=== PATIENT | male | born 1940 | race Caucasian/White ===

== ENCOUNTER 2016-09-29 17:28 | Inpatient (IN) ==
[2016-09-29] MEDS ORDERED: IPRATROPIUM/ALBUTEROL 3 ML AMPUL.NEB NEB ONE ×2 (17:59→18:10)
--- NOTE | 2016-09-29 18:14 | XRay Report ---
CLINICAL INFORMATION: Cough and hypoxia COMPARISON: 11/09/2015 FINDINGS: The heart is mildly enlarged but unchanged. Tortuous thoracic aorta again noted. Sternotomy changes noted. There is stranding airspace disease in the left base which is increased likely atelectasis rather than infiltrate. IMPRESSION: Moderate atelectasis or less likely developing infiltrate posterior left lower lobe Interpreted and Authenticated by: Zac Lehman 09/29/16
[2016-09-29 19:07] LABS: Mean Cell Volume 101.2 fL (80.0-100.0); Mean Corpuscular HGB Conc 32.9 g/dL (31.0-36.0); Mean Corpuscular Hemoglobin 33.3 pg (26.0-34.0); Platelet Count 169 K/mcL (140-440); RBC 4.92 M/mcL (4.50-5.90); Red Cell Distribution Width 13.7 % (11.5-14.5)
--- NOTE | 2016-09-29 19:11 | Emergency Department Note ---
[id number] 4d Cough Time Seen by Provider: 09/29/16 17:49 Source: patient Mode of arrival: ambulatory Limitations: no limitations - History of Present Illness HPI Narrative: 76-year-old male with a history of achiness and weakness and cough. Having some slight shortness of breath. His pulse ox is running at 89% on room air. He first arrived in triage. Patient is afebrile. He was seen 2 days ago, put on amoxicillin for bronchitis but continues to feel weak. Cough is dry. He has smoked fairly heavily in the past one and half packs of cigarettes a day, quit approximately 30 years ago. - Related Data Home Medications Medication Instructions Recorded Confirmed carvedilol 12.5 mg tablet 12.5 mg PO BID 06/30/15 09/29/16 rosuvastatin 20 mg tablet 20 mg PO HS 06/30/15 09/29/16 spironolactone 25 mg tablet 25 mg PO QDAY 06/30/15 09/29/16 Calcium Carbonate/Vitamin D3 1,200 mg PO DAILY 12/02/15 09/29/16 [Calcium 600 + Vit D 400 Tablet] Cholecalciferol (Vitamin D3) [D3 2,000 unit PO DAILY 12/02/15 09/29/16 Dots] Niacin [Niacor] 500 mg PO BID 12/02/15 09/29/16 Ubidecarenone [Coq-10] 300 mg PO Q48H 12/02/15 09/29/16 Tocilizumab [Actemra] 162 mg SQ WEEKLY 08/03/16 09/29/16 prednisone 10 mg tablet 5 mg PO QDAY tab 09/12/16 09/29/16 traMADol [Ultram] 100 mg PO BID 09/29/16 09/29/16 Warfarin [Coumadin] 5 mg PO THFR@1400 09/30/16 09/30/16 Warfarin [Coumadin] 6 mg PO SUMOTUWESA@1400 09/30/16 09/30/16 Previous Rx's Medication Instructions Recorded tiotropium bromide 18 mcg capsule 18 mcg INHALATION QDAY #60 puff 02/05/16 with inhalation device furosemide 40 mg tablet 40 mg PO QDAY #90 tab 02/17/16 buspirone 15 mg tablet 15 mg PO QDAY 90 Days 08/18/16 zolpidem 10 mg tablet 10 mg PO QHS PRN 30 Days 08/18/16 amitriptyline 75 mg tablet 225 mg PO QHS 30 Days 08/24/16 hydrocodone 10 mg-acetaminophen 1 tab PO .Q4-6H PRN #150 tab 09/12/16 325 mg tablet Allergies Allergy/AdvReac Type Severity Reaction Status Date / Time codeine Allergy Unknown Nausea Verified 09/29/16 17:30 Sulfa (Sulfonamide Allergy Unknown Rash Verified 09/29/16 17:30 Antibiotics) Review of Systems All systems ED: reviewed and negative except as stated. Constitutional: Denies: fever Eyes: Denies: eye pain ENT ED: Denies: ear pain Cardiovascular: Denies: chest pain Respiratory: Reports: as per HPI, cough, wheezes. Denies: dyspnea, hemoptysis, stridor Gastrointestinal: Denies: abdominal pain, nausea, vomiting Genitourinary: Denies: urgency, dysuria Musculoskeletal: Denies: back pain Integumentary: Denies: rash Neurological: Denies: headache, weakness Psychiatric: Denies: anxiety, depression Endocrine: Denies: fatigue Hematological/Lymphatic: Denies: easy bleeding Allergic/Immunologic: Denies: facial swelling Past Medical History - Past Medical History Medical history: Reports: arthritis, COPD, coronary artery disease, DVT, hyperlipidemia, hypertension, kidney stones, osteoporosis, renal disease, TIA, other (PMR, RA) Surgical history ED: Reports: cataract, cholecystectomy, coronary bypass (CABG) , orthopedic, other (shoulder, back, wrist), vasectomy, other (ASD repair) Family history: Reports: cancer (mother colon ca 82 father copd 68) - Social History smoking status: Former smoker Drug use: Reports: none Physical Exam - General Limitations: no limitations General appearance: alert - Head Head exam: atraumatic - Eye Eye exam: Present: normal appearance, PERRL - ENT ENT exam: normal exam, normal oropharynx - Neck Neck exam: Present: normal inspection, full ROM, trachea midline - Chest Chest inspection: Present: normal inspection, symmetric chest wall rise - Respiratory Respiratory exam: Present: normal lung sounds bilaterally, wheezes - Cardiovascular Cardiovascular exam: Present: regular rate, normal rhythm. Absent: bradycardia , tachycardia - Abdominal Exam Abdominal exam: Present: soft. Absent: distention Course Vital Signs Temperature 97.1 F L 09/29/16 17:29 Pulse Rate 96 H 09/29/16 17:29 Respiratory Rate 16 09/29/16 17:29 Blood Pressure 133/80 09/29/16 17:29 Pulse Oximetry (%) 89 L 09/29/16 17:29 Temperature 99.1 F 10/02/16 07:00 Pulse Rate 94 H 10/02/16 07:00 Respiratory Rate 22 10/02/16 07:00 Blood Pressure 130/70 10/02/16 07:00 Pulse Oximetry (%) 91 10/02/16 07:00 Medical Decision Making - MDM Narrative Medical decision making narrative: Patient's sats remained normal on O2. His initial admission's sats are running at 89% increasing to 90-93% on 2 L. . Influenza test is positive. S x-ray shows possible left lower lobe pneumonia. White count is elevated at 14,000 lactic is 1.0 - Lab Data Result diagrams: 10/02/16 04:30 10/02/16 04:30 Lab Results 09/29/16 09/29/16 09/29/16 Range/Units 18:15 18:15 18:15 WBC 14.0 H (4.5-11.0) K/mcL RBC 4.92 (4.50-5.90) M/mcL Hgb 16.4 (13.5-16.5) g/dL Hct 49.7 (41.0-55.0) % MCV 101.2 H (80.0-100.0) fL MCH 33.3 (26.0-34.0) pg MCHC 32.9 (31.0-36.0) g/dL RDW 13.7 (11.5-14.5) % Plt Count 169 (140-440) K/mcL MPV 8.6 (7.4-10.4) fL Total Counted 100 Seg Neutrophils % 66 (38-78) % Band Neutrophils % Not Reportable Lymphocytes % 23 (15-49) % Monocytes % (Manual) 10 H (1-9) % Eosinophils % (Manual) 1 (0-7) % Platelet Estimate Normal (NORMAL) RBC Morphology Abnorm A (NORMAL) Macrocytosis 1+ A (NONE SEEN) VBG Lactic Acid 1.0 (0.5-2.2) mmol/L Sodium 138 (133-145) mmol/L Potassium 4.5 (3.3-5.1) mmol/L Chloride 101 (96-108) mmol/L Carbon Dioxide 25 (22-30) mmol/L Anion Gap 12.0 (8-16) BUN 34 H (8-23) mg/dl Creatinine 1.3 H (0.7-1.2) mg/dl GFR Calculation 53 Glucose 99 (70-105) mg/dL Calcium 8.9 (8.6-10.4) mg/dl Total Bilirubin 0.7 (0.0-1.0) mg/dL AST 33 (0-37) U/l ALT 29 (0-40) U/l Alkaline Phosphatase 65 (39-117) U/L Total Protein 6.7 (5.9-8.4) gm/dL Albumin 4.4 (3.2-5.2) gm/dL Globulin 2.3 (2.2-3.7) gm/dL Albumin/Globulin Ratio 1.9 (1.0-2.3) Disposition Clinical Impression: Influenza, Pneumonia, Shortness of Breath Disposition: Xfer As Inpt ([facility]) Condition: Fair
[2016-09-29] MEDS ORDERED: 0.9 % SODIUM CHLORIDE 1,000 ML IV ONE (19:15)
[2016-09-29 19:26] LABS: ALT/SGPT 29 U/l (0-40); Albumin 4.4 gm/dL (3.2-5.2); Albumin/Globulin Ratio 1.9 (1.0-2.3); Alkaline Phosphatase 65 U/L (39-117); Blood Urea Nitrogen 34 mg/dl (8-23)
[2016-09-29] MEDS ORDERED: LEVOFLOXACIN 500 MG/100 ML BAG IV ONE (19:38)
[2016-09-29] MEDS ORDERED: cefTRIAXone 1 GM in DEXTROSE 5% IN WATER 50 ML IV ONE (19:38)
[2016-09-29 19:50] LABS: Eosinophils % (Manual) 1 % (0-7); Lymphocytes % 23 % (15-49); Macrocytosis 1+ (NONE SEEN); Monocytes % (Manual) 10 % (1-9); Platelet Estimate NORMAL (NORMAL); RBC Morphology ABNORM (NORMAL); Segmented Neutrophils % 66 % (38-78)
[2016-09-29] MEDS ORDERED: MAGNESIUM SULFATE 2 GM/50 ML BAG IV PRN (22:17)
[2016-09-29] MEDS ORDERED: guaiFENesin/CODEINE 10 ML UDC PO PRN (22:17)
[2016-09-29] MEDS ORDERED: POTASSIUM CHLORIDE 20 MEQ PACKET PO PRN (22:17)
[2016-09-29] MEDS ORDERED: ACETAMINOPHEN 325 MG TABLET PO PRN (22:17)
[2016-09-29] MEDS ORDERED: ACETAMINOPHEN 1,000 MG/100 ML BOTTLE IV PRN (22:17)
[2016-09-29] MEDS ORDERED: TOCILIZUMAB 162 MG SQ SCH (22:17)
[2016-09-29] MEDS ORDERED: traZODone HCL 50 MG TABLET PO PRN (22:17)
[2016-09-29] MEDS ORDERED: SENNOSIDES/DOCUSATE SODIUM 1 TAB TABLET PO SCH (22:17)
[2016-09-29] MEDS ORDERED: PROBENECID 500 MG TABLET PO SCH (22:17)
[2016-09-29] MEDS ORDERED: LEVOFLOXACIN 750 MG/150 ML BAG IV SCH (22:17)
[2016-09-29] MEDS ORDERED: cefTRIAXone 2 GM in DEXTROSE 5% IN WATER 50 ML IV SCH (22:17)
[2016-09-29] MEDS ORDERED: HYDROcodone/APAP 10/325MG TABLET PO PRN (22:17)
[2016-09-29] MEDS ORDERED: ZOLPIDEM 10 MG TABLET PO PRN (22:17)
[2016-09-29] MEDS ORDERED: ONDANSETRON 4 MG/2 ML VIAL IV PRN (22:17)
[2016-09-29] MEDS: 0.9 % SODIUM CHLORIDE 1,000 ML IV SCH (23:47)
[2016-09-30] MEDS ORDERED: OSELTAMIVIR PHOSPHATE 75 MG CAPSULE PO ONE (00:41)
[2016-09-30] MEDS: DOCUSATE SODIUM 100 MG CAPSULE PO SCH ×2 (00:48→10:47)
[2016-09-30] MEDS: HEPARIN 5,000 UNIT/ML VIAL SQ SCH ×2 (00:49→10:48)
[2016-09-30] MEDS: 0.9 % SODIUM CHLORIDE 10 ML SYRINGE IV SCH ×3 (00:49→15:09)
[2016-09-30] MEDS: OSELTAMIVIR PHOSPHATE 75 MG CAPSULE PO SCH ×3 (00:49→21:53)
[2016-09-30] MEDS ORDERED: cefTRIAXone 1 GM VIAL ONE (00:51)
[2016-09-30] MEDS ORDERED: CARVEDILOL 6.25 MG TABLET ONE (00:51)
[2016-09-30] MEDS ORDERED: LEVOFLOXACIN 500 MG/100 ML BAG IV ONE (00:51)
--- NOTE | 2016-09-30 01:16 | History and Physical Report ---
DATE OF ADMISSION: 09/29/2016 DATE OF ADMISSION: 09/29/2016 REASON FOR ADMISSION: Shortness of breath, weakness, fever, chills. HISTORY OF CHIEF COMPLAINT: Latrell is a 76-year-old who comes to [facility] ER with his , [employer]over[employer], after he has been getting progressively sick with increasing shortness of breath, cough, productive sputum and inability to function. The symptoms started around Monday, Monday and has progressed on Monday. He saw his primary care physician, Axel Simpson, and was prescribed amoxicillin for presumed bronchitis. However, patient over the next 48 hours continued to deteriorate with progressive weakness, yellow productive sputum, shortness of breath, fatigue, lethargy and loss of appetite. With increasing concerns, the patient came to [facility] ER. Initial workup was significant for positive influenza, along with white count 14,000 and chest imaging with left lower lobe infiltrate. The patient received first dose of antibiotics along with Tamiflu. Hospitalist Service was consulted. At the time of examination, the patient is in moderate distress, able to talk in near full sentences, feeling short of breath, very anxious. The patient denies diarrhea, dysuria, joint pain, swelling, rash, drenching sweats. He endorses to fever, myalgia and low moderate headache, but no photophobia, neck stiffness, vision changes, palpitations. He also denies swallowing difficulty, joint swelling other than chronic right shoulder pain. He also carries a history of polymyalgia rheumatica on prednisone and follows up at [facility]. REVIEW OF SYSTEMS: Other than that, a 10-point review of system was performed and negative except the ones discussed above. PAST MEDICAL HISTORY: 1. Coronary artery disease status post CABG 2003. 2. Polymyalgia rheumatica. 3. Chronic kidney disease stage 2. 4. History of CHF. 5. History of gout. 6. Hyperlipidemia. 7. Hypertension. 8. Anticoagulation for history of DVT 9093. 9. Neuropathy. 10. Anxiety disorder. CURRENT MEDICATIONS: Amitriptyline 225. Aripiprazole 10. Buspirone 15. Coreg 12.5 twice a day. Furosemide 40 daily. Niacin 500 mg twice a day. Prednisone 15 daily. Rosuvastatin 20 daily Spironolactone 25. Tocilizumab 162 weekly. Spiriva inhaled daily. Warfarin. Zolpidem 10. ALLERGIES: Known to: 1. SULFA. 2. CODEINE. SURGICAL HISTORY: PFO closure in 2003, cholecystectomy in 2012, CABG in 2003. FAMILY HISTORY: Significant for mother, hypertension, colon cancer. Sister, coronary artery disease, depression. Father, coronary artery disease/emphysema. SOCIAL HISTORY: No history of smoking or alcoholism, lives in [place], to his [employer], occasional alcohol use, no substance abuse. PHYSICAL EXAMINATION: GENERAL: The patient is anxious, short of breath. BMI 27.9. Height 5 feet 4 inches. VITAL SIGNS: Blood pressure 150/96, respiratory rate 20, temperature 97.5, pulse 105, sats 92 percent on 2 liters of oxygen. HEENT: Pupils symmetric. Oral cavity is dry. No ear or nose discharge. Head is normocephalic and atraumatic. NECK: No lymphadenopathy. HEART: S1, S2, tachycardia. Occasional irregular rhythm. Ejection systolic murmur grade 1. Diminished breath sounds at bases. Late inspiratory crackles inferior-posterior chest. Prior sternotomy incision scar. ABDOMEN: Minimally distended, but no ascites fluid, guarding or rebound. LOWER EXTREMITIES: 1+ pitting edema bilateral lower extremities, but no cyanosis or clubbing. No joint swelling except for __ of motion of the right shoulder. SKIN: No suspicious lesions. PSYCH: Alert, cooperative, anxious, but no agitation. NEURO: Nonfocal. LABS AND IMAGING: White count 14,000, hemoglobin 16.4, platelets 159. Lactic acid 1. Sodium 130, potassium 4.5, creatinine 1.3, BUN 34. Procal pending. X-ray chest: Left lower lobe infiltrate. ABG 7.4/37/56 on 1.5 liters oxygen. ASSESSMENT AND PLAN: A 76-year-old admitted with left lower lobe pneumonia/acute influenza. 1. Left lower lobe pneumonia, likely community-acquired. Continue antibiotics on Rocephin, Levaquin. The patient has a history of immunocompromised state given use of Tocilizumab and prednisone for history of polymyalgia rheumatica and hence will be closely monitored. 2. Acute influenza. Start patient on supportive management along with Tamiflu. 3. History of coronary artery disease status post coronary artery bypass grafting. Continue Coreg/statin. 4. Anxiety disorder. Continue Buspar. 5. History of polymyalgia rheumatica. Continue prednisone. 6. Anticoagulation for history of DVT. To be continued on warfarin. INR 1.7. 7. Degenerative joint disease. Continue hydrocodone/acetaminophen. 8. History of reactive airway disease. Continue Tiotropium. PLAN FOR TODAY: 1. Admit as inpatient. 2. Antibiotic coverage. 3. Antifungal, antivirals. 4. Preexisting medical condition management as above. Overall, a high-complexity admit in this patient with immunocompromised state with pneumonia and acute influenza, mandating inpatient hospitalization and a minimum 2-midnight stay. AA:sarkis Job ID: [id number] Doc ID: [id number] Juan Carlos TORRES
[2016-09-30] MEDS ORDERED: ZOLPIDEM 5 MG TABLET ONE (01:22)
[2016-09-30] MEDS ORDERED: HYDROcodone/APAP 10/325MG TABLET PO ONE (04:42)
[2016-09-30 06:30] LABS: Mean Cell Volume 101.7 fL (80.0-100.0); Mean Corpuscular HGB Conc 32.9 g/dL (31.0-36.0); Mean Corpuscular Hemoglobin 33.5 pg (26.0-34.0); Platelet Count 146 K/mcL (140-440); RBC 4.42 M/mcL (4.50-5.90); Red Cell Distribution Width 13.5 % (11.5-14.5)
[2016-09-30 07:33] LABS: ALT/SGPT 22 U/l (0-40); Albumin 3.8 gm/dL (3.2-5.2); Albumin/Globulin Ratio 2.5 (1.0-2.3); Alkaline Phosphatase 56 U/L (39-117); Bilirubin,Direct < 0.2 mg/dL (0.0-0.3); Blood Urea Nitrogen 26 mg/dl (8-23); Gamma Glutamyl Transpeptidase 13 U/L (8-61); Magnesium 1.9 mg/dL (1.6-2.5); Phosphorous 3.2 mg/dL (2.7-4.5); Uric Acid 7.2 mg/dL (2.5-8.0)
[2016-09-30] MEDS: PANTOPRAZOLE 40 MG TABLET PO SCH (07:48)
[2016-09-30] MEDS ORDERED: predniSONE 5 MG TABLET PO SCH (08:00)
[2016-09-30] MEDS: CARVEDILOL 12.5 MG TABLET PO SCH ×2 (08:12→16:35)
[2016-09-30 08:24] LABS: Lymphocytes % 15 % (15-49); Macrocytosis 1+ (NONE SEEN); Monocytes % (Manual) 8 % (1-9); Platelet Estimate NORMAL (NORMAL); RBC Morphology ABNORM (NORMAL); Segmented Neutrophils % 75 % (38-78)
[2016-09-30] MEDS ORDERED: TIOTROPIUM BROMIDE 18 MCG INHALANT INH SCH (09:00)
[2016-09-30] MEDS ORDERED: FUROSEMIDE 40 MG TABLET PO SCH (09:00)
[2016-09-30] MEDS: traMADol 50 MG TABLET PO SCH ×2 (09:42→21:54)
[2016-09-30] MEDS: SPIRONOLACTONE 25 MG TABLET PO SCH (09:43)
[2016-09-30] MEDS: busPIRone 5 MG TABLET PO SCH (09:43)
[2016-09-30] MEDS: MULTIVIT,THER IRON,CA,FA & MIN 1 TABLET PO SCH (09:49)
[2016-09-30] MEDS ORDERED: LIDOCAINE PATCH TOPICAL SCH (10:00)
--- NOTE | 2016-09-30 11:12 | Internal Med Progress Note ---
Medical - PN: Subj Patient information: Note initiated : 09/30/16 at 11:10 am Service Date, if different from initiated Date: [] Patient: Latrell Caro 76 y/o M admitted on 09/29/16 for Cough/Left Lower Lobe Pneumonia, Acute Influenza. Chief Complaint: [] Interval history: 09/29- 76-year-old with history of polymyalgia rheumatica on immunosuppressives/ steroids admitted with acute influenza/pneumonia along with severe sepsis with acute organ dysfunction. admitted as inpatient. On Tamiflu/antibiotic coverage. history of DVT on anticoagulation 09/30- Patient doing better. No overnight events including fever chills or worsening shortness of breath. White count down from 14-12.1. improving acute organ dysfunction with creatinine down from 1.3-1.1. INR 1.7. Continue Coumadin dosing. tolerating diet physical therapy. No family at bedside. - Constitutional Vitals: Vital Signs Temp Pulse Resp BP Pulse Ox 98.4 F 86 20 112/73 92 09/30/16 06:31 09/30/16 06:31 09/30/16 06:31 09/30/16 06:31 09/30/16 09:57 Period Temp Pulse Resp BP Sys/Mccarthy Pulse Ox Last 24 Hr 97.1 F-98.4 F 86-99 18-20 112-145/73-90 89-93 Intake and Output 09/29/16 09/30/16 09/30/16 21:59 05:59 13:59 Intake Total 350 / 350 200 / 200 Output Total 425 / 425 Balance -75 / -75 200 / 200 Weight 162 lb 8 oz Intake & Output: Intake & Output 09/29/16 09/30/16 09/30/16 21:59 05:59 13:59 Intake Total 350 / 350 200 / 200 Output Total 425 / 425 Balance -75 / -75 200 / 200 Weight 162 lb 8 oz Intake: Oral 350 / 350 200 / 200 Output: Void Amount 425 / 425 Other: Meal Breakfast Percent of Meal Consumed 25% Feeding Ability Independent # Voids 1 2 General appearance: cooperative, no acute distress Exam: alert oriented nonlabored breathing Sitting on chair able to talk in full sentences No lymphedema Medical - PN: Obj Da - Labs CBC & Chem 7: 09/30/16 05:37 09/30/16 05:37 Labs: Abnormal Lab Results 09/30/16 09/30/16 09/30/16 10:15 05:37 05:37 WBC 12.1 H RBC 4.42 L MCV 101.7 H RBC Morphology Abnorm A Macrocytosis 1+ A PT 20.9 H INR 1.7 H Carbon Dioxide 21 L BUN 26 H Calcium 8.4 L Lactate Dehydrogenase 341 H Total Protein 5.3 L Globulin 1.5 L Albumin/Globulin Ratio 2.5 H Meds: Medications Acetaminophen (Tylenol) 650 mg PO Q4-6HP PRN PRN Reason: PAIN/FEVER > 101 Acetaminophen/Hydrocodone Bitart ([place] 10/325mg) 1 tab PO Q4-6HP PRN PRN Reason: Pain Albuterol/Ipratropium (Duoneb) 3 ml NEB Q4HP PRN PRN Reason: Shortness Of Breath Amitriptyline HCl (Elavil) 225 mg PO [facility] Buspirone HCl (Buspar) 15 mg PO DAILY [facility] Last Admin: 09/30/16 09:43 Dose: 15 mg Carvedilol (Coreg) 12.5 mg PO BIDCC [facility] Last Admin: 09/30/16 08:12 Dose: 12.5 mg Furosemide (Lasix) 40 mg PO QDAY [facility] Last Admin: 09/30/16 09:42 Dose: 40 mg Guaifenesin/Codeine Phosphate (Robitussin Ac) 10 ml PO Q4HP PRN PRN Reason: Cough Magnesium Sulfate (Magnesium Sulfate) 2 gm in 50 mls @ 50 mls/hr IV UD PRN PRN Reason: MG = or < 1.7 Sodium Chloride (Sodium Chloride 0.9%) 1,000 mls @ 50 mls/hr IV .Q20H [facility] Stop: 10/02/16 10:16 Last Admin: 09/29/16 23:47 Dose: 50 mls/hr Acetaminophen (Ofirmev) 1,000 mg in 100 mls @ 200 mls/hr IV Q6HP PRN PRN Reason: PAIN/FEVER > 101 Ceftriaxone Sodium 2 gm/ (Dextrose) 50 mls @ 100 mls/hr IV DAILY [facility] Levofloxacin (Levaquin) 750 mg in 150 mls @ 100 mls/hr IV Q48H [facility] Iron Carb/Multivit/[place]/Folic Acid (Multivitamin W/Minerals) 1 tab PO DAILY [facility] Last Admin: 09/30/16 09:49 Dose: 1 tab Lidocaine (Lidoderm) 1 patch TOPICAL DAILY@1000 [facility] Last Admin: 09/30/16 10:13 Dose: 1 patch Ondansetron HCl (Zofran) 4 mg IV Q4-6HP PRN PRN Reason: Nausea And Vomiting Oseltamivir Phosphate (Tamiflu) 75 mg PO BID [facility] Last Admin: 09/30/16 09:40 Dose: 75 mg Pantoprazole Sodium (Protonix) 40 mg PO QAMAC [facility] Last Admin: 09/30/16 07:48 Dose: 40 mg Potassium Chloride (Klor-Con) 40 meq PO DAILYP PRN PRN Reason: K+ < 3.5 [facility]) [facility] Simvastatin (Zocor) 40 mg PO HS [facility] Sodium Chloride (Saline Flush) 10 ml IV Q8 [facility] Last Admin: 09/30/16 06:08 Dose: Not Given Spironolactone (Aldactone) 25 mg PO QDAY [facility] Last Admin: 09/30/16 09:43 Dose: 25 mg Tramadol HCl (Ultram) 100 mg PO BID [facility] Last Admin: 09/30/16 09:42 Dose: 100 mg Warfarin Sodium (Coumadin Per Pharmacy) 1 order PO DAILY@1400 [facility] Zolpidem Tartrate (Ambien) 5 mg PO HSP PRN PRN Reason: Insomnia Medical - PN: A/P - Time Spent With Patient Total time spent is greater than 50% in coordination of care (as documented) at patient's floor/unit and/or counseling patient: 25 - 35 minutes (1) Severe sepsis with acute organ dysfunction Status: Acute Assessment and plan: * Severe sepsis acute organ dysfunction- clinically improving. Downtrending leukocytosis improving creatinine. Improved mental status change * acute viral syndrome with influenza pneumonia- continue Tamiflu * superimposed community-acquired bacterial pneumonia- on antibiotic coverage. Critical improvement noted. Continue bronchodilators * History of PMR on steroids. hold Biologics at this time * history of DVT on Coumadin. INR 1.7. * History of CHF on Coreg/spironolactone/statin/Lasix * anxiety disorder and BuSpar * DVT prophylaxis on heparin until INR therapeutic- however patient refusing heparin plan * continue antibiotics/antivirals/supportive management * Pre-existing medical condition management as above * Physical therapy Current Visit: Yes Medical - PN: Qual - Stroke Symptom Onset Unknown: No - VTE Deep Vein Thrombosis/Pulmonary Embolism Present on Admission: No
[2016-09-30] MEDS: HYDROcodone/APAP 10/325MG TABLET PO PRN ×2 (12:16→19:10)
[2016-09-30] MEDS ORDERED: WARFARIN 5 MG TABLET PO ONE (14:00)
[2016-09-30] MEDS ORDERED: WARFARIN 5 MG TABLET ONE (15:02)
[2016-09-30] MEDS: cefTRIAXone 2 GM in DEXTROSE 5% IN WATER 50 ML IV SCH (16:35)
[2016-09-30] MEDS ORDERED: ZOLPIDEM 5 MG TABLET PO PRN (21:00)
[2016-09-30] MEDS ORDERED: ARIPIPRAZOLE 10 MG TABLET PO SCH (21:00)
[2016-09-30] MEDS ORDERED: AMITRIPTYLINE 25 MG TABLET PO SCH (21:00)
[2016-09-30] MEDS ORDERED: SIMVASTATIN 40 MG TABLET PO SCH (21:00)
[2016-09-30] MEDS: 0.9 % SODIUM CHLORIDE 1,000 ML IV SCH (21:51)
[2016-10-01] MEDS: 0.9 % SODIUM CHLORIDE 10 ML SYRINGE IV SCH ×4 (02:03→22:03)
[2016-10-01] MEDS: IPRATROPIUM/ALBUTEROL 3 ML AMPUL.NEB NEB PRN ×3 (03:55→10:45)
[2016-10-01] MEDS ORDERED: FUROSEMIDE 40 MG/4 ML VIAL IV ONE ×2 (04:38→04:44)
--- NOTE | 2016-10-01 06:11 | XRay Report ---
CLINICAL INFORMATION: Hypoxia COMPARISON: 09/29/2016 two view chest x-ray FINDINGS: Mild cardiomegaly is unchanged. Mediastinum and pulmonary vessels are normal. Small vague infiltrate has developed in the right base. Atelectasis in noted in the left base. No definite effusion IMPRESSION: New small vague infiltrate involving the right base. Atelectasis of the left base - stable Chronic rotator cuff tear/impingement left shoulder seen - as before Interpreted and Authenticated by: Zac Lehman 10/01/16
[2016-10-01 06:53] LABS: Mean Cell Volume 102.8 fL (80.0-100.0); Mean Corpuscular HGB Conc 32.5 g/dL (31.0-36.0); Mean Corpuscular Hemoglobin 33.5 pg (26.0-34.0); Platelet Count 181 K/mcL (140-440); RBC 4.88 M/mcL (4.50-5.90); Red Cell Distribution Width 13.4 % (11.5-14.5)
[2016-10-01 07:23] LABS: ALT/SGPT 24 U/l (0-40); Albumin 4.1 gm/dL (3.2-5.2); Albumin/Globulin Ratio 2.2 (1.0-2.3); Alkaline Phosphatase 66 U/L (39-117); Bilirubin,Direct < 0.2 mg/dL (0.0-0.3); Blood Urea Nitrogen 17 mg/dl (8-23); Gamma Glutamyl Transpeptidase 14 U/L (8-61); Phosphorous 3.3 mg/dL (2.7-4.5); Uric Acid 7.3 mg/dL (2.5-8.0)
[2016-10-01 07:57] LABS: Band Neutrophils % 4 % (0-10); Eosinophils % (Manual) 2 % (0-7); Lymphocytes % 11 % (15-49); Macrocytosis 1+ (NONE SEEN); Monocytes % (Manual) 11 % (1-9); Platelet Estimate NORMAL (NORMAL); RBC Morphology ABNORM (NORMAL); Segmented Neutrophils % 71 % (38-78)
[2016-10-01] MEDS ORDERED: predniSONE 5 MG TABLET PO SCH (08:00)
[2016-10-01] MEDS: CARVEDILOL 12.5 MG TABLET PO SCH ×2 (08:43→18:03)
[2016-10-01] MEDS: PANTOPRAZOLE 40 MG TABLET PO SCH (08:43)
[2016-10-01] MEDS: cefTRIAXone 2 GM in DEXTROSE 5% IN WATER 50 ML IV SCH (08:53)
[2016-10-01] MEDS ORDERED: LEVOFLOXACIN 750 MG/150 ML BAG IV SCH (09:00)
[2016-10-01] MEDS: SPIRONOLACTONE 25 MG TABLET PO SCH (09:05)
[2016-10-01] MEDS: busPIRone 5 MG TABLET PO SCH (09:05)
[2016-10-01] MEDS: OSELTAMIVIR PHOSPHATE 75 MG CAPSULE PO SCH ×2 (09:05→20:26)
[2016-10-01] MEDS: traMADol 50 MG TABLET PO SCH ×2 (09:05→20:35)
[2016-10-01] MEDS: MULTIVIT,THER IRON,CA,FA & MIN 1 TABLET PO SCH (09:06)
[2016-10-01] MEDS ORDERED: ACETAMINOPHEN 325 MG TABLET PO PRN (09:56)
[2016-10-01] MEDS ORDERED: ONDANSETRON 4 MG/2 ML VIAL IV PRN (09:56)
[2016-10-01] MEDS ORDERED: POTASSIUM CHLORIDE 20 MEQ PACKET PO PRN (09:56)
[2016-10-01] MEDS ORDERED: guaiFENesin/CODEINE 10 ML UDC PO PRN (09:56)
[2016-10-01] MEDS ORDERED: ACETAMINOPHEN 1,000 MG/100 ML BOTTLE IV PRN (09:56)
[2016-10-01] MEDS ORDERED: MAGNESIUM SULFATE 2 GM/50 ML BAG IV PRN (09:56)
[2016-10-01] MEDS ORDERED: FUROSEMIDE 40 MG/4 ML VIAL IV SCH (10:00)
--- NOTE | 2016-10-01 10:49 | Internal Med Progress Note ---
Medical - PN: Subj Patient information: Note initiated : 10/01/16 at 10:36 am Service Date, if different from initiated Date: [] Patient: Latrell Caor 76 y/o M admitted on 09/29/16 for Cough/Left Lower Lobe Pneumonia, Acute Influenza. Chief Complaint: [] Interval history: 09/29- 76-year-old with history of polymyalgia rheumatica on immunosuppressives/ steroids admitted with acute influenza/pneumonia along with severe sepsis with acute organ dysfunction. admitted as inpatient. On Tamiflu/antibiotic coverage. history of DVT on anticoagulation 09/30- Patient doing better. No overnight events including fever chills or worsening shortness of breath. White count down from 14-12.1. improving acute organ dysfunction with creatinine down from 1.3-1.1. INR 1.7. Continue Coumadin dosing. tolerating diet physical therapy. No family at bedside. 10/01- patient clinically deteriorating with worsening hypoxia respiratory failure. ABG 7.39/38/52 -5 L oxygen. transferred to ICU. high flow nasal oxygen not available at our institution. Start aggressive diuresis/noninvasive ventilation with lung protective strategy. DC IV fluids. Likely early ARDS. repeat chest imaging no evidence of CHF. Family() made aware of poor prognosis. - Constitutional Vitals: Vital Signs Temp Pulse Resp BP Pulse Ox 97.3 F L 115 H 28 H 121/79 88 L 10/01/16 03:49 10/01/16 07:59 10/01/16 07:46 10/01/16 03:49 10/01/16 08:00 Period Temp Pulse Resp BP Sys/Mccarthy Pulse Ox Last 24 Hr 97.3 F-98.2 F 82-115 14-32 116-123/64-79 88-92 Intake and Output 09/30/16 10/01/16 10/01/16 21:59 05:59 13:59 Intake Total 1890 / 1890 395 / 395 Output Total 1200 / 1200 150 / 150 400 / 400 Balance 690 / 690 245 / 245 -400 / -400 Weight 161 lb 8 oz Intake & Output: Intake & Output 09/30/16 10/01/16 10/01/16 21:59 05:59 13:59 Intake Total 1890 / 1890 395 / 395 Output Total 1200 / 1200 150 / 150 400 / 400 Balance 690 / 690 245 / 245 -400 / -400 Weight 161 lb 8 oz Intake: IV 1050 / 1050 345 / 345 Sodium Chloride 0.9% 1, 1000 / 1000 345 / 345 000 ml @ 50 mls/hr IV . Q20H GUILLERMO Rx#:[id number] Dextrose 5% in Water 50 50 / 50 ml @ 100 mls/hr IV DAILY GUILLERMO with Rocephin 2 gm Rx #:[id number] Oral 840 / 840 50 / 50 Output: Void Amount 1200 / 1200 150 / 150 400 / 400 Other: Meal Dinner Percent of Meal Consumed 0% Feeding Ability Independent # Voids 3 General appearance: moderate distress Exam: Respiratory distress on 9 L oxygen Anxious no Lymphedema Nondistended abdomen Medical - PN: Obj Da - Labs CBC & Chem 7: 10/01/16 05:40 10/01/16 05:40 Labs: Abnormal Lab Results 10/01/16 10/01/16 10/01/16 05:40 05:40 05:40 WBC 12.3 H RBC MCV 102.8 H Lymphocytes % 11 L Monocytes % (Manual) 11 H RBC Morphology Abnorm A Macrocytosis 1+ A PT 18.5 H INR 1.5 H Carbon Dioxide BUN Glucose 112 H Calcium 8.4 L Lactate Dehydrogenase 370 H Total Protein Globulin 1.9 L Albumin/Globulin Ratio 09/30/16 09/30/16 09/30/16 10:15 05:37 05:37 WBC 12.1 H RBC 4.42 L MCV 101.7 H Lymphocytes % Monocytes % (Manual) RBC Morphology Abnorm A Macrocytosis 1+ A PT 20.9 H INR 1.7 H Carbon Dioxide 21 L BUN 26 H Glucose Calcium 8.4 L Lactate Dehydrogenase 341 H Total Protein 5.3 L Globulin 1.5 L Albumin/Globulin Ratio 2.5 H Meds: Medications Acetaminophen (Tylenol) 650 mg PO Q4-6HP PRN PRN Reason: PAIN/FEVER > 101 Acetaminophen/Hydrocodone Bitart ([place] 10/325mg) 1 tab PO Q4-6HP PRN PRN Reason: Pain Albuterol/Ipratropium (Duoneb) 3 ml NEB Q4HP PRN PRN Reason: Shortness Of Breath Amitriptyline HCl (Elavil) 225 mg PO HS [facility]LLER[facility] Buspirone HCl (Buspar) 15 mg PO DAILY [facility] Carvedilol (Coreg) 12.5 mg PO BIDCC [facility]LLER[facility] Furosemide (Lasix) 40 mg IV BIDD GUILLERMO Guaifenesin/Codeine Phosphate (Robitussin Ac) 10 ml PO Q4HP PRN PRN Reason: Cough Levofloxacin (Levaquin) 750 mg in 150 mls @ 100 mls/hr IV Q48H [facility]LLERMO Magnesium Sulfate (Magnesium Sulfate) 2 gm in 50 mls @ 50 mls/hr IV UD PRN PRN Reason: MG = or < 1.7 Acetaminophen (Ofirmev) 1,000 mg in 100 mls @ 200 mls/hr IV Q6HP PRN PRN Reason: PAIN/FEVER > 101 Ceftriaxone Sodium 2 gm/ (Dextrose) 50 mls @ 100 mls/hr IV DAILY GUILLER[facility] Iron Carb/Multivit/[place]/Folic Acid (Multivitamin W/Minerals) 1 tab PO DAILY [facility] Lidocaine (Lidoderm) 1 patch TOPICAL DAILY@1000 [facility] Aripiprazole 10 Mg (Tablet) 1 dose PO HS [facility]ER[facility] Ondansetron HCl (Zofran) 4 mg IV Q4-6HP PRN PRN Reason: Nausea And Vomiting Oseltamivir Phosphate (Tamiflu) 75 mg PO BID [facility] Pantoprazole Sodium (Protonix) 40 mg PO QAMAC [facility] Potassium Chloride (Klor-Con) 40 meq PO DAILYP PRN PRN Reason: K+ < 3.5 Prednisone (Prednisone) 5 mg PO QAMCC [facility]LLER[facility] Simvastatin (Zocor) 40 mg PO HS [facility] Sodium Chloride (Saline Flush) 10 ml IV Q8 [facility]ER[facility] Spironolactone (Aldactone) 25 mg PO QDAY [facility] Tramadol HCl (Ultram) 100 mg PO BID [facility] Warfarin Sodium (Coumadin) 8 mg PO ONCE@1400 ONE Stop: 10/01/16 14:01 Zolpidem Tartrate (Ambien) 5 mg PO HSP PRN PRN Reason: Insomnia Medical - PN: A/P - Time Spent With Patient Total time spent is greater than 50% in coordination of care (as documented) at patient's floor/unit and/or counseling patient: 25 - 35 minutes (1) Severe sepsis with acute organ dysfunction Status: Acute Assessment and plan: * acute hypoxic respiratory failure secondary influenza pneumonia and acute lung injury/early ARDS. Transfer to ICU. Start noninvasive ventilation. Aggressive diuresis. Continue Tamiflu. High risk mortality. family aware * influenza pneumonia- on Tamiflu. Continue supportive measures * Severe sepsis acute organ dysfunction- leukocytosis at 12,000 * History of PMR on steroids. Biologics on hold at this time * history of DVT on Coumadin. INR 1.5. continue Coumadin dosing. Patient refusing heparin for DVT prophylaxis * History of CHF on Coreg/spironolactone/statin/Lasix. no interval change and imaging to suggest acute decompensation * anxiety disorder and BuSpar * DVT prophylaxis on heparin until INR therapeutic- however patient refusing heparin plan * transferred to ICU * noninvasive ventilation/diuretics * serial ABGs * Pre-existing medical condition management as above * high risk mortality based on [place] score 16 Critical care time spent over 35 minutes on labs and imaging blood gas and treatment plan formation along with noninvasive ventilation Current Visit: Yes (2) Acute respiratory failure with hypoxia Status: Acute Current Visit: Yes Medical - PN: Qual - Stroke Symptom Onset Unknown: No - VTE Deep Vein Thrombosis/Pulmonary Embolism Present on Admission: No
[2016-10-01] MEDS: LEVOFLOXACIN 750 MG/150 ML BAG IV SCH (10:52)
[2016-10-01] MEDS: FUROSEMIDE 40 MG/4 ML VIAL IV SCH ×2 (10:54→17:09)
[2016-10-01] MEDS: HYDROcodone/APAP 10/325MG TABLET PO PRN (11:05)
[2016-10-01] MEDS: LIDOCAINE PATCH TOPICAL SCH (13:40)
[2016-10-01] MEDS ORDERED: WARFARIN 4 MG TABLET PO ONE ×2 (14:00)
[2016-10-01] MEDS: ZOLPIDEM 5 MG TABLET PO PRN (20:25)
[2016-10-01] MEDS: AMITRIPTYLINE 25 MG TABLET PO SCH (20:26)
[2016-10-01] MEDS: SIMVASTATIN 40 MG TABLET PO SCH (20:26)
[2016-10-01] MEDS: ARIPIPRAZOLE 10 MG TABLET PO SCH (20:26)
[2016-10-02] MEDS: 0.9 % SODIUM CHLORIDE 10 ML SYRINGE IV SCH ×2 (05:29→18:15)
[2016-10-02 06:47] LABS: Mean Cell Volume 98.8 fL (80.0-100.0); Mean Corpuscular HGB Conc 35.3 g/dL (31.0-36.0); Mean Corpuscular Hemoglobin 34.9 pg (26.0-34.0); Platelet Count 187 K/mcL (140-440); RBC 4.97 M/mcL (4.50-5.90); Red Cell Distribution Width 12.8 % (11.5-14.5)
[2016-10-02 07:20] LABS: ALT/SGPT 22 U/l (0-40); Alkaline Phosphatase 71 U/L (39-117); Bilirubin,Direct < 0.2 mg/dL (0.0-0.3); Blood Urea Nitrogen 23 mg/dl (8-23); Gamma Glutamyl Transpeptidase 14 U/L (8-61); Magnesium 2.2 mg/dL (1.6-2.5); Phosphorous 3.7 mg/dL (2.7-4.5); Uric Acid 8.7 mg/dL (2.5-8.0)
[2016-10-02] MEDS: PANTOPRAZOLE 40 MG TABLET PO SCH (07:49)
[2016-10-02 08:19] LABS: Band Neutrophils % 2 % (0-10); Eosinophils % (Manual) 3 % (0-7); Lymphocytes % 7 % (15-49); Monocytes % (Manual) 7 % (1-9); Platelet Estimate NORMAL (NORMAL); RBC Morphology NORMAL (NORMAL); Segmented Neutrophils % 81 % (38-78)
[2016-10-02] MEDS ORDERED: FUROSEMIDE 40 MG TABLET PO SCH (09:00)
[2016-10-02] MEDS ORDERED: cefTRIAXone 2 GM in DEXTROSE 5% IN WATER 50 ML IV SCH (09:00)
[2016-10-02] MEDS: OSELTAMIVIR PHOSPHATE 75 MG CAPSULE PO SCH ×2 (09:42→20:54)
[2016-10-02] MEDS: predniSONE 5 MG TABLET PO SCH (09:42)
[2016-10-02] MEDS: busPIRone 5 MG TABLET PO SCH (09:42)
[2016-10-02] MEDS: traMADol 50 MG TABLET PO SCH ×2 (09:43→20:48)
[2016-10-02] MEDS: CARVEDILOL 12.5 MG TABLET PO SCH ×2 (09:43→18:17)
[2016-10-02] MEDS: FUROSEMIDE 40 MG/4 ML VIAL IV SCH (09:43)
[2016-10-02] MEDS: MULTIVIT,THER IRON,CA,FA & MIN 1 TABLET PO SCH (09:43)
[2016-10-02] MEDS: SPIRONOLACTONE 25 MG TABLET PO SCH (09:43)
[2016-10-02] MEDS ORDERED: ENOXAPARIN 80 MG/0.8 ML SYRINGE SQ ONE (10:59)
--- NOTE | 2016-10-02 10:59 | Internal Med Progress Note ---
Medical - PN: Subj Patient information: Note initiated : 10/02/16 at 10:55 am Service Date, if different from initiated Date: [] Patient: Latrell Caro 76 y/o M admitted on 09/29/16 for Cough/Left Lower Lobe Pneumonia, Acute Influenza. Chief Complaint: [] Interval history: 09/29- 76-year-old with history of polymyalgia rheumatica on immunosuppressives/ steroids admitted with acute influenza/pneumonia along with severe sepsis with acute organ dysfunction. admitted as inpatient. On Tamiflu/antibiotic coverage. history of DVT on anticoagulation 09/30- Patient doing better. No overnight events including fever chills or worsening shortness of breath. White count down from 14-12.1. improving acute organ dysfunction with creatinine down from 1.3-1.1. INR 1.7. Continue Coumadin dosing. tolerating diet physical therapy. No family at bedside. 10/01- patient clinically deteriorating with worsening hypoxia respiratory failure. ABG 7.39/38/52 -5 L oxygen. transferred to ICU. high flow nasal oxygen not available at our institution. Start aggressive diuresis/noninvasive ventilation with lung protective strategy. DC IV fluids. Likely early ARDS. repeat chest imaging no evidence of CHF. Family() made aware of poor prognosis. 10/02-patient on [address] chest and left lower lobe infiltrate. White count at 23,000. pro-calcitonin 0.05 highly suggestive against a bacterial process. Early ARDS secondary to influenza pneumonia. Continue Tamiflu. Continue noninvasive ventilation as needed. Continue diuresis to improve lung compliance. Continue full dose anticoagulation in light of subtherapeutic INR - Constitutional Vitals: Vital Signs Temp Pulse Resp BP Pulse Ox 99.1 F 105 H 22 123/64 90 10/02/16 07:00 10/02/16 08:00 10/02/16 08:00 10/02/16 08:00 10/02/16 08:00 Period Temp Pulse Resp BP Sys/Mccarthy Pulse Ox Last 24 Hr 97.5 F-99.1 F 92-105 13-25 86-135/54-81 50-97 Intake and Output 10/01/16 10/02/16 10/02/16 21:59 05:59 13:59 Intake Total 150 / 150 50 / 50 Output Total 275 / 275 850 / 850 Balance -275 / -275 -700 / -700 50 / 50 Weight 159 lb 9.6 oz Intake & Output: Intake & Output 10/01/16 10/02/16 10/02/16 21:59 05:59 13:59 Intake Total 150 / 150 50 / 50 Output Total 275 / 275 850 / 850 Balance -275 / -275 -700 / -700 50 / 50 Weight 159 lb 9.6 oz Intake: IV 50 / 50 Dextrose 5% in Water 50 50 / 50 ml @ 100 mls/hr IV DAILY GUILLERMO with Rocephin 2 gm Rx #:[id number] Oral 150 / 150 Output: Urine Catheter Amount 275 / 275 850 / 850 Other: # Bowel Movements 0 General appearance: moderate distress Exam: SOB Alert oriented On 5 L oxygen nondistended abdomen No lymphedema . Anxiety Medical - PN: Obj Da - Labs CBC & Chem 7: 10/02/16 04:30 10/02/16 04:30 Labs: Abnormal Lab Results 10/02/16 10/02/16 10/02/16 04:30 04:30 04:30 WBC 23.4 H RBC Hgb 17.3 H MCV MCH 34.9 H Seg Neutrophils % 81 H Lymphocytes % 7 L Monocytes % (Manual) RBC Morphology Macrocytosis PT 19.3 H INR 1.6 H Carbon Dioxide BUN Glucose 127 H Uric Acid 8.7 H Calcium Lactate Dehydrogenase 373 H Total Protein Globulin 2.0 L Albumin/Globulin Ratio 10/01/16 10/01/16 10/01/16 05:40 05:40 05:40 WBC 12.3 H RBC Hgb MCV 102.8 H MCH Seg Neutrophils % Lymphocytes % 11 L Monocytes % (Manual) 11 H RBC Morphology Abnorm A Macrocytosis 1+ A PT 18.5 H INR 1.5 H Carbon Dioxide BUN Glucose 112 H Uric Acid Calcium 8.4 L Lactate Dehydrogenase 370 H Total Protein Globulin 1.9 L Albumin/Globulin Ratio 09/30/16 09/30/16 09/30/16 10:15 05:37 05:37 WBC 12.1 H RBC 4.42 L Hgb MCV 101.7 H MCH Seg Neutrophils % Lymphocytes % Monocytes % (Manual) RBC Morphology Abnorm A Macrocytosis 1+ A PT 20.9 H INR 1.7 H Carbon Dioxide 21 L BUN 26 H Glucose Uric Acid Calcium 8.4 L Lactate Dehydrogenase 341 H Total Protein 5.3 L Globulin 1.5 L Albumin/Globulin Ratio 2.5 H Meds: Medications Acetaminophen (Tylenol) 650 mg PO Q4-6HP PRN PRN Reason: PAIN/FEVER > 101 Acetaminophen/Hydrocodone Bitart ([place] 10/325mg) 1 tab PO Q4-6HP PRN PRN Reason: Pain Last Admin: 10/01/16 11:05 Dose: 1 tab Albuterol/Ipratropium (Duoneb) 3 ml NEB Q4HP PRN PRN Reason: Shortness Of Breath Last Admin: 10/01/16 10:45 Dose: 3 ml Amitriptyline HCl (Elavil) 225 mg PO HS [facility] Last Admin: 10/01/16 20:26 Dose: 225 mg Buspirone HCl (Buspar) 15 mg PO DAILY [facility] Last Admin: 10/02/16 09:42 Dose: 15 mg Carvedilol (Coreg) 12.5 mg PO BIDCC [facility] Last Admin: 10/02/16 09:43 Dose: 12.5 mg Furosemide (Lasix) 40 mg IV BIDD [facility] Last Admin: 10/02/16 09:43 Dose: 40 mg Guaifenesin/Codeine Phosphate (Robitussin Ac) 10 ml PO Q4HP PRN PRN Reason: Cough Levofloxacin (Levaquin) 750 mg in 150 mls @ 100 mls/hr IV Q48H [facility] Last Infusion: 10/01/16 13:41 Dose: Infused Magnesium Sulfate (Magnesium Sulfate) 2 gm in 50 mls @ 50 mls/hr IV UD PRN PRN Reason: MG = or < 1.7 Acetaminophen (Ofirmev) 1,000 mg in 100 mls @ 200 mls/hr IV Q6HP PRN PRN Reason: PAIN/FEVER > 101 Ceftriaxone Sodium 2 gm/ (Dextrose) 50 mls @ 100 mls/hr IV DAILY [facility] Last Infusion: 10/02/16 10:20 Dose: Infused Iron Carb/Multivit/[place]/Folic Acid (Multivitamin W/Minerals) 1 tab PO DAILY [facility] Last Admin: 10/02/16 09:43 Dose: 1 tab Lidocaine (Lidoderm) 1 patch TOPICAL DAILY@1000 [facility] Last Admin: 10/01/16 13:40 Dose: Not Given Aripiprazole 10 Mg (Tablet) 1 dose PO [facility] Last Admin: 10/01/16 20:26 Dose: 1 dose Ondansetron HCl (Zofran) 4 mg IV Q4-6HP PRN PRN Reason: Nausea And Vomiting Oseltamivir Phosphate (Tamiflu) 75 mg PO BID [facility] Last Admin: 10/02/16 09:42 Dose: 75 mg Pantoprazole Sodium (Protonix) 40 mg PO QAMAC [facility] Last Admin: 10/02/16 07:49 Dose: 40 mg Potassium Chloride (Klor-Con) 40 meq PO DAILYP PRN PRN Reason: K+ < 3.5 [facility]) [facility] Last Admin: 10/02/16 09:42 Dose: 5 mg Simvastatin (Zocor) 40 mg PO HS [facility] Last Admin: 10/01/16 20:26 Dose: 40 mg Sodium Chloride (Saline Flush) 10 ml IV Q8 [facility] Last Admin: 10/02/16 05:29 Dose: 10 ml Spironolactone (Aldactone) 25 mg PO QDAY [facility] Last Admin: 10/02/16 09:43 Dose: 25 mg Tramadol HCl (Ultram) 100 mg PO BID [facility] Last Admin: 10/02/16 09:43 Dose: 100 mg Warfarin Sodium (Coumadin) 8 mg PO ONCE@1400 ONE Stop: 10/02/16 14:01 Zolpidem Tartrate (Ambien) 5 mg PO HSP PRN PRN Reason: Insomnia Last Admin: 10/01/16 20:25 Dose: 5 mg Medical - PN: A/P - Time Spent With Patient Total time spent is greater than 50% in coordination of care (as documented) at patient's floor/unit and/or counseling patient: (1) Severe sepsis with acute organ dysfunction Status: Acute Assessment and plan: * Acute hypoxic respiratory failure secondary influenza pneumonia and acute lung injury. continue noninvasive ventilation as needed. on Tamiflu. * influenza pneumonia- on Tamiflu. Continue supportive measures * Severe sepsis acute organ dysfunction- leukocytosis at 23,000 * History of PMR on steroids. Biologics on hold at this time * history of DVT on Coumadin. INR 1.5. full dose Lovenox * History of CHF on Coreg/spironolactone/statin/Lasix. no interval change and imaging to suggest acute decompensation * anxiety disorder and BuSpar * DVT prophylaxis on heparin until INR therapeutic- however patient refusing heparin plan * sepsis management per guidelines * Full dose anticoagulation * extend antibiotic coverage with Zosyn * noninvasive ventilation/diuretics * Pre-existing medical condition management as above * high risk mortality based on [place] score 16 Critical care time spent over 35 minutes Current Visit: Yes (2) Acute respiratory failure with hypoxia Status: Acute Current Visit: Yes Medical - PN: Qual - Stroke Symptom Onset Unknown: No - VTE Deep Vein Thrombosis/Pulmonary Embolism Present on Admission: No
[2016-10-02] MEDS: LIDOCAINE PATCH TOPICAL SCH (11:00)
[2016-10-02] MEDS: IPRATROPIUM/ALBUTEROL 3 ML AMPUL.NEB NEB PRN (11:30)
[2016-10-02] MEDS: PIPERACILLIN SODIUM/TAZOBACTAM 3.375 GM in DEXTROSE 5% IN WATER 50 ML IV SCH ×2 (12:39→18:17)
[2016-10-02] MEDS ORDERED: WARFARIN 4 MG TABLET PO ONE (14:00)
--- NOTE | 2016-10-02 20:36 | Cat Scan Report ---
CLINICAL INFORMATION: Elevated white blood cell count COMPARISON: 12/09/2014 TECHNIQUE: 2.5 mm axial slices were obtained from the lung apices through the bases without intravenous contrast. Sagittal, coronal and axial reformatted images were processed and reviewed at bone, lung and soft tissue windows. 7 mm axial MIP images were also reconstructed. FINDINGS: Pulmonary parenchymal windows show moderate centrilobular emphysema changes featuring elevated lung volumes, wall thickening of the bronchi and multiple bullae - predominantly upper lobes. Moderate size region of consolidated infiltrate/atelectasis are noted in the medial, posterior and lateral basilar segments of both lower lobes which are new from the previous study. Small bilateral pleural effusions are noted as well. Mediastinal windows show the heart to be mildly enlarged and there are sternotomy/CABG changes. The noncontrasted thoracic aorta and pulmonary arteries are normal. There is no adenopathy mediastinal hilar or axillary region. 2.3 cm nodule in the right thyroid lobe is stable since the study nearly 2 years ago and presumably benign. Bone windows show severe T11 compression fracture treated with kyphoplasty which show slight additional loss of height. No other osseous abnormality. Images should the upper abdomen show no significant abnormality IMPRESSION: 1. Moderate regions of consolidated atelectasis/infiltrate involving the medial, posterior and lateral basilar segments of both lower lobes with small associated effusions 2. Moderate centrilobular emphysema changes 3. 2.3 cm right thyroid nodule stable for nearly 2 years and presently benign Interpreted and Authenticated by: Zac Lehman 10/02/16
[2016-10-02] MEDS: ARIPIPRAZOLE 10 MG TABLET PO SCH (20:50)
[2016-10-02] MEDS: AMITRIPTYLINE 25 MG TABLET PO SCH (20:50)
[2016-10-02] MEDS: ENOXAPARIN 80 MG/0.8 ML SYRINGE SQ SCH (20:50)
[2016-10-02] MEDS ORDERED: BISACODYL 10 MG SUPP.RECT PR PRN (20:51)
[2016-10-02] MEDS ORDERED: MAGNESIUM HYDROXIDE 30 ML ORAL.SUSP PO PRN (20:51)
[2016-10-02] MEDS: ZOLPIDEM 5 MG TABLET PO PRN (20:54)
[2016-10-02] MEDS: SIMVASTATIN 40 MG TABLET PO SCH (20:54)
[2016-10-02] MEDS: DOCUSATE SODIUM 100 MG CAPSULE PO SCH (21:34)
[2016-10-03] MEDS: PIPERACILLIN SODIUM/TAZOBACTAM 3.375 GM in DEXTROSE 5% IN WATER 50 ML IV SCH ×5 (00:21→23:15)
[2016-10-03] MEDS: 0.9 % SODIUM CHLORIDE 10 ML SYRINGE IV SCH ×5 (00:26→23:15)
[2016-10-03] MEDS ORDERED: BISACODYL 10 MG SUPP.RECT PR ONE (02:40)
[2016-10-03] MEDS: IPRATROPIUM/ALBUTEROL 3 ML AMPUL.NEB NEB PRN (03:04)
[2016-10-03 06:52] LABS: ALT/SGPT 19 U/l (0-40); Albumin 3.7 gm/dL (3.2-5.2); Albumin/Globulin Ratio 2.1 (1.0-2.3); Alkaline Phosphatase 66 U/L (39-117); Bilirubin,Direct 0.2 mg/dL (0.0-0.3); Blood Urea Nitrogen 33 mg/dl (8-23); Gamma Glutamyl Transpeptidase 11 U/L (8-61); Magnesium 2.2 mg/dL (1.6-2.5); Uric Acid 8.6 mg/dL (2.5-8.0)
[2016-10-03] MEDS: CARVEDILOL 12.5 MG TABLET PO SCH ×2 (07:23→16:54)
[2016-10-03] MEDS: PANTOPRAZOLE 40 MG TABLET PO SCH (07:23)
[2016-10-03 07:43] LABS: Mean Cell Volume 97.5 fL (80.0-100.0); Mean Corpuscular HGB Conc 35.4 g/dL (31.0-36.0); Mean Corpuscular Hemoglobin 34.5 pg (26.0-34.0); Platelet Count 170 K/mcL (140-440); RBC 4.59 M/mcL (4.50-5.90); Red Cell Distribution Width 12.7 % (11.5-14.5)
[2016-10-03 07:45] LABS: Band Neutrophils % 1 % (0-10); Eosinophils % (Manual) 1 % (0-7); Lymphocytes % 14 % (15-49); Monocytes % (Manual) 9 % (1-9); Platelet Estimate NORMAL (NORMAL); RBC Morphology NORMAL (NORMAL); Segmented Neutrophils % 74 % (38-78)
[2016-10-03] MEDS: LEVOFLOXACIN 750 MG/150 ML BAG IV SCH (09:15)
[2016-10-03] MEDS: DOCUSATE SODIUM 100 MG CAPSULE PO SCH ×2 (09:27→21:11)
[2016-10-03] MEDS: predniSONE 5 MG TABLET PO SCH (09:27)
[2016-10-03] MEDS: busPIRone 5 MG TABLET PO SCH (09:27)
[2016-10-03] MEDS: OSELTAMIVIR PHOSPHATE 75 MG CAPSULE PO SCH ×2 (09:27→21:11)
[2016-10-03] MEDS: ENOXAPARIN 80 MG/0.8 ML SYRINGE SQ SCH ×2 (09:28→21:10)
[2016-10-03] MEDS: MULTIVIT,THER IRON,CA,FA & MIN 1 TABLET PO SCH (09:28)
[2016-10-03] MEDS: FUROSEMIDE 40 MG/4 ML VIAL IV SCH (09:28)
[2016-10-03] MEDS: traMADol 50 MG TABLET PO SCH ×2 (09:28→21:11)
[2016-10-03] MEDS: SPIRONOLACTONE 25 MG TABLET PO SCH (09:28)
--- NOTE | 2016-10-03 10:53 | Internal Med Progress Note ---
Medical - PN: Subj Patient information: Note initiated : 10/03/16 at 10:49 am Service Date, if different from initiated Date: [] Patient: Latrell Caro 76 y/o M admitted on 09/29/16 for Cough/Left Lower Lobe Pneumonia, Acute Influenza. Chief Complaint: [] Interval history: 09/29- 76-year-old with history of polymyalgia rheumatica on immunosuppressives/ steroids admitted with acute influenza/pneumonia along with severe sepsis with acute organ dysfunction. admitted as inpatient. On Tamiflu/antibiotic coverage. history of DVT on anticoagulation 09/30- Patient doing better. No overnight events including fever chills or worsening shortness of breath. White count down from 14-12.1. improving acute organ dysfunction with creatinine down from 1.3-1.1. INR 1.7. Continue Coumadin dosing. tolerating diet physical therapy. No family at bedside. 10/01- patient clinically deteriorating with worsening hypoxia respiratory failure. ABG 7.39/38/52 -5 L oxygen. transferred to ICU. high flow nasal oxygen not available at our institution. Start aggressive diuresis/noninvasive ventilation with lung protective strategy. DC IV fluids. Likely early ARDS. repeat chest imaging no evidence of CHF. Family() made aware of poor prognosis. 10/02-patient on [address] chest and left lower lobe infiltrate. White count at 23,000. pro-calcitonin 0.05 highly suggestive against a bacterial process. Early ARDS secondary to influenza pneumonia. Continue Tamiflu. Continue noninvasive ventilation as needed. Continue diuresis to improve lung compliance. Continue full dose anticoagulation in light of subtherapeutic INR 10/03- atient doing remarkably better. On 4 L oxygen. Diuresing well. Off noninvasive ventilation. Able to talk in full sentences. White count down from 23,000-18,000. Continue antibiotic coverage. No family at bedside. overall significant clinical improvement. Possible transfer to telemetry if patientremains stable throughout the day. No overnight fever chills CP/ worsening SOB or concerns expressed by staff .no telemetry events. - Constitutional Vitals: Vital Signs Temp Pulse Resp BP Pulse Ox 98.8 F 92 H 24 115/64 94 10/03/16 08:00 10/03/16 10:00 10/03/16 10:00 10/03/16 10:00 10/03/16 10:00 Period Temp Pulse Resp BP Sys/Mccarthy Pulse Ox Last 24 Hr 98.1 F-98.8 F 79-107 16-30 90-128/64-113 82-98 Intake and Output 10/02/16 10/03/16 10/03/16 21:59 05:59 13:59 Intake Total 50 / 50 350 / 350 50 / 50 Output Total 750 / 750 550 / 550 Balance -700 / -700 -200 / -200 50 / 50 Weight 159 lb Intake & Output: Intake & Output 10/02/16 10/03/16 10/03/16 21:59 05:59 13:59 Intake Total 50 / 50 350 / 350 50 / 50 Output Total 750 / 750 550 / 550 Balance -700 / -700 -200 / -200 50 / 50 Weight 159 lb Intake: IV 50 / 50 50 / 50 50 / 50 Dextrose 5% in Water 50 50 / 50 50 / 50 50 / 50 ml @ 100 mls/hr IV Q6 GUILLERMO with Zosyn 3.375 gm Rx#: [id number] Oral 300 / 300 Output: Urine Catheter Amount 750 / 750 550 / 550 Other: Meal Lunch Percent of Meal Consumed 100% # Bowel Movements 1 General appearance: no acute distress Exam: alert oriented nonlabored breathing nondistended abdomen No telemetry events Foleys draining clear urine Medical - PN: Obj Da - Labs CBC & Chem 7: 10/03/16 04:14 10/03/16 04:14 Labs: Abnormal Lab Results 10/03/16 10/03/16 10/03/16 04:14 04:14 04:14 WBC 18.5 H Hgb MCV MCH 34.5 H Seg Neutrophils % Lymphocytes % 14 L Monocytes % (Manual) RBC Morphology Macrocytosis PT 22.8 H INR 1.9 H Anion Gap 18.0 H BUN 33 H Creatinine 1.4 H Glucose 109 H Uric Acid 8.6 H Calcium 8.0 L Lactate Dehydrogenase 374 H Total Protein 5.5 L Globulin 1.8 L 10/02/16 10/02/16 10/02/16 04:30 04:30 04:30 WBC 23.4 H Hgb 17.3 H MCV MCH 34.9 H Seg Neutrophils % 81 H Lymphocytes % 7 L Monocytes % (Manual) RBC Morphology Macrocytosis PT 19.3 H INR 1.6 H Anion Gap BUN Creatinine Glucose 127 H Uric Acid 8.7 H Calcium Lactate Dehydrogenase 373 H Total Protein Globulin 2.0 L 10/01/16 10/01/16 10/01/16 05:40 05:40 05:40 WBC 12.3 H Hgb MCV 102.8 H MCH Seg Neutrophils % Lymphocytes % 11 L Monocytes % (Manual) 11 H RBC Morphology Abnorm A Macrocytosis 1+ A PT 18.5 H INR 1.5 H Anion Gap BUN Creatinine Glucose 112 H Uric Acid Calcium 8.4 L Lactate Dehydrogenase 370 H Total Protein Globulin 1.9 L 09/30/16 10:15 WBC Hgb MCV MCH Seg Neutrophils % Lymphocytes % Monocytes % (Manual) RBC Morphology Macrocytosis PT 20.9 H INR 1.7 H Anion Gap BUN Creatinine Glucose Uric Acid Calcium Lactate Dehydrogenase Total Protein Globulin Meds: Medications Acetaminophen (Tylenol) 650 mg PO Q4-6HP PRN PRN Reason: PAIN/FEVER > 101 Acetaminophen/Hydrocodone Bitart ([place] 10/325mg) 1 tab PO Q4-6HP PRN PRN Reason: Pain Last Admin: 10/01/16 11:05 Dose: 1 tab Albuterol/Ipratropium (Duoneb) 3 ml NEB Q4HP PRN PRN Reason: Shortness Of Breath Last Admin: 10/03/16 03:04 Dose: 3 ml Amitriptyline HCl (Elavil) 225 mg PO [facility] Last Admin: 10/02/16 20:50 Dose: 225 mg Bisacodyl (Dulcolax) 10 mg [place] Q2-3DAYS PRN PRN Reason: Constipation Buspirone HCl (Buspar) 15 mg PO DAILY [facility] Last Admin: 10/03/16 09:27 Dose: 15 mg [facility] Last Admin: 10/03/16 07:23 Dose: 12.5 mg Docusate Sodium (Colace) 100 mg PO BID [facility] Last Admin: 10/03/16 09:27 Dose: 100 mg Enoxaparin Sodium (Lovenox) 80 mg SQ BID [facility] Last Admin: 10/03/16 09:28 Dose: 80 mg Furosemide (Lasix) 40 mg IV DAILY [facility] Last Admin: 10/03/16 09:28 Dose: 40 mg Guaifenesin/Codeine Phosphate (Robitussin Ac) 10 ml PO Q4HP PRN PRN Reason: Cough Levofloxacin (Levaquin) 750 mg in 150 mls @ 100 mls/hr IV Q48H [facility] Last Infusion: 10/01/16 13:41 Dose: Infused Magnesium Sulfate (Magnesium Sulfate) 2 gm in 50 mls @ 50 mls/hr IV UD PRN PRN Reason: MG = or < 1.7 Acetaminophen (Ofirmev) 1,000 mg in 100 mls @ 200 mls/hr IV Q6HP PRN PRN Reason: PAIN/FEVER > 101 Piperacillin Sod/Tazobactam (Sod 3.375 gm/ Dextrose) 50 mls @ 100 mls/hr IV Q6 [facility] Last Infusion: 10/03/16 09:29 Dose: Infused Iron Carb/Multivit/[employer]/Folic Acid (Multivitamin W/Minerals) 1 tab PO DAILY [facility] Last Admin: 10/03/16 09:28 Dose: 1 tab Lidocaine (Lidoderm) 1 patch TOPICAL DAILY@1000 [facility] Last Admin: 10/02/16 11:00 Dose: 1 patch Magnesium Hydroxide (Milk Of Magnesia) 30 ml PO DAILYP PRN PRN Reason: Constipation Aripiprazole 10 Mg (Tablet) 1 dose PO [facility] Last Admin: 10/02/16 20:50 Dose: 1 dose Ondansetron HCl (Zofran) 4 mg IV Q4-6HP PRN PRN Reason: Nausea And Vomiting Oseltamivir Phosphate (Tamiflu) 75 mg PO BID [facility] Last Admin: 10/03/16 09:27 Dose: 75 mg Pantoprazole Sodium (Protonix) 40 mg PO QAMAC [facility] Last Admin: 10/03/16 07:23 Dose: 40 mg Potassium Chloride (Klor-Con) 40 meq PO DAILYP PRN PRN Reason: K+ < 3.5 [facility]one [facility]) [facility] Last Admin: 10/03/16 09:27 Dose: 5 mg Simvastatin (Zocor) 40 mg PO HS [facility] Last Admin: 10/02/16 20:54 Dose: 40 mg Sodium Chloride (Saline Flush) 10 ml IV Q8 [facility] Last Admin: 10/03/16 06:47 Dose: 10 ml Spironolactone (Aldactone) 25 mg PO QDAY [facility] Last Admin: 10/03/16 09:28 Dose: 25 mg Tramadol HCl (Ultram) 100 mg PO BID [facility] Last Admin: 02/13/17 09:28 Dose: 100 mg Warfarin Sodium (Coumadin) 6 mg PO ONCE@1400 ONE Stop: 10/03/16 14:01 Zolpidem Tartrate (Ambien) 5 mg PO HSP PRN PRN Reason: Insomnia Last Admin: 10/02/16 20:54 Dose: 5 mg Medical - PN: A/P - Time Spent With Patient Total time spent is greater than 50% in coordination of care (as documented) at patient's floor/unit and/or counseling patient: 25 - 35 minutes (1) Severe sepsis with acute organ dysfunction Status: Acute Assessment and plan: * Acute hypoxic respiratory failure secondary influenza pneumonia with superimposed aspiration pneumonia- linically improving on Zosyn and aggressive diuresis to improve lung compliance * influenza pneumonia- continue Tamiflu/supportive measures * Severe sepsis acute organ dysfunction- leukocytosis improving from 23,000- 18, 000 * History of PMR on steroids. Biologics on hold at this time. high risk overall due to immunocompromised status * history of DVT on Coumadin. INR 1.9. continue full dose Lovenox until INR therapeutic * History of CHF on Coreg/spironolactone/statin/Lasix. * Anxiety disorder and BuSpar * DVT prophylaxis on heparin until INR therapeutic- however patient refusing heparin plan * broad-spectrum antibiotic * Full dose anticoagulation until INR therapeutic * Transfer to telemetry * Pre-existing medical condition management as above * improving prognosis Critical care time spent over 35 minutes Current Visit: Yes (2) Acute respiratory failure with hypoxia Status: Acute Current Visit: Yes Medical - PN: Qual - Stroke Symptom Onset Unknown: No - VTE Deep Vein Thrombosis/Pulmonary Embolism Present on Admission: No
[2016-10-03] MEDS: LIDOCAINE PATCH TOPICAL SCH (11:47)
[2016-10-03] MEDS: HYDROcodone/APAP 10/325MG TABLET PO PRN (13:05)
[2016-10-03] MEDS ORDERED: WARFARIN 3 MG TABLET PO ONE (14:00)
[2016-10-03] MEDS: ARIPIPRAZOLE 10 MG TABLET PO SCH (21:10)
[2016-10-03] MEDS: SIMVASTATIN 40 MG TABLET PO SCH (21:11)
[2016-10-03] MEDS: AMITRIPTYLINE 25 MG TABLET PO SCH (21:11)
[2016-10-03] MEDS: ZOLPIDEM 5 MG TABLET PO PRN (21:11)
[2016-10-04] MEDS: IPRATROPIUM/ALBUTEROL 3 ML AMPUL.NEB NEB PRN (04:28)
[2016-10-04 05:12] LABS: Mean Cell Volume 101.9 fL (80.0-100.0); Mean Corpuscular HGB Conc 32.6 g/dL (31.0-36.0); Mean Corpuscular Hemoglobin 33.2 pg (26.0-34.0); Platelet Count 203 K/mcL (140-440); RBC 4.79 M/mcL (4.50-5.90); Red Cell Distribution Width 13.6 % (11.5-14.5)
[2016-10-04 05:45] LABS: ALT/SGPT 18 U/l (0-40); Albumin 3.5 gm/dL (3.2-5.2); Albumin/Globulin Ratio 1.3 (1.0-2.3); Alkaline Phosphatase 65 U/L (39-117); Bilirubin,Direct < 0.2 mg/dL (0.0-0.3); Blood Urea Nitrogen 31 mg/dl (8-23); Gamma Glutamyl Transpeptidase 14 U/L (8-61); Magnesium 2.4 mg/dL (1.6-2.5); Phosphorous 2.8 mg/dL (2.7-4.5); Uric Acid 8.2 mg/dL (2.5-8.0)
[2016-10-04] MEDS: PIPERACILLIN SODIUM/TAZOBACTAM 3.375 GM in DEXTROSE 5% IN WATER 50 ML IV SCH (05:45)
[2016-10-04] MEDS: 0.9 % SODIUM CHLORIDE 10 ML SYRINGE IV SCH (05:46)
[2016-10-04] MEDS: HYDROcodone/APAP 10/325MG TABLET PO PRN ×3 (05:46→17:04)
[2016-10-04 05:51] LABS: Band Neutrophils % 1 % (0-10); Eosinophils % (Manual) 4 % (0-7); Lymphocytes % 22 % (15-49); Macrocytosis 1+ (NONE SEEN); Monocytes % (Manual) 12 % (1-9); Platelet Estimate NORMAL (NORMAL); RBC Morphology ABNORM (NORMAL); Segmented Neutrophils % 61 % (38-78)
[2016-10-04] MEDS: CARVEDILOL 12.5 MG TABLET PO SCH (07:57)
[2016-10-04] MEDS: predniSONE 5 MG TABLET PO SCH (07:57)
[2016-10-04] MEDS: PANTOPRAZOLE 40 MG TABLET PO SCH (07:57)
[2016-10-04] MEDS ORDERED: FUROSEMIDE 40 MG TABLET PO SCH (09:00)
[2016-10-04] MEDS: MULTIVIT,THER IRON,CA,FA & MIN 1 TABLET PO SCH (09:14)
[2016-10-04] MEDS: DOCUSATE SODIUM 100 MG CAPSULE PO SCH (09:14)
[2016-10-04] MEDS: traMADol 50 MG TABLET PO SCH (09:14)
[2016-10-04] MEDS: SPIRONOLACTONE 25 MG TABLET PO SCH (09:15)
[2016-10-04] MEDS: ENOXAPARIN 80 MG/0.8 ML SYRINGE SQ SCH ×2 (09:15→15:05)
[2016-10-04] MEDS: OSELTAMIVIR PHOSPHATE 75 MG CAPSULE PO SCH (09:23)
[2016-10-04] MEDS: FUROSEMIDE 40 MG/4 ML VIAL IV SCH (09:23)
[2016-10-04] MEDS: busPIRone 5 MG TABLET PO SCH (09:23)
--- NOTE | 2016-10-04 10:22 | Internal Med Progress Note ---
Medical - PN: Subj Patient information: Note initiated : 10/04/16 at 10:18 am Service Date, if different from initiated Date: [] Patient: Latrell Caro 76 y/o M admitted on 09/29/16 for Cough/Left Lower Lobe Pneumonia, Acute Influenza. Chief Complaint: [] Interval history: 09/29- 76-year-old with history of polymyalgia rheumatica on immunosuppressives/ steroids admitted with acute influenza/pneumonia along with severe sepsis with acute organ dysfunction. admitted as inpatient. On Tamiflu/antibiotic coverage. history of DVT on anticoagulation 09/30- Patient doing better. No overnight events including fever chills or worsening shortness of breath. White count down from 14-12.1. improving acute organ dysfunction with creatinine down from 1.3-1.1. INR 1.7. Continue Coumadin dosing. tolerating diet physical therapy. No family at bedside. 10/01- patient clinically deteriorating with worsening hypoxia respiratory failure. ABG 7.39/38/52 -5 L oxygen. transferred to ICU. high flow nasal oxygen not available at our institution. Start aggressive diuresis/noninvasive ventilation with lung protective strategy. DC IV fluids. Likely early ARDS. repeat chest imaging no evidence of CHF. Family() made aware of poor prognosis. 10/02-patient on [address] chest and left lower lobe infiltrate. White count at 23,000. pro-calcitonin 0.05 highly suggestive against a bacterial process. Early ARDS secondary to influenza pneumonia. Continue Tamiflu. Continue noninvasive ventilation as needed. Continue diuresis to improve lung compliance. Continue full dose anticoagulation in light of subtherapeutic INR 10/03- atient doing remarkably better. On 4 L oxygen. Diuresing well. Off noninvasive ventilation. Able to talk in full sentences. White count down from 23,000-18,000. Continue antibiotic coverage. No family at bedside. overall significant clinical improvement. Possible transfer to telemetry if patient remains stable throughout the day. No overnight fever chills CP/worsening SOB or concerns expressed by staff . no telemetry events. 10/04-patient doing remarkably well and now on 2 L oxygen. IV diuretics switch to oral. White count down from 18-13,000. INR 2.4. full dose Lovenox discontinued. creatinine up at 1.6. continue close renal function monitoring. Aggressive physical therapy. transfer to telemetry. - Constitutional Vitals: Vital Signs Temp Pulse Resp BP Pulse Ox 98.4 F 102 H 17 113/68 91 10/04/16 04:00 10/04/16 08:06 10/04/16 08:06 10/04/16 06:00 10/04/16 08:06 Period Temp Pulse Resp BP Sys/Mccarthy Pulse Ox Last 24 Hr 97.4 F-98.4 F 85-102 16-22 90-127/61-86 88-98 Intake and Output 10/03/16 10/04/16 10/04/16 21:59 05:59 13:59 Intake Total 50 / 50 290 / 290 350 / 350 Output Total 1300 / 1300 550 / 550 Balance -1250 / -1250 -260 / -260 350 / 350 Weight 152 lb 6.4 oz Intake & Output: Intake & Output 10/03/16 10/04/16 10/04/16 21:59 05:59 13:59 Intake Total 50 / 50 290 / 290 350 / 350 Output Total 1300 / 1300 550 / 550 Balance -1250 / -1250 -260 / -260 350 / 350 Weight 152 lb 6.4 oz Intake: IV 50 / 50 50 / 50 50 / 50 Dextrose 5% in Water 50 50 / 50 50 / 50 50 / 50 ml @ 100 mls/hr IV Q6 GUILLERMO with Zosyn 3.375 gm Rx#: [id number] Oral 240 / 240 300 / 300 Output: Urine Catheter Amount 1300 / 1300 550 / 550 Other: Meal Breakfast Percent of Meal Consumed 50% Feeding Ability Independent # Bowel Movements 0 0 General appearance: cooperative, no acute distress Exam: on 2 L oxygen Feels a lot better lymphedema resolved Foleys draining clear urine No anxiety Medical - PN: Obj Da - Labs CBC & Chem 7: 10/04/16 04:00 10/04/16 04:00 Labs: Abnormal Lab Results 10/04/16 10/04/16 10/04/16 04:00 04:00 04:00 WBC 13.0 H Hgb MCV 101.9 H MCH Seg Neutrophils % Lymphocytes % Monocytes % (Manual) 12 H RBC Morphology Abnorm A Macrocytosis 1+ A PT 26.9 H INR 2.4 H Anion Gap 17.0 H BUN 31 H Creatinine 1.6 H Glucose Uric Acid 8.2 H Calcium 8.3 L Lactate Dehydrogenase 369 H Total Protein Globulin 10/03/16 10/03/16 10/03/16 04:14 04:14 04:14 WBC 18.5 H Hgb MCV MCH 34.5 H Seg Neutrophils % Lymphocytes % 14 L Monocytes % (Manual) RBC Morphology Macrocytosis PT 22.8 H INR 1.9 H Anion Gap 18.0 H BUN 33 H Creatinine 1.4 H Glucose 109 H Uric Acid 8.6 H Calcium 8.0 L Lactate Dehydrogenase 374 H Total Protein 5.5 L Globulin 1.8 L 10/02/16 10/02/16 10/02/16 04:30 04:30 04:30 WBC 23.4 H Hgb 17.3 H MCV MCH 34.9 H Seg Neutrophils % 81 H Lymphocytes % 7 L Monocytes % (Manual) RBC Morphology Macrocytosis PT 19.3 H INR 1.6 H Anion Gap BUN Creatinine Glucose 127 H Uric Acid 8.7 H Calcium Lactate Dehydrogenase 373 H Total Protein Globulin 2.0 L Meds: Medications Acetaminophen (Tylenol) 650 mg PO Q4-6HP PRN PRN Reason: PAIN/FEVER > 101 Acetaminophen/Hydrocodone Bitart ([place] 10/325mg) 1 tab PO Q4-6HP PRN PRN Reason: Pain Last Admin: 10/04/16 05:46 Dose: 1 tab Albuterol/Ipratropium (Duoneb) 3 ml NEB Q4HP PRN PRN Reason: Shortness Of Breath Last Admin: 10/04/16 04:28 Dose: 3 ml Amitriptyline HCl (Elavil) 225 mg PO [facility] Last Admin: 10/03/16 21:11 Dose: 225 mg Bisacodyl (Dulcolax) 10 mg [place] Q2-3DAYS PRN PRN Reason: Constipation Buspirone HCl (Buspar) 15 mg PO DAILY [facility] Last Admin: 10/04/16 09:23 Dose: 15 mg [facility]) [facility] Last Admin: 10/04/16 07:57 Dose: 12.5 mg Docusate Sodium (Colace) 100 mg PO BID [facility] Last Admin: 10/04/16 09:14 Dose: 100 mg Furosemide (Lasix) 40 mg PO DAILY [facility] Guaifenesin/Codeine Phosphate (Robitussin Ac) 10 ml PO Q4HP PRN PRN Reason: Cough Levofloxacin (Levaquin) 750 mg in 150 mls @ 100 mls/hr IV Q48H [facility] Last Infusion: 10/03/16 10:50 Dose: Infused Magnesium Sulfate (Magnesium Sulfate) 2 gm in 50 mls @ 50 mls/hr IV UD PRN PRN Reason: MG = or < 1.7 Acetaminophen (Ofirmev) 1,000 mg in 100 mls @ 200 mls/hr IV Q6HP PRN PRN Reason: PAIN/FEVER > 101 Piperacillin Sod/Tazobactam (Sod 3.375 gm/ Dextrose) 50 mls @ 100 mls/hr IV Q6 [facility] Last Infusion: 10/04/16 06:28 Dose: Infused Iron Carb/Multivit/[place]/Folic Acid (Multivitamin W/Minerals) 1 tab PO DAILY [facility] Last Admin: 10/04/16 09:14 Dose: 1 tab Lidocaine (Lidoderm) 1 patch TOPICAL DAILY@1000 [facility] Last Admin: 10/03/16 11:47 Dose: Not Given Magnesium Hydroxide (Milk Of Magnesia) 30 ml PO DAILYP PRN PRN Reason: Constipation Aripiprazole 10 Mg (Tablet) 1 dose PO [facility] Last Admin: 10/03/16 21:10 Dose: 1 dose Ondansetron HCl (Zofran) 4 mg IV Q4-6HP PRN PRN Reason: Nausea And Vomiting Oseltamivir Phosphate (Tamiflu) 75 mg PO BID [facility] Pantoprazole S[facility] ([facility]ix) [facility] Last Admin: 10/04/16 07:57 Dose: 40 mg Potassium Chloride (Klor-Con) 40 meq PO DAILYP PRN PRN Reason: K+ < 3.5 [facility]) [facility] Last Admin: 10/04/16 07:57 Dose: 5 mg Simvastatin (Zocor) 40 mg PO [facility] Last Admin: 10/03/16 21:11 Dose: 40 mg Sodium Chloride (Saline Flush) 10 ml IV Q8 [facility] Last Admin: 10/04/16 05:46 Dose: 10 ml Spironolactone (Aldactone) 25 mg PO QDAY [facility] Last Admin: 10/04/16 09:15 Dose: 25 mg Tramadol HCl (Ultram) 100 mg PO BID [facility] Last Admin: 10/04/16 09:14 Dose: 100 mg Warfarin Sodium (Coumadin) 5 mg PO ONCE@1400 ONE Stop: 10/04/16 14:01 Zolpidem Tartrate (Ambien) 5 mg PO HSP PRN PRN Reason: Insomnia Last Admin: 10/03/16 21:11 Dose: 5 mg Medical - PN: A/P - Time Spent With Patient Total time spent is greater than 50% in coordination of care (as documented) at patient's floor/unit and/or counseling patient: 25 - 35 minutes (1) Severe sepsis with acute organ dysfunction Status: Acute Assessment and plan: * Acute hypoxic respiratory failure secondary influenza pneumonia with superimposed aspiration pneumonia- down to 2 L oxygen. clinically improved on Zosyn * influenza pneumonia- continue Tamiflu/supportive measures * Acute kidney injury- creatinine up 50% from baseline. Likely secondary to diuresis. Switch IV to oral diuretics. consult nephrology if further elevation creatinine * Severe sepsis acute organ dysfunction- leukocytosis improving from 23,000- 18, 000-> 14413 * History of PMR on steroids. Biologics on hold at this time. high risk overall due to immunocompromised status * history of DVT on Coumadin. INR 1.9. continue full dose Lovenox until INR therapeutic * History of CHF on Coreg/spironolactone/statin/Lasix. * Anxiety disorder and BuSpar * DVT prophylaxis on heparin until INR therapeutic- however patient refusing heparin plan * continue antibiotic coverage * DC Lovenox * switch to oral diuretics * Pre-existing medical condition management as above * onitor renal function Current Visit: Yes (2) Acute respiratory failure with hypoxia Status: Acute Current Visit: Yes Medical - PN: Qual - Stroke Symptom Onset Unknown: No - VTE Deep Vein Thrombosis/Pulmonary Embolism Present on Admission: No
[2016-10-04] MEDS: LIDOCAINE PATCH TOPICAL SCH (10:53)
[2016-10-04] MEDS ORDERED: guaiFENesin/CODEINE 10 ML UDC PO PRN (11:32)
[2016-10-04] MEDS ORDERED: POTASSIUM CHLORIDE 20 MEQ PACKET PO PRN (11:32)
[2016-10-04] MEDS ORDERED: BISACODYL 10 MG SUPP.RECT PR PRN (11:32)
[2016-10-04] MEDS ORDERED: ACETAMINOPHEN 1,000 MG/100 ML BOTTLE IV PRN (11:32)
[2016-10-04] MEDS ORDERED: ZOLPIDEM 5 MG TABLET PO PRN (11:32)
[2016-10-04] MEDS ORDERED: IPRATROPIUM/ALBUTEROL 3 ML AMPUL.NEB NEB PRN (11:32)
[2016-10-04] MEDS ORDERED: MAGNESIUM HYDROXIDE 30 ML ORAL.SUSP PO PRN (11:32)
[2016-10-04] MEDS ORDERED: MAGNESIUM SULFATE 2 GM/50 ML BAG IV PRN (11:32)
[2016-10-04] MEDS ORDERED: ONDANSETRON 4 MG/2 ML VIAL IV PRN (11:32)
[2016-10-04] MEDS ORDERED: ACETAMINOPHEN 325 MG TABLET PO PRN (11:32)
[2016-10-04] MEDS: PIPERACILLIN SODIUM/TAZOBACTAM 2.25 GM in DEXTROSE 5% IN WATER 50 ML IV SCH ×2 (11:57→17:37)
[2016-10-04] MEDS ORDERED: WARFARIN 5 MG TABLET PO ONE ×2 (14:00)
[2016-10-04] MEDS ORDERED: 0.9 % SODIUM CHLORIDE 10 ML SYRINGE IV SCH (14:00)
--- NOTE | 2016-10-04 15:51 | Cat Scan Report ---
CLINICAL INFORMATION: Reason for Exam:Lower Quad Pain , patient is anticoagulated with Lovenox for deep venous thrombosis COMPARISON: 04/06/16 TECHNIQUE: The abdomen was imaged without oral or IV contrast, scanning from the diaphragm to the symphysis pubis. Sagittal and coronal reformats were created. FINDINGS: There is persistent consolidation in the posterior basal segments of both lower lobes. This has remained stable since prior chest CT done on 10/02/16. This may be atelectasis or pneumonia. Evaluation of abdominal organs without contrast is limited. The liver and spleen appear normal size and homogeneous. The gallbladder is been removed. The bile ducts are nondilated. No abnormality seen within the pancreas or adrenals. There is a 1.7 cm cortical cyst anteriorly in the upper pole the left kidney. There are also couple small nonobstructing kidney stones. These are 3 mm smaller. There is a well-circumscribed fluid collection just deep to the left rectus abdominis muscle and anterior to the peritoneum, within the mid abdomen. It measures 7 x 9 x 10 cm. This was not present on the prior abdomen CT done on 04/06/16. The fluid collection has a fluid fluid level indicating it is probably blood. The posterior margin is a very thin well-defined border which is also more consistent with that of hemorrhage rather than abscess.. There is no intraperitoneal free fluid. There are diverticula in the sigmoid colon but without evidence of diverticulitis. Urinary bladder is decompressed by Krueger catheter. IMPRESSION: 1. Large fluid collection in the left anterior abdominal wall which is probably a hematoma related to recent medication injection. This is less likely an abscess. 2. Nonobstructing small kidney stones. 3. Stable atelectasis or pneumonia in both lower lobes 4. Dr. Parks was called with results Interpreted and Authenticated by: Neto Tong 10/04/16
[2016-10-04] MEDS ORDERED: PHYTONADIONE 5 MG TABLET PO ONE (16:55)
[2016-10-04] MEDS ORDERED: CARVEDILOL 12.5 MG TABLET PO SCH (17:30)
--- NOTE | 2016-10-04 17:49 | Ultrasound Report ---
ORIGINAL REPORT History: Complex fluid collection deep to the left rectus abdominis muscle which may be a hematoma following recent anticoagulation injection Findings: The risks and procedure were explained and the patient consented. Doppler shows a large complex fluid collection just deep to the left rectus abdominis muscle in the mid abdomen. This contains a fluid fluid level. This collection has enlarged since the time of the recent CT scan done at 3:18 PM on the same date. It now measures 13 cm in greatest dimension. On the CT scan it measured 10 cm in greatest dimension. Doppler shows swirling flow within this fluid collection and increased pulsatility along the left lateral margin. This indicates active bleeding. The overlying skin was prepped with ChloraPrep thin anesthetized with 1% lidocaine. Using ultrasound guidance a Yueh needle was inserted into the fluid collection. The fluid is under pressure and squirted out from the catheter. 190 cc of blood was aspirated. There was still pulsatile bleeding through the catheter after removal of the blood. No attempt was made to evacuate the hematoma. Impression: Enlarging hematoma deep to the left rectus abdominis muscle with active bleeding demonstrated. I suspect there is no injury to the epigastric artery which may require embolization. Dr. Olmstead was notified and he will see the patient this afternoon. ADDENDUM #1 There is a typographical error in the initial impression. I meant to say: I suspect there has been an injury to the epigastric artery which may require embolization. Interpreted and Authenticated by: Neto oTng 10/05/16
[2016-10-04] MEDS ORDERED: ARIPIPRAZOLE 10 MG TABLET PO SCH (21:00)
[2016-10-04] MEDS ORDERED: OSELTAMIVIR PHOSPHATE 75 MG CAPSULE PO SCH ×2 (21:00)
[2016-10-04] MEDS ORDERED: DOCUSATE SODIUM 100 MG CAPSULE PO SCH (21:00)
[2016-10-04] MEDS ORDERED: AMITRIPTYLINE 25 MG TABLET PO SCH (21:00)
[2016-10-04] MEDS ORDERED: traMADol 50 MG TABLET PO SCH (21:00)
[2016-10-04] MEDS ORDERED: SIMVASTATIN 40 MG TABLET PO SCH (21:00)
[2016-10-05] MEDS ORDERED: PANTOPRAZOLE 40 MG TABLET PO SCH (07:30)
[2016-10-05] MEDS ORDERED: predniSONE 5 MG TABLET PO SCH (08:00)
[2016-10-05] MEDS ORDERED: MULTIVIT,THER IRON,CA,FA & MIN 1 TABLET PO SCH (09:00)
[2016-10-05] MEDS ORDERED: busPIRone 5 MG TABLET PO SCH (09:00)
[2016-10-05] MEDS ORDERED: FUROSEMIDE 40 MG TABLET PO SCH (09:00)
[2016-10-05] MEDS ORDERED: SPIRONOLACTONE 25 MG TABLET PO SCH (09:00)
--- NOTE | 2016-10-05 09:15 | Event Note ---
Patient postprocedure hypotensive at [place] with systolics around 70. Started on Levophed and transferred to [place] ICU[facility].
[2016-10-05] MEDS ORDERED: LIDOCAINE PATCH TOPICAL SCH (10:00)
[2016-10-05 14:38] LABS: Appearance, Body Fluid BLOODY; Color, Body Fluid RED; Nucleated Cells,Body Fld 16887 /cumm; RBC, Body Fluid > 100000 /cumm
[2016-10-05 20:23] LABS: Total Cell Count Body Fld 100
== END 2016-10-04 17:17 | disposition short-term general hospital (02) | DRG 853 ==
LOC: ED 17:28 → MEDSUR 22:11 → ICU 10-01 09:40
PROVIDERS: ADMIT Internal Medicine; ATTEND Internal Medicine

== ENCOUNTER 2019-09-26 12:58 | Inpatient (IN) ==
--- NOTE | 2019-09-26 13:44 | Emergency Department Note ---
Wound/Laceration HPI - General Chief Complaint: Wound/Laceration Stated Complaint: wound re check Time Seen by Provider: 09/26/19 13:10 Source: patient Mode of arrival: ambulatory Limitations: no limitations - History of Present Illness HPI Narrative: Patient is sent over from wound care today after being referred to wound care for possible skin infection. Seen by Sara a few days ago, started on Keflex, patient continues to develop left lower leg pain and redness has a large skin defect from an area that previously had a skin slip. Apparently the skin flap did not take any ended up with the larger wound to his left lower leg up. Over the last few days she's developed increased swelling to the left lower leg as well as redness and pain and. Dr. Milligan from the wound care recommended that he be admitted for cellulitis and he wishes to do debridement in the hospital. - Related Data Home Medications Medication Instructions Recorded Confirmed carvedilol 12.5 mg tablet 12.5 mg PO BID 06/30/15 09/26/19 prednisone 1 mg tablet 5 mg PO QDAY tab 02/28/17 09/26/19 Embrel 50 mg INJ HULL 09/25/18 09/26/19 folic acid 400 mcg tablet 400 mcg PO QDAY 08/02/19 09/26/19 magnesium 250 mg tablet 250 mg PO BID tab 08/02/19 09/26/19 omega-3 fatty acids 1,000 mg 1,000 mg PO QDAY 08/02/19 09/26/19 capsule Amitriptyline [Elavil] 75 mg PO QHS 09/26/19 09/26/19 Aripiprazole [Abilify] 10 mg PO QHS 09/26/19 09/26/19 Rosuvastatin Calcium [Crestor] 20 mg PO QHS 09/26/19 09/26/19 Teriparatide [Forteo] 2.4 ml SQ QHS 09/26/19 09/26/19 Ubidecarenone [Co Q-10] 300 mg PO MOWEFR 09/26/19 09/26/19 Vitamin B12 5,000 mcg PO QDAY 09/26/19 09/26/19 busPIRone [Buspar] 15 mg PO QHS 09/26/19 09/26/19 Previous Rx's Medication Instructions Recorded diclofenac sodium 1 % topical gel 2 g TOPICAL QID PRN #100 g 01/15/19 furosemide 40 mg tablet 40 mg PO QDAY #90 tab 07/15/19 tramadol 50 mg tablet 100 mg PO BID #120 tab 08/23/19 warfarin 5 mg tablet See Rx Instructions PO QDAY #0 tab 09/13/19 hydrocodone 10 mg-acetaminophen 1 tab PO .Q4-6H PRN #150 tab 09/18/19 325 mg tablet Allergies Allergy/AdvReac Type Severity Reaction Status Date / Time Sulfa (Sulfonamide Allergy Mild Rash Verified 09/26/19 13:00 Antibiotics) codeine AdvReac Mild Nausea Verified 09/26/19 13:00 Review of Systems All systems ED: reviewed and negative except as stated. Past Medical History - Past Medical History Source: old records reviewed, nursing notes reviewed Medical history: Reports: arthritis, CHF, COPD, CAD (coronary artery disease), DVT, GI bleed (Had to have stomach repaired [employer]), hyperlipidemia, hypertension, kidney stones, myocardial infarction, osteoporosis, renal disease, TIA, other (PMR, RA, pseudogout, factor V deficiency, obstructive sleep apnea on CPAP, esophageal strictures) Surgical history ED: Reports: orthopedic, other Family history: Reports: non-contributory, connective tissue disorde - Social History smoking status: Former smoker Alcohol use: Reports: None Drug use: Reports: none Physical Exam Limitations: no limitations General appearance: alert, in no apparent distress Head: atraumatic, normocephalic Eye: Present: normal appearance, visual otero intact ENT: Present: normal exam, mucous membranes moist Neck: Present: normal inspection. Absent: tenderness, meningismus Chest: Present: normal inspection, other (bony chest wall) Respiratory: Present: decreased breath sounds Cardiovascular: Present: irregular rhythm, rubs Abdominal: Present: soft. Absent: distention, tenderness Extremities: Present: pedal edema, pretibial edema, other (3+ pedal edema on the left, ankle edema as well. He has a large 3 x 6 cm skin defect to the posterior calf region. ) Course - Reevaluation(s) Reevaluation #1: I believe this patient had necrosis of his skin after laceration on September 12. His skin flap did not take any ended up with a large defect to the posterior aspect of his calf. He now has cellulitis, resistant to Keflex and per wound care recommendations he should be admitted to the hospital for cellulitis. The. We will check labs at this time, ultrasound of his left lower extremity, control his pain started him on antibiotics and proceed from there. Reevaluation #2: Labs reviewed. The. His CBC was normal. However, given the extent of swelling in his left lower leg and the fact that he failed outpatient antibiotics with our hospitalist, Dr. Lamas for hospital admission. He agreed and stated that he would come down and right some admitting orders. Vital Signs Temperature 98.1 F 09/26/19 12:58 Pulse Rate 85 09/26/19 12:58 Respiratory Rate 16 09/26/19 12:58 Blood Pressure 80/56 09/26/19 12:58 Pulse Oximetry (%) 93 09/26/19 12:58 Temperature 98.0 F 09/26/19 22:55 Pulse Rate 68 09/26/19 22:55 Respiratory Rate 20 09/26/19 22:55 Blood Pressure 93/53 09/26/19 22:55 Pulse Oximetry (%) 90 09/26/19 22:55 Wound/Laceration - [facility] Narrative Medical decision making narrative: Impression is cellulitis left lower extremity, status post injury September 12 - Lab Data Result diagrams: 09/26/19 14:05 09/26/19 14:05 Lab Results 09/26/19 09/26/19 09/26/19 Range/Units 14:05 14:05 14:05 WBC 7.4 (4.50-11.00) K/mcL RBC 3.89 L (4.63-6.08) M/mcL Hgb 12.5 L (13.7-17.5) g/dL Hct 37.9 L (40.1-51.0) % MCV 97.4 (80.0-100.0) fL MCH 32.1 (26.0-34.0) pg MCHC 33.0 (31.0-36.0) g/dL RDW 13.7 (11.5-14.5) % Plt Count 286 (140-440) K/mcL MPV 9.4 (7.4-10.4) fL Gran % 73.7 (38.0-78.0) % Lymph % (Auto) 17.2 (15.5-49.0) % Payette % (Auto) 8.3 (1.0-12.0) % Eos % (Auto) 0.4 (0.0-7.0) % Baso % (Auto) 0.4 (0.0-2.0) % Gran # 5.45 (1.80-8.00) K/mcL Lymph # (Auto) 1.27 L (1.50-4.80) K/mcL Payette # (Auto) 0.61 (0.10-0.90) K/mcL Eos # (Auto) 0.03 (0.00-0.70) K/mcL Baso # (Auto) 0.03 (0.00-0.30) K/mcL Total Counted Seg Neutrophils % (38-78) % Band Neutrophils % (0-10) % Lymphocytes % (15-49) % Monocytes % (Manual) (1-12) % Eosinophils % (Manual) (0-7) % Reactive Lymphocytes (0-2) % Platelet Estimate (NORMAL) RBC Morphology (NORMAL) PT 23.0 H (11.9-14.5) sec INR 2.0 H (0.9-1.1) VBG Lactic Acid (0.5-2.0) mmol/L Sodium 140 (133-145) mmol/L Potassium 4.2 (3.3-5.1) mmol/L Chloride 100 (96-108) mmol/L Carbon Dioxide 27 (22-30) mmol/L Anion Gap 13.0 (8-16) BUN 38 H (8-23) mg/dl Creatinine 1.6 H (0.7-1.2) mg/dl GFR Calculation 41 Glucose 139 H (70-105) mg/dL Calcium 9.0 (8.6-10.4) mg/dl Total Bilirubin 0.4 (0.0-1.0) mg/dL AST 21 (0-37) U/l ALT 16 (0-40) U/l Alkaline Phosphatase 116 (39-117) U/L C-Reactive Protein 5.7 H (0.0-0.8) mg/dl NT-Pro-B Natriuret Pep 3024.0 H (0-450) pg/ml Total Protein 6.1 (5.9-8.4) gm/dL Albumin 3.0 L (3.2-5.2) gm/dL Globulin 3.1 (2.2-3.7) gm/dL Albumin/Globulin Ratio 1.0 (1.0-2.3) 09/26/19 09/26/19 09/26/19 Range/Units 14:05 14:05 14:05 WBC (4.50-11.00) K/mcL RBC (4.63-6.08) M/mcL Hgb (13.7-17.5) g/dL Hct (40.1-51.0) % MCV (80.0-100.0) fL MCH (26.0-34.0) pg MCHC (31.0-36.0) g/dL RDW (11.5-14.5) % Plt Count (140-440) K/mcL MPV (7.4-10.4) fL Gran % (38.0-78.0) % Lymph % (Auto) (15.5-49.0) % Payette % (Auto) (1.0-12.0) % Eos % (Auto) (0.0-7.0) % Baso % (Auto) (0.0-2.0) % Gran # (1.80-8.00) K/mcL Lymph # (Auto) (1.50-4.80) K/mcL Payette # (Auto) (0.10-0.90) K/mcL Eos # (Auto) (0.00-0.70) K/mcL Baso # (Auto) (0.00-0.30) K/mcL Total Counted 100 Seg Neutrophils % 76 (38-78) % Band Neutrophils % 3 (0-10) % Lymphocytes % 15 (15-49) % Monocytes % (Manual) 3 (1-12) % Eosinophils % (Manual) 1 (0-7) % Reactive Lymphocytes 2 (0-2) % Platelet Estimate Normal (NORMAL) RBC Morphology Normal (NORMAL) PT (11.9-14.5) sec INR (0.9-1.1) VBG Lactic Acid 2.0 (0.5-2.0) mmol/L Sodium (133-145) mmol/L Potassium (3.3-5.1) mmol/L Chloride (96-108) mmol/L Carbon Dioxide (22-30) mmol/L Anion Gap (8-16) BUN (8-23) mg/dl Creatinine (0.7-1.2) mg/dl GFR Calculation Glucose (70-105) mg/dL Calcium (8.6-10.4) mg/dl Total Bilirubin (0.0-1.0) mg/dL AST (0-37) U/l ALT (0-40) U/l Alkaline Phosphatase (39-117) U/L C-Reactive Protein TNP (0.0-0.8) mg/dl NT-Pro-B Natriuret Pep (0-450) pg/ml Total Protein (5.9-8.4) gm/dL Albumin (3.2-5.2) gm/dL Globulin (2.2-3.7) gm/dL Albumin/Globulin Ratio (1.0-2.3) Disposition Pt seen by MEDIA MARKETING DIRECTOR/PA only: No Clinical Impression: Cellulitis Disposition: Xfer As Inpt ([facility]) Condition: Good
[2019-09-26] MEDS ORDERED: VANCOMYCIN 1,000 MG in 0.9 % SODIUM CHLORIDE 250 ML IV ONE (13:50)
[2019-09-26] MEDS ORDERED: HYDROmorphone 2 MG/ML VIAL IV ONE (13:50)
[2019-09-26] MEDS ORDERED: LACTATED RINGERS 1,000 ML IV SCH (14:00)
[2019-09-26] MEDS ORDERED: PIPERACILLIN SODIUM/TAZOBACTAM 3.375 GM in DEXTROSE 5% IN WATER 50 ML IV SCH ×2 (14:00→17:19)
[2019-09-26] MEDS: HYDROmorphone 2 MG/ML VIAL IV PRN ×2 (14:14→14:40)
[2019-09-26 14:46] LABS: Basophils # (Auto) 0.03 K/mcL (0.00-0.30); Basophils % (Auto) 0.4 % (0.0-2.0); Eosinophils # (Auto) 0.03 K/mcL (0.00-0.70); Eosinophils % (Auto) 0.4 % (0.0-7.0); Granulocytes % (Auto) 73.7 % (38.0-78.0); Hematocrit 37.9 % (40.1-51.0); Hemoglobin 12.5 g/dL (13.7-17.5); Lymphocytes # (Auto) 1.27 K/mcL (1.50-4.80); Lymphocytes % (Auto) 17.2 % (15.5-49.0); Mean Cell Volume 97.4 fL (80.0-100.0); Mean Platelet Volume 9.4 fL (7.4-10.4); Monocytes # (Auto) 0.61 K/mcL (0.10-0.90); Monocytes % (Auto) 8.3 % (1.0-12.0); Platelet Count 286 K/mcL (140-440); RBC 3.89 M/mcL (4.63-6.08); Red Cell Distribution Width 13.7 % (11.5-14.5); WBC 7.4 K/mcL (4.50-11.00)
--- NOTE | 2019-09-26 15:05 | XRay Report ---
CLINICAL INFORMATION: leg swelling COMPARISON: None. FINDINGS: A small remote avulsion fracture off the lateral malleolus tip has generated a 6 mm ossification which may function as a loose body. No other osseous abnormality. Moderate patellofemoral and and mild tibiofemoral degenerative change appreciated. Diffuse soft tissue swelling noted. Surgical clips are seen in the posterior posterior medial soft tissues of the distal femur and proximal tibia IMPRESSION: Moderate diffuse soft tissue swelling. Small remote avulsion fracture tip of lateral malleolus Interpreted and Authenticated by: Zac Lehman 09/26/19
[2019-09-26 15:07] LABS: ALT/SGPT 16 U/l (0-40); AST/SGOT 21 U/l (0-37); Alkaline Phosphatase 116 U/L (39-117); Bilirubin,Total 0.4 mg/dL (0.0-1.0); Blood Urea Nitrogen 38 mg/dl (8-23); C-Reactive Protein 5.7 mg/dl (0.0-0.8); Carbon Dioxide 27 mmol/L (22-30); Chloride 100 mmol/L (96-108); Globulin 3.1 gm/dL (2.2-3.7); Glomerular Filtration Rate 41; Glucose 139 mg/dL (70-105)
--- NOTE | 2019-09-26 16:05 | Ultrasound Report ---
CLINICAL INFORMATION: Left leg swelling COMPARISON: None. FINDINGS: The entire deep venous system including the common femoral, superficial femoral, popliteal and paired trifurcation calf veins are easily compressible and show normal venous blood flow on color and spectral Doppler. No evidence of thrombus IMPRESSION: Negative exam - no evidence of deep vein thrombosis. Interpreted and Authenticated by: Zac Lehman 09/26/19
--- NOTE | 2019-09-26 16:37 | Internal Med History&Physical ---
Medical - H&P: [facility] Patient information: Note initiated : 09/26/19 at 4:34 pm Service Date, if different from initiated Date: [] Patient: Latrell Caro a 79 y/o M admitted on for Wound Recheck. Chief Complaint: [] History of present illness: Mr. Caro is a 79 year old M 71-year-old male who is on immunosuppression for polymyalgia rheumatica with Enbrel and prednisone who presents to the ED for nonhealing wound that is failing outpatient therapy. Patient originally fell out of his chair on the sustaining a skin tear and laceration to the left calf. He was seen again on September 24 and then again the next day. He has been prescribed oral antibiotics. The wound and surrounding leg have continued to worsen with increased redness swelling and warmth and tenderness. The center of the wound is appear to be necrotic tissue. Patient saw Dr. rivas today who evaluate the patient and recommend the patient be admitted for IV antibiotics and surgical debridement. Wound and blood cultures were obtained in the ED. Patient was started on Vanco Zosyn. Patient denies fevers or chills. Leg is very tender to the touch. No DVT on ultrasound. He is on warfarin for history of DVT as INR outpatient recently was subtherapeutic. Review of Systems: Pertinent positives as above. Denies hea dache/fever/chills/nausea/vomiting/chest or abdominal pain/cough/dyspnea/diarrhea. Remaining 10 point review of system reviewed negative Medical - H&P: [facility] Medical history: Medical History (Last Reviewed 09/11/19 @ 15:41 by Roberto Crowley MD) COPD (chronic obstructive pulmonary disease) (Chronic) Kyphosis, acquired (Chronic) Muscle weakness (Chronic) Corticosteroid dependence (Chronic) History of influenza pneumonia (Chronic) Anemia (Chronic) Rectus sheath hematoma (Chronic) Cellulitis (Acute) Leg edema, left (Acute) Acute bronchitis (Acute) Influenza (Acute) Pneumonia (Acute) Shortness of Breath (Acute) Severe sepsis with acute organ dysfunction (Acute) Acute respiratory failure with hypoxia (Acute) Dysphagia (Chronic) Esophageal stricture (Chronic) Pseudogout (Chronic) Polymyalgia rheumatica (Chronic) Osteoporosis (Chronic) Food sticks on swallowing (Acute) Food impaction of esophagus (Acute) Myocardial infarction acute (Acute) Vitamin D deficiency (Chronic 04/06/12) Personal history of TIA (transient ischemic attack) (Chronic) Thoracic vertebral fracture (Chronic) Testicular hypofunction (Chronic) Stroke (Chronic) Osteoarthritis (Chronic) Nephrolithiasis (Chronic) 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) Ischemic cardiomyopathy (Chronic) Hyperlipidemia (Chronic) Hypercholesterolemia (Chronic) Hypertensive chronic kidney disease (Chronic) Heart disease (Chronic) History of gout (Chronic) Glucose intolerance (impaired glucose tolerance) (Chronic) Gastric ulcer (Chronic) Dyslipidemia (Chronic) Depressive disorder (Chronic) Congestive heart failure (Chronic) Chronic kidney disease, 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) Cholelithiasis (Chronic) Acute cholecystitis (Acute) CAD (coronary artery disease) (Chronic) Back pain (Chronic) Arthritis (Chronic) Abdominal pain, LUQ (Chronic) History of GI bleed (Acute) History of bilevel positive airway pressure (BiPAP) therapy (Acute) Hx of blood clots (Acute) Hx of skin malignancy (Acute) Past Surgical History (Last Reviewed 09/11/19 @ 15:41 by Roberto Crowley MD) Status post dilatation of esophageal stricture (Acute) History of vertebroplasty (Chronic) History of vasectomy (Chronic) History of tonsillectomy (Chronic) History of hand surgery (Chronic) History of esophagogastroduodenoscopy (Chronic 05/16/12) History of colonoscopy (Chronic 11/21/12) History of cholecystectomy (Chronic) History of coronary artery bypass graft (Chronic 02/18/04) History of atrial septal defect repair (Chronic) H/O shoulder replacement (Acute) Family History (Last Reviewed 09/11/19 @ 15:41 by Roberto Crowley MD) Mother Malignant neoplasm of colon Essential hypertension Sister Depression Cardiac disease Father Pulmonary emphysema Cardiac disease Social History (Last Updated 09/18/19 @ 17:46 by Axel Simpson MD) Remote smoking history Drinks alcohol rarely Ambulates with a walker Lives at home with his Medical - H&P: Meds Home Medications Medication Instructions Recorded Confirmed Type carvedilol 12.5 mg tablet 12.5 mg PO BID 06/30/15 09/26/19 History prednisone 1 mg tablet 3 mg PO QDAY tab 02/28/17 09/26/19 History diclofenac sodium 1 % topical gel 2 g TOPICAL QID PRN #100 g 09/04/18 09/18/19 Rx Embrel 50 mg INJ WEEKLY 09/25/18 09/26/19 History amitriptyline 75 mg tablet 225 mg PO QHS #270 tab 07/15/19 09/26/19 Rx furosemide 40 mg tablet 40 mg PO QDAY #90 tab 07/15/19 09/26/19 Rx folic acid 400 mcg tablet 400 mcg PO QDAY 08/02/19 09/26/19 History magnesium 250 mg tablet 250 mg PO BID tab 08/02/19 09/26/19 History omega-3 fatty acids 1,000 mg 1,000 mg PO QDAY 08/02/19 09/26/19 History capsule tramadol 50 mg tablet 100 mg PO BID #120 tab 08/23/19 09/26/19 Rx buspirone 15 mg tablet 15 mg PO QDAY #90 tab 09/03/19 09/26/19 Rx warfarin 5 mg tablet See Rx Instructions PO QDAY #0 tab 09/13/19 09/26/19 Rx hydrocodone 10 mg-acetaminophen 1 tab PO .Q4-6H PRN #150 tab 09/18/19 09/26/19 Rx 325 mg tablet Aripiprazole [Abilify] 10 mg PO HS 09/26/19 09/26/19 History Rosuvastatin Calcium [Crestor] 20 mg PO HS 09/26/19 09/26/19 History Ubidecarenone [Co Q-10] 300 mg PO 3XW 09/26/19 09/26/19 History Vitamin B12 5,000 mcg PO QDAY 09/26/19 09/26/19 History Allergies Allergy/AdvReac Type Severity Reaction Status Date / Time Sulfa (Sulfonamide Allergy Mild Rash Verified 09/26/19 13:00 Antibiotics) codeine AdvReac Mild Nausea Verified 09/26/19 13:00 Medical - H&P: Exam - Constitutional Vitals: Temp Pulse Resp BP Pulse Ox 98.1 F 74 16 102/62 91 09/26/19 12:58 09/26/19 16:16 09/26/19 12:58 09/26/19 16:16 09/26/19 16:16 Exam: General: Alert, Awake, No acute Distress Eyes/N/T: EOMI, PERRL, dry MM Head/Neck: neck supple, normocephalic atraumatic CV: RRR, No murmurs, normal s1/s2 Pulm: Clear b/l, no wheezing/rhonchi/rales Abd: soft, nontender, +BS x4 Ext: no clubbing/cyanosis/edema to right lower extremity. Left lower extremity erythematous/edematous/tender to palpation. Dressing intact over wound with necrotic center per pictures Neuro: Alert, no focal deficits, moves all extremities, CN 2-12 grossly intact, symmetrical strength b/l upper/lower, sensations intact b/l upper/lower Skin: warm/dry with the exception of the described above left lower extremity Medical - H&P: Reslt - Labs CBC & Chem 7: 09/26/19 14:05 09/26/19 14:05 Labs: Short CBC 09/26/19 Range/Units 14:05 WBC 7.4 (4.50-11.00) K/mcL Hgb 12.5 L (13.7-17.5) g/dL Hct 37.9 L (40.1-51.0) % Plt Count 286 (140-440) K/mcL BMP 09/26/19 14:05 Sodium 140 Potassium 4.2 Chloride 100 Carbon Dioxide 27 BUN 38 H Creatinine 1.6 H Glucose 139 H Calcium 9.0 Liver Function 09/26/19 Range/Units 14:05 Total Bilirubin 0.4 (0.0-1.0) mg/dL AST 21 (0-37) U/l ALT 16 (0-40) U/l Alkaline Phosphatase 116 (39-117) U/L Albumin 3.0 L (3.2-5.2) gm/dL Medical - H&P: A/P - Narrative A/P Narrative: A: *LLE calf nonhealing wound w/cellulitis and necrosis: failed outpt therapy *PMR: on immunosuppression with Enbral and Prednisone *h/o diastolic CHF: *CAD w/CABG: *CKD III: *COPD (not on home O2): *CARLOS w/CPAP: *HTN/HLD: *Depression/anxiety: *h/o DVT: On warfarin * P: -Vanco/zosyn -BC/WC pending -Dr. Rivas for I&D tomorrow and wound care -Hold Enbrel, cont prednisone -cont BB, hold lasix today -statin -cont home pysch meds -home cpap - -pt/ot -ppx: warfarin per pharm (hold today for I&D tomorrow) DNR
[2019-09-26] MEDS ORDERED: HYDROcodone/APAP 5/325MG TABLET PO PRN (17:19)
[2019-09-26] MEDS ORDERED: VANCOMYCIN PER PHARMACY IV ONE (17:19)
[2019-09-26] MEDS ORDERED: POTASSIUM CHLORIDE 20 MEQ TABLET PO PRN ×2 (17:19)
[2019-09-26] MEDS ORDERED: MAGNESIUM SULFATE 2 GM/50 ML BAG IV PRN (17:19)
[2019-09-26] MEDS ORDERED: SENNOSIDES 1 TABLET PO PRN (17:19)
[2019-09-26] MEDS ORDERED: POTASSIUM CHLORIDE 40 MEQ in DEXTROSE 5% IN WATER 500 ML IV PRN (17:19)
[2019-09-26] MEDS ORDERED: ONDANSETRON 4 MG/2 ML VIAL IV PRN (17:19)
[2019-09-26] MEDS ORDERED: POLYETHYLENE GLYCOL 3350 17 GM PACKET PO PRN (17:19)
[2019-09-26] MEDS ORDERED: IPRATROPIUM/ALBUTEROL 3 ML AMPUL.NEB NEB PRN (17:19)
[2019-09-26] MEDS ORDERED: ACETAMINOPHEN 325 MG TABLET PO PRN (17:19)
[2019-09-26] MEDS ORDERED: VANCOMYCIN PER PHARMACY IV SCH (17:30)
[2019-09-26 18:33] LABS: Band Neutrophils % 3 % (0-10); Eosinophils % (Manual) 1 % (0-7); Lymphocytes % 15 % (15-49); Monocytes % (Manual) 3 % (1-12); Platelet Estimate NORMAL (NORMAL); RBC Morphology NORMAL (NORMAL); Reactive Lymphocytes 2 % (0-2); Segmented Neutrophils % 76 % (38-78)
[2019-09-26] MEDS ORDERED: CARVEDILOL 12.5 MG TABLET ONE (19:05)
[2019-09-26] MEDS: LACTATED RINGERS 1,000 ML IV SCH (19:26)
[2019-09-26] MEDS: CARVEDILOL 12.5 MG TABLET PO SCH (19:27)
[2019-09-26] MEDS ORDERED: diphenhydrAMINE 25 MG CAPSULE PO PRN (20:00)
[2019-09-26] MEDS ORDERED: traMADol 50 MG TABLET PO SCH (21:00)
[2019-09-26] MEDS ORDERED: ARIPIPRAZOLE 5 MG TABLET PO SCH (21:00)
[2019-09-26] MEDS ORDERED: AMITRIPTYLINE 25 MG TABLET PO SCH (21:00)
[2019-09-26] MEDS ORDERED: ATORVASTATIN 40 MG TABLET PO SCH (21:00)
[2019-09-26] MEDS: PIPERACILLIN SODIUM/TAZOBACTAM 2.25 GM in DEXTROSE 5% IN WATER 50 ML IV SCH (21:06)
[2019-09-26] MEDS ORDERED: traMADol 50 MG TABLET PO ONE (21:17)
[2019-09-26] MEDS ORDERED: ARIPIPRAZOLE 5 MG TABLET PO ONE (21:18)
[2019-09-26] MEDS ORDERED: ATORVASTATIN 40 MG TABLET ONE (21:18)
[2019-09-26] MEDS ORDERED: DOCUSATE SODIUM 100 MG CAPSULE PO ONE (21:18)
[2019-09-26] MEDS ORDERED: AMITRIPTYLINE 25 MG TABLET PO ONE (21:19)
[2019-09-26] MEDS ORDERED: busPIRone 15 MG TABLET ONE (21:22)
[2019-09-26] MEDS: DOCUSATE SODIUM 100 MG CAPSULE PO SCH (21:25)
[2019-09-26] MEDS ORDERED: HYDROcodone/APAP 5/325MG TABLET PO ONE (21:43)
--- NOTE | 2019-09-26 21:46 | General Surgery Consult Note ---
History of Present Illness Patient information: Note initiated : 09/26/19 at 9:37 pm Service Date, if different from initiated Date: [] Patient: Latrell Caro 79 y/o M admitted on 09/26/19 for Wound Recheck. Chief Complaint: [] Consult date: 09/26/19 Requesting physician: Israel Felix (Wound Care. LEFT leg wound) History of present illness: 09/26/2019 79/M. I saw this patient along with Kendall SEVILLA in room 109. Gauri's was present during the interview. Patient was seen earlier in wound care center and referred to ER for evaluation,investigations and admission to floor for continuity of care. Patient is a retired. Lives at home with and has limited capacity to ambulate with walker in and around house. He had non syncopal ground level fall at home and sustained a large skin tear of LEFT posterior calf and lower leg over 2 weeks ago. He was being seen in ER since then and treated with local wound care and oral antibiotics. Due to lack of anticipated progress and development of interval acute changes of cellulitis and tenderness, he was referred to wound care center. He had blood works and a venous Doppler study. This was negative for DVT. Gauri has complex medical history and is on multiple medications and on oral anticoagulants. Medications and Allergies Home Medications Medication Instructions Recorded Confirmed Type carvedilol 12.5 mg tablet 12.5 mg PO BID 06/30/15 09/26/19 History prednisone 1 mg tablet 5 mg PO QDAY tab 02/28/17 09/26/19 History diclofenac sodium 1 % topical gel 2 g TOPICAL QID PRN #100 g 09/04/18 09/26/19 Rx Embrel 50 mg INJ HULL 09/25/18 09/26/19 History furosemide 40 mg tablet 40 mg PO QDAY #90 tab 07/15/19 09/26/19 Rx folic acid 400 mcg tablet 400 mcg PO QDAY 08/02/19 09/26/19 History magnesium 250 mg tablet 250 mg PO BID tab 08/02/19 09/26/19 History omega-3 fatty acids 1,000 mg 1,000 mg PO QDAY 08/02/19 09/26/19 History capsule tramadol 50 mg tablet 100 mg PO BID #120 tab 08/23/19 09/26/19 Rx warfarin 5 mg tablet See Rx Instructions PO QDAY #0 tab 09/13/19 09/26/19 Rx hydrocodone 10 mg-acetaminophen 1 tab PO .Q4-6H PRN #150 tab 09/18/19 09/26/19 Rx 325 mg tablet Amitriptyline [Elavil] 75 mg PO QHS 09/26/19 09/26/19 History Aripiprazole [Abilify] 10 mg PO QHS 09/26/19 09/26/19 History Rosuvastatin Calcium [Crestor] 20 mg PO QHS 09/26/19 09/26/19 History Teriparatide [Forteo] 2.4 ml SQ QHS 09/26/19 09/26/19 History Ubidecarenone [Co Q-10] 300 mg PO MOWEFR 09/26/19 09/26/19 History Vitamin B12 5,000 mcg PO QDAY 09/26/19 09/26/19 History busPIRone [Buspar] 15 mg PO QHS 09/26/19 09/26/19 History Calcium (Oyster Shell) [Oscal] 2,000 mg PO BID 09/27/19 09/27/19 History Ergocalciferol (Vitamin D2) 3,000 unit PO QAM 09/27/19 09/27/19 History [Vitamin D2] Allergies Allergy/AdvReac Type Severity Reaction Status Date / Time Sulfa (Sulfonamide Allergy Mild Rash Verified 09/26/19 13:00 Antibiotics) codeine AdvReac Mild Nausea Verified 09/26/19 13:00 Exam Temp Pulse Resp BP Pulse Ox 98.1 F 82 18 113/65 93 09/26/19 20:00 09/26/19 20:00 09/26/19 20:00 09/26/19 20:00 09/26/19 20:00 - General physical appearance moderate distress, chronically ill - Eyes PERRL, normal ocular movement - ENT normal pinna, normal nares, normal mucosa, no congestion - Head Head exam IM: Present: atraumatic, normocephalic - Neck no masses, trachea midline, no venous distension - Cardiovascular Cardiovascular exam IM: Present: irregular rhythm - Respiratory normal respiratory effort, clear to auscultation - Abdomen Abdomen: Present: soft, non tender, bowel sounds - Integumentary Present: other (Erythema / Pitting edema and tenderness involving LLE from ankkle to upper thigh. More pronounced over posterior calf area. There is devitalised adherent eschar at the site of skin tear. ( About 8 x 7 CM ) ) - Neurologic Present: other (NO gross focalneurological deficits. Detailed examination not done.) - Musculoskeletal Present: other (Spinal deformity, h/o vertebropalsty. LLE soft tissue edema as above. Limited ambulation 12-15 feet, with a walker. ) - Psychiatric Present: oriented to time, oriented to person, oriented to place, speech is normal, memory intact Results - Labs 09/27/19 05:15 09/27/19 05:15 Abnormal lab results 09/26/19 09/26/19 09/26/19 Range/Units 14:05 14:05 14:05 RBC 3.89 L (4.63-6.08) M/mcL Hgb 12.5 L (13.7-17.5) g/dL Hct 37.9 L (40.1-51.0) % Lymph # (Auto) 1.27 L (1.50-4.80) K/mcL PT 23.0 H (11.9-14.5) sec INR 2.0 H (0.9-1.1) BUN 38 H (8-23) mg/dl Creatinine 1.6 H (0.7-1.2) mg/dl Glucose 139 H (70-105) mg/dL C-Reactive Protein 5.7 H (0.0-0.8) mg/dl NT-Pro-B Natriuret Pep 3024.0 H (0-450) pg/ml Albumin 3.0 L (3.2-5.2) gm/dL Diabetes panel 09/26/19 Range/Units 14:05 Sodium 140 (133-145) mmol/L Potassium 4.2 (3.3-5.1) mmol/L Chloride 100 (96-108) mmol/L Carbon Dioxide 27 (22-30) mmol/L BUN 38 H (8-23) mg/dl Creatinine 1.6 H (0.7-1.2) mg/dl Glucose 139 H (70-105) mg/dL Calcium 9.0 (8.6-10.4) mg/dl AST 21 (0-37) U/l ALT 16 (0-40) U/l Alkaline Phosphatase 116 (39-117) U/L Total Protein 6.1 (5.9-8.4) gm/dL Albumin 3.0 L (3.2-5.2) gm/dL Calcium panel 09/26/19 Range/Units 14:05 Calcium 9.0 (8.6-10.4) mg/dl Albumin 3.0 L (3.2-5.2) gm/dL Pituitary panel 09/26/19 Range/Units 14:05 Sodium 140 (133-145) mmol/L Potassium 4.2 (3.3-5.1) mmol/L Chloride 100 (96-108) mmol/L Carbon Dioxide 27 (22-30) mmol/L BUN 38 H (8-23) mg/dl Creatinine 1.6 H (0.7-1.2) mg/dl Glucose 139 H (70-105) mg/dL Calcium 9.0 (8.6-10.4) mg/dl Adrenal panel 09/26/19 Range/Units 14:05 Sodium 140 (133-145) mmol/L Potassium 4.2 (3.3-5.1) mmol/L Chloride 100 (96-108) mmol/L Carbon Dioxide 27 (22-30) mmol/L BUN 38 H (8-23) mg/dl Creatinine 1.6 H (0.7-1.2) mg/dl Glucose 139 H (70-105) mg/dL Calcium 9.0 (8.6-10.4) mg/dl Total Bilirubin 0.4 (0.0-1.0) mg/dL AST 21 (0-37) U/l ALT 16 (0-40) U/l Alkaline Phosphatase 116 (39-117) U/L Total Protein 6.1 (5.9-8.4) gm/dL Albumin 3.0 L (3.2-5.2) gm/dL All other labs normal. Assessment and Plan (1) Coagulopathy Status: Chronic Priority: Medium Comment: COUMADIN ON HOLD at this time. (2) Skin abrasion Status: Acute Priority: Medium (3) Skin tear of left lower leg without complication Status: Acute Priority: High Qualifiers: Encounter type: initial encounter Qualified Code(s): S81.812A - Laceration without foreign body, left lower leg, initial encounter (4) Frequent falls Status: Acute Priority: Medium (5) Cellulitis of lower extremity Status: Acute Priority: High Qualifiers: Laterality: left Qualified Code(s): L03.116 - Cellulitis of left lower limb (6) Wound infection Assessment: CSSSI, Chronic Sepsis. NEEDS debridement, Pulse lavage irrigation and tissue samples for c/s and targeted antimicrobial therapy. Plan: Await Anesthesiology consult from Dr. Lynne, later OR surgical debridement and pulse lavage irrigation, tissue cultures. Status: Acute Priority: Medium (7) COPD (chronic obstructive pulmonary disease) Status: Chronic Priority: Low Qualifiers: COPD type: unspecified COPD Qualified Code(s): J44.9 - Chronic obstructive pulmonary disease, unspecified (8) Kyphosis, acquired Status: Chronic Priority: Low (9) Muscle weakness Status: Chronic Priority: Low (10) Renal insufficiency Status: Chronic Priority: Medium (11) Atelectasis Status: Chronic Priority: Medium
[2019-09-26] MEDS: 0.9 % SODIUM CHLORIDE 10 ML SYRINGE IV SCH (21:47)
[2019-09-27] MEDS: PIPERACILLIN SODIUM/TAZOBACTAM 2.25 GM in DEXTROSE 5% IN WATER 50 ML IV SCH ×4 (01:12→18:16)
--- NOTE | 2019-09-27 06:43 | XRay Report ---
CLINICAL INFORMATION: Pre Op COMPARISON: 09/25/2018 FINDINGS: Films taken in rightward rotation. Heart is mildly enlarged. Tortuous thoracic aorta noted. Pulmonary vessels are normal. Moderate atelectasis in the left base. Small left pleural effusion noted IMPRESSION: Suspect atelectasis left base and small left pleural effusion Interpreted and Authenticated by: Zac Lehman 09/27/19
[2019-09-27] MEDS: 0.9 % SODIUM CHLORIDE 10 ML SYRINGE IV SCH ×3 (06:48→23:02)
[2019-09-27 07:04] LABS: Basophils # (Auto) 0.03 K/mcL (0.00-0.30); Basophils % (Auto) 0.4 % (0.0-2.0); Eosinophils # (Auto) 0.33 K/mcL (0.00-0.70); Eosinophils % (Auto) 4.4 % (0.0-7.0); Granulocytes % (Auto) 56.7 % (38.0-78.0); Hematocrit 33.8 % (40.1-51.0); Lymphocytes # (Auto) 1.69 K/mcL (1.50-4.80); Lymphocytes % (Auto) 22.6 % (15.5-49.0); Mean Cell Volume 99.4 fL (80.0-100.0); Mean Corpuscular HGB Conc 32.5 g/dL (31.0-36.0); Mean Platelet Volume 9.5 fL (7.4-10.4); Monocytes # (Auto) 1.19 K/mcL (0.10-0.90); Monocytes % (Auto) 15.9 % (1.0-12.0); Platelet Count 247 K/mcL (140-440); Red Cell Distribution Width 13.6 % (11.5-14.5); WBC 7.5 K/mcL (4.50-11.00)
--- NOTE | 2019-09-27 07:06 | Internal Med Progress Note ---
Medical - PN: Subj Patient information: Note initiated : 09/27/19 at 7:03 am Service Date, if different from initiated Date: [] Patient: Latrell Caro a 79 y/o M admitted on 09/26/19 for Wound Recheck. Chief Complaint: [] Interval history: Mr. Caro is a 79 year old M 71-year-old male who is on immunosuppression for polymyalgia rheumatica with Enbrel and prednisone who presents to the ED for nonhealing wound that is failing outpatient therapy. Patient originally fell out of his chair on the sustaining a skin tear and laceration to the left calf. He was seen again on September 24 and then again the next day. He has been prescribed oral antibiotics. The wound and surrounding leg have continued to worsen with increased redness swelling and warmth and tenderness. The center of the wound is appear to be necrotic tissue. Patient saw Dr. rivas today who evaluate the patient and recommend the patient be admitted for IV antibiotics and surgical debridement. Wound and blood cultures were obtained in the ED. Patient was started on Vanco Zosyn. Patient denies fevers or chills. Leg is very tender to the touch. No DVT on ultrasound. He is on warfarin for history of DVT as INR outpatient recently was subtherapeutic. 2/7 Sleeping but easily arousable. No complaints or issues overnight. Review of Systems: denies headache/fever/chills/nausea/vomiting/chest or abdominal pain/cough/dyspnea/diarrhea. Otherwise see above. - Constitutional Vitals: Vital Signs Temp Pulse Resp BP Pulse Ox 97.4 F 71 12 116/67 96 09/27/19 06:50 09/27/19 03:59 09/27/19 06:50 09/27/19 06:50 09/27/19 06:50 Period Temp Pulse Resp BP Sys/Mccarthy Pulse Ox Last 24 Hr 97.4 F-98.3 F 68-85 12-20 80-134/53-75 90-96 Intake and Output 09/26/19 09/27/19 09/27/19 21:59 05:59 13:59 Intake Total 853 410 50 Output Total 400 Balance 453 410 50 Weight 55.026 kg Intake & Output: Intake & Output 09/26/19 09/27/19 09/27/19 21:59 05:59 13:59 Intake Total 853 410 50 Output Total 400 Balance 453 410 50 Weight 55.026 kg Intake: IV 853 50 50 Lactated Ringers 1,000 ml @ 150 503 mls/hr IV .Q6H40M GUILLERMO Rx#: [id number] Zosyn 2.25 gm In Dextrose 5% in 50 50 50 Water 50 ml @ 100 mls/hr IV Q6H [facility]LLERMO Rx#:[id number] Zosyn 3.375 gm In Dextrose 5% 50 in Water 50 ml @ 100 mls/hr IV ONCE GUILLERMO Rx#:[id number] Vancomycin 1,000 mg In Sodium 250 Chloride 0.9% 250 ml @ 250 mls/ hr IV ONCE ONE Rx#:[id number] Oral 360 Output: Void Amount 400 Exam: General: Alert, Awake, No acute Distress Eyes/N/T: EOMI, Head/Neck: neck supple, CV: RRR, No murmurs, Pulm: Clear b/l, no wheezing/rhonchi/rales Abd: soft, nontender, +BS x4 Ext: no clubbing/cyanosis/edema to right lower extremity. Left lower extremity erythematous/edematous/tender to palpation. Dressing intact over wound with necrotic center Neuro: Alert, no focal deficits, moves all extremities, Skin: warm/dry with the exception of the described above left lower extremity Medical - PN: Obj Da - Labs CBC & Chem 7: 09/27/19 05:15 09/27/19 05:15 Labs: Abnormal Lab Results 09/26/19 09/26/19 09/26/19 14:05 14:05 14:05 RBC 3.89 L Hgb 12.5 L Hct 37.9 L Lymph # (Auto) 1.27 L PT 23.0 H INR 2.0 H BUN 38 H Creatinine 1.6 H Glucose 139 H C-Reactive Protein 5.7 H NT-Pro-B Natriuret Pep 3024.0 H Albumin 3.0 L Meds: Medications Acetaminophen (Tylenol) 650 mg PO Q6HP PRN PRN Reason: PAIN/FEVER > 101 Hydrocodone Bitart/Acetaminophen ([place] 5/325mg) 1 tab PO Q4HP PRN PRN Reason: PAIN LEVEL 3-6 Last Admin: 09/26/19 21:45 Dose: 1 tab Documented by: Albuterol/Ipratropium (Duoneb) 3 ml NEB Q4HP PRN PRN Reason: Shortness Of Breath Atorvastatin Calcium (Lipitor) 40 mg PO HS [facility] Last Admin: 09/26/19 21:27 Dose: 40 mg Documented by: [facility] Last Admin: 09/26/19 19:27 Dose: 12.5 mg Documented by: Diphenhydramine HCl (Benadryl) 25 mg PO HSP PRN PRN Reason: Insomnia Docusate Sodium (Colace) 100 mg PO BID [facility] Last Admin: 09/26/19 21:25 Dose: Not Given Documented by: Lactated Ringer's (Lactated Ringers) 1,000 mls @ 84 mls/hr IV .[id number] [facility] Stop: 09/27/19 13:48 Last Admin: 09/26/19 19:26 Dose: 84 mls/hr Documented by: Potassium Chloride 40 meq/ (Dextrose) 520 mls @ 130 mls/hr IV UD PRN PRN Reason: Potassium < 3 Magnesium Sulfate (Magnesium Sulfate) 2 gm in 50 mls @ 50 mls/hr IV UD PRN PRN Reason: Magnesium </= 1.6 Piperacillin Sod/Tazobactam (Sod 2.25 gm/ Dextrose) 50 mls @ 100 mls/hr IV Q6H [facility]; Protocol Last Infusion: 09/27/19 06:47 Dose: Infused Documented by: Vancomycin HCl 1,000 mg/ (Sodium Chloride) 250 mls @ 250 mls/hr IV Q24H [facility] Morphine Sulfate (Morphine) 0 mg IV Q3HP PRN PRN Reason: Pain Ondansetron HCl (Zofran) 4 mg IV Q4HP PRN PRN Reason: Nausea And Vomiting Polyethylene Glycol (Miralax) 17 gm PO DAILYP PRN PRN Reason: Constipation Potassium Chloride (Kdur) 40 meq PO UD PRN PRN Reason: Potssium is 3-3.5 Potassium Chloride (Kdur) 40 meq PO UD PRN PRN Reason: Potassium < 3 Pred[facility] (Pred[facility]one) [facility] Senna (Senokot) 2 tab PO DAILYP PRN PRN Reason: Constipation Sodium Chloride (Saline Flush) 10 ml IV Q8 [facility] Last Admin: 09/27/19 06:48 Dose: 10 ml Documented by: Tramadol HCl (Ultram) 100 mg PO BID [facility] Last Admin: 09/26/19 21:26 Dose: 100 mg Documented by: Vancomycin HCl (Vancomycin Per Pharmacy) 1 order IV [facility]; Protocol Warfarin Sodium (Coumadin Per Pharmacy) 1 order PO [facility] Medical - PN: A/P - Time Spent With Patient Total time spent is greater than 50% in coordination of care (as documented) at patient's floor/unit and/or counseling patient: - Narrative A/P Narrative: A: *LLE calf nonhealing wound w/cellulitis and necrosis: failed outpt therapy -CRP improving *PMR: on immunosuppression with Enbral and Prednisone *h/o diastolic CHF: *CAD w/CABG: *CKD III: *COPD (not on home O2): *CARLOS w/CPAP: *HTN/HLD: *Depression/anxiety: *h/o DVT: On warfarin * P: -Vanco/zosyn -BC/WC pending -Dr. Rivas for I&D today and wound care -Hold Enbrel, cont prednisone -cont BB, lasix -statin -cont home pysch meds -home cpap - -pt/ot -ppx: warfarin per pharm (hold until after I&D today) DNR Medical - PN: Qual - Stroke Symptom Onset Unknown: No - VTE Deep Vein Thrombosis/Pulmonary Embolism Present on Admission: No
[2019-09-27 07:31] LABS: ALT/SGPT 12 U/l (0-40); AST/SGOT 17 U/l (0-37); Albumin 2.3 gm/dL (3.2-5.2); Alkaline Phosphatase 90 U/L (39-117); Bilirubin,Direct < 0.2 mg/dL (0.0-0.3); Bilirubin,Total 0.3 mg/dL (0.0-1.0); Blood Urea Nitrogen 31 mg/dl (8-23); Carbon Dioxide 24 mmol/L (22-30); Chloride 106 mmol/L (96-108); Glomerular Filtration Rate 52; Glucose 84 mg/dL (70-105); Lactate Dehydrogenase 190 U/L (94-250); Phosphorous 3.2 mg/dL (2.7-4.5); Triglycerides 68 mg/dl (<150); Uric Acid 6.5 mg/dL (2.5-8.0)
[2019-09-27 07:38] LABS: Albumin/Globulin Ratio 0.9 (1.0-2.3); Globulin 2.5 gm/dL (2.2-3.7)
[2019-09-27 07:54] LABS: INR 2.1 (0.9-1.1); Prothrombin Time 24.5 sec (11.9-14.5)
[2019-09-27] MEDS ORDERED: predniSONE 1 MG TABLET PO SCH (08:00)
[2019-09-27] MEDS ORDERED: traMADol 50 MG TABLET PO SCH (09:00)
[2019-09-27] MEDS ORDERED: UBIDECARENONE 300 MG PO SCH (09:00)
[2019-09-27] MEDS ORDERED: busPIRone 5 MG TABLET PO SCH (09:00)
[2019-09-27] MEDS ORDERED: VANCOMYCIN 1,000 MG in 0.9 % SODIUM CHLORIDE 250 ML IV SCH (09:00)
[2019-09-27] MEDS ORDERED: CYANOCOBALAMIN (VITAMIN B-12) 500 MCG TABLET PO SCH (09:00)
--- NOTE | 2019-09-27 09:02 | General Surgery Progress Note ---
Surgical - Auxillary Note - Subjective Patient Information: Note initiated : 09/27/19 at 8:55 am Service Date, if different from initiated Date: [] Patient: Latrell Caro 79 y/o M admitted on 09/26/19 for Wound Recheck. Chief Complaint: [non healing wound lle in need of surgical debridement by Dr Rivas. Pt evaluated and is deemed high risk to proceed to surgery and undergo general anesthesia, risks and benefits must be evaluated and judged by both the patient and the surgeon and a mutual decision must be arrived at independently. Pt is deconditioned and weak and has falls. post CABG, HTN, DVT anemia, CHF hx, edema, anticoagulation therapy (INR 2.1), abnormal EKG, GERD, CKD, cerebrovascular disease/post CVA, and underlying psych and chronic autoimmune disorder requiring immune modulation therapy and daily steroid use. The OR schedule is busy and we have add on cases being scheduled now. End of da y is likely for this gentleman to come to the OR due to limited availability of sx. Thank you DIETER]
[2019-09-27] MEDS: LACTATED RINGERS 1,000 ML IV SCH (09:37)
--- NOTE | 2019-09-27 11:01 | Nephrology Consult Note ---
History of Present Illness - Reason for Consult Patient information: Note initiated : 09/27/19 at 11:00 am Service Date, if different from initiated Date: [] Patient: Latrell Caro 79 y/o M admitted on 09/26/19 for Wound Recheck. Chief Complaint: [] Requesting physician: Israel Felix - Chief Complaint leg wound - History of Present Illness The patient is an elderly male who sustained a lef calf wound a few weeks ago. He was seen in wound care clinic He was referred from wound care for possible skin infection. A few days ago, started on Keflex, patient continues to develop left lower leg pain and redness has a large skin defect. Apparently an attempted skin flap did not take any ended up with the larger wound to his left lower leg Over the last few days she's developed increased swelling to the left lower leg as well as redness and pain and. Wound care recommended that he be admitted for cellulitis and he wishes to do debridement in the hospital. He has multiple medical problems including chronic anticoagulation, Enbrel and prednisone with resultant immunosupression and edema, and an elevated serum Cr with CKID 3 and no proteinuria dating back to 2017. CT December 2018 Images through the abdomen show cholecystectomy changes. Intrahepatic and common bile ducts are normal caliber. The noncontrasted liver, both adrenal glands, spleen, pancreas and aorta are normal in size configuration and attenuation without focal lesion. There are two small nonobstructing stones within the inferior and superior calyces of the right kidney - both less than 3 mm. A 2 mm nonobstructing stone is seen in the superior calyx of the left kidney. There is also a 2 cm simple cyst anterior cortex mid left kidney. Review of Systems All systems PM: reviewed and no additional remarkable complaints except as stated Past History Past medical history: Medical History (Last Reviewed 09/11/19 @ 15:41 by Roberto Crowley MD) COPD (chronic obstructive pulmonary disease) (Chronic) Kyphosis, acquired (Chronic) Muscle weakness (Chronic) Corticosteroid dependence (Chronic) History of influenza pneumonia (Chronic) Anemia (Chronic) Rectus sheath hematoma (Chronic) Cellulitis (Acute) Leg edema, left (Acute) Acute bronchitis (Acute) Influenza (Acute) Pneumonia (Acute) Shortness of Breath (Acute) Severe sepsis with acute organ dysfunction (Acute) Acute respiratory failure with hypoxia (Acute) Dysphagia (Chronic) Esophageal stricture (Chronic) Pseudogout (Chronic) Polymyalgia rheumatica (Chronic) Osteoporosis (Chronic) Food sticks on swallowing (Acute) Food impaction of esophagus (Acute) Myocardial infarction acute (Acute) Vitamin D deficiency (Chronic 04/06/12) Personal history of TIA (transient ischemic attack) (Chronic) Thoracic vertebral fracture (Chronic) Testicular hypofunction (Chronic) Stroke (Chronic) Osteoarthritis (Chronic) Nephrolithiasis (Chronic) residential current use of anticoagulant (Chronic) Ischemic cardiomyopathy (Chronic) Hyperlipidemia (Chronic) Hypercholesterolemia (Chronic) Hypertensive chronic kidney disease (Chronic) Heart disease (Chronic) History of gout (Chronic) Glucose intolerance (impaired glucose tolerance) (Chronic) Gastric ulcer (Chronic) Dyslipidemia (Chronic) Depressive disorder (Chronic) Congestive heart failure (Chronic) Chronic kidney disease, 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) Cholelithiasis (Chronic) Acute cholecystitis (Acute) CAD (coronary artery disease) (Chronic) Back pain (Chronic) Arthritis (Chronic) Abdominal pain, LUQ (Chronic) History of GI bleed (Acute) History of bilevel positive airway pressure (BiPAP) therapy (Acute) Hx of blood clots (Acute) Hx of skin malignancy (Acute) Past Surgical History (Last Reviewed 09/11/19 @ 15:41 by Roberto Crowley MD) Status post dilatation of esophageal stricture (Acute) History of vertebroplasty (Chronic) History of vasectomy (Chronic) History of tonsillectomy (Chronic) History of hand surgery (Chronic) History of esophagogastroduodenoscopy (Chronic 05/16/12) History of colonoscopy (Chronic 11/21/12) History of cholecystectomy (Chronic) History of coronary artery bypass graft (Chronic 02/18/04) History of atrial septal defect repair (Chronic) H/O shoulder replacement (Acute) Family History (Last Reviewed 09/11/19 @ 15:41 by Roberto Crowley MD) Mother Malignant neoplasm of colon Essential hypertension Sister Depression Cardiac disease Father Pulmonary emphysema Cardiac disease Social History (Last Updated 09/18/19 @ 17:46 by Axel Simpson MD) Remote smoking history Drinks alcohol rarely Ambulates with a walker Lives at home with his Medical - H&P: Meds Home Medications Medication Instructions Recorded Confirmed Type carvedilol 12.5 mg tablet 12.5 mg PO BID 06/30/15 09/26/19 History prednisone 1 mg tablet 3 mg PO QDAY tab 02/28/17 09/26/19 History diclofenac sodium 1 % topical gel 2 g TOPICAL QID PRN #100 g 09/04/18 09/18/19 Rx Embrel 50 mg INJ WEEKLY 09/25/18 09/26/19 History amitriptyline 75 mg tablet 225 mg PO QHS #270 tab 07/15/19 09/26/19 Rx furosemide 40 mg tablet 40 mg PO QDAY #90 tab 07/15/19 09/26/19 Rx folic acid 400 mcg tablet 400 mcg PO QDAY 08/02/19 09/26/19 History magnesium 250 mg tablet 250 mg PO BID tab 08/02/19 09/26/19 History omega-3 fatty acids 1,000 mg 1,000 mg PO QDAY 08/02/19 09/26/19 History capsule tramadol 50 mg tablet 100 mg PO BID #120 tab 08/23/19 09/26/19 Rx buspirone 15 mg tablet 15 mg PO QDAY #90 tab 09/03/19 09/26/19 Rx warfarin 5 mg tablet See Rx Instructions PO QDAY #0 tab 09/13/19 09/26/19 Rx hydrocodone 10 mg-acetaminophen 1 tab PO .Q4-6H PRN #150 tab 09/18/19 09/26/19 Rx 325 mg tablet Aripiprazole [Abilify] 10 mg PO HS 09/26/19 09/26/19 History Rosuvastatin Calcium [Crestor] 20 mg PO HS 09/26/19 09/26/19 History Ubidecarenone [Co Q-10] 300 mg PO 3XW 09/26/19 09/26/19 History Vitamin B12 5,000 mcg PO QDAY 09/26/19 09/26/19 History Allergies Allergy/AdvReac Type Severity Reaction Status Date / Time Sulfa (Sulfonamide Allergy Mild Rash Verified 09/26/19 13:00 Antibiotics) codeine AdvReac Mild Nausea Verified 09/26/19 13:00 Medications and Allergies Home Medications Medication Instructions Recorded Confirmed Type carvedilol 12.5 mg tablet 12.5 mg PO BID 06/30/15 09/26/19 History prednisone 1 mg tablet 5 mg PO QDAY tab 02/28/17 09/26/19 History diclofenac sodium 1 % topical gel 2 g TOPICAL QID PRN #100 g 09/04/18 09/26/19 Rx Embrel 50 mg INJ HULL 09/25/18 09/26/19 History furosemide 40 mg tablet 40 mg PO QDAY #90 tab 07/15/19 09/26/19 Rx folic acid 400 mcg tablet 400 mcg PO QDAY 08/02/19 09/26/19 History magnesium 250 mg tablet 250 mg PO BID tab 08/02/19 09/26/19 History omega-3 fatty acids 1,000 mg 1,000 mg PO QDAY 08/02/19 09/26/19 History capsule tramadol 50 mg tablet 100 mg PO BID #120 tab 08/23/19 09/26/19 Rx warfarin 5 mg tablet See Rx Instructions PO QDAY #0 tab 09/13/19 09/26/19 Rx hydrocodone 10 mg-acetaminophen 1 tab PO .Q4-6H PRN #150 tab 09/18/19 09/26/19 Rx 325 mg tablet Amitriptyline [Elavil] 75 mg PO QHS 09/26/19 09/26/19 History Aripiprazole [Abilify] 10 mg PO QHS 09/26/19 09/26/19 History Rosuvastatin Calcium [Crestor] 20 mg PO QHS 09/26/19 09/26/19 History Teriparatide [Forteo] 2.4 ml SQ QHS 09/26/19 09/26/19 History Ubidecarenone [Co Q-10] 300 mg PO MOWEFR 09/26/19 09/26/19 History Vitamin B12 5,000 mcg PO QDAY 09/26/19 09/26/19 History busPIRone [Buspar] 15 mg PO QHS 09/26/19 09/26/19 History Calcium (Oyster Shell) [Oscal] 2,000 mg PO BID 09/27/19 09/27/19 History Ergocalciferol (Vitamin D2) 3,000 unit PO QAM 09/27/19 09/27/19 History [Vitamin D2] Allergies Allergy/AdvReac Type Severity Reaction Status Date / Time Sulfa (Sulfonamide Allergy Mild Rash Verified 09/26/19 13:00 Antibiotics) codeine AdvReac Mild Nausea Verified 09/26/19 13:00 Exam - Vital Signs Vital signs: Temp Pulse Resp BP Pulse Ox 36.3 C 71 12 116/67 96 09/27/19 06:50 09/27/19 03:59 09/27/19 06:50 09/27/19 06:50 09/27/19 06:50 - General Appearance General appearance: chronically ill, frail EENT: ATNC, PERRL, mucous membranes moist Neck: no JVD, no carotid bruit, supple Respiratory: kyphosis, clear Cardiology: no murmurs, no rub, no gallops, edema, normal S1, normal S2 Gastrointestinal: normoactive bowel sounds, no tenderness, no masses Integumentary: warm and dry, skin tear Neurologic: no focal deficit, no asterixis (tremor at rest right hand > left), CN 3-12 intact Musculoskeletal: deformities, no cyanosis, joint swelling Psychiatric: mood/affect appropriate Results - Lab Results 09/27/19 05:15 09/27/19 05:15 Most recent lab results Calcium 8.0 mg/dl (8.6-10.4) L 09/27/19 05:15 Phosphorus 3.2 mg/dL (2.7-4.5) 09/27/19 05:15 Magnesium 2.1 mg/dL (1.6-2.5) 09/27/19 05:15 Assessment and Plan (1) CKD stage G3a/A1, GFR 45-59 and albumin creatinine ratio <30 mg/g 1. Stable CKD 3 with no proteinuria, no DM and no NSAIDs so he should do fine barring any prolonged hypotension or the development of sepsis. 2. Will follow with you. 3. Post op will re-initiate furosemide at BID dosing to minimize tissue edema 4. Should not need stress dose HC for the small daily dose of prednisone he takes but will keep in the back of my mind if hypotension occurs post op. 5. No objection to surgery Status: Chronic Priority: Medium Comment: Date to 2017 or before. No proteinuria or hematuria to suggest relared to Enbrel or underlying RA or CTD Mild edema on IVF and prednisone Avoids NSAIDs No DM
--- NOTE | 2019-09-27 11:08 | General Surgery Progress Note ---
Subjective Narrative: Note initiated : 09/27/19 at 11:06 am Service Date, if different from initiated Date: [] Patient: Latrell Caro 79 y/o M admitted on 09/26/19 for Wound Recheck. Chief Complaint: [] Saw patient along with Norm RN and Patient's . Examined LEFT calf and leg wound. Objective Temp Pulse Resp BP Pulse Ox 97.4 F 71 12 116/67 96 09/27/19 06:50 09/27/19 03:59 09/27/19 06:50 09/27/19 06:50 09/27/19 06:50 No fever. Lethargic. In pain / discomfort. L/E: Some improvement in periwound erythema. Still very tender over necrotic skin and sub q. Densely adhered to underlying muscle. Renal insufficiency - Additional Data Intake & Output - Last 24 hours: Intake & Output 09/25/19 09/26/19 09/27/19 09/28/19 05:59 05:59 05:59 05:59 Intake Total 1263 1050 Output Total 400 Balance 863 1050 Weight 121 lb 5 oz - Labs 09/27/19 05:15 09/27/19 05:15 Diabetes panel 09/26/19 09/27/19 Range/Units 14:05 05:15 Sodium 140 140 (133-145) mmol/L Potassium 4.2 3.9 (3.3-5.1) mmol/L Chloride 100 106 (96-108) mmol/L Carbon Dioxide 27 24 (22-30) mmol/L BUN 38 H 31 H (8-23) mg/dl Creatinine 1.6 H 1.3 H (0.7-1.2) mg/dl Glucose 139 H 84 (70-105) mg/dL Calcium 9.0 8.0 L (8.6-10.4) mg/dl AST 21 17 (0-37) U/l ALT 16 12 (0-40) U/l Alkaline Phosphatase 116 90 (39-117) U/L Total Protein 6.1 4.8 L (5.9-8.4) gm/dL Albumin 3.0 L 2.3 L (3.2-5.2) gm/dL Triglycerides 68 (<150) mg/dl Calcium panel 09/26/19 09/27/19 Range/Units 14:05 05:15 Calcium 9.0 8.0 L (8.6-10.4) mg/dl Phosphorus 3.2 (2.7-4.5) mg/dL Albumin 3.0 L 2.3 L (3.2-5.2) gm/dL Pituitary panel 09/26/19 09/27/19 Range/Units 14:05 05:15 Sodium 140 140 (133-145) mmol/L Potassium 4.2 3.9 (3.3-5.1) mmol/L Chloride 100 106 (96-108) mmol/L Carbon Dioxide 27 24 (22-30) mmol/L BUN 38 H 31 H (8-23) mg/dl Creatinine 1.6 H 1.3 H (0.7-1.2) mg/dl Glucose 139 H 84 (70-105) mg/dL Calcium 9.0 8.0 L (8.6-10.4) mg/dl Adrenal panel 09/26/19 09/27/19 Range/Units 14:05 05:15 Sodium 140 140 (133-145) mmol/L Potassium 4.2 3.9 (3.3-5.1) mmol/L Chloride 100 106 (96-108) mmol/L Carbon Dioxide 27 24 (22-30) mmol/L BUN 38 H 31 H (8-23) mg/dl Creatinine 1.6 H 1.3 H (0.7-1.2) mg/dl Glucose 139 H 84 (70-105) mg/dL Calcium 9.0 8.0 L (8.6-10.4) mg/dl Total Bilirubin 0.4 0.3 (0.0-1.0) mg/dL AST 21 17 (0-37) U/l ALT 16 12 (0-40) U/l Alkaline Phosphatase 116 90 (39-117) U/L Total Protein 6.1 4.8 L (5.9-8.4) gm/dL Albumin 3.0 L 2.3 L (3.2-5.2) gm/dL Assessment and Plan (1) Coagulopathy Problem details: COUMADIN ON HOLD at this time. Status: Chronic Current Visit: Yes (2) Skin abrasion Status: Acute Current Visit: No (3) Skin tear of left lower leg without complication Status: Acute Current Visit: No (4) Frequent falls Status: Acute Current Visit: No (5) Cellulitis of lower extremity Status: Acute Current Visit: No (6) Wound infection Status: Acute Current Visit: No (7) COPD (chronic obstructive pulmonary disease) Status: Chronic Current Visit: No (8) Kyphosis, acquired Status: Chronic Current Visit: No (9) Muscle weakness Status: Chronic Current Visit: No (10) Renal insufficiency Status: Chronic Current Visit: Yes (11) Atelectasis Status: Chronic Current Visit: Yes - Narrative A/P Narrative: Assessment: SEPSIS, Cellulitis, Necroses LEFT posterior leg / calf. HIGH RISK for any form of treatment. I E. worsening of sepsis /SIRS/ MOF/ . Had a 1:1 long talk with patient's who is CG / POA She wants to go ahead with clean up / debridement. Plan: Continue current management. D/W Hospitalist physician. Will continue to see patient intermittently and await developments / progress. Appreciate input from Anesthesiology / Nephrology. - Time Spent With Patient Total time spent is greater than 50% in coordination of care (as documented) at patient's floor/unit and/or counseling patient: 25 - 35 minutes
[2019-09-27] MEDS ORDERED: WARFARIN 5 MG TABLET PO SCH (15:00)
[2019-09-27] MEDS: CARVEDILOL 12.5 MG TABLET PO SCH ×2 (15:30→18:54)
[2019-09-27] MEDS: DOCUSATE SODIUM 100 MG CAPSULE PO SCH ×2 (15:31→21:19)
[2019-09-27] MEDS ORDERED: KETAMINE 100 MG/ML ML IV ONE (15:35)
[2019-09-27] MEDS ORDERED: PROPOFOL 200 MG/20 ML VIAL IV ONE (15:35)
[2019-09-27] MEDS ORDERED: PHENYLEPHRINE 10 MG/ML VIAL IV ONE (15:35)
[2019-09-27] MEDS ORDERED: LIDOCAINE HCL/PF 100 MG/5 ML SYRINGE IV ONE (15:35)
[2019-09-27] MEDS ORDERED: DEXAMETHASONE 10 MG/ML VIAL IV ONE (15:35)
[2019-09-27] MEDS ORDERED: fentaNYL 100 MCG/2 ML VIAL IV ONE (15:35)
[2019-09-27] MEDS ORDERED: ONDANSETRON 4 MG/2 ML VIAL IV ONE (15:35)
[2019-09-27] MEDS ORDERED: GLYCOPYRROLATE 0.2 MG/ML VIAL IV ONE (15:35)
--- NOTE | 2019-09-27 16:07 | Brief Operative Note ---
Date of procedure: 09/27/19 Pre-op diagnosis: H/O Fall> Necrtoic wound LEFT posterior leg. Post-op diagnosis: same Procedure: Excision debridement. Pulse lavage irrigation, Tissue biopsy and culture, OPEN PACKING. Wound dimensions. 8 x 5 x 1.5 CM. Full thickness skin and subcutaneous adipose tissue . Underlying fascia is intact. Grafts/Implants: No Anesthesia: GLMA Findings: As above. All counts reported to be correct. Complications: none Surgeon: Erasto Rivas Estimated blood loss (cc): 30 Specimens Removed/Pathology: other Condition: stable Disposition: PACU (Operation well tolerated.)
[2019-09-27] MEDS ORDERED: LACTATED RINGERS 1,000 ML IV SCH (16:15)
[2019-09-27] MEDS ORDERED: ACETAMINOPHEN 800 MG/80 ML BOTTLE IV ONE (16:15)
[2019-09-27] MEDS ORDERED: BENZOCAINE/MENTHOL 1 LOZENGE PO PRN (16:15)
[2019-09-27] MEDS ORDERED: LABETALOL 5 MG/ML ML IV PRN (16:15)
[2019-09-27] MEDS ORDERED: NALOXONE HCL 0.4 MG/ML VIAL IV PRN (16:15)
[2019-09-27] MEDS ORDERED: LACTATED RINGERS 250 ML IV PRN (16:15)
[2019-09-27] MEDS ORDERED: IPRATROPIUM/ALBUTEROL 3 ML AMPUL.NEB NEB PRN ×2 (16:15→17:05)
[2019-09-27] MEDS ORDERED: FLUMAZENIL 0.1 MG/ML ML IV PRN (16:15)
[2019-09-27] MEDS ORDERED: METOPROLOL TARTRATE 5 MG/5 ML VIAL IV PRN (16:15)
[2019-09-27] MEDS ORDERED: fentaNYL 100 MCG/2 ML VIAL IV PRN (16:15)
[2019-09-27] MEDS ORDERED: ACETAMINOPHEN 325 MG TABLET PO PRN (17:05)
[2019-09-27] MEDS ORDERED: POTASSIUM CHLORIDE 20 MEQ TABLET PO PRN ×2 (17:05)
[2019-09-27] MEDS ORDERED: POLYETHYLENE GLYCOL 3350 17 GM PACKET PO PRN (17:05)
[2019-09-27] MEDS ORDERED: SENNOSIDES 1 TABLET PO PRN (17:05)
[2019-09-27] MEDS ORDERED: MAGNESIUM SULFATE 2 GM/50 ML BAG IV PRN (17:05)
[2019-09-27] MEDS ORDERED: ONDANSETRON 4 MG/2 ML VIAL IV PRN (17:05)
[2019-09-27] MEDS ORDERED: POTASSIUM CHLORIDE 40 MEQ in DEXTROSE 5% IN WATER 500 ML IV PRN (17:05)
[2019-09-27] MEDS: HYDROcodone/APAP 5/325MG TABLET PO PRN (18:53)
[2019-09-27] MEDS ORDERED: AMITRIPTYLINE 25 MG TABLET PO SCH ×2 (21:00)
[2019-09-27] MEDS ORDERED: diphenhydrAMINE 25 MG CAPSULE PO PRN (21:00)
[2019-09-27] MEDS ORDERED: TERIPARATIDE SC SCH (21:00)
[2019-09-27] MEDS ORDERED: busPIRone 15 MG TABLET PO SCH (21:00)
[2019-09-27] MEDS ORDERED: TERIPARATIDE SQ SCH (21:00)
[2019-09-27] MEDS: AMITRIPTYLINE 25 MG TABLET PO SCH (21:05)
[2019-09-27] MEDS: ARIPIPRAZOLE 5 MG TABLET PO SCH (21:20)
[2019-09-27] MEDS: traMADol 50 MG TABLET PO SCH (21:21)
[2019-09-27] MEDS: ATORVASTATIN 40 MG TABLET PO SCH (21:21)
[2019-09-27] MEDS: busPIRone 15 MG TABLET PO SCH (21:25)
[2019-09-27] MEDS: TERIPARATIDE SC SCH (21:43)
[2019-09-28] MEDS: PIPERACILLIN SODIUM/TAZOBACTAM 2.25 GM in DEXTROSE 5% IN WATER 50 ML IV SCH ×5 (00:14→23:59)
[2019-09-28] MEDS: HYDROcodone/APAP 5/325MG TABLET PO PRN ×3 (04:42→20:11)
[2019-09-28] MEDS: 0.9 % SODIUM CHLORIDE 10 ML SYRINGE IV SCH ×3 (06:01→22:28)
[2019-09-28 07:43] LABS: INR 1.8 (0.9-1.1); Prothrombin Time 21.3 sec (11.9-14.5)
[2019-09-28 08:00] LABS: Prealbumin 9.2 mg/dl (20-40)
[2019-09-28] MEDS ORDERED: predniSONE 1 MG TABLET PO SCH (08:00)
[2019-09-28 08:07] LABS: Thyroid Stimulating Hormone 2.02 uIU/ml (0.27-5.01)
--- NOTE | 2019-09-28 08:18 | Internal Med Progress Note ---
Medical - PN: Subj Patient information: Note initiated : 09/28/19 at 8:15 am Service Date, if different from initiated Date: [] Patient: Latrell Caro a 79 y/o M admitted on 09/26/19 for Wound Recheck. Chief Complaint: [] Interval history: Mr. Caro is a 79 year old M 71-year-old male who is on immunosuppression for polymyalgia rheumatica with Enbrel and prednisone who presents to the ED for nonhealing wound that is failing outpatient therapy. Patient originally fell out of his chair on the sustaining a skin tear and laceration to the left calf. He was seen again on September 24 and then again the next day. He has been prescribed oral antibiotics. The wound and surrounding leg have continued to worsen with increased redness swelling and warmth and tenderness. The center of the wound is appear to be necrotic tissue. Patient saw Dr. costa today who evaluate the patient and recommend the patient be admitted for IV antibiotics and surgical debridement. Wound and blood cultures were obtained in the ED. Patient was started on Vanco Zosyn. Patient denies fevers or chills. Leg is very tender to the touch. No DVT on ultrasound. He is on warfarin for history of DVT as INR outpatient recently was subtherapeutic. 2/7 Sleeping but easily arousable. No complaints or issues overnight. 2/8 Per nurse patient had some confusion overnight. Patient currently sitting in chair eating breakfast. No new complaints. Tolerated procedure well yesterday. Review of Systems: denies headache/fever/chills/nausea/vomiting/chest or abdominal pain/cough/dyspnea/diarrhea. Otherwise see above. - Constitutional Vitals: Vital Signs Temp Pulse Resp BP Pulse Ox 98.1 F 77 16 113/67 89 L 09/28/19 07:38 09/28/19 07:38 09/28/19 07:38 09/28/19 07:38 09/28/19 07:38 Period Temp Pulse Resp BP Sys/Mccarthy Pulse Ox Last 24 Hr 97.4 F-98.5 F 77-90 14-22 91-131/53-78 89-98 Intake and Output 09/27/19 09/28/19 09/28/19 21:59 05:59 13:59 Intake Total 720 1250 Output Total 30 375 Balance 690 875 Weight 57.516 kg Intake & Output: Intake & Output 09/27/19 09/28/19 09/28/19 21:59 05:59 13:59 Intake Total 720 1250 Output Total 30 375 Balance 690 875 Weight 57.516 kg Intake: IV 600 1050 Lactated Ringers 1,000 ml @ 84 500 1000 mls/hr IV .[id number] GUILLERMO Rx#: [id number] Zosyn 2.25 gm In Dextrose 5% in 100 50 Water 50 ml @ 100 mls/hr IV Q6H GUILLERMO Rx#:[id number] Oral 120 200 Output: Void Amount 375 Estimated Blood Loss 30 Other: Meal Dinner Percent of Meal Consumed 50% Feeding Ability Assist with Tray Set Up Urine Appearance Clear Urine Color Dark Yellow Urine Odor Normal # Voids 1 Exam: General: Alert, Awake, No acute Distress Eyes/N/T: EOMI, Head/Neck: neck supple, CV: RRR, No murmurs, Pulm: Clear b/l, no wheezing/rhonchi/rales Abd: soft, nontender, +BS x4 Ext: no clubbing/cyanosis/edema to right lower extremity. Left lower extremity in dressings Neuro: Alert, no focal deficits, moves all extremities, Skin: warm/dry with the exception of the described above left lower extremity Medical - PN: Obj Da - Labs CBC & Chem 7: 09/27/19 05:15 09/27/19 05:15 Labs: Abnormal Lab Results 09/28/19 09/28/19 09/27/19 05:30 05:20 05:15 RBC Hgb Hct [place] % (Auto) Lymph # (Auto) [place] # (Auto) PT 21.3 H INR 1.8 H BUN Creatinine Glucose Calcium C-Reactive Protein 3.8 H NT-Pro-B Natriuret Pep Total Protein Albumin Albumin/Globulin Ratio Prealbumin 9.2 L 09/27/19 09/27/19 09/27/19 05:15 05:15 05:15 RBC 3.40 L Hgb 11.0 L Hct 33.8 L [place] % (Auto) 15.9 H Lymph # (Auto) [place] # (Auto) 1.19 H PT 24.5 H INR 2.1 H BUN 31 H Creatinine 1.3 H Glucose Calcium 8.0 L C-Reactive Protein NT-Pro-B Natriuret Pep Total Protein 4.8 L Albumin 2.3 L Albumin/Globulin Ratio 0.9 L Prealbumin 09/26/19 09/26/19 09/26/19 14:05 14:05 14:05 RBC 3.89 L Hgb 12.5 L Hct 37.9 L [place] % (Auto) Lymph # (Auto) 1.27 L [place] # (Auto) PT 23.0 H INR 2.0 H BUN 38 H Creatinine 1.6 H Glucose 139 H Calcium C-Reactive Protein 5.7 H NT-Pro-B Natriuret Pep 3024.0 H Total Protein Albumin 3.0 L Albumin/Globulin Ratio Prealbumin Meds: Medications Acetaminophen (Tylenol) 650 mg PO Q6HP PRN PRN Reason: PAIN/FEVER > 101 Hydrocodone Bitart/Acetaminophen ([place] 5/325mg) 1 tab PO Q4HP PRN PRN Reason: PAIN LEVEL 3-6 Last Admin: 09/28/19 04:42 Dose: 1 tab Documented by: Albuterol/Ipratropium (Duoneb) 3 ml NEB Q4HP PRN PRN Reason: Shortness Of Breath Amitriptyline HCl (Elavil) 187.5 mg PO [facility] Last Admin: 09/27/19 21:05 Dose: 187.5 mg Documented by: Atorvastatin Calcium (Lipitor) 40 mg PO [facility] Last Admin: 09/27/19 21:21 Dose: 40 mg Documented by: Buspirone HCl (Buspar) 15 mg PO QHS [facility] Last Admin: 09/27/19 21:25 Dose: 15 mg Documented by: Carvedilol (Coreg) [facility].5 mg [facility] Last Admin: 09/27/19 18:54 Dose: Not Given Documented by: Cyanocobalamin (Vitamin B-12) 500 mcg PO DAILY [facility] Diphenhydramine HCl (Benadryl) 25 mg PO HSP PRN PRN Reason: Insomnia Docusate Sodium (Colace) 100 mg PO BID [facility] Last Admin: 09/27/19 21:19 Dose: 100 mg Documented by: Furosemide (Lasix) 40 mg PO QDAY [facility] Potassium Chloride 40 meq/ (Dextrose) 520 mls @ 130 mls/hr IV UD PRN PRN Reason: Potassium < 3 Magnesium Sulfate (Magnesium Sulfate) 2 gm in 50 mls @ 50 mls/hr IV UD PRN PRN Reason: Magnesium </= 1.6 Piperacillin Sod/Tazobactam (Sod 2.25 gm/ Dextrose) 50 mls @ 100 mls/hr IV Q6H [facility]; Protocol Last Admin: 09/28/19 06:01 Dose: 100 mls/hr Documented by: Morphine Sulfate (Morphine) 0 mg IV Q3HP PRN PRN Reason: Pain Ondansetron HCl (Zofran) 4 mg IV Q4HP PRN PRN Reason: Nausea And Vomiting Coq10 300 Mg 1 dose PO MoWeFr@0900 [facility] Forteo (Teriparatide ) 600 Mcg/2.4 Ml Subcutaneous Solution 1 dose SC HS [facility] Last Admin: 09/27/19 21:43 Dose: Not Given Documented by: Polyethylene Glycol (Miralax) 17 gm PO DAILYP PRN PRN Reason: Constipation Potassium Chloride (Kdur) 40 meq PO UD PRN PRN Reason: Potssium is 3-3.5 Potassium Chloride (Kdur) 40 meq PO UD PRN PRN Reason: Potassium < 3 [facility] Senna (Senokot) 2 tab PO DAILYP PRN PRN Reason: Constipation Sodium Chloride (Saline Flush) 10 ml IV Q8 [facility] Last Admin: 09/28/19 06:01 Dose: 10 ml Documented by: Tramadol HCl (Ultram) 100 mg PO BID [facility] Last Admin: 09/27/19 21:21 Dose: 100 mg Documented by: Medical - PN: A/P - Time Spent With Patient Total time spent is greater than 50% in coordination of care (as documented) at patient's floor/unit and/or counseling patient: - Narrative A/P Narrative: A: *LLE calf nonhealing wound w/cellulitis and necrosis: failed outpt therapy. s/p I&D (09/27) -CRP improving *PMR: on immunosuppression with Enbral and Prednisone *h/o diastolic CHF: *CAD w/CABG: *CKD III: *COPD (not on home O2): *CARLOS w/CPAP: *HTN/HLD: *Depression/anxiety: *h/o DVT: On warfarin * P: -zosyn pending final C&S -BC/WC pending -Dr. Rob/wound care -Hold Enbrel, cont prednisone -cont BB, lasix -statin -cont home pysch meds -home cpap - -pt/ot -ppx: warfarin per pharm DNR Medical - PN: Qual - Stroke Symptom Onset Unknown: No - VTE Deep Vein Thrombosis/Pulmonary Embolism Present on Admission: No
[2019-09-28 08:29] LABS: Estimated Average Glucose(eAG) 114 mg/dL; Hemoglobin A1C 5.6 % HGB (4.0-6.0)
[2019-09-28] MEDS ORDERED: FUROSEMIDE 40 MG TABLET PO SCH (09:00)
[2019-09-28] MEDS: FUROSEMIDE 40 MG TABLET PO SCH (09:28)
[2019-09-28] MEDS: CYANOCOBALAMIN (VITAMIN B-12) 500 MCG TABLET PO SCH (09:28)
[2019-09-28] MEDS: traMADol 50 MG TABLET PO SCH ×2 (09:28→20:11)
[2019-09-28] MEDS: DOCUSATE SODIUM 100 MG CAPSULE PO SCH ×2 (09:29→20:12)
[2019-09-28] MEDS: CARVEDILOL 12.5 MG TABLET PO SCH ×2 (09:29→17:44)
--- NOTE | 2019-09-28 09:34 | General Surgery Progress Note ---
Subjective Patient reports: other (Overnite progress reviewed. Elisaetn seen with TL SEVILLA. ) Narrative: Note initiated : 09/28/19 at 9:30 am Service Date, if different from initiated Date: [] Patient: Latrell Caro 79 y/o M admitted on 09/26/19 for Wound Recheck. Chief Complaint: [] Objective Temp Pulse Resp BP Pulse Ox 98.1 F 77 16 113/67 89 L 09/28/19 07:38 09/28/19 07:38 09/28/19 07:38 09/28/19 07:38 09/28/19 07:38 AVSS OOD eating b/f Lucid / Coherent Not in distress Left leg DSG c/d/i Foot PWD Wound c/s GNB Sensitivity pending SW note appreciated - Additional Data Intake & Output - Last 24 hours: Intake & Output 09/26/19 09/27/19 09/28/19 09/29/19 05:59 05:59 05:59 05:59 Intake Total 1263 3270 Output Total 400 405 Balance 863 2865 Weight 121 lb 5 oz 126 lb 12.8 oz - Labs 09/27/19 05:15 09/27/19 05:15 Diabetes panel 09/28/19 09/28/19 Range/Units 05:20 07:35 Hemoglobin A1c TNP 5.6 Thyroid panel 09/28/19 Range/Units 05:20 TSH 2.02 (0.27-5.01) uIU/ml Pituitary panel 09/28/19 Range/Units 05:20 TSH 2.02 (0.27-5.01) uIU/ml Assessment and Plan (1) Coagulopathy Problem details: COUMADIN ON HOLD at this time. Status: Chronic Current Visit: Yes (2) Skin abrasion Status: Acute Current Visit: No (3) Skin tear of left lower leg without complication Status: Acute Current Visit: No (4) Frequent falls Status: Acute Current Visit: No (5) Cellulitis of lower extremity Status: Acute Current Visit: No (6) Wound infection Status: Acute Current Visit: No (7) COPD (chronic obstructive pulmonary disease) Status: Chronic Current Visit: No (8) Kyphosis, acquired Status: Chronic Current Visit: No (9) Muscle weakness Status: Chronic Current Visit: No (10) Renal insufficiency Status: Chronic Current Visit: Yes (11) Atelectasis Status: Chronic Current Visit: Yes - Time Spent With Patient Total time spent is greater than 50% in coordination of care (as documented) at patient's floor/unit and/or counseling patient: Assessment: Satisfactory post op progress. Plan: OK to start all pre -op meds Please check with Hospitalist. OOB and ambulate with walker Under nurse supervision.. Await post op labs. 15 - 24 minutes
[2019-09-28] MEDS ORDERED: VANCOMYCIN PER PHARMACY IV SCH (09:45)
[2019-09-28] MEDS ORDERED: predniSONE 1 MG TABLET PO ONE (12:03)
[2019-09-28] MEDS: VANCOMYCIN 1,000 MG in 0.9 % SODIUM CHLORIDE 250 ML IV SCH (12:56)
[2019-09-28] MEDS ORDERED: WARFARIN 5 MG TABLET PO ONE (14:00)
[2019-09-28] MEDS: AMITRIPTYLINE 25 MG TABLET PO SCH (20:11)
[2019-09-28] MEDS: ARIPIPRAZOLE 5 MG TABLET PO SCH (20:12)
[2019-09-28] MEDS: busPIRone 15 MG TABLET PO SCH (20:12)
[2019-09-28] MEDS: ATORVASTATIN 40 MG TABLET PO SCH (20:12)
[2019-09-28] MEDS: TERIPARATIDE SC SCH (20:18)
[2019-09-29] MEDS: 0.9 % SODIUM CHLORIDE 10 ML SYRINGE IV SCH ×3 (05:46→21:36)
[2019-09-29] MEDS: PIPERACILLIN SODIUM/TAZOBACTAM 2.25 GM in DEXTROSE 5% IN WATER 50 ML IV SCH (05:47)
[2019-09-29 06:44] LABS: INR 2.1 (0.9-1.1); Prothrombin Time 23.8 sec (11.9-14.5)
[2019-09-29 07:11] LABS: Basophils # (Auto) 0.03 K/mcL (0.00-0.30); Basophils % (Auto) 0.3 % (0.0-2.0); Eosinophils # (Auto) 0.19 K/mcL (0.00-0.70); Eosinophils % (Auto) 1.7 % (0.0-7.0); Hematocrit 33.2 % (40.1-51.0); Hemoglobin 10.6 g/dL (13.7-17.5); Lymphocytes # (Auto) 2.15 K/mcL (1.50-4.80); Lymphocytes % (Auto) 19.5 % (15.5-49.0); Mean Cell Volume 100.6 fL (80.0-100.0); Mean Corpuscular HGB Conc 31.9 g/dL (31.0-36.0); Mean Platelet Volume 9.4 fL (7.4-10.4); Monocytes # (Auto) 1.05 K/mcL (0.10-0.90); Monocytes % (Auto) 9.5 % (1.0-12.0); Platelet Count 271 K/mcL (140-440); Red Cell Distribution Width 13.6 % (11.5-14.5)
[2019-09-29 07:35] LABS: Estimated Average Glucose(eAG) 120 mg/dL; Hemoglobin A1C 5.8 % HGB (4.0-6.0)
[2019-09-29 07:48] LABS: Prealbumin 9.5 mg/dl (20-40)
[2019-09-29 07:53] LABS: ALT/SGPT 12 U/l (0-40); AST/SGOT 20 U/l (0-37); Albumin 2.4 gm/dL (3.2-5.2); Alkaline Phosphatase 81 U/L (39-117); Bilirubin,Total 0.2 mg/dL (0.0-1.0); Calcium 8.1 mg/dl (8.6-10.4); Carbon Dioxide 25 mmol/L (22-30); Chloride 108 mmol/L (96-108); Globulin 2.4 gm/dL (2.2-3.7); Glucose 99 mg/dL (70-105); Thyroid Stimulating Hormone 1.64 uIU/ml (0.27-5.01)
[2019-09-29] MEDS: traMADol 50 MG TABLET PO SCH ×2 (08:05→20:11)
[2019-09-29] MEDS: DOCUSATE SODIUM 100 MG CAPSULE PO SCH ×2 (08:05→20:11)
[2019-09-29] MEDS: CYANOCOBALAMIN (VITAMIN B-12) 500 MCG TABLET PO SCH (08:05)
[2019-09-29] MEDS: predniSONE 5 MG TABLET PO SCH (08:05)
[2019-09-29] MEDS: CARVEDILOL 12.5 MG TABLET PO SCH ×2 (08:06→17:21)
[2019-09-29] MEDS: FUROSEMIDE 40 MG TABLET PO SCH (08:06)
[2019-09-29 08:21] LABS: Blood Urea Nitrogen 22 mg/dl (8-23); Glomerular Filtration Rate 72
--- NOTE | 2019-09-29 08:46 | Internal Med Progress Note ---
Medical - PN: Subj Patient information: Note initiated : 09/29/19 at 8:42 am Service Date, if different from initiated Date: [] Patient: Latrell Caro a 79 y/o M admitted on 09/26/19 for Wound Recheck. Chief Complaint: [] Interval history: Mr. Caro is a 79 year old M 71-year-old male who is on immunosuppression for polymyalgia rheumatica with Enbrel and prednisone who presents to the ED for nonhealing wound that is failing outpatient therapy. Patient originally fell out of his chair on the sustaining a skin tear and laceration to the left calf. He was seen again on September 24 and then again the next day. He has been prescribed oral antibiotics. The wound and surrounding leg have continued to worsen with increased redness swelling and warmth and tenderness. The center of the wound is appear to be necrotic tissue. Patient saw Dr. rivas today who evaluate the patient and recommend the patient be admitted for IV antibiotics and surgical debridement. Wound and blood cultures were obtained in the ED. Patient was started on Vanco Zosyn. Patient denies fevers or chills. Leg is very tender to the touch. No DVT on ultrasound. He is on warfarin for history of DVT as INR outpatient recently was subtherapeutic. 2 Sleeping but easily arousable. No complaints or issues overnight. 09/28 Per nurse patient had some confusion overnight. Patient currently sitting in chair eating breakfast. No new complaints. Tolerated procedure well yesterday. 09/29 Patient is states he did okay with sleep last night. Has no new complaints. No overnight events. Review of Systems: denies headache/fever/chills/nausea/vomiting/chest or abdominal pain/cough/dyspnea/diarrhea. Otherwise see above. - Constitutional Vitals: Vital Signs Temp Pulse Resp BP Pulse Ox 97.6 F 70 16 129/79 94 09/29/19 08:00 09/29/19 08:00 09/29/19 08:00 09/29/19 08:00 09/29/19 08:00 Period Temp Pulse Resp BP Sys/Mccarthy Pulse Ox Last 24 Hr 97.6 F-98.3 F 70-82 14-20 99-129/59-79 89-94 Intake and Output 09/28/19 09/29/19 09/29/19 21:59 05:59 13:59 Intake Total 730 450 50 Output Total 1000 200 Balance 730 -550 -150 Weight 52.208 kg Intake & Output: Intake & Output 09/28/19 09/29/19 09/29/19 21:59 05:59 13:59 Intake Total 730 450 50 Output Total 1000 200 Balance 730 -550 -150 Weight 52.208 kg Intake: IV 100 50 Zosyn 2.25 gm In Dextrose 5% in 100 50 Water 50 ml @ 100 mls/hr IV Q6H [facility] Rx#:[id number] Oral 730 350 Output: Void Amount 1000 200 Other: Meal Dinner Breakfast Percent of Meal Consumed Bites 100% Feeding Ability Independent Exam: General: Alert, Awake, No acute Distress Eyes/N/T: EOMI, Head/Neck: neck supple, CV: RRR, No murmurs, Pulm: Clear b/l, no wheezing/rhonchi/rales Abd: soft, nontender, +BS x4 Ext: no clubbing/cyanosis/edema to right lower extremity improving. Left lower extremity in dressings Neuro: Alert, no focal deficits, moves all extremities, Skin: warm/dry with the exception of the described above left lower extremity Medical - PN: Obj Da - Labs CBC & Chem 7: 09/29/19 05:10 09/29/19 05:10 Labs: Abnormal Lab Results 09/29/19 09/29/19 09/29/19 05:10 05:10 05:10 RBC 3.30 L Hgb 10.6 L Hct 33.2 L MCV 100.6 H [place] % (Auto) Lymph # (Auto) [place] # (Auto) 1.05 H PT 23.8 H INR 2.1 H Anion Gap 7.0 L BUN Creatinine Glucose Calcium 8.1 L C-Reactive Protein NT-Pro-B Natriuret Pep Total Protein 4.8 L Albumin 2.4 L Albumin/Globulin Ratio Prealbumin 9.5 L 09/28/19 09/28/19 09/27/19 05:30 05:20 05:15 RBC Hgb Hct MCV [place] % (Auto) Lymph # (Auto) [place] # (Auto) PT 21.3 H INR 1.8 H Anion Gap BUN Creatinine Glucose Calcium C-Reactive Protein 3.8 H NT-Pro-B Natriuret Pep Total Protein Albumin Albumin/Globulin Ratio Prealbumin 9.2 L 09/27/19 09/27/19 09/27/19 05:15 05:15 05:15 RBC 3.40 L Hgb 11.0 L Hct 33.8 L MCV [place] % (Auto) 15.9 H Lymph # (Auto) [place] # (Auto) 1.19 H PT 24.5 H INR 2.1 H Anion Gap BUN 31 H Creatinine 1.3 H Glucose Calcium 8.0 L C-Reactive Protein NT-Pro-B Natriuret Pep Total Protein 4.8 L Albumin 2.3 L Albumin/Globulin Ratio 0.9 L Prealbumin 09/26/19 09/26/19 09/26/19 14:05 14:05 14:05 RBC 3.89 L Hgb 12.5 L Hct 37.9 L MCV [place] % (Auto) Lymph # (Auto) 1.27 L [place] # (Auto) PT 23.0 H INR 2.0 H Anion Gap BUN 38 H Creatinine 1.6 H Glucose 139 H Calcium C-Reactive Protein 5.7 H NT-Pro-B Natriuret Pep 3024.0 H Total Protein Albumin 3.0 L Albumin/Globulin Ratio Prealbumin Meds: Medications Acetaminophen (Tylenol) 650 mg PO Q6HP PRN PRN Reason: PAIN/FEVER > 101 Hydrocodone Bitart/Acetaminophen ([place] 5/325mg) 1 tab PO Q4HP PRN PRN Reason: PAIN LEVEL 3-6 Last Admin: 09/28/19 20:11 Dose: 1 tab Documented by: Albuterol/Ipratropium (Duoneb) 3 ml NEB Q4HP PRN PRN Reason: Shortness Of Breath Amitriptyline HCl (Elavil) 187.5 mg PO [facility] Last Admin: 09/28/19 20:11 Dose: 187.5 mg Documented by: Atorvastatin Calcium (Lipitor) 40 mg PO [facility] Last Admin: 09/28/19 20:12 Dose: 40 mg Documented by: [facility]pirone HCl (Buspar) [facility] Last Admin: 09/28/19 20:12 Dose: 15 mg Documented by: [facility] ([facility]g) [facility] Last Admin: 09/29/19 08:06 Dose: 12.5 mg Documented by: Cyanocobalamin (Vitamin B-12) 500 mcg PO DAILY [facility] Last Admin: 09/29/19 08:05 Dose: 500 mcg Documented by: Diphenhydramine HCl (Benadryl) 25 mg PO HSP PRN PRN Reason: Insomnia Docusate Sodium (Colace) 100 mg PO BID [facility] Last Admin: 09/29/19 08:05 Dose: 100 mg Documented by: Furosemide (Lasix) 40 mg PO QDAY [facility] Last Admin: 09/29/19 08:06 Dose: 40 mg Documented by: Potassium Chloride 40 meq/ (Dextrose) 520 mls @ 130 mls/hr IV UD PRN PRN Reason: Potassium < 3 Magnesium Sulfate (Magnesium Sulfate) 2 gm in 50 mls @ 50 mls/hr IV UD PRN PRN Reason: Magnesium </= 1.6 Piperacillin Sod/Tazobactam (Sod 2.25 gm/ Dextrose) 50 mls @ 100 mls/hr IV Q6H [facility]; Protocol Last Infusion: 09/29/19 06:17 Dose: Infused Documented by: Vancomycin HCl 1,000 mg/ (Sodium Chloride) 250 mls @ 250 mls/hr IV DAILY [facility] Last Infusion: 09/28/19 13:56 Dose: Infused Documented by: Morphine Sulfate (Morphine) 0 mg IV Q3HP PRN PRN Reason: Pain Last Admin: 09/28/19 23:59 Dose: 4 mg Documented by: Ondansetron HCl (Zofran) 4 mg IV Q4HP PRN PRN Reason: Nausea And Vomiting Coq10 300 Mg 1 dose PO MoWeFr@0900 [facility] Forteo (Teriparatide ) 600 Mcg/2.4 Ml Subcutaneous Solution 1 dose SC HS [facility] Last Admin: 09/28/19 20:18 Dose: Not Given Documented by: Polyethylene Glycol (Miralax) 17 gm PO DAILYP PRN PRN Reason: Constipation Potassium Chloride (Kdur) 40 meq PO UD PRN PRN Reason: Potssium is 3-3.5 Potassium Chloride (Kdur) 40 meq PO UD PRN PRN Reason: Potassium < 3 Prednisone (Prednisone) 5 mg PO QAMCC [facility] Last Admin: 09/29/19 08:05 Dose: 5 mg Documented by: Senna (Senokot) 2 tab PO DAILYP PRN PRN Reason: Constipation Sodium Chloride (Saline Flush) 10 ml IV Q8 [facility] Last Admin: 09/29/19 05:46 Dose: 10 ml Documented by: Tramadol HCl (Ultram) 100 mg PO BID [facility] Last Admin: 09/29/19 08:05 Dose: 100 mg Documented by: Vancomycin HCl (Vancomycin Per Pharmacy) 1 order IV UD [facility]; Protocol Warfarin Sodium (Coumadin) 2.5 mg PO ONCE@1400 ONE Stop: 09/29/19 14:01 Medical - PN: A/P - Time Spent With Patient Total time spent is greater than 50% in coordination of care (as documented) at patient's floor/unit and/or counseling patient: - Narrative A/P Narrative: A: *LLE calf nonhealing wound w/cellulitis and necrosis: failed outpt therapy. s/p I&D (09/27) -WC growing E.coli/Enterococcus/Staph Aureus -CRP improved *PMR: on immunosuppression with Enbral and Prednisone *h/o diastolic CHF: *CAD w/CABG: *CKD III: *COPD (not on home O2): *CARLOS w/CPAP: *HTN/HLD: *Depression/anxiety: *h/o DVT: On warfarin * P: -vanco/rocehpin, pending final C&S -BC/WC finals pending -Dr. Rivas/wound care -Hold Enbrel, cont prednisone -cont BB, lasix -statin -cont home pysch meds -home cpap - -pt/ot -ppx: warfarin per pharm DNR Medical - PN: Qual - Stroke Symptom Onset Unknown: No - VTE Deep Vein Thrombosis/Pulmonary Embolism Present on Admission: No
[2019-09-29] MEDS: cefTRIAXone 2 GM in DEXTROSE 5% IN WATER 50 ML IV SCH (09:32)
[2019-09-29] MEDS: HYDROcodone/APAP 5/325MG TABLET PO PRN ×2 (09:39→21:11)
[2019-09-29] MEDS: VANCOMYCIN 1,000 MG in 0.9 % SODIUM CHLORIDE 250 ML IV SCH (10:08)
--- NOTE | 2019-09-29 10:21 | Discharge Summary ---
Medical - DS: Prov Patient information: Note initiated : 09/29/19 at 10:02 am Service Date, if different from initiated Date: [] Patient: Latrell Caro 79 y/o M admitted on 09/26/19 for Wound Recheck. Chief Complaint: [] Date of admission: 09/26/19 17:28 Primary care physician: Axel Simpson Consults: 09/26/19 Consult to Physician [CONS] Stat Comment: Consulting Provider: Israel Felix Reason For Exam: Physician to Consult 09/26/19 17:56 Consult to Physician [CONS] Routine Comment: Consulting Provider: Erasto Rivas Reason For Exam: Physician to Consult 09/26/19 21:57 Consult to Physician [CONS] Routine Comment: Pre Op Clearance for anesthesia Consulting Provider: Chula Lynne Reason For Exam: Clearance for General anesthesia. 09/27/19 10:09 Consult to Physician [CONS] Routine Comment: Per request of Dr Rivas Consulting Provider: Asher Talbert Reason For Exam: Physician to Consult Medical - DS: Meds - Discharge Medications Prescriptions: Cephalexin [Keflex] 500 mg PO BID #10 capsule Linezolid 600 mg PO BID #20 tablet Active and Home Medications: Home Medications carvedilol 12.5 mg tablet 12.5 mg PO BID 06/30/15 [History Confirmed 09/26/19 Last Taken 09/26/19 08:00] prednisone 1 mg tablet 5 mg PO QDAY tab 02/28/17 [History Confirmed 09/26/19 Last Taken 09/26/19 08:00] diclofenac sodium 1 % topical gel 2 g TOPICAL QID PRN #100 g 09/04/18 [Rx Confirmed 09/26/19 Last Taken Unknown] Embrel 50 mg INJ HULL 09/25/18 [History Confirmed 09/26/19 Last Taken 09/23/19] furosemide 40 mg tablet 40 mg PO QDAY #90 tab 07/15/19 [Rx Confirmed 09/26/19 Last Taken 09/26/19 08:00] folic acid 400 mcg tablet 400 mcg PO QDAY 08/02/19 [History Confirmed 09/26/19 Last Taken 09/26/19 08:00] magnesium 250 mg tablet 250 mg PO BID tab 08/02/19 [History Confirmed 09/26/19 Last Taken 09/26/19 08:00] omega-3 fatty acids 1,000 mg capsule 1,000 mg PO QDAY 08/02/19 [History Confirmed 09/26/19 Last Taken 09/26/19 08:00] tramadol 50 mg tablet 100 mg PO BID #120 tab 08/23/19 [Rx Confirmed 09/26/19 Last Taken 09/26/19 08:00] warfarin 5 mg tablet See Rx Instructions PO QDAY #0 tab 09/13/19 [Rx Confirmed 09/26/19 Last Taken 09/26/19 08:00] hydrocodone 10 mg-acetaminophen 325 mg tablet 1 tab PO .Q4-6H PRN #150 tab 09/18/19 [Rx Confirmed 09/26/19 Last Taken Unknown] Amitriptyline [Elavil] 225 mg PO HS 09/26/19 [History Confirmed 09/27/19 Last Taken 09/26/19 21:00] Aripiprazole [Abilify] 10 mg PO QHS 09/26/19 [History Confirmed 09/26/19 Last Taken 09/25/19 21:00] Rosuvastatin Calcium [Crestor] 20 mg PO QHS 09/26/19 [History Confirmed 09/26/19 Last Taken 09/25/19 21:00] Teriparatide [Forteo] 2.4 ml SQ QHS 09/26/19 [History Confirmed 09/26/19 Last Taken 09/25/19 21:00] Ubidecarenone [Co Q-10] 300 mg PO MOWEFR 09/26/19 [History Confirmed 09/26/19 Last Taken 09/26/19 08:00] Vitamin B12 5,000 mcg PO QDAY 09/26/19 [History Confirmed 09/26/19 Last Taken 09/26/19 08:00] busPIRone [Buspar] 15 mg PO QHS 09/26/19 [History Confirmed 09/26/19 Last Taken 09/26/19 21:00] Calcium (Oyster Shell) [Oscal] 2,000 mg PO BID 09/27/19 [History Confirmed 09/27/19 Last Taken 09/26/19 08:00] Ergocalciferol (Vitamin D2) [Vitamin D2] 3,000 unit PO QAM 09/27/19 [History Confirmed 09/27/19 Last Taken 09/26/19 08:00] Medical - DS: Hosp Hospital Course: Mr. Caro is a 79 year old M 79-year-old male who is on immunosuppression for polymyalgia rheumatica with Enbrel and prednisone who presents to the ED for nonhealing wound that is failing outpatient therapy. Patient originally fell out of his chair on the sustaining a skin tear and laceration to the left calf. He was seen again on September 24 and then again the next day. He has been prescribed oral antibiotics. The wound and surrounding leg have continued to worsen with increased redness swelling and warmth and tenderness. The center of the wound is appear to be necrotic tissue. Patient saw Dr. rivas today who evaluate the patient and recommend the patient be admitted for IV antibiotics and surgical debridement. Wound and blood cultures were obtained in the ED. Patient was started on Vanco Zosyn. Patient denies fevers or chills. Leg is very tender to the touch. No DVT on ultrasound. He is on warfarin for history of DVT as INR outpatient recently was subtherapeutic. 09/27 Sleeping but easily arousable. No complaints or issues overnight. 09/28 Per nurse patient had some confusion overnight. Patient currently sitting in chair eating breakfast. No new complaints. Tolerated procedure well yesterday. 09/29 Patient is states he did okay with sleep last night. Has no new complaints. No overnight events. A: *LLE calf nonhealing wound w/cellulitis and necrosis: failed outpt therapy. s/p I&D (09/27) -WC growing E.coli/Enterococcus/Staph Aureus -CRP improved *PMR: on immunosuppression with Enbral and Prednisone *h/o diastolic CHF: *CAD w/CABG: *CKD III: *COPD (not on home O2): *CARLOS w/CPAP: *HTN/HLD: *Depression/anxiety: *h/o DVT: On warfarin Discharge diagnosis: Nonhealing calf wound with cellulitis and necrosis Secondary discharge diagnosis: History of polymyalgia rheumatica diastolic heart failure CAD chronic kidney disease COPD obstructive sleep apnea hypertension depression anxiety - Time Spent with Patient Total time spent providing and/or coordinating discharge services: Greater than 30 minutes Medical - DS: Exam - Constitutional Vitals: Vital Signs Temp Pulse Resp BP BP Pulse Ox 09/29/19 08:00 97.6 F 70 16 129/79 94 09/29/19 07:19 93 09/29/19 03:53 98.2 F 72 16 99/59 93 09/28/19 22:42 98.3 F 82 20 114/70 89 L 09/28/19 20:00 98.3 F 77 14 114/68 94 09/28/19 15:45 98.0 F 77 18 119/70 92 09/28/19 11:53 97.9 F 73 16 111/66 94 Intake and Output 09/28/19 09/29/19 09/29/19 21:59 05:59 13:59 Intake Total 730 450 150 Output Total 1000 200 Balance 730 -550 -50 Intake: IV 100 50 Zosyn 2.25 gm In Dextrose 5% in 100 50 Water 50 ml @ 100 mls/hr IV Q6H [facility] Rx#:[id number] Oral 730 350 100 Output: Void Amount 1000 200 Other: Meal Dinner Breakfast Percent of Meal Consumed Bites 100% Feeding Ability Independent # Voids 1 Weight 52.208 kg Medical - DS: Data Labs on day of discharge: Labs from last 24 hours 09/29/19 09/29/19 09/29/19 05:10 05:10 05:10 WBC 11.0 RBC 3.30 L Hgb 10.6 L Hct 33.2 L MCV 100.6 H MCH 32.1 MCHC 31.9 RDW 13.6 Plt Count 271 MPV 9.4 Gran % 69.0 Lymph % (Auto) 19.5 [place] % (Auto) 9.5 Eos % (Auto) 1.7 Baso % (Auto) 0.3 Gran # 7.60 Lymph # (Auto) 2.15 [place] # (Auto) 1.05 H Eos # (Auto) 0.19 Baso # (Auto) 0.03 PT 23.8 H INR 2.1 H Sodium 140 Potassium 3.7 Chloride 108 Carbon Dioxide 25 Anion Gap 7.0 L BUN 22 Creatinine 1.0 GFR Calculation 72 Glucose 99 Hemoglobin A1c 5.8 Estim Average Glucose 120 Calcium 8.1 L Total Bilirubin 0.2 AST 20 ALT 12 Alkaline Phosphatase 81 Total Protein 4.8 L Albumin 2.4 L Globulin 2.4 Albumin/Globulin Ratio 1.0 Prealbumin 9.5 L TSH 1.64 Vancomycin Trough 09/28/19 07:35 WBC RBC Hgb Hct MCV MCH MCHC RDW Plt Count MPV Gran % Lymph % (Auto) [place] % (Auto) Eos % (Auto) Baso % (Auto) Gran # Lymph # (Auto) [place] # (Auto) Eos # (Auto) Baso # (Auto) PT INR Sodium Potassium Chloride Carbon Dioxide Anion Gap BUN Creatinine GFR Calculation Glucose Hemoglobin A1c Estim Average Glucose Calcium Total Bilirubin AST ALT Alkaline Phosphatase Total Protein Albumin Globulin Albumin/Globulin Ratio Prealbumin TSH Vancomycin Trough 12.2 Preliminary micro results at discharge 09/27/19 15:45 Anaerobic Culture - Preliminary Leg - Left Wound Culture - Preliminary Gram negative bacillus Escherichia coli 09/26/19 14:21 Wound Culture - Preliminary Leg - Lower Left Escherichia coli Enterococcus species Staphylococcus aureus Medical - DS: A/P - Patient/Caregiver Discharge Instructions Activity: increase activity as tolerated Diet: Cardiac - Follow up Plan Follow up with: Axel Simpson MD [Primary Care Provider] - Erasto Rivas MD [Physician] - Disposition: Xf SNF Prognosis: Fair Rehab Potential: Fair I certify that the patient requires SNF services: Yes Overall status at discharge: patient is progressing back to baseline Medical - DS: Qual - VTE Deep Vein Thrombosis/Pulmonary Embolism Present on Admission: No
[2019-09-29] MEDS ORDERED: WARFARIN 2.5 MG TABLET PO ONE (14:00)
--- NOTE | 2019-09-29 16:19 | General Surgery Progress Note ---
Subjective Patient reports: other (Patient had an uneventful night. Dressing of LEFT leg was rewrapped last PM.) Narrative: Note initiated : 09/29/19 at 4:17 pm Service Date, if different from initiated Date: [] Patient: Latrell Caro 79 y/o M admitted on 09/26/19 for Wound Recheck. Chief Complaint: [] Objective Temp Pulse Resp BP Pulse Ox 98.0 F 79 18 130/71 93 09/29/19 15:59 09/29/19 15:59 09/29/19 15:59 09/29/19 15:59 09/29/19 15:59 AVSS Unremarkable PAYAM Left leg soft, foot is PWD Toes FROM Labs WBC 11. BUN /CR Normal TSH Normal Prealbumin is 9 C/S E. Coli and Enterobacter Antibiotics changed by Dr. Felix - Additional Data Intake & Output - Last 24 hours: Intake & Output 09/27/19 09/28/19 09/29/19 09/30/19 05:59 05:59 05:59 05:59 Intake Total 1263 3270 2020 650 Output Total 895 062 3829 200 Balance 863 2865 720 450 Weight 121 lb 5 oz 126 lb 12.8 oz 115 lb 1.6 oz - Labs 09/29/19 05:10 09/29/19 05:10 Diabetes panel 09/29/19 Range/Units 05:10 Sodium 140 (133-145) mmol/L Potassium 3.7 (3.3-5.1) mmol/L Chloride 108 (96-108) mmol/L Carbon Dioxide 25 (22-30) mmol/L BUN 22 (8-23) mg/dl Creatinine 1.0 (0.7-1.2) mg/dl Glucose 99 (70-105) mg/dL Hemoglobin A1c 5.8 (4.0-6.0) % HGB Calcium 8.1 L (8.6-10.4) mg/dl AST 20 (0-37) U/l ALT 12 (0-40) U/l Alkaline Phosphatase 81 (39-117) U/L Total Protein 4.8 L (5.9-8.4) gm/dL Albumin 2.4 L (3.2-5.2) gm/dL Thyroid panel 09/29/19 Range/Units 05:10 TSH 1.64 (0.27-5.01) uIU/ml Calcium panel 09/29/19 Range/Units 05:10 Calcium 8.1 L (8.6-10.4) mg/dl Albumin 2.4 L (3.2-5.2) gm/dL Pituitary panel 09/29/19 Range/Units 05:10 Sodium 140 (133-145) mmol/L Potassium 3.7 (3.3-5.1) mmol/L Chloride 108 (96-108) mmol/L Carbon Dioxide 25 (22-30) mmol/L BUN 22 (8-23) mg/dl Creatinine 1.0 (0.7-1.2) mg/dl Glucose 99 (70-105) mg/dL Calcium 8.1 L (8.6-10.4) mg/dl TSH 1.64 (0.27-5.01) uIU/ml Adrenal panel 09/29/19 Range/Units 05:10 Sodium 140 (133-145) mmol/L Potassium 3.7 (3.3-5.1) mmol/L Chloride 108 (96-108) mmol/L Carbon Dioxide 25 (22-30) mmol/L BUN 22 (8-23) mg/dl Creatinine 1.0 (0.7-1.2) mg/dl Glucose 99 (70-105) mg/dL Calcium 8.1 L (8.6-10.4) mg/dl Total Bilirubin 0.2 (0.0-1.0) mg/dL AST 20 (0-37) U/l ALT 12 (0-40) U/l Alkaline Phosphatase 81 (39-117) U/L Total Protein 4.8 L (5.9-8.4) gm/dL Albumin 2.4 L (3.2-5.2) gm/dL Assessment and Plan (1) Coagulopathy Problem details: COUMADIN ON HOLD at this time. Status: Chronic Current Visit: Yes (2) Skin abrasion Status: Acute Current Visit: No (3) Skin tear of left lower leg without complication Status: Acute Current Visit: No (4) Frequent falls Status: Acute Current Visit: No (5) Cellulitis of lower extremity Status: Acute Current Visit: No (6) Wound infection Status: Acute Current Visit: No (7) COPD (chronic obstructive pulmonary disease) Status: Chronic Current Visit: No (8) Kyphosis, acquired Status: Chronic Current Visit: No (9) Muscle weakness Status: Chronic Current Visit: No (10) Renal insufficiency Status: Chronic Current Visit: Yes (11) Atelectasis Status: Chronic Current Visit: Yes - Narrative A/P Narrative: Assessment: Satisfactory post surgical progress Malnutrition. Prealbumin of 9.0 A1C and TSH are normal Wound c/s seen . ABX readjusted. Plan: Start on Oxandrin 5 mg BID CM to see patient for D/C planning. Wound VAC as out patient. - Time Spent With Patient Total time spent is greater than 50% in coordination of care (as documented) at patient's floor/unit and/or counseling patient: 15 - 24 minutes
[2019-09-29] MEDS: AMITRIPTYLINE 25 MG TABLET PO SCH (20:10)
[2019-09-29] MEDS: OXANDROLONE 2.5 MG TABLET PO SCH (20:10)
[2019-09-29] MEDS: ARIPIPRAZOLE 5 MG TABLET PO SCH (20:11)
[2019-09-29] MEDS: busPIRone 15 MG TABLET PO SCH (20:12)
[2019-09-29] MEDS: ATORVASTATIN 40 MG TABLET PO SCH (20:12)
[2019-09-29] MEDS: TERIPARATIDE SC SCH (20:12)
[2019-09-30] MEDS: 0.9 % SODIUM CHLORIDE 10 ML SYRINGE IV SCH (05:16)
[2019-09-30 07:03] LABS: INR 1.9 (0.9-1.1); Prothrombin Time 22.1 sec (11.9-14.5)
[2019-09-30] MEDS: CYANOCOBALAMIN (VITAMIN B-12) 500 MCG TABLET PO SCH (08:26)
[2019-09-30] MEDS: FUROSEMIDE 40 MG TABLET PO SCH (08:26)
[2019-09-30] MEDS: CARVEDILOL 12.5 MG TABLET PO SCH (08:26)
[2019-09-30] MEDS: traMADol 50 MG TABLET PO SCH (08:26)
[2019-09-30] MEDS: DOCUSATE SODIUM 100 MG CAPSULE PO SCH (08:26)
[2019-09-30] MEDS: cefTRIAXone 2 GM in DEXTROSE 5% IN WATER 50 ML IV SCH (08:27)
[2019-09-30] MEDS: predniSONE 5 MG TABLET PO SCH (08:27)
[2019-09-30] MEDS: OXANDROLONE 2.5 MG TABLET PO SCH (08:37)
--- NOTE | 2019-09-30 08:40 | Operative Note ---
DATE OF OPERATION: 09/27/2019 PREOPERATIVE DIAGNOSES: 1. History of ground level fall. 2. Necrotic skin and subcutaneous tissue, left posterior leg 3. Sepsis. POSTOPERATIVE DIAGNOSES: 1. History of ground level fall. 2. Necrotic skin and subcutaneous tissue, left posterior leg. 3. Sepsis. OPERATION: Excision debridement. Pulse lavage irrigation. Tissue biopsy and culture. Open packing. Wound dimensions 8 x 5 x 1.5 cm. This is a full-thickness wound involving the skin and subcutaneous tissue and underlying exposed adipose layer. The underlying deep fascia covering the muscle is intact. There is no evidence of compartment syndrome. SURGEON: Erasto Rivas M.D. INDICATION FOR SURGERY: This is a debilitated patient with multiple medical problems and deconditioning. He sustained a ground level, non-syncopal fall resulting in traumatic injury to the skin and subcutaneous tissues. This was avulsion skin tear. It was treated conservatively. There was no improvement. Due to failed outpatient treatment, [facility] On presentation, he had clinical signs of sepsis and coagulopathy. He was, therefore, admitted to the hospital, stabilized and cleared medically and by Anesthesia. He is now taken to the operating room for further management. PROCEDURE NOTE: After obtaining informed consent, patient was taken to the operating room. He was placed supine on the operating table and anesthetized uneventfully using laryngeal mask airway. Timeout was called. He was already given intravenous antibiotics. Preoperative photograph was taken. Left lower extremity was widely cleaned, prepped and draped in a standard fashion. The procedure was commenced by elevating the leg and excising the devitalized tissue. After, it was thoroughly cleaned, prepped, and washed with pulse lavage real estate closing coordinator using 3 liters of normal saline. After the debridement, the wound bed was clean. There was oozing noted from the wound margins and wound bed. This was controlled with pressure and elevation. Dressings consisted of Xeroform gauze, 4 x 4 gauze, Kerlix, Coban, reinforced with ABD pad, Kerlix, and Jack. Estimated blood loss was 30 mL. Count of all swabs, instruments, and needles were reported to be correct. After the operation, I went out and spoke with patient's and grandson. I updated them of developments. VD:sarkis Job ID: [id number] Doc ID: [id number] Erasto Rivas MD
[2019-09-30] MEDS ORDERED: COQ10 PO SCH (09:00)
--- NOTE | 2019-09-30 09:26 | Internal Med Progress Note ---
Medical - PN: Subj Patient information: Note initiated : 09/30/19 at 9:14 am Service Date, if different from initiated Date: [] Patient: Latrell Caro a 79 y/o M admitted on 09/26/19 for Wound Recheck. Chief Complaint: [] Interval history: Mr. Caro is a 79 year old M 71-year-old male who is on immunosuppression for polymyalgia rheumatica with Enbrel and prednisone who presents to the ED for nonhealing wound that is failing outpatient therapy. Patient originally fell out of his chair on the sustaining a skin tear and laceration to the left calf. He was seen again on September 24 and then again the next day. He has been prescribed oral antibiotics. The wound and surrounding leg have continued to worsen with increased redness swelling and warmth and tenderness. The center of the wound is appear to be necrotic tissue. Patient saw Dr. rivas today who evaluate the patient and recommend the patient be admitted for IV antibiotics and surgical debridement. Wound and blood cultures were obtained in the ED. Patient was started on Vanco Zosyn. Patient denies fevers or chills. Leg is very tender to the touch. No DVT on ultrasound. He is on warfarin for history of DVT as INR outpatient recently was subtherapeutic. 2 Sleeping but easily arousable. No complaints or issues overnight. 09/28 Per nurse patient had some confusion overnight. Patient currently sitting in chair eating breakfast. No new complaints. Tolerated procedure well yesterday. 09/29 Patient is states he did okay with sleep last night. Has no new complaints. No overnight events. 09/30 Doing well. No overnight events or new complaints. Plan for discharge to custodial facility today. Review of Systems: denies headache/fever/chills/nausea/vomiting/chest or abdominal pain/cough/dysp danny/diarrhea. Otherwise see above. - Constitutional Vitals: Vital Signs Temp Pulse Resp BP Pulse Ox 98.6 F 77 18 138/76 93 09/30/19 08:00 09/30/19 08:00 09/30/19 08:00 09/30/19 08:00 09/30/19 08:00 Period Temp Pulse Resp BP Sys/Mccarthy Pulse Ox Last 24 Hr 97.0 F-98.6 F 62-83 14-20 113-146/67-84 92-93 Intake and Output 09/29/19 09/30/19 09/30/19 21:59 05:59 13:59 Intake Total 440 Balance 440 Weight 57.334 kg Intake & Output: Intake & Output 09/29/19 09/30/19 09/30/19 21:59 05:59 13:59 Intake Total 440 Balance 440 Weight 57.334 kg Intake: Oral 440 Other: Urine Appearance Clear Urine Color Pale Stool Size Small Moderate Stool Color Brown Brown Stool Consistency Formed Soft # Voids 1 1 1 # Bowel Movements 1 Exam: General: Alert, Awake, No acute Distress Eyes/N/T: EOMI, Head/Neck: neck supple, CV: RRR, No murmurs, Pulm: Clear b/l, no wheezing/rhonchi/rales Abd: soft, nontender, +BS x4 Ext: no clubbing/cyanosis/edema to right lower extremity improving. Left lower extremity in dressings Neuro: Alert, no focal deficits, moves all extremities, Skin: warm/dry with the exception of the described above left lower extremity Medical - PN: Obj Da - Labs CBC & Chem 7: 09/29/19 05:10 09/29/19 05:10 Labs: Abnormal Lab Results 09/30/19 09/29/19 09/29/19 05:30 05:10 05:10 RBC 3.30 L Hgb 10.6 L Hct 33.2 L MCV 100.6 H [place] # (Auto) 1.05 H PT 22.1 H INR 1.9 H Anion Gap 7.0 L Calcium 8.1 L Total Protein 4.8 L Albumin 2.4 L Prealbumin 9.5 L 09/29/19 09/28/19 09/28/19 05:10 05:30 05:20 RBC Hgb Hct MCV [place] # (Auto) PT 23.8 H 21.3 H INR 2.1 H 1.8 H Anion Gap Calcium Total Protein Albumin Prealbumin 9.2 L Meds: Medications Acetaminophen (Tylenol) 650 mg PO Q6HP PRN PRN Reason: PAIN/FEVER > 101 Hydrocodone Bitart/Acetaminophen ([place] 5/325mg) 1 tab PO Q4HP PRN PRN Reason: PAIN LEVEL 3-6 Last Admin: 09/29/19 21:11 Dose: 1 tab Documented by: Albuterol/Ipratropium (Duoneb) 3 ml NEB Q4HP PRN PRN Reason: Shortness Of Breath Amitriptyline HCl (Elavil) 187.5 mg PO HS [facility] Last Admin: 09/29/19 20:10 Dose: 187.5 mg Documented by: Atorvastatin Calcium (Lipitor) 40 mg PO HS [facility] Last Admin: 09/29/19 20:12 Dose: 40 mg Documented by: Buspirone HCl (Buspar) 15 mg PO QHS [facility] Last Admin: 09/29/19 20:12 Dose: 15 mg Documented by: Carvedilol (Coreg) 12.5 mg PO BIDCC [facility] Last Admin: 09/30/19 08:26 Dose: 12.5 mg Documented by: Cyanocobalamin (Vitamin B-12) 500 mcg PO DAILY [facility] Last Admin: 09/30/19 08:26 Dose: 500 mcg Documented by: Diphenhydramine HCl (Benadryl) 25 mg PO HSP PRN PRN Reason: Insomnia Docusate Sodium (Colace) 100 mg PO BID [facility] Last Admin: 09/30/19 08:26 Dose: 100 mg Documented by: Furosemide (Lasix) 40 mg PO QDAY [facility] Last Admin: 09/30/19 08:26 Dose: 40 mg Documented by: Potassium Chloride 40 meq/ (Dextrose) 520 mls @ 130 mls/hr IV UD PRN PRN Reason: Potassium < 3 Magnesium Sulfate (Magnesium Sulfate) 2 gm in 50 mls @ 50 mls/hr IV UD PRN PRN Reason: Magnesium </= 1.6 Vancomycin HCl 1,000 mg/ (Sodium Chloride) 250 mls @ 250 mls/hr IV DAILY [facility] Last Infusion: 09/29/19 11:10 Dose: Infused Documented by: Ceftriaxone Sodium 2 gm/ (Dextrose) 50 mls @ 100 mls/hr IV DAILY [facility]; Protocol Last Admin: 09/30/19 08:27 Dose: 100 mls/hr Documented by: Morphine Sulfate (Morphine) 0 mg IV Q3HP PRN PRN Reason: Pain Last Admin: 09/28/19 23:59 Dose: 4 mg Documented by: Ondansetron HCl (Zofran) 4 mg IV Q4HP PRN PRN Reason: Nausea And Vomiting Oxandrolone (Oxandrin) 5 mg PO BID [facility] Last Admin: 09/30/19 08:37 Dose: 5 mg Documented by: Coq10 300 Mg 1 dose PO MoWeFr@0900 [facility] Forteo (Teriparatide ) 600 Mcg/2.4 Ml Subcutaneous Solution 1 dose SC HS [facility] Last Admin: 09/29/19 20:12 Dose: 1 dose Documented by: Polyethylene Glycol (Miralax) 17 gm PO DAILYP PRN PRN Reason: Constipation Potassium Chloride (Kdur) 40 meq PO UD PRN PRN Reason: Potssium is 3-3.5 Potassium Chloride (Kdur) 40 meq PO UD PRN PRN Reason: Potassium < 3 [facility]Pred[facility]one) [facility] Last Admin: 09/30/19 08:27 Dose: 5 mg Documented by: Senna (Senokot) 2 tab PO DAILYP PRN PRN Reason: Constipation Sodium Chloride (Saline Flush) 10 ml IV Q8 [facility] Last Admin: 09/30/19 05:16 Dose: 10 ml Documented by: Tramadol HCl (Ultram) 100 mg PO BID [facility] Last Admin: 09/30/19 08:26 Dose: 100 mg Documented by: Vancomycin HCl (Vancomycin Per Pharmacy) 1 [place] [facility] Protocol Warfarin Sodium (Coumadin) 5 mg PO ONCE@1400 ONE Stop: 09/30/19 14:01 Medical - PN: A/P - Time Spent With Patient Total time spent is greater than 50% in coordination of care (as documented) at patient's floor/unit and/or counseling patient: - Narrative A/P Narrative: A: *LLE calf nonhealing wound w/cellulitis and necrosis: failed outpt therapy. s/p I&D (09/27) -WC growing E.coli/Enterococcus/MSSA -CRP improved *PMR: on immunosuppression with Enbral and Prednisone *h/o diastolic CHF: *CAD w/CABG: *CKD III: *COPD (not on home O2): *CARLOS w/CPAP: *HTN/HLD: *Depression/anxiety: *h/o DVT: On warfarin * P: -vanco/rocehpin, deescalate to oral -BC/WC finals pending -Dr. Rivas/wound care -Hold Enbrel, cont prednisone -cont BB, lasix -statin -cont home pysch meds -home cpap - -pt/ot -ppx: warfarin per pharm DNR Medical - PN: Qual - Stroke Symptom Onset Unknown: No - VTE Deep Vein Thrombosis/Pulmonary Embolism Present on Admission: No
[2019-09-30] MEDS: HYDROcodone/APAP 5/325MG TABLET PO PRN ×2 (09:51→16:04)
[2019-09-30] MEDS: VANCOMYCIN 1,000 MG in 0.9 % SODIUM CHLORIDE 250 ML IV SCH (10:05)
--- NOTE | 2019-09-30 11:36 | General Surgery Progress Note ---
Subjective Narrative: Note initiated : 09/30/19 at 11:33 am Service Date, if different from initiated Date: [] Patient: Latrell Caro 79 y/o M admitted on 09/26/19 for Wound Recheck. Chief Complaint: [] Progressing well. Patient seen with Janae SEVILLA . Post surgical dressing changed. Objective Temp Pulse Resp BP Pulse Ox 98.6 F 77 18 138/76 93 09/30/19 08:00 09/30/19 08:00 09/30/19 08:00 09/30/19 08:00 09/30/19 08:00 AVSS. No changes PAYAM. L/E Clean and granulating wound. Resolved acute inflammation changes. Labs reviewed. - Additional Data Intake & Output - Last 24 hours: Intake & Output 09/28/19 09/29/19 09/30/19 10/01/19 05:59 05:59 05:59 05:59 Intake Total 3270 2020 1090 50 Output Total 405 1300 200 Balance 2865 720 890 50 Weight 126 lb 12.8 oz 115 lb 1.6 oz 126 lb 6.4 oz - Labs 09/29/19 05:10 09/29/19 05:10 Assessment and Plan (1) Coagulopathy Problem details: COUMADIN ON HOLD at this time. Status: Chronic Current Visit: Yes (2) Skin abrasion Status: Acute Current Visit: No (3) Skin tear of left lower leg without complication Status: Acute Current Visit: No (4) Frequent falls Status: Acute Current Visit: No (5) Cellulitis of lower extremity Status: Acute Current Visit: No (6) Wound infection Status: Acute Current Visit: No (7) COPD (chronic obstructive pulmonary disease) Status: Chronic Current Visit: No (8) Kyphosis, acquired Status: Chronic Current Visit: No (9) Muscle weakness Status: Chronic Current Visit: No (10) Renal insufficiency Status: Chronic Current Visit: Yes (11) Atelectasis Status: Chronic Current Visit: Yes - Narrative A/P Narrative: Assessment: Satisfactory progress. D/C plans noted. Reviewed with Dr. Felix. Plan: F/U at clinic 1 week after d/c. - Time Spent With Patient Total time spent is greater than 50% in coordination of care (as documented) at patient's floor/unit and/or counseling patient: 15 - 24 minutes
--- NOTE | 2019-09-30 11:43 | Discharge Summary ---
Medical - DS: Prov Patient information: Note initiated : 09/30/19 at 11:41 am Service Date, if different from initiated Date: [] Patient: Latrell Caro 79 y/o M admitted on 09/26/19 for Wound Recheck. Chief Complaint: [] Date of admission: 09/26/19 17:28 Discharge date: 09/30/19 Primary care physician: Axel Simpson Consults: 09/26/19 Consult to Physician [CONS] Stat Comment: Consulting Provider: Israel Felix Reason For Exam: Physician to Consult 09/26/19 17:56 Consult to Physician [CONS] Routine Comment: Consulting Provider: Erasto Rivas Reason For Exam: Physician to Consult 09/26/19 21:57 Consult to Physician [CONS] Routine Comment: Pre Op Clearance for anesthesia Consulting Provider: Chula Lynne Reason For Exam: Clearance for General anesthesia. 09/27/19 10:09 Consult to Physician [CONS] Routine Comment: Per request of Dr Rivas Consulting Provider: Asher Talbert Reason For Exam: Physician to Consult 09/30/19 09:49 Consult to Physician [CONS] Routine Comment: Consulting Provider: Zac Adames Reason For Exam: Physician to Consult Medical - DS: Meds - Discharge Medications Prescriptions: Amoxicillin/Potassium Clav [Augmentin] 875 mg PO Q12H #10 tab Active and Home Medications: Home Medications carvedilol 12.5 mg tablet 12.5 mg PO BID 06/30/15 [History Confirmed 09/26/19 Last Taken 09/26/19 08:00] prednisone 1 mg tablet 5 mg PO QDAY tab 02/28/17 [History Confirmed 09/26/19 Last Taken 09/26/19 08:00] diclofenac sodium 1 % topical gel 2 g TOPICAL QID PRN #100 g 09/04/18 [Rx Confirmed 09/26/19 Last Taken Unknown] Embrel 50 mg INJ HULL 09/25/18 [History Confirmed 09/26/19 Last Taken 09/23/19] furosemide 40 mg tablet 40 mg PO QDAY #90 tab 07/15/19 [Rx Confirmed 09/26/19 Last Taken 09/26/19 08:00] folic acid 400 mcg tablet 400 mcg PO QDAY 08/02/19 [History Confirmed 09/26/19 Last Taken 09/26/19 08:00] magnesium 250 mg tablet 250 mg PO BID tab 08/02/19 [History Confirmed 09/26/19 Last Taken 09/26/19 08:00] omega-3 fatty acids 1,000 mg capsule 1,000 mg PO QDAY 08/02/19 [History Confirmed 09/26/19 Last Taken 09/26/19 08:00] tramadol 50 mg tablet 100 mg PO BID #120 tab 08/23/19 [Rx Confirmed 09/26/19 Last Taken 09/26/19 08:00] warfarin 5 mg tablet See Rx Instructions PO QDAY #0 tab 09/13/19 [Rx Confirmed 09/26/19 Last Taken 09/26/19 08:00] hydrocodone 10 mg-acetaminophen 325 mg tablet 1 tab PO .Q4-6H PRN #150 tab 09/18/19 [Rx Confirmed 09/26/19 Last Taken Unknown] Amitriptyline [Elavil] 225 mg PO HS 09/26/19 [History Confirmed 09/27/19 Last Taken 09/26/19 21:00] Aripiprazole [Abilify] 10 mg PO QHS 09/26/19 [History Confirmed 09/26/19 Last Taken 09/25/19 21:00] Rosuvastatin Calcium [Crestor] 20 mg PO QHS 09/26/19 [History Confirmed 09/26/19 Last Taken 09/25/19 21:00] Teriparatide [Forteo] 2.4 ml SQ QHS 09/26/19 [History Confirmed 09/26/19 Last Taken 09/25/19 21:00] Ubidecarenone [Co Q-10] 300 mg PO MOWEFR 09/26/19 [History Confirmed 09/26/19 Last Taken 09/26/19 08:00] Vitamin B12 5,000 mcg PO QDAY 09/26/19 [History Confirmed 09/26/19 Last Taken 09/26/19 08:00] busPIRone [Buspar] 15 mg PO QHS 09/26/19 [History Confirmed 09/26/19 Last Taken 09/26/19 21:00] Calcium (Oyster Shell) [Oscal] 2,000 mg PO BID 09/27/19 [History Confirmed 09/27/19 Last Taken 09/26/19 08:00] Ergocalciferol (Vitamin D2) [Vitamin D2] 3,000 unit PO QAM 09/27/19 [History Confirmed 09/27/19 Last Taken 09/26/19 08:00] Amoxicillin/Potassium Clav [Augmentin] 875 mg PO Q12H #10 tab 09/30/19 [Rx Last Taken Unknown] Medical - DS: Hosp Hospital Course: Mr. Caro is a 79 year old M 79-year-old male who is on immunosuppression for polymyalgia rheumatica with Enbrel and prednisone who presents to the ED for nonhealing wound that is failing outpatient therapy. Patient originally fell out of his chair on the sustaining a skin tear and laceration to the left calf. He was seen again on September 24 and then again the next day. He has been prescribed oral antibiotics. The wound and surrounding leg have continued to worsen with increased redness swelling and warmth and tenderness. The center of the wound is appear to be necrotic tissue. Patient saw Dr. rivas today who evaluate the patient and recommend the patient be admitted for IV antibiotics and surgical debridement. Wound and blood cultures were obtained in the ED. Patient was started on Vanco Zosyn. Patient denies fevers or chills. Leg is very tender to the touch. No DVT on ultrasound. He is on warfarin for history of DVT as INR outpatient recently was subtherapeutic. 09/27 Sleeping but easily arousable. No complaints or issues overnight. 09/28 Per nurse patient had some confusion overnight. Patient currently sitting in chair eating breakfast. No new complaints. Tolerated procedure well yesterday. 09/29 Patient is states he did okay with sleep last night. Has no new complaints. No overnight events. 09/30 doing well, no complaints, stable for d/c. f/u with PCP and Dr. Rivas A: *LLE calf nonhealing wound w/cellulitis and necrosis: failed outpt therapy. s/p I&D (09/27) -WC growing E.coli/Enterococcus/Staph Aureus -CRP improved *PMR: on immunosuppression with Enbral and Prednisone *h/o diastolic CHF: *CAD w/CABG: *CKD III: *COPD (not on home O2): *CARLOS w/CPAP: *HTN/HLD: *Depression/anxiety: *h/o DVT: On warfarin Discharge diagnosis: nonhealing wound with cellulitis, Secondary discharge diagnosis: polymyalgia rheumatica, diastolic chf, cad, ckd, copd, carlos, htn - Time Spent with Patient Total time spent providing and/or coordinating discharge services: Greater than 30 minutes Medical - DS: Exam - Constitutional Vitals: Vital Signs Temp Pulse Resp BP BP Pulse Ox 09/30/19 08:00 98.6 F 77 18 138/76 93 09/30/19 03:42 97.0 F 75 20 135/79 92 09/29/19 22:47 97.9 F 83 14 138/76 92 09/29/19 20:00 97.6 F 62 18 146/84 93 09/29/19 15:59 98.0 F 79 18 130/71 93 09/29/19 12:00 97.3 F 70 18 113/67 93 Intake and Output 09/29/19 09/30/19 09/30/19 21:59 05:59 13:59 Intake Total 440 50 Balance 440 50 Intake: IV 50 Rocephin 2 gm In Dextrose 5% in 50 Water 50 ml @ 100 mls/hr IV DAILY [facility] Rx#:[id number] Oral 440 Other: Urine Appearance Clear Urine Color Pale Stool Size Small Moderate Stool Color Brown Brown Stool Consistency Formed Soft # Voids 1 1 1 # Bowel Movements 1 Weight 57.334 kg Medical - DS: Data Labs on day of discharge: Labs from last 24 hours 09/30/19 09/30/19 08:10 05:30 PT 22.1 H INR 1.9 H Vancomycin Trough 18.3 Preliminary micro results at discharge 09/27/19 15:45 Anaerobic Culture - Preliminary Leg - Left Wound Culture - Preliminary Gram negative bacillus Escherichia coli Enterococcus species Medical - DS: A/P - Patient/Caregiver Discharge Instructions Activity: as per physical therapy Diet: Regular Diet Prescriptions: Amoxicillin/Potassium Clav [Augmentin] 875 mg PO Q12H #10 tab - Follow up Plan Follow up with: Erasto Rivas MD [Physician] - Axel Simpson MD [Primary Care Provider] - Disposition: Xfer SNF Prognosis: Fair Rehab Potential: Fair I certify that the patient requires SNF services: Yes Overall status at discharge: patient is progressing back to baseline Medical - DS: Qual - VTE Deep Vein Thrombosis/Pulmonary Embolism Present on Admission: No
--- NOTE | 2019-09-30 13:30 | Surgical Pathology Report ---
HISTOLOGY SPECIMEN MICROSCOPIC DIAGNOSIS SKIN, LEFT POSTERIOR MID PORTION LEG, EXCISION: -- ULCERATED SKIN WITH DERMAL AND SUBCUTANEOUS VASCULAR CONGESTION AND NECROTIZING ACUTE INFLAMMATION. -- NO DYSPLASIA OR MALIGNANCY IDENTIFIED. (EBD:adj) PROCEDURAL IMPRESSION Eschar wound bed. GROSS DESCRIPTION The specimen is received in formalin as left posterior-mid portion leg and consists of an irregular portion of lujan tissue with zarco-black discoloration and hyperemia. The tissue is 5.0 by up to 3.0 by 0.3 cm. The specimen is inked, serially sectioned. The tips and adjacent cross section submitted in A1; body entirely submitted in A2-A4. (ACP:adj) Electronically Signed by: Diana Geiger M.D.
[2019-09-30] MEDS ORDERED: WARFARIN 5 MG TABLET PO ONE (14:00)
== END 2019-09-30 16:42 | DRG 571 ==
LOC: ED 12:58 → MEDSUR 17:28
PROVIDERS: ADMIT Internal Medicine; ATTEND Internal Medicine

== ENCOUNTER 2019-10-07 11:21 | Inpatient (IN) ==
[2019-10-07] MEDS ORDERED: cefTRIAXone 1 GM VIAL IV ONE (13:42)
[2019-10-07] MEDS ORDERED: VANCOMYCIN 1,000 MG in 0.9 % SODIUM CHLORIDE 250 ML IV ONE (13:42)
--- NOTE | 2019-10-07 13:47 | Emergency Department Note ---
Fall HPI - General Chief Complaint: Fall Stated Complaint: Fall Time Seen by Provider: 10/07/19 12:02 Source: patient Mode of arrival: ambulatory - History of Present Illness HPI Narrative: 79-year-old male presents with new laceration to leg. Currently has wound vac in place to left lower extremity from prior laceration, then cellulitis and wound infection. He has been going to wound care and had it debrided previously. Has hx of recurrent falls, and also very fragile skin with multiple skin tears throughout the extremities. states [facility] week or so while he gets stronger. She is also concerned because she notes that the drainage from the wound VAC is green. She states this is new and so she wants to get a hold no fever or chills. No nausea, vomiting, or diarrhea. He did have a mechanical fall this morning when he tripped in the bathroom at [facility]. He has a new significant laceration just proximal to the old laceration where the wound VAC is. He still has significant swelling to the affected leg and the states that the new laceration is just constantly weeping clear fluid so she keeps rewrapping it but brought him in for evaluation and treatment of the new laceration. He did not hit his head. No loss consciousness. No head, neck, or back pain. Patient is on chronic prednisone. tetanus current - Related Data Home Medications Medication Instructions Recorded Confirmed carvedilol 12.5 mg tablet 12.5 mg PO BID 06/30/15 10/07/19 prednisone 1 mg tablet 4 mg PO QDAY tab 02/28/17 10/07/19 folic acid 400 mcg tablet 400 mcg PO QDAY 08/02/19 10/07/19 magnesium 250 mg tablet 250 mg PO BID tab 08/02/19 10/07/19 omega-3 fatty acids 1,000 mg 1,000 mg PO QDAY 08/02/19 10/07/19 capsule Amitriptyline [Elavil] 225 mg PO HS 09/26/19 10/07/19 Aripiprazole [Abilify] 10 mg PO QHS 09/26/19 10/07/19 Rosuvastatin Calcium [Crestor] 20 mg PO QHS 09/26/19 10/07/19 Teriparatide [Forteo] 2.4 ml SQ QHS 09/26/19 10/07/19 Ubidecarenone [Co Q-10] 300 mg PO MOWEFR 09/26/19 10/07/19 Vitamin B12 5,000 mcg PO QDAY 09/26/19 10/07/19 busPIRone [Buspar] 15 mg PO QHS 09/26/19 10/07/19 Calcium (Oyster Shell) [Oscal] 2,000 mg PO BID 09/27/19 10/07/19 Ergocalciferol (Vitamin D2) 3,000 unit PO QAM 09/27/19 10/07/19 [Vitamin D2] HYDROcodone/ACETAMINOPHEN [Buchanan 1 - 2 tab PO .Q6H PRN 10/07/19 10/07/19 10-325 Tablet] L. Acidophilus/L.bulgaricus 1 tab PO DAILY 10/07/19 10/07/19 [Lactobacillus Tablet] Previous Rx's Medication Instructions Recorded diclofenac sodium 1 % topical gel 2 g TOPICAL QID PRN #100 g 09/04/18 furosemide 40 mg tablet 40 mg PO QDAY #90 tab 07/15/19 warfarin 5 mg tablet See Rx Instructions PO QDAY #0 tab 09/13/19 Amoxicillin/Potassium Clav 875 mg PO Q12H #10 tab 09/30/19 [Augmentin] traMADol [Ultram] 100 mg PO BID PRN #20 tab 09/30/19 Allergies Allergy/AdvReac Type Severity Reaction Status Date / Time Sulfa (Sulfonamide Allergy Mild Rash Verified 10/07/19 11:29 Antibiotics) codeine AdvReac Mild Nausea Verified 10/07/19 11:29 Review of Systems Review of Systems: Medical History (Last Reviewed 09/11/19 @ 15:41 by Roberto Crowley MD) COPD (chronic obstructive pulmonary disease) (Chronic) Kyphosis, acquired (Chronic) Muscle weakness (Chronic) Corticosteroid dependence (Chronic) History of influenza pneumonia (Chronic) Anemia (Chronic) Rectus sheath hematoma (Chronic) Cellulitis (Acute) Leg edema, left (Acute) Acute bronchitis (Acute) Influenza (Acute) Pneumonia (Acute) Shortness of Breath (Acute) Severe sepsis with acute organ dysfunction (Acute) Acute respiratory failure with hypoxia (Acute) Dysphagia (Chronic) Esophageal stricture (Chronic) Pseudogout (Chronic) Polymyalgia rheumatica (Chronic) Osteoporosis (Chronic) Food sticks on swallowing (Acute) Food impaction of esophagus (Acute) Myocardial infarction acute (Acute) Vitamin D deficiency (Chronic 04/06/12) Personal history of TIA (transient ischemic attack) (Chronic) Thoracic vertebral fracture (Chronic) Testicular hypofunction (Chronic) Stroke (Chronic) Osteoarthritis (Chronic) Nephrolithiasis (Chronic) 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) Ischemic cardiomyopathy (Chronic) Hyperlipidemia (Chronic) Hypercholesterolemia (Chronic) Hypertensive chronic kidney disease (Chronic) Heart disease (Chronic) History of gout (Chronic) Glucose intolerance (impaired glucose tolerance) (Chronic) Gastric ulcer (Chronic) Dyslipidemia (Chronic) Depressive disorder (Chronic) Congestive heart failure (Chronic) Chronic kidney disease, 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) Cholelithiasis (Chronic) Acute cholecystitis (Acute) CAD (coronary artery disease) (Chronic) Back pain (Chronic) Arthritis (Chronic) Abdominal pain, LUQ (Chronic) History of GI bleed (Acute) History of bilevel positive airway pressure (BiPAP) therapy (Acute) Hx of blood clots (Acute) Hx of skin malignancy (Acute) Past Surgical History (Last Reviewed 09/11/19 @ 15:41 by Roberto Crowley MD) Status post dilatation of esophageal stricture (Acute) History of vertebroplasty (Chronic) History of vasectomy (Chronic) History of tonsillectomy (Chronic) History of hand surgery (Chronic) History of esophagogastroduodenoscopy (Chronic 05/16/12) History of colonoscopy (Chronic 11/21/12) History of cholecystectomy (Chronic) History of coronary artery bypass graft (Chronic 02/18/04) History of atrial septal defect repair (Chronic) H/O shoulder replacement (Acute) All systems ED: reviewed and negative except as stated. Fall PMH - Past Medical History [facility]LY [facility] Narrative: Medical History (Last Reviewed 09/11/19 @ 15:41 by Roberto Crowley MD) COPD (chronic obstructive pulmonary disease) (Chronic) Kyphosis, acquired (Chronic) Muscle weakness (Chronic) Corticosteroid dependence (Chronic) History of influenza pneumonia (Chronic) Anemia (Chronic) Rectus sheath hematoma (Chronic) Cellulitis (Acute) Leg edema, left (Acute) Acute bronchitis (Acute) Influenza (Acute) Pneumonia (Acute) Shortness of Breath (Acute) Severe sepsis with acute organ dysfunction (Acute) Acute respiratory failure with hypoxia (Acute) Dysphagia (Chronic) Esophageal stricture (Chronic) Pseudogout (Chronic) Polymyalgia rheumatica (Chronic) Osteoporosis (Chronic) Food sticks on swallowing (Acute) Food impaction of esophagus (Acute) Myocardial infarction acute (Acute) Vitamin D deficiency (Chronic 04/06/12) Personal history of TIA (transient ischemic attack) (Chronic) Thoracic vertebral fracture (Chronic) Testicular hypofunction (Chronic) Stroke (Chronic) Osteoarthritis (Chronic) Nephrolithiasis (Chronic) group home current use of anticoagulant (Chronic) Ischemic cardiomyopathy (Chronic) Hyperlipidemia (Chronic) Hypercholesterolemia (Chronic) Hypertensive chronic kidney disease (Chronic) Heart disease (Chronic) History of gout (Chronic) Glucose intolerance (impaired glucose tolerance) (Chronic) Gastric ulcer (Chronic) Dyslipidemia (Chronic) Depressive disorder (Chronic) Congestive heart failure (Chronic) Chronic kidney disease, 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) Cholelithiasis (Chronic) Acute cholecystitis (Acute) CAD (coronary artery disease) (Chronic) Back pain (Chronic) Arthritis (Chronic) Abdominal pain, LUQ (Chronic) History of GI bleed (Acute) History of bilevel positive airway pressure (BiPAP) therapy (Acute) Hx of blood clots (Acute) Hx of skin malignancy (Acute) Past Surgical History (Last Reviewed 09/11/19 @ 15:41 by Roberto Crowley MD) Status post dilatation of esophageal stricture (Acute) History of vertebroplasty (Chronic) History of vasectomy (Chronic) History of tonsillectomy (Chronic) History of hand surgery (Chronic) History of esophagogastroduodenoscopy (Chronic 05/16/12) History of colonoscopy (Chronic 11/21/12) History of cholecystectomy (Chronic) History of coronary artery bypass graft (Chronic 02/18/04) History of atrial septal defect repair (Chronic) H/O shoulder replacement (Acute) Medical history: Reports: arthritis, CHF, COPD, CAD (coronary artery disease), DVT, GI bleed (Had to have stomach repaired [facility]), hyperlipidemia, hypertension, kidney stones, myocardial infarction, osteoporosis, renal disease, TIA, other (PMR, RA, pseudogout, factor V deficiency, obstructive sleep apnea on CPAP, esophageal strictures) Reports: Recurrent Falls Family history: Reports: no significant family history - Social History smoking status: Never smoker Alcohol use: Reports: None Drug use: Reports: none Physical Exam Limitations: no limitations General appearance: alert, other (Hard of hearing and is forgetful at times) Head: atraumatic, normocephalic, normal inspection Eye: Present: normal appearance. Absent: conjunctival injection ENT: Present: mucous membranes moist Chest: Present: symmetric chest wall rise Respiratory: Present: normal lung sounds bilaterally, other (Mild tachypnea with exertion such as getting up from the wheelchair to the bed). Absent: respiratory distress, rales/crackles, wheezes, accessory muscle use Cardiovascular: Present: regular rate, normal heart sounds Extremities: Absent: normal inspection (Upper extremities with multiple skin tears to the arms bilaterally. The right arm does have 2 Mepilex is that are in tact dated 09-30-19. These were removed and old skin tears are healing well with Steri-Strips intact. The right forearm has a 8 cm skin tear that is superficial with minimal active bleeding. Prior facility had just put a Mepilex over a but that was removed, cleaned, and Steri-Stripped. He also has another skin tear to this right arm just proximal to the elbow that is about 4.5 cm, superficial with minimal active bleeding that was also cleaned and Steri-Stri pped. The left upper extremity has a 7 cm skin tear distal to the elbow and 5 cm proximal to the elbow as well. Again these were cleaned and Steri-Strips applied. The left lower leg has moderate edema and erythema from the knee down throughout the ankle. This is slightly improved from the last time I have seen this patient. He does have a wound VAC in place that is draining slightly green tinted drainage. Just proximal to the wound VAC on the posterior calf area is a new 4 cm x 4 cm VC shaped laceration through the dermis dermis and epidermis that is weeping clear fluid. There is no active bleeding. Depth is 2.5 cm. Cleansed with saline and bacitracin applied per Dr. arriaga.) Neurological: Present: alert Psychiatric: Present: normal affect, normal mood Skin: Present: warm, dry. Absent: intact (Please see extremity documentation regarding skin tears and laceration) Course Course Narrative: Dr. Rivas here to see the patient at 1330. He would like us to get labs, cultures, Venous Duplex, start Vancomycin and Rocephin, consult ID, have hospitalist admit and he have anesthesia see the patient so he can debride old wound and repair new wound. At 1400 I did speak with the hospitalist Dr. Parks @ [address] Guerin here evaluating pt Vital Signs Temperature 97.8 F 10/07/19 11:31 Pulse Rate 83 10/07/19 11:31 Respiratory Rate 20 10/07/19 11:31 Blood Pressure 95/67 10/07/19 11:31 Pulse Oximetry (%) 91 10/07/19 11:31 Temperature 97.7 F 10/08/19 07:15 Pulse Rate 79 10/08/19 07:15 Respiratory Rate 18 10/08/19 07:15 Blood Pressure 127/65 10/08/19 07:15 Pulse Oximetry (%) 94 10/08/19 07:15 Fall - Lab Data Lab results reviewed: Yes I reviewed the patient's lab results. Result diagrams: 10/08/19 06:02 10/08/19 06:02 Lab Results 10/07/19 10/07/19 10/07/19 Range/Units 14:00 14:56 14:56 WBC 9.6 (4.50-11.00) K/mcL RBC 3.62 L (4.63-6.08) M/mcL Hgb 11.7 L (13.7-17.5) g/dL Hct 36.1 L (40.1-51.0) % MCV 99.7 (80.0-100.0) fL MCH 32.3 (26.0-34.0) pg MCHC 32.4 (31.0-36.0) g/dL RDW 13.9 (11.5-14.5) % Plt Count 315 (140-440) K/mcL MPV 9.3 (7.4-10.4) fL Gran % 71.2 (38.0-78.0) % Lymph % (Auto) 18.6 (15.5-49.0) % Sully % (Auto) 8.0 (1.0-12.0) % Eos % (Auto) 1.6 (0.0-7.0) % Baso % (Auto) 0.6 (0.0-2.0) % Gran # 6.85 (1.80-8.00) K/mcL Lymph # (Auto) 1.79 (1.50-4.80) K/mcL Sully # (Auto) 0.77 (0.10-0.90) K/mcL Eos # (Auto) 0.15 (0.00-0.70) K/mcL Baso # (Auto) 0.06 (0.00-0.30) K/mcL PT (11.9-14.5) sec INR (0.9-1.1) VBG Lactic Acid (0.5-2.0) mmol/L Sodium 140 (133-145) mmol/L Potassium 4.1 (3.3-5.1) mmol/L Chloride 98 (96-108) mmol/L Carbon Dioxide 30 (22-30) mmol/L Anion Gap 12.0 (8-16) BUN 27 H (8-23) mg/dl Creatinine 1.1 (0.7-1.2) mg/dl GFR Calculation 64 Glucose 90 (70-105) mg/dL Calcium 10.3 (8.6-10.4) mg/dl Total Bilirubin 0.3 (0.0-1.0) mg/dL AST 28 (0-37) U/l ALT 25 (0-40) U/l Alkaline Phosphatase 86 (39-117) U/L Total Protein 6.2 (5.9-8.4) gm/dL Albumin 3.2 (3.2-5.2) gm/dL Globulin 3.0 (2.2-3.7) gm/dL Albumin/Globulin Ratio 1.1 (1.0-2.3) Urine Color Straw Urine Appearance Clear Urine pH 7.0 (5.0-9.0) Ur Specific Chelsea 1.011 (1.000-1.035) Urine Protein Neg (NEG) mg/dL Urine Glucose (UA) Negative (NEG) mg/dL Urine Ketones Neg (NEG) mg/dL Urine Occult Blood Neg (<0.03) mg/dL Urine Nitrate Neg (NEG) Urine Bilirubin Neg (NEG) mg/dL Urine Urobilinogen Neg (NEG) mg/dL Ur Leukocyte Esterase Neg (NEG) /uL Urine RBC < 1 (0-1) /hpf Urine WBC 2 (0-4) /hpf Ur Squamous Epith Cells 0 (0-4) /hpf Urine Bacteria 0 (0) /hpf Hyaline Casts 30 H (0-2) /lpf Urine Mucus Few (0) /hpf Ur Culture Indicated? No 10/07/19 10/07/19 Range/Units 14:56 14:56 WBC (4.50-11.00) K/mcL RBC (4.63-6.08) M/mcL Hgb (13.7-17.5) g/dL Hct (40.1-51.0) % MCV (80.0-100.0) fL MCH (26.0-34.0) pg MCHC (31.0-36.0) g/dL RDW (11.5-14.5) % Plt Count (140-440) K/mcL MPV (7.4-10.4) fL Gran % (38.0-78.0) % Lymph % (Auto) (15.5-49.0) % Sully % (Auto) (1.0-12.0) % Eos % (Auto) (0.0-7.0) % Baso % (Auto) (0.0-2.0) % Gran # (1.80-8.00) K/mcL Lymph # (Auto) (1.50-4.80) K/mcL Sully # (Auto) (0.10-0.90) K/mcL Eos # (Auto) (0.00-0.70) K/mcL Baso # (Auto) (0.00-0.30) K/mcL PT 20.1 H (11.9-14.5) sec INR 1.7 H (0.9-1.1) VBG Lactic Acid 1.2 (0.5-2.0) mmol/L Sodium (133-145) mmol/L Potassium (3.3-5.1) mmol/L Chloride (96-108) mmol/L Carbon Dioxide (22-30) mmol/L Anion Gap (8-16) BUN (8-23) mg/dl Creatinine (0.7-1.2) mg/dl GFR Calculation Glucose (70-105) mg/dL Calcium (8.6-10.4) mg/dl Total Bilirubin (0.0-1.0) mg/dL AST (0-37) U/l ALT (0-40) U/l Alkaline Phosphatase (39-117) U/L Total Protein (5.9-8.4) gm/dL Albumin (3.2-5.2) gm/dL Globulin (2.2-3.7) gm/dL Albumin/Globulin Ratio (1.0-2.3) Urine Color Urine Appearance Urine pH (5.0-9.0) Ur Specific Chelsea (1.000-1.035) Urine Protein (NEG) mg/dL Urine Glucose (UA) (NEG) mg/dL Urine Ketones (NEG) mg/dL Urine Occult Blood (<0.03) mg/dL Urine Nitrate (NEG) Urine Bilirubin (NEG) mg/dL Urine Urobilinogen (NEG) mg/dL Ur Leukocyte Esterase (NEG) /uL Urine RBC (0-1) /hpf Urine WBC (0-4) /hpf Ur Squamous Epith Cells (0-4) /hpf Urine Bacteria (0) /hpf Hyaline Casts (0-2) /lpf Urine Mucus (0) /hpf Ur Culture Indicated? - Radiology Data Radiology results reviewed: Yes I reviewed the patient's radiology results. Disposition Pt seen by WOOD TECHNOLOGIST/PA only: Yes Clinical Impression: Recurrent falls, Cellulitis, Multiple skin tears, Leg laceration Disposition: Xfer As Outpt/Obs ([facility]) Condition: Fair
--- NOTE | 2019-10-07 15:15 | Ultrasound Report ---
CLINICAL INFORMATION: Leg pain TECHNIQUE: Grayscale and color flow Doppler spectral imaging COMPARISON: Previous examination dated 09/26/2019 FINDINGS: Negative examination for deep venous thrombosis. Negative left common femoral vein, femoral vein, popliteal vein. Posterior tibial veins and peroneal veins are negative. Greater lesser saphenous veins are negative. No significant interval change IMPRESSION: 1. Negative examination for deep venous thrombosis 2. No interval change since 09/26/2019 Interpreted and Authenticated by: Zac Arias 10/07/19
--- NOTE | 2019-10-07 15:30 | XRay Report ---
CLINICAL INFORMATION:Preoperative evaluation TECHNIQUE: AP portable semiupright chest x-ray COMPARISON: Previous chest x-rays dated 09/27/2019, 09/25/2018, 10/05/2017 FINDINGS:Previous median sternotomy. No focal pulmonary parenchymal infiltrate or mass. Heart size is within normal limits considering AP positioning. No pulmonary edema or pulmonary congestion. Previous right reverse shoulder arthroplasty. Superior decentering of the left humeral head consistent with rotator cuff degeneration IMPRESSION: No acute abnormality. Interpreted and Authenticated by: Zac Arias 10/07/19
[2019-10-07 15:31] LABS: Appearance,Urine CLEAR; Bacteria,Urine 0 /hpf (0); Bilirubin,Urine NEG (NEG); Color,Urine STRAW; Culture Indicated,Urine NO; Glucose,Urine (UA) NEGATIVE (NEG); Ketones,Urine NEG (NEG); Leukocyte Esterase,Urine NEG /uL (NEG); Mucus,Urine FEW /hpf (0); Nitrate,Urine NEG (NEG); Protein,Urine NEG (NEG); Specific Gravity,Urine 1.011 (1.000-1.035); Urine Blood NEG mg/dL (<0.03); Urine Hyaline Cast 30 /lpf (0-2); Urine RBC < 1 /hpf (0-1); Urine Squamous Epithelial Cell 0 /hpf (0-4); Urine WBC 2 /hpf (0-4); Urobilinogen,Urine NEG (NEG)
[2019-10-07 15:53] LABS: Basophils # (Auto) 0.06 K/mcL (0.00-0.30); Basophils % (Auto) 0.6 % (0.0-2.0); Eosinophils # (Auto) 0.15 K/mcL (0.00-0.70); Eosinophils % (Auto) 1.6 % (0.0-7.0); Granulocytes % (Auto) 71.2 % (38.0-78.0); Hematocrit 36.1 % (40.1-51.0); Hemoglobin 11.7 g/dL (13.7-17.5); Lymphocytes # (Auto) 1.79 K/mcL (1.50-4.80); Lymphocytes % (Auto) 18.6 % (15.5-49.0); Mean Cell Volume 99.7 fL (80.0-100.0); Mean Corpuscular HGB Conc 32.4 g/dL (31.0-36.0); Mean Platelet Volume 9.3 fL (7.4-10.4); Monocytes # (Auto) 0.77 K/mcL (0.10-0.90); Platelet Count 315 K/mcL (140-440); RBC 3.62 M/mcL (4.63-6.08); Red Cell Distribution Width 13.9 % (11.5-14.5); WBC 9.6 K/mcL (4.50-11.00)
[2019-10-07 16:06] LABS: INR 1.7 (0.9-1.1); Prothrombin Time 20.1 sec (11.9-14.5)
[2019-10-07 16:20] LABS: ALT/SGPT 25 U/l (0-40); AST/SGOT 28 U/l (0-37); Albumin 3.2 gm/dL (3.2-5.2); Albumin/Globulin Ratio 1.1 (1.0-2.3); Alkaline Phosphatase 86 U/L (39-117); Bilirubin,Total 0.3 mg/dL (0.0-1.0); Blood Urea Nitrogen 27 mg/dl (8-23); Calcium 10.3 mg/dl (8.6-10.4); Carbon Dioxide 30 mmol/L (22-30); Chloride 98 mmol/L (96-108); Glomerular Filtration Rate 64; Glucose 90 mg/dL (70-105)
--- NOTE | 2019-10-07 16:25 | Internal Med History&Physical ---
Medical - H&P: HPI Patient information: Note initiated : 10/07/19 at 4:24 pm Service Date, if different from initiated Date: [] Patient: Latrell Caro a 79 y/o M admitted on for Fall. Chief Complaint: [] Chief complaint: Left calf wound with oozing, fall History of present illness: Mr. Caro is a 79 year old M with a history of PMR on Enbrel start prednisone [facility] recent hospitalization for left calf laceration and infected wound with necrosis. He has been following up with wound care. Patient today fell at the care facility and sustained a calf laceration. He denied precipitating events prior to fall. He denied loss of consciousness. He was referred to the ER for further evaluation. During initial evaluation it was noted that wound VAC that was placed left calf 24 hours ago has dislodged and was nonfunctional. The wounds around left calf has been oozing with significant redness and swelling entire lower extremity. There has been surrounding erythema and limb is exquisitely tender. However Doppler ultrasounds were negative for DVT. Worsening calf ulceration was noted 5 x 5 cm at least 4 to 5 mm in depth with areas of necrotic tissue. Subsequently wound care Dr. Rivas was consulted who requested hospitalist service to admit patient for further debridement/antibiotics. ID was also consulted. Patient was started on vancomycin after cultures were drawn At the time evaluation patient is accompanied with his . He was able to answer most questions. He appears fatigued lethargic but denies fevers, shaking chills, headache. He is currently on 4 mg of prednisone on a tapering dose for his PMR. Patient denies diarrhea, dysuria, chest pain, vision changes or neurological changes Review of systems A 10 point review system was performed and is negative except for ones cussed above Medical - H&P: PMH Medical history: Medical History COPD (chronic obstructive pulmonary disease) (Chronic) Kyphosis, acquired (Chronic) Muscle weakness (Chronic) Corticosteroid dependence (Chronic) History of influenza pneumonia (Chronic) Anemia (Chronic) Rectus sheath hematoma (Chronic) Cellulitis (Acute) Leg edema, left (Acute) Acute bronchitis (Acute) Influenza (Acute) Pneumonia (Acute) Shortness of Breath (Acute) Severe sepsis with acute organ dysfunction (Acute) Acute respiratory failure with hypoxia (Acute) Dysphagia (Chronic) Esophageal stricture (Chronic) Pseudogout (Chronic) Polymyalgia rheumatica (Chronic) Osteoporosis (Chronic) Food sticks on swallowing (Acute) Food impaction of esophagus (Acute) Myocardial infarction acute (Acute) Vitamin D deficiency (Chronic 04/06/12) Personal history of TIA (transient ischemic attack) (Chronic) Thoracic vertebral fracture (Chronic) Testicular hypofunction (Chronic) Stroke (Chronic) Osteoarthritis (Chronic) Nephrolithiasis (Chronic) 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) Ischemic cardiomyopathy (Chronic) Hyperlipidemia (Chronic) Hypercholesterolemia (Chronic) Hypertensive chronic kidney disease (Chronic) Heart disease (Chronic) History of gout (Chronic) Glucose intolerance (impaired glucose tolerance) (Chronic) Gastric ulcer (Chronic) Dyslipidemia (Chronic) Depressive disorder (Chronic) Congestive heart failure (Chronic) Chronic kidney disease, 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) Cholelithiasis (Chronic) Acute cholecystitis (Acute) CAD (coronary artery disease) (Chronic) Back pain (Chronic) Arthritis (Chronic) Abdominal pain, LUQ (Chronic) History of GI bleed (Acute) History of bilevel positive airway pressure (BiPAP) therapy (Acute) Hx of blood clots (Acute) Hx of skin malignancy (Acute) Past Surgical History Status post dilatation of esophageal stricture (Acute) History of vertebroplasty (Chronic) History of vasectomy (Chronic) History of tonsillectomy (Chronic) History of hand surgery (Chronic) History of esophagogastroduodenoscopy (Chronic 05/16/12) History of colonoscopy (Chronic 11/21/12) History of cholecystectomy (Chronic) History of coronary artery bypass graft (Chronic 02/18/04) History of atrial septal defect repair (Chronic) H/O shoulder replacement (Acute) Family History Mother Malignant neoplasm of colon Essential hypertension Sister Depression Cardiac disease Father Pulmonary emphysema Cardiac disease Social History Remote smoking history Drinks alcohol rarely Ambulates with a walker Lives at home with his Medical - H&P: Meds Home Medications Medication Instructions Recorded Confirmed Type carvedilol 12.5 mg tablet 12.5 mg PO BID 06/30/15 10/07/19 History prednisone 1 mg tablet 4 mg PO QDAY tab 02/28/17 10/07/19 History diclofenac sodium 1 % topical gel 2 g TOPICAL QID PRN #100 g 09/04/18 10/07/19 Rx furosemide 40 mg tablet 40 mg PO QDAY #90 tab 07/15/19 10/07/19 Rx folic acid 400 mcg tablet 400 mcg PO QDAY 08/02/19 10/07/19 History magnesium 250 mg tablet 250 mg PO BID tab 08/02/19 10/07/19 History omega-3 fatty acids 1,000 mg 1,000 mg PO QDAY 08/02/19 10/07/19 History capsule warfarin 5 mg tablet See Rx Instructions PO QDAY #0 tab 09/13/19 10/07/19 Rx Amitriptyline [Elavil] 225 mg PO HS 09/26/19 10/07/19 History Aripiprazole [Abilify] 10 mg PO QHS 09/26/19 10/07/19 History Rosuvastatin Calcium [Crestor] 20 mg PO QHS 09/26/19 10/07/19 History Teriparatide [Forteo] 2.4 ml SQ QHS 09/26/19 10/07/19 History Ubidecarenone [Co Q-10] 300 mg PO MOWEFR 09/26/19 10/07/19 History Vitamin B12 5,000 mcg PO QDAY 09/26/19 10/07/19 History busPIRone [Buspar] 15 mg PO QHS 09/26/19 10/07/19 History Calcium (Oyster Shell) [Oscal] 2,000 mg PO BID 09/27/19 10/07/19 History Ergocalciferol (Vitamin D2) 3,000 unit PO QAM 09/27/19 10/07/19 History [Vitamin D2] Amoxicillin/Potassium Clav 875 mg PO Q12H #10 tab 09/30/19 10/07/19 Rx [Augmentin] traMADol [Ultram] 100 mg PO BID PRN #20 tab 09/30/19 10/07/19 Rx HYDROcodone/ACETAMINOPHEN [[place] 1 - 2 tab PO .Q6H PRN 10/07/19 10/07/19 History 10-325 Tablet] L. Acidophilus/L.bulgaricus 1 tab PO DAILY 10/07/19 10/07/19 History [Lactobacillus Tablet] Allergies Allergy/AdvReac Type Severity Reaction Status Date / Time Sulfa (Sulfonamide Allergy Mild Rash Verified 10/07/19 11:29 Antibiotics) codeine AdvReac Mild Nausea Verified 02/17/20 11:29 Medical - H&P: Exam - Constitutional Vitals: Temp Pulse Resp BP Pulse Ox 97.8 F 78 20 136/75 100 10/07/19 11:31 10/07/19 15:25 10/07/19 11:31 10/07/19 15:25 10/07/19 15:25 Exam: General: Alert, Awake, No acute Distress at bedside Eyes/N/T: Eye movements normal. Oral cavity dry, no ear nose discharge Head/Neck: no lymphadenopathy or JVD, normocephalic atraumatic CV: RRR, No murmurs, normal s1/s2 Chest clear to auscultation bilaterally Abd: soft, nontender, Lower Ext: no clubbing/cyanosis/edema to right lower extremity. Left lower extremity erythematous from mid thigh to the ankle/edematous/tender to palpation. 5 x 5 cm/4 mm deep ulcer with necrotic tissue noted on left calf Neuro: Alert, no focal deficits, moves all extremities, normal higher function Skin: No suspicious lesion Psych alert cooperative Medical - H&P: Reslt - Labs CBC & Chem 7: 10/07/19 14:56 10/07/19 14:56 Labs: Short CBC 10/07/19 Range/Units 14:56 WBC 9.6 (4.50-11.00) K/mcL Hgb 11.7 L (13.7-17.5) g/dL Hct 36.1 L (40.1-51.0) % Plt Count 315 (140-440) K/mcL BMP 10/07/19 14:56 Sodium 140 Potassium 4.1 Chloride 98 Carbon Dioxide 30 BUN 27 H Creatinine 1.1 Glucose 90 Calcium 10.3 Liver Function 10/07/19 Range/Units 14:56 Total Bilirubin 0.3 (0.0-1.0) mg/dL AST 28 (0-37) U/l ALT 25 (0-40) U/l Alkaline Phosphatase 86 (39-117) U/L Albumin 3.2 (3.2-5.2) gm/dL Urine 10/07/19 Range/Units 14:00 Urine Color Straw Urine Appearance Clear Urine pH 7.0 (5.0-9.0) Ur Specific [place] 1.011 (1.000-1.035) Urine Protein Neg (NEG) mg/dL Urine Glucose (UA) Negative (NEG) mg/dL Medical - H&P: A/P (1) Cellulitis of left lower extremity Current visit: Yes Status: Acute * Left lower extremity cellulitis-broad antibiotic coverage, cultures, wound care. Limb elevation * Left calf ulceration/posterior upper extremity new laceration wound care consulted and will likely undergo operative debridement/suturing in 24 hours. * Protein calorie malnutrition aggressive protein calorie supplements * History of PMR continue 4 mg p.o. prednisone * History diastolic CHF stable, continue Coreg * History of CAD status post CABG stable continue beta-elayne * CKD stage III-avoid nephrotoxins * Neuropathy continue amitriptyline * History obstructive sleep apnea on CPAP * History of hypertension resume home medications * Anxiety depression continue BuSpar * Osteoporosis continue Forteo * History of DVT continue anticoagulation on warfarin * Full code * Prophylaxis anticoagulant Coumadin Plan * Antibiotic coverage per ID * Wound care per Dr. Rivas * Prior medical condition management as above * PT OT/wound care * Nutrition support with high protein calorie supplements * Discharge planning per case management * Observation admit
[2019-10-07] MEDS ORDERED: MAGNESIUM SULFATE 2 GM/50 ML BAG IV PRN (16:51)
[2019-10-07] MEDS ORDERED: ONDANSETRON 4 MG/2 ML VIAL IV PRN (16:51)
[2019-10-07] MEDS ORDERED: MELATONIN 3 MG TABLET PO PRN (16:51)
[2019-10-07] MEDS ORDERED: VANCOMYCIN PER PHARMACY IV SCH (16:51)
[2019-10-07] MEDS ORDERED: POTASSIUM CHLORIDE 20 MEQ PACKET PO PRN (16:51)
[2019-10-07] MEDS ORDERED: ACETAMINOPHEN 325 MG TABLET PO PRN (16:51)
[2019-10-07] MEDS ORDERED: POLYETHYLENE GLYCOL 3350 17 GM PACKET PO PRN (16:51)
[2019-10-07] MEDS ORDERED: BISACODYL 10 MG SUPP.RECT PR PRN (16:51)
[2019-10-07] MEDS ORDERED: ONDANSETRON 4 MG ODT TABLET SL PRN (16:51)
--- NOTE | 2019-10-07 18:36 | General Surgery Consult Note ---
History of Present Illness Patient information: Note initiated : 10/07/19 at 6:18 pm Service Date, if different from initiated Date: [] Patient: Latrell Caro 79 y/o M admitted on 10/07/19 for Fall. Chief Complaint: [] Consult date: 10/07/19 Requesting physician: Juan Carlos Parks (Fall , New wound LEFT calf) History of present illness: Patient was evaluated in ER after a ground level fall at Rehab [facility] SNF earlier this morning. Noted to have a new traumatic wound proximal to the old open post surgical wound. Patient DENIES, LOC, amnesia, CP, visual symptoms prior to fall. READMITTED to the hospital for further evaluation and treatment. He was discharged form this institution about a week ago. He was admitted via ER with h/o prior soft tissue trauma of Left lower posterior leg. This had progressed to CSSSI, SEPSIS and evolving MOF. His condition stabilized after emergent surgical debridement. Subsequently, his mentation improved and renal functions normalized. After stabilization of his condition and ADL, he was transferred to [facility] facility in [facility]. I saw him in ER this afternoon and reassessed him again along with Dr. Guerin, Infectious disease. Medications and Allergies Home Medications Medication Instructions Recorded Confirmed Type carvedilol 12.5 mg tablet 12.5 mg PO BID 06/30/15 10/07/19 History prednisone 1 mg tablet 4 mg PO QDAY tab 02/28/17 10/07/19 History diclofenac sodium 1 % topical gel 2 g TOPICAL QID PRN #100 g 09/04/18 10/07/19 Rx furosemide 40 mg tablet 40 mg PO QDAY #90 tab 07/15/19 10/07/19 Rx folic acid 400 mcg tablet 400 mcg PO QDAY 08/02/19 10/07/19 History magnesium 250 mg tablet 250 mg PO BID tab 08/02/19 10/07/19 History omega-3 fatty acids 1,000 mg 1,000 mg PO QDAY 08/02/19 10/07/19 History capsule warfarin 5 mg tablet See Rx Instructions PO QDAY #0 tab 09/13/19 10/07/19 Rx Amitriptyline [Elavil] 225 mg PO HS 09/26/19 10/07/19 History Aripiprazole [Abilify] 10 mg PO QHS 09/26/19 10/07/19 History Rosuvastatin Calcium [Crestor] 20 mg PO QHS 09/26/19 10/07/19 History Teriparatide [Forteo] 2.4 ml SQ QHS 09/26/19 10/07/19 History Ubidecarenone [Co Q-10] 300 mg PO MOWEFR 09/26/19 10/07/19 History Vitamin B12 5,000 mcg PO QDAY 09/26/19 10/07/19 History busPIRone [Buspar] 15 mg PO QHS 09/26/19 10/07/19 History Calcium (Oyster Shell) [Oscal] 2,000 mg PO BID 09/27/19 10/07/19 History Ergocalciferol (Vitamin D2) 3,000 unit PO QAM 09/27/19 10/07/19 History [Vitamin D2] Amoxicillin/Potassium Clav 875 mg PO Q12H #10 tab 09/30/19 10/07/19 Rx [Augmentin] traMADol [Ultram] 100 mg PO BID PRN #20 tab 09/30/19 10/07/19 Rx HYDROcodone/ACETAMINOPHEN [[place] 1 - 2 tab PO .Q6H PRN 10/07/19 10/07/19 History 10-325 Tablet] L. Acidophilus/L.bulgaricus 1 tab PO DAILY 10/07/19 10/07/19 History [Lactobacillus Tablet] Allergies Allergy/AdvReac Type Severity Reaction Status Date / Time Sulfa (Sulfonamide Allergy Mild Rash Verified 10/07/19 11:29 Antibiotics) codeine AdvReac Mild Nausea Verified 10/07/19 11:29 Exam Temp Pulse Resp BP Pulse Ox 97.8 F 80 20 140/117 93 10/07/19 11:31 10/07/19 16:41 10/07/19 11:31 10/07/19 17:22 10/07/19 16:41 - General physical appearance moderate distress, moderate pain, chronically ill, other (Debilitated and frail.) - Eyes PERRL, normal ocular movement - ENT dentures, other (Dry mucosa, SOB, hpoxic. O2 sats improved after starting O2 by [place], ) - Head Head exam IM: Present: atraumatic, normocephalic - Neck trachea midline, no lymphadenopathy, no venous distension - Cardiovascular Cardiovascular exam IM: Present: irregular rhythm - Respiratory other (SOB on mild exertion. O2 sats improved after starting supplemental O2 by [place], ) - Abdomen Abdomen: Present: soft, non tender, bowel sounds - Integumentary Present: other (LEFT leg Erythematous. Tnder to touch and draining lymphatic serous fluid form posterior upper calf laceration extending to fascia, Edematous extremity. Doppler negative mayco clots or collectionsl) - Neurologic Present: normal sensation, other (Unremarkable neurological examination. AAO x 3, No amnesial ) - Musculoskeletal Present: other (Sitting in bed. No gross neurological deficits. Peripheral pulses feet absent. ) - Psychiatric Present: oriented to person, oriented to place, speech is normal Results - Labs 10/08/19 06:02 10/08/19 06:02 Abnormal lab results 10/07/19 10/07/19 10/07/19 Range/Units 14:00 14:56 14:56 RBC 3.62 L (4.63-6.08) M/mcL Hgb 11.7 L (13.7-17.5) g/dL Hct 36.1 L (40.1-51.0) % PT (11.9-14.5) sec INR (0.9-1.1) BUN 27 H (8-23) mg/dl Hyaline Casts 30 H (0-2) /lpf 10/07/19 Range/Units 14:56 RBC (4.63-6.08) M/mcL Hgb (13.7-17.5) g/dL Hct (40.1-51.0) % PT 20.1 H (11.9-14.5) sec INR 1.7 H (0.9-1.1) BUN (8-23) mg/dl Hyaline Casts (0-2) /lpf Diabetes panel 10/07/19 Range/Units 14:56 Sodium 140 (133-145) mmol/L Potassium 4.1 (3.3-5.1) mmol/L Chloride 98 (96-108) mmol/L Carbon Dioxide 30 (22-30) mmol/L BUN 27 H (8-23) mg/dl Creatinine 1.1 (0.7-1.2) mg/dl Glucose 90 (70-105) mg/dL Calcium 10.3 (8.6-10.4) mg/dl AST 28 (0-37) U/l ALT 25 (0-40) U/l Alkaline Phosphatase 86 (39-117) U/L Total Protein 6.2 (5.9-8.4) gm/dL Albumin 3.2 (3.2-5.2) gm/dL Calcium panel 10/07/19 Range/Units 14:56 Calcium 10.3 (8.6-10.4) mg/dl Albumin 3.2 (3.2-5.2) gm/dL Pituitary panel 10/07/19 Range/Units 14:56 Sodium 140 (133-145) mmol/L Potassium 4.1 (3.3-5.1) mmol/L Chloride 98 (96-108) mmol/L Carbon Dioxide 30 (22-30) mmol/L BUN 27 H (8-23) mg/dl Creatinine 1.1 (0.7-1.2) mg/dl Glucose 90 (70-105) mg/dL Calcium 10.3 (8.6-10.4) mg/dl Adrenal panel 10/07/19 Range/Units 14:56 Sodium 140 (133-145) mmol/L Potassium 4.1 (3.3-5.1) mmol/L Chloride 98 (96-108) mmol/L Carbon Dioxide 30 (22-30) mmol/L BUN 27 H (8-23) mg/dl Creatinine 1.1 (0.7-1.2) mg/dl Glucose 90 (70-105) mg/dL Calcium 10.3 (8.6-10.4) mg/dl Total Bilirubin 0.3 (0.0-1.0) mg/dL AST 28 (0-37) U/l ALT 25 (0-40) U/l Alkaline Phosphatase 86 (39-117) U/L Total Protein 6.2 (5.9-8.4) gm/dL Albumin 3.2 (3.2-5.2) gm/dL All other labs normal. Assessment and Plan (1) Skin tear of left lower leg without complication Assessment: READMISSION. Fell again. NEW WOUND LEFT POSTERIOR CALF above the previous open wound. Plan: Local wound care at this time. For surgery after seen and cleared by Anesthesiologist. AWAIT pulmonary consult and input regarding hypoxia and repeated falls. Status: Acute Priority: Medium Qualifiers: Encounter type: subsequent encounter (2) Wound infection Status: Acute Priority: Medium (3) Coagulopathy Status: Chronic Priority: Medium Comment: COUMADIN ON HOLD at this time.
[2019-10-07] MEDS ORDERED: WARFARIN 2.5 MG TABLET PO ONE (19:00)
[2019-10-07] MEDS ORDERED: fentaNYL 100 MCG/2 ML VIAL IV ONE (19:00)
[2019-10-07] MEDS ORDERED: DICLOFENAC SODIUM TOPICAL PRN (20:03)
--- NOTE | 2019-10-07 20:17 | Infectious Disease Consult ---
History of Present Illness Patient information: Note initiated : 10/07/19 at 7:59 pm Service Date, if different from initiated Date: [] Patient: Latrell Caro 79 y/o M admitted on 10/07/19 for Fall. Chief Complaint: [] Consult date: 10/07/19 Requesting Physician: Juan Carlos Parks Reason for Consult: Left leg cellulitis Chief complaint: my left leg hurts History of present illness: 79 year old man with PMHx of: - Moderate COPD: FEV1 58% in 05/2019, on chronic oxygen through [place] - Factor 5 Leiden mutation: on life long Coumadin. past Hx of abd wall hematoma - RA, PMR: has deformities of hands and feet. On Enbrel per Rheum, last injection few weeks ago. On Prednisone taper currently Pt is being admitted to [facility] after a fall in the [place] today. Pt was recently discharged from [facility] after another fall at home leading to left lower leg laceration. He underwent surgical debridement around 09/27, discharged with wou nd vac, local wound care. Pt;s falls are a series of multiple falls he had been having in last few months. Since last week, he denies any fever but endorses chills. He endorses more SOB, feels thirsty and dehydrated. He is unsure of how he fell. Denied any loss of conciousness, head trauma. I saw him in ED. He was afebrile, requiring supplemental O2 at 2L, WBC ~9k, normal lactic acid. Blood Cx sent. he recieved 1 gm of IV vanc and 1 gm of IV Ceftriaxone. Review of Systems All systems PM: reviewed and no additional remarkable complaints except as state d Constitutional: as per HPI Past History Past family history: no sick contacts Past social history: lives with in [place], [place]. Currently at a longterm. Does not smoke, use alc or any inj drugs Quit smoking in 1966 Medications and Allergies Home Medications Medication Instructions Recorded Confirmed Type carvedilol 12.5 mg tablet 12.5 mg PO BID 06/30/15 10/07/19 History prednisone 1 mg tablet 4 mg PO QDAY tab 02/28/17 10/07/19 History diclofenac sodium 1 % topical gel 2 g TOPICAL QID PRN #100 g 09/04/18 10/07/19 Rx furosemide 40 mg tablet 40 mg PO QDAY #90 tab 07/15/19 10/07/19 Rx folic acid 400 mcg tablet 400 mcg PO QDAY 08/02/19 10/07/19 History magnesium 250 mg tablet 250 mg PO BID tab 08/02/19 10/07/19 History omega-3 fatty acids 1,000 mg 1,000 mg PO QDAY 08/02/19 10/07/19 History capsule warfarin 5 mg tablet See Rx Instructions PO QDAY #0 tab 09/13/19 10/07/19 Rx Amitriptyline [Elavil] 225 mg PO HS 09/26/19 10/07/19 History Aripiprazole [Abilify] 10 mg PO QHS 09/26/19 10/07/19 History Rosuvastatin Calcium [Crestor] 20 mg PO QHS 09/26/19 10/07/19 History Teriparatide [Forteo] 2.4 ml SQ QHS 09/26/19 10/07/19 History Ubidecarenone [Co Q-10] 300 mg PO MOWEFR 09/26/19 10/07/19 History Vitamin B12 5,000 mcg PO QDAY 09/26/19 10/07/19 History busPIRone [Buspar] 15 mg PO QHS 09/26/19 10/07/19 History Calcium (Oyster Shell) [Oscal] 2,000 mg PO BID 09/27/19 10/07/19 History Ergocalciferol (Vitamin D2) 3,000 unit PO QAM 09/27/19 10/07/19 History [Vitamin D2] Amoxicillin/Potassium Clav 875 mg PO Q12H #10 tab 09/30/19 10/07/19 Rx [Augmentin] traMADol [Ultram] 100 mg PO BID PRN #20 tab 09/30/19 10/07/19 Rx HYDROcodone/ACETAMINOPHEN [[place] 1 - 2 tab PO .Q6H PRN 10/07/19 10/07/19 History 10-325 Tablet] L. Acidophilus/L.bulgaricus 1 tab PO DAILY 10/07/19 10/07/19 History [Lactobacillus Tablet] Allergies Allergy/AdvReac Type Severity Reaction Status Date / Time Sulfa (Sulfonamide Allergy Mild Rash Verified 10/07/19 11:29 Antibiotics) codeine AdvReac Mild Nausea Verified 10/07/19 11:29 Physical Examination Vital signs: Temp Pulse Resp BP Pulse Ox 36.6 C 80 20 140/117 93 10/07/19 18:17 10/07/19 18:17 10/07/19 18:17 10/07/19 18:17 10/07/19 18:17 General appearance: appears uncomfortable Eyes pulmonary: nonicteric ENT: oropharynx dry Neck: other (tracheal descent during inspiration) Effort: mildly labored Auscultation: bilateral: diminished breath sounds Cardiovascular: other (s1 s2 normal, no m/r/g) Gastrointestinal: normoactive bowel sounds, soft, non-tender Extremities: other (left leg is red. there are 2 ulcerated wounds. The one near the ankle is about 5 x 7 cm, with base consisting of red granulation tissue and specks of slightly yellow exudate. The granulation tissue doesnot bleed to touch. The 2nd wound is at site of trauma in calf area just below the popliteal fossa, with hanging flap which appears non viable. Probe to bone neg. The base of ulcer consistss of muscle. Positive serous drainage. Peripheral pulses barely palpable (post tibial) in left ankle. Femoral pulses palpable on affected side) Results - Laboratory Findings CBC and BMP: 10/08/19 06:02 10/08/19 06:02 PT/INR, D-dimer PT 20.1 sec (11.9-14.5) H 10/07/19 14:56 INR 1.7 (0.9-1.1) H 10/07/19 14:56 Abnormal lab findings: Abnormal Labs 10/07/19 10/07/19 10/07/19 14:00 14:56 14:56 RBC 3.62 L Hgb 11.7 L Hct 36.1 L PT INR BUN 27 H Hyaline Casts 30 H 10/07/19 14:56 RBC Hgb Hct PT 20.1 H INR 1.7 H BUN Hyaline Casts Microbiology: Microbiology 10/07/19 17:54 Nose MRSA (PCR) - Final 10/07/19 17:53 Leg - Upper Left Gram Stain - Preliminary 10/07/19 17:54 Leg - Lower Left Gram Stain - Final Assessment and Plan - Narrative A/P Narrative: A: 1. Left lower leg cellulitis in an immunosuppressed patient: post-traumatic, post-surgical - past deep tissue Cx on 09/27 with growth of E coli, Enterococcus spp. (not VRE), and superficial Cx on 09/26 with growth of MSSA, E coli and Enterococcus spp (not VRE) - there is some loose, non viable tissue at the site of tear from fall today but no concerns for necrotizing fascitis - no systemic inv given lack of fever, leucocytosis, and normal lactic acid - MRSA nasal PCR neg 2. Moderate COPD: FEV1 58% in 05/2019 - on chronic oxygen through [place] 3. Factor 5 Leiden mutation: on life long Coumadin - past Hx of abd wall hematoma 4. RA: has deformities of hands and feet - on Enbrel per Rheum, last injection few weeks ago Recommendations: - Start IV Zosyn 3.375 gm q8 hrs. Continue IV Vanc per pharmacy assisted dosing - If superficial wound Cx are neg for MRSA at 48 hrs, will stop IV Vanc - will deescalate based on wound Cx obtained in the ED today - Leg elevation to help decrease edema - debridement of the non viable tissue in left leg wound per Dr Rivas will follow Jasmeet Guerin MD Infectious diseases
[2019-10-07] MEDS ORDERED: TERIPARATIDE SQ SCH (21:00)
[2019-10-07] MEDS ORDERED: NON FORMULARY MEDICATION 1 DOSE MISCELL (Rosuvastatin Calcium [Crestor] 20 MG) PO SCH (21:00)
[2019-10-07] MEDS: HYDROcodone/APAP 10/325MG TABLET PO PRN (21:13)
[2019-10-07] MEDS: AMITRIPTYLINE 25 MG TABLET PO SCH (21:13)
[2019-10-07] MEDS: ARIPIPRAZOLE 5 MG TABLET PO SCH (21:14)
[2019-10-07] MEDS: ATORVASTATIN 40 MG TABLET PO SCH (21:14)
[2019-10-07] MEDS: traMADol 50 MG TABLET PO PRN (21:14)
[2019-10-07] MEDS: MAGNESIUM OXIDE 400 MG TABLET PO SCH (21:14)
[2019-10-07] MEDS: DOCUSATE SODIUM 100 MG CAPSULE PO SCH (21:14)
[2019-10-07] MEDS: busPIRone 15 MG TABLET PO SCH (21:15)
[2019-10-07] MEDS: SENNOSIDES/DOCUSATE SODIUM 1 TAB TABLET PO SCH (21:15)
[2019-10-07] MEDS: 0.9 % SODIUM CHLORIDE 10 ML SYRINGE IV SCH (21:16)
[2019-10-07] MEDS: CARVEDILOL 12.5 MG TABLET PO SCH (21:21)
[2019-10-07] MEDS ORDERED: CEFEPIME 2 GM VIAL IV SCH (22:00)
[2019-10-07] MEDS: PIPERACILLIN SODIUM/TAZOBACTAM 3.375 GM in DEXTROSE 5% IN WATER 50 ML IV SCH (22:01)
[2019-10-08] MEDS: PIPERACILLIN SODIUM/TAZOBACTAM 3.375 GM in DEXTROSE 5% IN WATER 50 ML IV SCH (05:57)
[2019-10-08] MEDS: 0.9 % SODIUM CHLORIDE 10 ML SYRINGE IV SCH ×3 (05:57→21:15)
[2019-10-08] MEDS: predniSONE 1 MG TABLET PO SCH (08:03)
[2019-10-08] MEDS: CARVEDILOL 12.5 MG TABLET PO SCH ×2 (08:03→16:54)
[2019-10-08] MEDS ORDERED: VANCOMYCIN 750 MG in 0.9 % SODIUM CHLORIDE 250 ML IV SCH (09:00)
[2019-10-08] MEDS: CYANOCOBALAMIN (VITAMIN B-12) 500 MCG TABLET PO SCH (09:10)
[2019-10-08] MEDS: FUROSEMIDE 40 MG TABLET PO SCH (09:10)
[2019-10-08] MEDS: FOLIC ACID 1 MG TABLET PO SCH (09:10)
[2019-10-08] MEDS: DOCUSATE SODIUM 100 MG CAPSULE PO SCH ×2 (09:10→21:14)
[2019-10-08] MEDS: MULTIVIT,THER IRON,CA,FA & MIN 1 TABLET PO SCH (09:10)
[2019-10-08] MEDS: MAGNESIUM OXIDE 400 MG TABLET PO SCH ×2 (09:10→21:14)
[2019-10-08] MEDS: LACTOBACILLUS 1 CAPSULE PO SCH (09:10)
[2019-10-08 09:29] LABS: Hematocrit 33.8 % (40.1-51.0); Hemoglobin 10.8 g/dL (13.7-17.5); Mean Cell Volume 99.1 fL (80.0-100.0); Mean Platelet Volume 9.6 fL (7.4-10.4); Platelet Count 307 K/mcL (140-440); RBC 3.41 M/mcL (4.63-6.08); Red Cell Distribution Width 14.1 % (11.5-14.5); WBC 10.5 K/mcL (4.50-11.00)
[2019-10-08 09:37] LABS: INR 1.6 (0.9-1.1); Prothrombin Time 19.9 sec (11.9-14.5)
--- NOTE | 2019-10-08 09:46 | Internal Med Progress Note ---
Medical - PN: Subj Patient information: Note initiated : 10/08/19 at 9:43 am Service Date, if different from initiated Date: [] Patient: Latrell Caro a 79 y/o M admitted on 10/07/19 for Fall. Chief Complaint: [] Interval history: Mr. Caro is a 79 year old M with a history of PMR on Enbrel / prednisone [facility] after recent hospitalization for left calf laceration and infected wound with necrosis. He has been following up with wound care. Patient today fell at the care facility and sustained a calf laceration from wheelchair. He denied precipitating events prior to fall. He denied loss of consciousness. He was referred to the ER for further evaluation. During initial evaluation it was noted that wound VAC that was placed left calf 24 hours ago has dislodged and was nonfunctional. The wounds around left calf has been oozing with significant redness and swelling entire lower extremity. There has been surrounding erythema and limb is exquisitely tender. However Doppler ultrasounds were negative for DVT. Worsening calf ulceration was noted 5 x 5 cm at least 4 to 5 mm in depth with areas of necrotic tissue. Subsequently wound care Dr. Rivas was consulted who requested hospitalist service to admit patient for further debridement/antibiotics. ID was also consulted. Patient was started on vancomycin after cultures were drawn At the time evaluation patient is accompanied with his . He was able to answer most questions. He appears fatigued lethargic but denies fevers, shaking chills, headache. He is currently on 4 mg of prednisone on a tapering dose for his PMR. 10/08-wound care following. On antibiotic coverage. Improved redness swelling. Stable white count.INR 1.6. Renal function stable. Pulmonology consulted for preoperative evaluation of chronic hypoxia/obstructive sleep apnea and mild COPD. Immunocompromise state currently on Enbrel/prednisone for history of PMR/RA. ID on board. Patient will likely undergo operative debridement/wound closure by wound physician. Keep n.p.o. Await anesthesia evaluation. - Constitutional Vitals: Vital Signs Temp Pulse Resp BP Pulse Ox 97.7 F 79 18 127/65 94 10/08/19 07:15 10/08/19 07:15 10/08/19 07:15 10/08/19 07:15 10/08/19 07:15 Period Temp Pulse Resp BP Sys/Mccarthy Pulse Ox Last 24 Hr 97.2 F-99.5 F 61-91 18-20 93-151/49-117 84-100 Intake and Output 10/07/19 10/08/19 10/08/19 21:59 05:59 13:59 Intake Total 250 150 290 Output Total 250 425 Balance 0 -275 290 Weight 116 lb Intake & Output: Intake & Output 10/07/19 10/08/19 10/08/19 21:59 05:59 13:59 Intake Total 250 150 290 Output Total 250 425 Balance 0 -275 290 Weight 116 lb Intake: IV 250 50 50 Zosyn 3.375 gm In Dextrose 5% 50 50 in Water 50 ml @ 100 mls/hr IV Q8H [facility] Rx#:[id number] Vancomycin 1,000 mg In Sodium 250 Chloride 0.9% 250 ml @ 250 mls/ hr IV ONCE ONE Rx#:[id number] Oral 100 240 Output: Void Amount 250 425 Other: Meal Dinner Breakfast Percent of Meal Consumed 50% 25% Feeding Ability Assist with Tray Set Up Independent Urine Appearance Clear Clear Urine Color Pale Pale General appearance: no acute distress Exam: Alert and respond to commands Head normocephalic extensive skin bruising/abrasions Left calf 4 x 3 V-shaped laceration 3 mm deep roughly 5 cm below popliteal fossa Large 5 x 5 ulceration left mid calf ventilation tissue Induration and erythema however receding since previous day left lower extremity Abdomen soft nontender Medical - PN: Obj Da - Labs CBC & Chem 7: 10/08/19 06:02 10/07/19 14:56 Labs: Abnormal Lab Results 10/08/19 10/08/19 10/07/19 06:02 06:02 14:56 RBC 3.41 L Hgb 10.8 L Hct 33.8 L PT 19.9 H 20.1 H INR 1.6 H 1.7 H BUN Hyaline Casts 10/07/19 10/07/19 10/07/19 14:56 14:56 14:00 RBC 3.62 L Hgb 11.7 L Hct 36.1 L PT INR BUN 27 H Hyaline Casts 30 H Meds: Medications Acetaminophen (Tylenol) 650 mg PO Q4-6HP PRN; Protocol PRN Reason: Per Pain Protocol/Fever > 101 Hydrocodone Bitart/Acetaminophen ([place] 10/325mg) 1 - 2 tab PO .Q6H PRN; Protocol PRN Reason: pain Last Admin: 10/07/19 21:13 Dose: 1 tab Documented by: Amitriptyline HCl (Elavil) 225 mg PO [facility] Last Admin: 10/07/19 21:13 Dose: 225 mg Documented by: Atorvastatin Calcium (Lipitor) 40 mg PO [facility] Last Admin: 10/07/19 21:14 Dose: 40 mg Documented by: Bisacodyl (Dulcolax) 10 mg DC Q2-3DAYS PRN PRN Reason: Constipation Buspirone HCl (Buspar) 15 mg PO QHS [facility] Last Admin: 10/07/19 21:15 Dose: 15 mg Documented by: [facility] Last Admin: 10/08/19 08:03 Dose: 12.5 mg Documented by: Cyanocobalamin (Vitamin B-12) 500 mcg PO QDAY [facility] Last Admin: 10/08/19 09:10 Dose: 500 mcg Documented by: Docusate Sodium (Colace) 100 mg PO BID [facility] Last Admin: 10/08/19 09:10 Dose: 100 mg Documented by: Folic Acid (Folic Acid) 1 mg PO DAILY [facility] Last Admin: 10/08/19 09:10 Dose: 1 mg Documented by: Furosemide (Lasix) 40 mg PO QDAY [facility] Last Admin: 10/08/19 09:10 Dose: 40 mg Documented by: Magnesium Sulfate (Magnesium Sulfate) 2 gm in 50 mls @ 50 mls/hr IV UD PRN PRN Reason: MG = or < 1.7 Vancomycin HCl 750 mg/ Sodium (Chloride) 250 mls @ 250 mls/hr IV DAILY [facility] Last Admin: 10/08/19 09:10 Dose: 250 mls/hr Documented by: Piperacillin Sod/Tazobactam (Sod 3.375 gm/ Dextrose) 50 mls @ 100 mls/hr IV Q8H [facility]; Protocol Last Infusion: 10/08/19 06:50 Dose: Infused Documented by: Iron Carb/Multivit/[place]/Folic Acid (Multivitamin W/Minerals) 1 tab PO DAILY [facility] Last Admin: 10/08/19 09:10 Dose: 1 tab Documented by: Lactobacillus Rhamnosus (Culturelle) 1 cap PO DAILY [facility] Last Admin: 10/08/19 09:10 Dose: 1 cap Documented by: Magnesium Oxide (Magnesium Oxide) 400 mg PO BID [facility] Last Admin: 10/08/19 09:10 Dose: 400 mg Documented by: Melatonin (Melatonin 3mg Tablet) 3 mg PO HSP PRN PRN Reason: Insomnia Last Admin: 10/07/19 21:14 Dose: 3 mg Documented by: Ondansetron HCl (Zofran Odt) 4 mg SL Q4-6HP PRN; Protocol PRN Reason: Nausea And Vomiting Ondansetron HCl (Zofran) 4 mg IV Q4-6HP PRN; Protocol PRN Reason: Nausea And Vomiting Diclofenac Sodium [ (Voltaren] Top Oint) 1 dose TOPICAL QIDP PRN PRN Reason: pain Teriparatide [Forteo ] 20 Mcg/Dose Solution 1 dose SC [facility] Polyethylene Glycol (Miralax) 17 gm PO DAILYP PRN PRN Reason: Constipation Potassium Chloride (Klor-Con) 40 meq PO DAILYP PRN PRN Reason: K+ < 3.5 [facility] ([facility]) [facility] Last Admin: 10/08/19 08:03 Dose: 4 mg Documented by: Senna/Docusate Sodium (Senna Plus Tablet) 1 tab PO [facility] Last Admin: 10/07/19 21:15 Dose: 1 tab Documented by: Sodium Chloride (Saline Flush) 10 ml IV Q8 [facility] Last Admin: 10/08/19 05:57 Dose: 10 ml Documented by: Tramadol HCl (Ultram) 100 mg PO BIDP PRN PRN Reason: Pain Last Admin: 10/07/19 21:14 Dose: 100 mg Documented by: Vancomycin HCl (Vancomycin Per Pharmacy) 1 order IV [facility]; Protocol Warfarin Sodium (Coumadin Per Pharmacy) 1 order PO DAILY@1400 [facility] Medical - PN: A/P - Time Spent With Patient Total time spent is greater than 50% in coordination of care (as documented) at patient's floor/unit and/or counseling patient: 25 - 35 minutes (1) Cellulitis of left lower extremity Status: Acute Assessment and plan: * Left lower extremity cellulitis/immunocompromised state-broad antibiotic co verage, cultures, wound care. Limb elevation * Left calf ulceration/posterior upper calf laceration wound-managed per wound care recommendations. Possible operative debridement/wound closure today. * Protein calorie malnutrition continue nutrition support/protein calorie supplements * Chronic hypoxia -pulmonary consulted by wound care for preoperative evaluation * History of PMR continue 4 mg p.o. prednisone * History diastolic CHF stable, continue Coreg * History of CAD status post CABG stable continue beta-elayne * CKD stage III-avoid nephrotoxins. Creatinine 1.1 * Neuropathy continue amitriptyline * History CARLOS/mild COPD on CPAP. Follows up outpatient with Dr. Crowley pulmonology * History of hypertension continue home medications * History of RA on Enbrel managed by Dr. Bacon * Anxiety depression continue BuSpar * Osteoporosis continue Forteo * History of DVT continue anticoagulation on warfarin. INR 1.6 * Full code * Prophylaxis - Coumadin Plan * Continue antibiotic coverage per ID * Wound care per Dr. Rivas * Prior medical condition management as above * Coumadin dosing based on INR * Wound care per Dr. Rivas * Preoperative anesthesia and pulmonary consult * Nutrition support with high protein calorie supplements * Discharge planning per case management * Transition to inpatient status due to high complexity and need for prolonged hospitalization Current Visit: Yes Medical - PN: Qual - Stroke Symptom Onset Unknown: No - VTE Deep Vein Thrombosis/Pulmonary Embolism Present on Admission: No
[2019-10-08 09:48] LABS: ALT/SGPT 19 U/l (0-40); AST/SGOT 22 U/l (0-37); Albumin 2.8 gm/dL (3.2-5.2); Albumin/Globulin Ratio 1.2 (1.0-2.3); Alkaline Phosphatase 78 U/L (39-117); Bilirubin,Direct < 0.2 mg/dL (0.0-0.3); Bilirubin,Total 0.3 mg/dL (0.0-1.0); Blood Urea Nitrogen 22 mg/dl (8-23); Calcium 9.2 mg/dl (8.6-10.4); Carbon Dioxide 27 mmol/L (22-30); Chloride 100 mmol/L (96-108); Globulin 2.4 gm/dL (2.2-3.7); Glomerular Filtration Rate 72; Glucose 82 mg/dL (70-105); Lactate Dehydrogenase 251 U/L (94-250); Phosphorous 4.4 mg/dL (2.7-4.5); Triglycerides 105 mg/dl (<150); Uric Acid 6.8 mg/dL (2.5-8.0)
[2019-10-08 10:11] LABS: Band Neutrophils % 1 % (0-10); Basophils % (Manual) 1 % (0-2); Eosinophils % (Manual) 4 % (0-7); Lymphocytes % 8 % (15-49); Monocytes % (Manual) 4 % (1-12); Platelet Estimate NORMAL (NORMAL); RBC Morphology NORMAL (NORMAL); Segmented Neutrophils % 82 % (38-78)
[2019-10-08] MEDS: HYDROcodone/APAP 10/325MG TABLET PO PRN ×3 (10:21→21:14)
--- NOTE | 2019-10-08 10:37 | General Surgery Progress Note ---
Subjective Patient reports: feels better, pain is less, tolerating a regular diet, afebrile (Gauri had an uneventful night. ) Narrative: Note initiated : 10/08/19 at 10:34 am Service Date, if different from initiated Date: [] Patient: Latrell Caro 79 y/o M admitted on 10/07/19 for Fall. Chief Complaint: [] Objective Temp Pulse Resp BP Pulse Ox 97.7 F 79 18 127/65 94 10/08/19 07:15 10/08/19 07:15 10/08/19 07:15 10/08/19 07:15 10/08/19 07:15 Patient seen with [facility] Inpatient wound care nurse. Reexamined wounds. Progress reviewed with Dr. Parks, Hospitalist Physician, No changes PAYAM. L/E: Left posterior upper and lower leg wounds are stable. Improvement in erythema and tenderness overnight after local wound care and starting on IV antibiotics. - Additional Data Intake & Output - Last 24 hours: Intake & Output 10/06/19 10/07/19 10/08/19 10/09/19 05:59 05:59 05:59 05:59 Intake Total 400 290 Output Total 675 Balance -275 290 Weight 116 lb - Labs 10/08/19 06:02 10/08/19 06:02 Diabetes panel 10/07/19 10/08/19 Range/Units 14:56 06:02 Sodium 140 140 (133-145) mmol/L Potassium 4.1 3.7 (3.3-5.1) mmol/L Chloride 98 100 (96-108) mmol/L Carbon Dioxide 30 27 (22-30) mmol/L BUN 27 H 22 (8-23) mg/dl Creatinine 1.1 1.0 (0.7-1.2) mg/dl Glucose 90 82 (70-105) mg/dL Calcium 10.3 9.2 (8.6-10.4) mg/dl AST 28 22 (0-37) U/l ALT 25 19 (0-40) U/l Alkaline Phosphatase 86 78 (39-117) U/L Total Protein 6.2 5.2 L (5.9-8.4) gm/dL Albumin 3.2 2.8 L (3.2-5.2) gm/dL Triglycerides 105 (<150) mg/dl Calcium panel 02/17/20 02/18/20 Range/Units 14:56 06:02 Calcium 10.3 9.2 (8.6-10.4) mg/dl Phosphorus 4.4 (2.7-4.5) mg/dL Albumin 3.2 2.8 L (3.2-5.2) gm/dL Pituitary panel 10/07/19 10/08/19 Range/Units 14:56 06:02 Sodium 140 140 (133-145) mmol/L Potassium 4.1 3.7 (3.3-5.1) mmol/L Chloride 98 100 (96-108) mmol/L Carbon Dioxide 30 27 (22-30) mmol/L BUN 27 H 22 (8-23) mg/dl Creatinine 1.1 1.0 (0.7-1.2) mg/dl Glucose 90 82 (70-105) mg/dL Calcium 10.3 9.2 (8.6-10.4) mg/dl Adrenal panel 10/07/19 10/08/19 Range/Units 14:56 06:02 Sodium 140 140 (133-145) mmol/L Potassium 4.1 3.7 (3.3-5.1) mmol/L Chloride 98 100 (96-108) mmol/L Carbon Dioxide 30 27 (22-30) mmol/L BUN 27 H 22 (8-23) mg/dl Creatinine 1.1 1.0 (0.7-1.2) mg/dl Glucose 90 82 (70-105) mg/dL Calcium 10.3 9.2 (8.6-10.4) mg/dl Total Bilirubin 0.3 0.3 (0.0-1.0) mg/dL AST 28 22 (0-37) U/l ALT 25 19 (0-40) U/l Alkaline Phosphatase 86 78 (39-117) U/L Total Protein 6.2 5.2 L (5.9-8.4) gm/dL Albumin 3.2 2.8 L (3.2-5.2) gm/dL Assessment and Plan (1) Skin tear of left lower leg without complication Status: Acute Current Visit: No (2) Wound infection Status: Acute Current Visit: No (3) Coagulopathy Problem details: COUMADIN ON HOLD at this time. Status: Chronic Current Visit: No - Narrative A/P Narrative: Assessment: HD stable. No acute interval changes since admission. I have spoken with Shipmaster Dr. Gutierrez and will await his input. Consultation requested from Dr. Lynne, Anesthesiologist. Plan; Continue present management. Will consider surgical debridement and possible suturing tomorrow under GA with patient in Prone or Right lateral decubitus position. - Time Spent With Patient Total time spent is greater than 50% in coordination of care (as documented) at patient's floor/unit and/or counseling patient: 25 - 35 minutes
--- NOTE | 2019-10-08 11:04 | Infectious Disease Prog Note ---
Subjective Patient information: Note initiated : 10/08/19 at 11:02 am Service Date, if different from initiated Date: [] Patient: Latrell Caro 79 y/o M admitted on 10/07/19 for Fall. Chief Complaint: [] Interval history: Pt is doing better than yesterday. Breathing comfortably. Endorses left leg pain. Denies any fever, chills, n/v, diarrhea. Endorses pain in mouth for last few days. Objective Objective Narrative: ao x 3, in nad no thrush has some oral sore on the left inner cheek belly non tender, non distended the left leg: the redness, warmth, swelling has receded from marked area yesterday. No spread. The tear in upper leg and old wound (from debridement on 09/27) in lower leg are covered with dressing no discoloration of feet. able to wiggle toes without any difficulty - Vital Signs Vital signs: Vital Signs Temp Pulse Pulse Resp BP BP BP 10/08/19 07:15 36.5 C 79 18 127/65 10/08/19 03:48 37.5 C H 85 18 116/67 10/07/19 22:37 36.9 C 91 H 20 106/63 10/07/19 18:17 36.6 C 80 20 140/117 10/07/19 17:40 36.2 C 79 20 151/84 10/07/19 17:22 140/117 10/07/19 17:01 138/74 10/07/19 16:41 80 133/69 10/07/19 16:21 78 133/73 10/07/19 16:01 77 131/73 10/07/19 15:25 78 136/75 10/07/19 13:42 75 10/07/19 13:21 73 104/66 10/07/19 13:01 71 101/65 10/07/19 12:42 74 95/49 10/07/19 12:25 10/07/19 12:22 72 10/07/19 12:21 63 95/60 10/07/19 12:04 61 93/54 10/07/19 11:31 36.6 C 83 20 95/67 Pulse Ox 10/08/19 07:15 94 10/08/19 03:48 95 10/07/19 22:37 88 L 10/07/19 18:17 93 10/07/19 17:40 98 10/07/19 17:22 10/07/19 17:01 10/07/19 16:41 93 10/07/19 16:21 96 10/07/19 16:01 91 10/07/19 15:25 100 10/07/19 13:42 100 10/07/19 13:21 94 10/07/19 13:01 96 10/07/19 12:42 96 10/07/19 12:25 84 L 10/07/19 12:22 91 10/07/19 12:21 92 10/07/19 12:04 91 10/07/19 11:31 91 Intake and Output 10/07/19 10/08/19 10/08/19 21:59 05:59 13:59 Intake Total 250 150 290 Output Total 250 425 Balance 0 -275 290 Intake: IV 250 50 50 Zosyn 3.375 gm In Dextrose 5% 50 50 in Water 50 ml @ 100 mls/hr IV Q8H [facility] Rx#:[id number] Vancomycin 1,000 mg In Sodium 250 Chloride 0.9% 250 ml @ 250 mls/ hr IV ONCE ONE Rx#:[id number] Oral 100 240 Output: Void Amount 250 425 Other: Meal Dinner Breakfast Percent of Meal Consumed 50% 25% Feeding Ability Assist with Tray Set Up Independent Urine Appearance Clear Clear Urine Color Pale Pale Weight 52.617 kg Intake & Output: Intake & Output 10/07/19 10/08/19 10/08/19 21:59 05:59 13:59 Intake Total 250 150 290 Output Total 250 425 Balance 0 -275 290 Weight 52.617 kg Intake: IV 250 50 50 Zosyn 3.375 gm In Dextrose 5% 50 50 in Water 50 ml @ 100 mls/hr IV Q8H [facility] Rx#:[id number] Vancomycin 1,000 mg In Sodium 250 Chloride 0.9% 250 ml @ 250 mls/ hr IV ONCE ONE Rx#:[id number] Oral 100 240 Output: Void Amount 250 425 Other: Meal Dinner Breakfast Percent of Meal Consumed 50% 25% Feeding Ability Assist with Tray Set Up Independent Urine Appearance Clear Clear Urine Color Pale Pale - Lab 10/08/19 06:02 10/08/19 06:02 Most recent lab results Calcium 9.2 mg/dl (8.6-10.4) 10/08/19 06:02 Phosphorus 4.4 mg/dL (2.7-4.5) 10/08/19 06:02 Magnesium 1.8 mg/dL (1.6-2.5) 10/08/19 06:02 Microbiology 10/07/19 17:54 Leg - Lower Left Gram Stain - Final 10/07/19 17:54 Leg - Lower Left Wound Culture - Preliminary Gram negative bacillus 10/07/19 17:53 Leg - Upper Left Gram Stain - Preliminary 10/07/19 17:53 Leg - Upper Left Wound Culture - Preliminary 10/07/19 17:54 Nose MRSA (PCR) - Final Medications Active Medications: Acetaminophen (Tylenol) 650 mg PO Q4-6HP PRN; Protocol PRN Reason: Per Pain Protocol/Fever > 101 Hydrocodone Bitart/Acetaminophen ([place] 10/325mg) 1 - 2 tab PO .Q6H PRN; Protocol PRN Reason: pain Last Admin: 10/08/19 10:21 Dose: 1 tab Documented by: Admin: 10/07/19 21:13 Dose: 1 tab Documented by: [email or web address] Amitriptyline HCl (Elavil) 225 mg PO [facility] Last Admin: 10/07/19 21:13 Dose: 225 mg Documented by: [email or web address] Atorvastatin Calcium (Lipitor) 40 mg PO [facility] Last Admin: 10/07/19 21:14 Dose: 40 mg Documented by: [email or web address] Bisacodyl (Dulcolax) 10 mg [place] Q2-3DAYS PRN PRN Reason: Constipation Buspirone HCl (Buspar) 15 mg PO QHS [facility] Last Admin: 10/07/19 21:15 Dose: 15 mg Documented by: [email or web address] [facility]il[facility] ([facility]g) [facility] Last Admin: 10/08/19 08:03 Dose: 12.5 mg Documented by: Admin: 10/07/19 21:21 Dose: 12.5 mg Documented by: [email or web address] Cefepime HCl (Maxipime) 2 gm IV Q12H [facility]; Protocol Cyanocobalamin (Vitamin B-12) 500 mcg PO QDAY [facility] Last Admin: 10/08/19 09:10 Dose: 500 mcg Documented by: F Docusate Sodium (Colace) 100 mg PO BID [facility] Last Admin: 10/08/19 09:10 Dose: 100 mg Documented by: F Admin: 10/07/19 21:14 Dose: 100 mg Documented by: [email or web address] Folic Acid (Folic Acid) 1 mg PO DAILY [facility] Last Admin: 10/08/19 09:10 Dose: 1 mg Documented by: F Furosemide (Lasix) 40 mg PO QDAY [facility] Last Admin: 10/08/19 09:10 Dose: 40 mg Documented by: F Magnesium Sulfate (Magnesium Sulfate) 2 gm in 50 mls @ 50 mls/hr IV UD PRN PRN Reason: MG = or < 1.7 Iron Carb/Multivit/[place]/Folic Acid (Multivitamin W/Minerals) 1 tab PO DAILY [facility] Last Admin: 10/08/19 09:10 Dose: 1 tab Documented by: F Lactobacillus Rhamnosus (Culturelle) 1 cap PO DAILY [facility] Last Admin: 10/08/19 09:10 Dose: 1 cap Documented by: F Magnesium Oxide (Magnesium Oxide) 400 mg PO BID [facility] Last Admin: 10/08/19 09:10 Dose: 400 mg Documented by: F Admin: 10/07/19 21:14 Dose: 400 mg Documented by: [email or web address] Melatonin (Melatonin 3mg Tablet) 3 mg PO HSP PRN PRN Reason: Insomnia Last Admin: 10/07/19 21:14 Dose: 3 mg Documented by: [email or web address] Ondansetron HCl (Zofran Odt) 4 mg SL Q4-6HP PRN; Protocol PRN Reason: Nausea And Vomiting Ondansetron HCl (Zofran) 4 mg IV Q4-6HP PRN; Protocol PRN Reason: Nausea And Vomiting Diclofenac Sodium [ (Voltaren] Top Oint) 1 dose TOPICAL QIDP PRN PRN Reason: pain Teriparatide [Forteo ] 20 Mcg/Dose Solution 1 dose SC [facility] Polyethylene Glycol (Miralax) 17 gm PO DAILYP PRN PRN Reason: Constipation Potassium Chloride (Klor-Con) 40 meq PO DAILYP PRN PRN Reason: K+ < 3.5 [facility] Last Admin: 10/08/19 08:03 Dose: 4 mg Documented by: F Senna/Docusate Sodium (Senna Plus Tablet) 1 tab PO [facility] Last Admin: 02/17/20 21:15 Dose: 1 tab Documented by: BALJIT Sodium Chloride (Saline Flush) 10 ml IV Q8 [facility] Last Admin: 10/08/19 05:57 Dose: 10 ml Documented by: Admin: 10/07/19 21:16 Dose: 10 ml Documented by: BALJIT Tramadol HCl (Ultram) 100 mg PO BIDP PRN PRN Reason: Pain Last Admin: 10/07/19 21:14 Dose: 100 mg Documented by: BALJIT Warfarin Sodium (Coumadin Per Pharmacy) 1 order PO DAILY@1400 [facility] Warfarin Sodium (Coumadin) 5 mg PO ONCE@1400 ONE Stop: 10/08/19 14:01 Assessment and Plan - Narrative A/P Narrative: A: 1. Left lower leg cellulitis in an immunosuppressed patient: post-traumatic, post-surgical - wound Cx growing non lactose fermenting gram negative jen (oxidase +ve) ; most likely Pseudomonas - there is some loose, non viable tissue at the site of tear from fall today but no concerns for necrotizing fascitis - no systemic inv given lack of fever, leucocytosis, and normal lactic acid - MRSA nasal PCR neg 2. Moderate COPD: FEV1 58% in 05/2019 - on chronic oxygen through [place] 3. Factor 5 Leiden mutation: on life long Coumadin - past Hx of abd wall hematoma 4. RA: has deformities of hands and feet - on Enbrel per Rheum, last injection few weeks ago 5. Painful sore: left inner cheek - could be HSV Recommendations: - Stop IV Vanc and IV Zosyn - Start IV Cefepime 2 gm q8 hrs. will switch to PO option at discharge for a short course - Leg elevation to help decrease edema - debridement of the non viable tissue in left leg wound per Dr Rivas - PO Valacyclovir 2 gm q12 x 1 day will follow Jasmeet Guerin MD Infectious diseases
[2019-10-08] MEDS ORDERED: WARFARIN 5 MG TABLET PO ONE (14:00)
[2019-10-08] MEDS: CEFEPIME 2 GM VIAL IV SCH ×2 (14:09→23:49)
[2019-10-08] MEDS: NYSTATIN 500,000 UNITS/5 ML ORAL.SUSP SSP SCH ×2 (15:25→21:13)
--- NOTE | 2019-10-08 16:45 | General Surgery Progress Note ---
Subjective Patient reports: no new complaints, feels better, tolerating a regular diet (Shortness of breath improving. ), other (Patient reassessed. Spoke with Yarelis Santoyo, patient's present in room.) Narrative: Note initiated : 10/08/19 at 4:42 pm Service Date, if different from initiated Date: [] Patient: Latrell Caro 79 y/o M admitted on 10/07/19 for Fall. Chief Complaint: [] Objective Temp Pulse Resp BP Pulse Ox 98.3 F 72 18 105/63 92 10/08/19 12:00 10/08/19 12:00 10/08/19 12:00 10/08/19 12:00 10/08/19 12:00 AVSS. Had MIST treatment for wounds today. Dressings CDI. - Additional Data Intake & Output - Last 24 hours: Intake & Output 10/06/19 10/07/19 10/08/19 10/09/19 05:59 05:59 05:59 05:59 Intake Total 400 540 Output Total 675 Balance -275 540 Weight 116 lb 116 lb - Labs 10/08/19 06:02 10/08/19 06:02 Diabetes panel 10/08/19 Range/Units 06:02 Sodium 140 (133-145) mmol/L Potassium 3.7 (3.3-5.1) mmol/L Chloride 100 (96-108) mmol/L Carbon Dioxide 27 (22-30) mmol/L BUN 22 (8-23) mg/dl Creatinine 1.0 (0.7-1.2) mg/dl Glucose 82 (70-105) mg/dL Calcium 9.2 (8.6-10.4) mg/dl AST 22 (0-37) U/l ALT 19 (0-40) U/l Alkaline Phosphatase 78 (39-117) U/L Total Protein 5.2 L (5.9-8.4) gm/dL Albumin 2.8 L (3.2-5.2) gm/dL Triglycerides 105 (<150) mg/dl Calcium panel 10/08/19 Range/Units 06:02 Calcium 9.2 (8.6-10.4) mg/dl Phosphorus 4.4 (2.7-4.5) mg/dL Albumin 2.8 L (3.2-5.2) gm/dL Pituitary panel 10/08/19 Range/Units 06:02 Sodium 140 (133-145) mmol/L Potassium 3.7 (3.3-5.1) mmol/L Chloride 100 (96-108) mmol/L Carbon Dioxide 27 (22-30) mmol/L BUN 22 (8-23) mg/dl Creatinine 1.0 (0.7-1.2) mg/dl Glucose 82 (70-105) mg/dL Calcium 9.2 (8.6-10.4) mg/dl Adrenal panel 10/08/19 Range/Units 06:02 Sodium 140 (133-145) mmol/L Potassium 3.7 (3.3-5.1) mmol/L Chloride 100 (96-108) mmol/L Carbon Dioxide 27 (22-30) mmol/L BUN 22 (8-23) mg/dl Creatinine 1.0 (0.7-1.2) mg/dl Glucose 82 (70-105) mg/dL Calcium 9.2 (8.6-10.4) mg/dl Total Bilirubin 0.3 (0.0-1.0) mg/dL AST 22 (0-37) U/l ALT 19 (0-40) U/l Alkaline Phosphatase 78 (39-117) U/L Total Protein 5.2 L (5.9-8.4) gm/dL Albumin 2.8 L (3.2-5.2) gm/dL Assessment and Plan (1) Skin tear of left lower leg without complication Status: Acute Current Visit: No (2) Wound infection Status: Acute Current Visit: No (3) Coagulopathy Problem details: COUMADIN ON HOLD at this time. Status: Chronic Current Visit: No - Narrative A/P Narrative: Assessment: Less Anxious now. Reassured. AWAIT Pulmonology consult. AWAIT Anesthesiology consult. (High risk fo0r surgery ) APPRECIATE ID consult and F/U Plan: Will hold surgical debridement at this time. Will continue with local wound treatment. Reassess in AM. - Time Spent With Patient Total time spent is greater than 50% in coordination of care (as documented) at patient's floor/unit and/or counseling patient: 15 - 24 minutes
--- NOTE | 2019-10-08 18:53 | Consultation ---
DATE OF CONSULTATION: 10/08/2019 REQUESTING PHYSICIAN: Dr. Parks. HISTORY OF PRESENT ILLNESS: The patient is a 79-year-old gentleman, who presented from the long-term facility on 10/07/2019 because of a fall and a new skin tear. He has been in the facility after a skin tear infection and sepsis episode recently. Unfortunately, he is weak and occasionally confused and apparently sustained a fall with new wound. He is admitted to the hospitalist service with Dr. Rivas, a heat plant specialist consulting and participating in his care. Consultation was placed earlier today to pulmonary in light of his obstructive lung disease as well as his sleep apnea for further evaluation and care. Issues are of concern for the possibility of anesthesia and surgery to repair the wound on his leg. The patient was originally seen in my practice on 08/02/2019. He unfortunately had a tobacco use history as well as sleep apnea. He has a history of polymyalgia rheumatica with steroid therapy and subsequent thoracic compression fractures. All of this has resulted in a combined lung disease with FEV1 at 1.33 liters or 58% of predicted when tested in 05/2019. He also demonstrates respiratory muscle weakness with a negative inspiratory force of -47 cm of water pressure and a PaO2 at that time on room air of only 59 mmHg. The patient was additionally identified to have nocturnal oxygenation issues and CPAP and he has been placed on sleep therapy as well. His is at the bedside and indicates that his machine is still at the care facility, and she can bring it in tomorrow. She indicates that the patient has not been having significant difficulty with cough or sputum production. He looks remarkably well today. REVIEW OF SYSTEMS: Negative except as noted above. PHYSICAL EXAMINATION: GENERAL: The patient is a pleasant gentleman with somewhat poor memory and mildly confused, but in no acute distress. HEENT: Atraumatic and normocephalic. NECK: Supple. Carotids without bruits. CHEST: kyphoscoliosis. LUNGS: Mildly decreased breath sounds in all lung otero, but actually no wheeze, rales, or rhonchi. HEART: Regular S1, S2, without apparent gallop, rub, jugular venous distention.There is dressing and swelling of the left lower extremity secondary to his wound and issues there. ABDOMEN: Soft. Bowel sounds are present. Liver and spleen are not palpable. DIAGNOSTIC DATA: Laboratory data collected thus far includes a CBC with anemia, hemoglobin 11.7. White count on presentation fortunately only 9.6 and a normal platelet count of 315,000. Basic Met, with the exception of the BUN elevated at 27, are within normal limits. IMPRESSION: A 79-year-old gentleman with mixed lung disease, some restriction due to kyphotic chest as well as obstruction due to previous tobacco use. Questions of respiratory muscle weakness with his polymyalgia rheumatica and chronic steroid therapy are present as well. His FEV1 at 1.33 liters when measured in May would not be prohibitive for surgery. I will ask him to undertake a repeat spirometry with his hospitalization to further identify his anesthesia risk. Anesthesia would need to pay attention to the possibility of respiratory muscle weakness and his sleep apnea in consideration of their pre and postoperative care. Thank you for the opportunity to participate in the care of this pleasant gentleman. CLAUDIAP:in Job ID: [id number] Doc ID: [id number] Roberto TORRES
[2019-10-08] MEDS: valACYclovir 500 MG TABLET PO SCH (21:13)
[2019-10-08] MEDS: ATORVASTATIN 40 MG TABLET PO SCH (21:14)
[2019-10-08] MEDS: busPIRone 15 MG TABLET PO SCH (21:14)
[2019-10-08] MEDS: ARIPIPRAZOLE 5 MG TABLET PO SCH (21:14)
[2019-10-08] MEDS: AMITRIPTYLINE 25 MG TABLET PO SCH (21:15)
[2019-10-08] MEDS: SENNOSIDES/DOCUSATE SODIUM 1 TAB TABLET PO SCH (21:20)
[2019-10-08] MEDS: TERIPARATIDE SC SCH (21:20)
[2019-10-09] MEDS: HYDROcodone/APAP 10/325MG TABLET PO PRN ×3 (04:32→18:16)
[2019-10-09] MEDS: 0.9 % SODIUM CHLORIDE 10 ML SYRINGE IV SCH ×3 (04:32→22:18)
[2019-10-09 07:16] LABS: Hematocrit 35.3 % (40.1-51.0); Hemoglobin 11.3 g/dL (13.7-17.5); Mean Cell Volume 99.4 fL (80.0-100.0); Mean Platelet Volume 9.5 fL (7.4-10.4); Platelet Count 291 K/mcL (140-440); RBC 3.55 M/mcL (4.63-6.08); WBC 10.4 K/mcL (4.50-11.00)
[2019-10-09 07:17] LABS: INR 1.9 (0.9-1.1); Prothrombin Time 22.6 sec (11.9-14.5)
[2019-10-09 07:18] LABS: ALT/SGPT 17 U/l (0-40); AST/SGOT 21 U/l (0-37); Albumin 2.8 gm/dL (3.2-5.2); Alkaline Phosphatase 77 U/L (39-117); Bilirubin,Direct < 0.2 mg/dL (0.0-0.3); Bilirubin,Total 0.4 mg/dL (0.0-1.0); Blood Urea Nitrogen 26 mg/dl (8-23); Calcium 8.7 mg/dl (8.6-10.4); Carbon Dioxide 27 mmol/L (22-30); Chloride 101 mmol/L (96-108); Globulin 2.7 gm/dL (2.2-3.7); Glomerular Filtration Rate 58; Glucose 76 mg/dL (70-105); Lactate Dehydrogenase 247 U/L (94-250); Phosphorous 2.8 mg/dL (2.7-4.5); Triglycerides 74 mg/dl (<150); Uric Acid 6.6 mg/dL (2.5-8.0)
[2019-10-09] MEDS: valACYclovir 500 MG TABLET PO SCH (08:19)
[2019-10-09] MEDS: CEFEPIME 2 GM VIAL IV SCH (08:20)
[2019-10-09] MEDS: NYSTATIN 500,000 UNITS/5 ML ORAL.SUSP SSP SCH ×3 (08:21→19:59)
[2019-10-09] MEDS: CARVEDILOL 12.5 MG TABLET PO SCH ×2 (08:22→17:52)
[2019-10-09] MEDS: predniSONE 1 MG TABLET PO SCH (08:22)
[2019-10-09] MEDS: LACTOBACILLUS 1 CAPSULE PO SCH (08:22)
[2019-10-09] MEDS: FOLIC ACID 1 MG TABLET PO SCH (08:23)
[2019-10-09] MEDS: FUROSEMIDE 40 MG TABLET PO SCH (08:24)
[2019-10-09] MEDS: MULTIVIT,THER IRON,CA,FA & MIN 1 TABLET PO SCH (08:24)
[2019-10-09] MEDS: CYANOCOBALAMIN (VITAMIN B-12) 500 MCG TABLET PO SCH (08:24)
[2019-10-09] MEDS: DOCUSATE SODIUM 100 MG CAPSULE PO SCH ×2 (08:24→19:59)
[2019-10-09] MEDS: MAGNESIUM OXIDE 400 MG TABLET PO SCH ×2 (08:24→19:59)
[2019-10-09] MEDS: traMADol 50 MG TABLET PO PRN (08:42)
[2019-10-09 08:44] LABS: Eosinophils % (Manual) 5 % (0-7); Lymphocytes % 16 % (15-49); Monocytes % (Manual) 9 % (1-12); Platelet Estimate NORMAL (NORMAL); RBC Morphology NORMAL (NORMAL); Segmented Neutrophils % 70 % (38-78)
[2019-10-09] MEDS: LEVOFLOXACIN 750 MG TABLET PO SCH (10:25)
--- NOTE | 2019-10-09 10:27 | Internal Med Progress Note ---
Medical - PN: Subj Patient information: Note initiated : 10/09/19 at 10:23 am Service Date, if different from initiated Date: [] Patient: Latrell Caro a 79 y/o M admitted on 10/07/19 for Fall. Chief Complaint: [] Interval history: Mr. Caro is a 79 year old M with a history of PMR on Enbrel / prednisone [facility] after recent hospitalization for left calf laceration and infected wound with necrosis. He has been following up with wound care. Patient today fell at the care facility and sustained a calf laceration from wheelchair. He denied precipitating events prior to fall. He denied loss of consciousness. He was referred to the ER for further evaluation. During initial evaluation it was noted that wound VAC that was placed left calf 24 hours ago has dislodged and was nonfunctional. The wounds around left calf has been oozing with significant redness and swelling entire lower extremity. There has been surrounding erythema and limb is exquisitely tender. However Doppler ultrasounds were negative for DVT. Worsening calf ulceration was noted 5 x 5 cm at least 4 to 5 mm in depth with areas of necrotic tissue. Subsequently wound care Dr. Rivas was consulted who requested hospitalist service to admit patient for further debridement/antibiotics. ID was also consulted. Patient was started on vancomycin after cultures were drawn At the time evaluation patient is accompanied with his . He was able to answer most questions. He appears fatigued lethargic but denies fevers, shaking chills, headache. He is currently on 4 mg of prednisone on a tapering dose for his PMR. 10/08-wound care following. On antibiotic coverage. Improved redness swelling. Stable white count.INR 1.6. Renal function stable. Pulmonology consulted for preoperative evaluation of chronic hypoxia/obstructive sleep apnea and mild COPD. Immunocompromise state currently on Enbrel/prednisone for history of PMR/RA. ID on board. Patient will likely undergo operative debridement/wound closure by wound physician. Keep n.p.o. Await anesthesia evaluation. 10/09-patient doing well. No overnight events. INR 1.9. White count stable. No fever chills. Ongoing wound care/due for operative intervention per wound physician. No family at bedside. - Constitutional Vitals: Vital Signs Temp Pulse Resp BP Pulse Ox 99.7 F H 103 H 18 112/70 90 10/09/19 08:00 10/09/19 08:00 10/09/19 08:00 10/09/19 08:00 10/09/19 08:00 Period Temp Pulse Resp BP Sys/Mccarthy Pulse Ox Last 24 Hr 98.2 F-99.7 F 72-103 18-24 99-131/60-72 89-93 Intake and Output 10/08/19 10/09/19 10/09/19 21:59 05:59 13:59 Intake Total 350 300 Balance 350 300 Weight 120 lb 8 oz Intake & Output: Intake & Output 10/08/19 10/09/19 10/09/19 21:59 05:59 13:59 Intake Total 350 300 Balance 350 300 Weight 120 lb 8 oz Intake: Oral 350 300 Other: Meal Breakfast Percent of Meal Consumed 100% Feeding Ability Assist with Tray Set Up Stool Size Moderate Stool Color Brown Stool Consistency Formed # Voids 1 1 1 # Bowel Movements 1 General appearance: no acute distress Exam: Alert oriented Nonlabored breathing Wound dressing lower extremity No anxiety Medical - PN: Obj Da - Labs CBC & Chem 7: 10/09/19 04:31 10/09/19 04:31 Labs: Abnormal Lab Results 10/09/19 10/09/19 10/09/19 04:31 04:31 04:31 RBC Hgb Hct Seg Neutrophils % Lymphocytes % PT 22.6 H INR 1.9 H BUN 26 H Lactate Dehydrogenase Total Protein 5.5 L Albumin 2.8 L Prealbumin 13.4 L Hyaline Casts 10/09/19 10/08/19 10/08/19 04:31 06:02 06:02 RBC 3.55 L Hgb 11.3 L Hct 35.3 L Seg Neutrophils % Lymphocytes % PT 19.9 H INR 1.6 H BUN Lactate Dehydrogenase 251 H Total Protein 5.2 L Albumin 2.8 L Prealbumin Hyaline Casts 10/08/19 10/07/19 10/07/19 06:02 14:56 14:56 RBC 3.41 L Hgb 10.8 L Hct 33.8 L Seg Neutrophils % 82 H Lymphocytes % 8 L PT 20.1 H INR 1.7 H BUN 27 H Lactate Dehydrogenase Total Protein Albumin Prealbumin Hyaline Casts 10/07/19 10/07/19 14:56 14:00 RBC 3.62 L Hgb 11.7 L Hct 36.1 L Seg Neutrophils % Lymphocytes % PT INR BUN Lactate Dehydrogenase Total Protein Albumin Prealbumin Hyaline Casts 30 H Meds: Medications Acetaminophen (Tylenol) 650 mg PO Q4-6HP PRN; Protocol PRN Reason: Per Pain Protocol/Fever > 101 Hydrocodone Bitart/Acetaminophen ([place] 10/325mg) 1 - 2 tab PO .Q6H PRN; Protocol PRN Reason: pain Last Admin: 10/09/19 04:32 Dose: 1 tab Documented by: Amitriptyline HCl (Elavil) 187.5 mg PO HS [facility] Atorvastatin Calcium (Lipitor) 40 mg PO HS [facility] Last Admin: 10/08/19 21:14 Dose: 40 mg Documented by: Bisacodyl (Dulcolax) 10 mg CA Q2-3DAYS PRN PRN Reason: Constipation Buspirone HCl (Buspar) 15 mg PO QHS [facility] Last Admin: 10/08/19 21:14 Dose: 15 mg Documented by: [facility]) [facility] Last Admin: 10/09/19 08:22 Dose: 12.5 mg Documented by: Cyanocobalamin (Vitamin B-12) 500 mcg PO QDAY [facility] Last Admin: 10/09/19 08:24 Dose: 500 mcg Documented by: Docusate Sodium (Colace) 100 mg PO BID [facility] Last Admin: 10/09/19 08:24 Dose: 100 mg Documented by: Folic Acid (Folic Acid) 1 mg PO DAILY [facility] Last Admin: 10/09/19 08:23 Dose: 1 mg Documented by: Furosemide (Lasix) 40 mg PO QDAY [facility] Last Admin: 10/09/19 08:24 Dose: 40 mg Documented by: Magnesium Sulfate (Magnesium Sulfate) 2 gm in 50 mls @ 50 mls/hr IV UD PRN PRN Reason: MG = or < 1.7 Iron Carb/Multivit/Stoker Installer/Folic Acid (Multivitamin W/Minerals) 1 tab PO DAILY [facility] Last Admin: 10/09/19 08:24 Dose: 1 tab Documented by: Lactobacillus Rhamnosus (Culturelle) 1 cap PO DAILY [facility] Last Admin: 10/09/19 08:22 Dose: 1 cap Documented by: Levofloxacin (Levaquin) 750 mg PO Q48H [facility]; Protocol Stop: 10/11/19 09:31 Magnesium Oxide (Magnesium Oxide) 400 mg PO BID [facility] Last Admin: 10/09/19 08:24 Dose: 400 mg Documented by: Melatonin (Melatonin 3mg Tablet) 3 mg PO HSP PRN PRN Reason: Insomnia Last Admin: 10/07/19 21:14 Dose: 3 mg Documented by: Nystatin (Nystatin) 500,000 units SSP TID [facility] Last Admin: 10/09/19 08:21 Dose: 500,000 units Documented by: Diclofenac Sodium [ (Voltaren] Top Oint) 1 dose TOPICAL QIDP PRN PRN Reason: pain Teriparatide [Forteo ] 20 Mcg/Dose Solution 1 dose SC HS [facility] Last Admin: 10/08/19 21:20 Dose: 1 dose Documented by: Polyethylene Glycol (Miralax) 17 gm PO DAILYP PRN PRN Reason: Constipation Potassium Chloride (Klor-Con) 40 meq PO DAILYP PRN PRN Reason: K+ < 3.5 [facility]) [facility] Last Admin: 10/09/19 08:22 Dose: 4 mg Documented by: Senna/Docusate Sodium (Senna Plus Tablet) 1 tab PO [facility] Last Admin: 10/08/19 21:20 Dose: Not Given Documented by: Sodium Chloride (Saline Flush) 10 ml IV Q8 [facility] Last Admin: 10/09/19 04:32 Dose: 10 ml Documented by: Tramadol HCl (Ultram) 100 mg PO BIDP PRN PRN Reason: Pain Last Admin: 10/09/19 08:42 Dose: 100 mg Documented by: Warfarin Sodium (Coumadin Per Pharmacy) 1 order PO DAILY@1400 [facility] Last Admin: 10/08/19 14:09 Dose: Not Given Documented by: Medical - PN: A/P - Time Spent With Patient Total time spent is greater than 50% in coordination of care (as documented) at patient's floor/unit and/or counseling patient: 25 - 35 minutes (1) Cellulitis of left lower extremity Status: Acute Assessment and plan: * Left lower extremity cellulitis/immunocompromised state-antibiotics de- escalate based on sensitivities to Levaquin per ID. Continue wound care/limb elevation * Left calf ulceration/posterior upper calf laceration -managed by Dr. Rivas. Due for operative intervention. Patient however is high risk operative candidate due to immunocompromise state and history of CKD stage III/CARLOS COPD. * Protein calorie malnutrition continue nutrition support/protein calorie supplements * Chronic hypoxia -pulmonary consulted by wound care for preoperative evaluation * History of PMR continue home dose 4 mg p.o. prednisone * History diastolic CHF stable on Coreg * History of CAD status post CABG stable continue beta-elayne * CKD stage III-avoid nephrotoxins. Creatinine 1.1 * Neuropathy continue amitriptyline * History CARLOS/mild COPD on CPAP. Follows up outpatient with Dr. Crowley pulmonology * History of hypertension continue home medications * History of RA on Enbrel managed by Dr. Bacon * Anxiety depression continue BuSpar * Osteoporosis continue Forteo * History of DVT continue anticoagulation on warfarin. INR 1.9 * Full code * Prophylaxis - Coumadin Plan * Continue antibiotics per ID * Wound management per Dr. Rivas * Prior medical condition management as above * Daily Coumadin dosing based on INR * Nutrition support with high protein calorie supplements * PT OT Current Visit: Yes Medical - PN: Qual - Stroke Symptom Onset Unknown: No - VTE Deep Vein Thrombosis/Pulmonary Embolism Present on Admission: No
--- NOTE | 2019-10-09 10:35 | General Surgery Progress Note ---
Surgical - Auxillary Note - Subjective Patient Information: Note initiated : 10/09/19 at 10:26 am Service Date, if different from initiated Date: [] Patient: Latrell Caro 79 y/o M admitted on 10/07/19 for Fall. Chief Complaint: [new fall related wound and non healing wound lle in need of surgical debridement by Dr Rivas. Pt is deconditioned and weak and has falls. post CABG, HTN, COPD/restrictive lung disease, CARLOS/CPAP dependent, DVT, anemia, CHF hx, edema, anticoagulation therapy (INR 1.7), abnormal EKG, GERD, CKD, cerebrovascular disease/post CVA, and underlying psych and chronic autoimmune disorder requiring immune modulation therapy and daily steroid use. Dr Crowley has seen patient and has ordered pulmonary testing to fully evaluate anesthesia risk. This patient has undergone general anesthesia recently and emerged without any anesthetic related issues. But this patient is now weaker and requires surgical intervention. Pt evaluated and is deemed high risk to proceed to surgery and undergo general anesthesia, risks and benefits must be evaluated and judged by both the patient, patient's family and the surgeon and a mutual decision must be arrived at independently. I feel reasonably confident, based on the last anesthetic, that this patient could proceed to the OR and tolerate a general anesthetic. Although, this patient would not tolerate a fully prone positioning for surgery. Thank you, DIETER]
[2019-10-09] MEDS ORDERED: WARFARIN 5 MG TABLET PO ONE (15:00)
--- NOTE | 2019-10-09 16:30 | General Surgery Progress Note ---
Subjective Patient reports: other (Patient seen. Appreciate Dr. Lynne's note / input. Will await Dr. Crowley's input.) Narrative: Note initiated : 10/09/19 at 4:28 pm Service Date, if different from initiated Date: [] Patient: Latrell Caro 79 y/o M admitted on 10/07/19 for Fall. Chief Complaint: [] Objective Temp Pulse Resp BP Pulse Ox 98.8 F 106 H 22 116/75 91 10/09/19 12:00 10/09/19 12:00 10/09/19 12:00 10/09/19 12:00 10/09/19 12:00 Patient resting comfortably. No changes PAYAM. Left leg dressing CDI - Additional Data Intake & Output - Last 24 hours: Intake & Output 10/07/19 10/08/19 10/09/19 10/10/19 05:59 05:59 05:59 05:59 Intake Total 400 1190 260 Output Total 675 300 Balance -275 1190 -40 Weight 116 lb 120 lb 8 oz - Labs 10/09/19 04:31 10/09/19 04:31 Diabetes panel 10/09/19 Range/Units 04:31 Sodium 139 (133-145) mmol/L Potassium 3.8 (3.3-5.1) mmol/L Chloride 101 (96-108) mmol/L Carbon Dioxide 27 (22-30) mmol/L BUN 26 H (8-23) mg/dl Creatinine 1.2 (0.7-1.2) mg/dl Glucose 76 (70-105) mg/dL Calcium 8.7 (8.6-10.4) mg/dl AST 21 (0-37) U/l ALT 17 (0-40) U/l Alkaline Phosphatase 77 (39-117) U/L Total Protein 5.5 L (5.9-8.4) gm/dL Albumin 2.8 L (3.2-5.2) gm/dL Triglycerides 74 (<150) mg/dl Calcium panel 10/09/19 Range/Units 04:31 Calcium 8.7 (8.6-10.4) mg/dl Phosphorus 2.8 (2.7-4.5) mg/dL Albumin 2.8 L (3.2-5.2) gm/dL Pituitary panel 10/09/19 Range/Units 04:31 Sodium 139 (133-145) mmol/L Potassium 3.8 (3.3-5.1) mmol/L Chloride 101 (96-108) mmol/L Carbon Dioxide 27 (22-30) mmol/L BUN 26 H (8-23) mg/dl Creatinine 1.2 (0.7-1.2) mg/dl Glucose 76 (70-105) mg/dL Calcium 8.7 (8.6-10.4) mg/dl Adrenal panel 10/09/19 Range/Units 04:31 Sodium 139 (133-145) mmol/L Potassium 3.8 (3.3-5.1) mmol/L Chloride 101 (96-108) mmol/L Carbon Dioxide 27 (22-30) mmol/L BUN 26 H (8-23) mg/dl Creatinine 1.2 (0.7-1.2) mg/dl Glucose 76 (70-105) mg/dL Calcium 8.7 (8.6-10.4) mg/dl Total Bilirubin 0.4 (0.0-1.0) mg/dL AST 21 (0-37) U/l ALT 17 (0-40) U/l Alkaline Phosphatase 77 (39-117) U/L Total Protein 5.5 L (5.9-8.4) gm/dL Albumin 2.8 L (3.2-5.2) gm/dL Assessment and Plan (1) Skin tear of left lower leg without complication Status: Acute Current Visit: No (2) Wound infection Status: Acute Current Visit: No (3) Coagulopathy Problem details: COUMADIN ON HOLD at this time. Status: Chronic Current Visit: No - Narrative A/P Narrative: Assessment: Following patient. Progress reviewed with Lucy SEVILLAexpressive music therapist and JAQUELIN SEVILLA Plan: Continue current treatment. Reassess in AM. - Time Spent With Patient Total time spent is greater than 50% in coordination of care (as documented) at patient's floor/unit and/or counseling patient: 15 - 24 minutes
--- NOTE | 2019-10-09 18:45 | General Surgery Progress Note ---
Subjective Narrative: Note initiated : 10/09/19 at 6:33 pm Service Date, if different from initiated Date: [] Patient: Latrell Caro 79 y/o M admitted on 10/07/19 for Fall. 10/09/2019 18:30 Came to see patient and his Yarelis Santoyo. Had long conversation with patient and with leather goods maker nurse Donna Eric. Answered all the questions. Discussed current situation and plan of care going forward. I E On going wound care, antibiotics, ( Swing Bed Status ),timing of surgical debridement after trial of MIST and Nutrition repletion. Determining need for revascularization / intervention radiology, physical therapy. Will be assessing his condition and monitoring wound status daily. Pain management, anxiolytics, and other medical needs per hospitalist. Objective Temp Pulse Resp BP Pulse Ox 98.8 F 86 20 97/57 94 10/09/19 16:00 10/09/19 16:00 10/09/19 16:00 10/09/19 16:00 10/09/19 16:00 - Additional Data Intake & Output - Last 24 hours: Intake & Output 10/07/19 10/08/19 10/09/19 10/10/19 05:59 05:59 05:59 05:59 Intake Total 400 1190 500 Output Total 675 300 Balance -275 1190 200 Weight 116 lb 120 lb 8 oz - Labs 10/09/19 04:31 10/09/19 04:31 Diabetes panel 10/09/19 Range/Units 04:31 Sodium 139 (133-145) mmol/L Potassium 3.8 (3.3-5.1) mmol/L Chloride 101 (96-108) mmol/L Carbon Dioxide 27 (22-30) mmol/L BUN 26 H (8-23) mg/dl Creatinine 1.2 (0.7-1.2) mg/dl Glucose 76 (70-105) mg/dL Calcium 8.7 (8.6-10.4) mg/dl AST 21 (0-37) U/l ALT 17 (0-40) U/l Alkaline Phosphatase 77 (39-117) U/L Total Protein 5.5 L (5.9-8.4) gm/dL Albumin 2.8 L (3.2-5.2) gm/dL Triglycerides 74 (<150) mg/dl Calcium panel 10/09/19 Range/Units 04:31 Calcium 8.7 (8.6-10.4) mg/dl Phosphorus 2.8 (2.7-4.5) mg/dL Albumin 2.8 L (3.2-5.2) gm/dL Pituitary panel 10/09/19 Range/Units 04:31 Sodium 139 (133-145) mmol/L Potassium 3.8 (3.3-5.1) mmol/L Chloride 101 (96-108) mmol/L Carbon Dioxide 27 (22-30) mmol/L BUN 26 H (8-23) mg/dl Creatinine 1.2 (0.7-1.2) mg/dl Glucose 76 (70-105) mg/dL Calcium 8.7 (8.6-10.4) mg/dl Adrenal panel 10/09/19 Range/Units 04:31 Sodium 139 (133-145) mmol/L Potassium 3.8 (3.3-5.1) mmol/L Chloride 101 (96-108) mmol/L Carbon Dioxide 27 (22-30) mmol/L BUN 26 H (8-23) mg/dl Creatinine 1.2 (0.7-1.2) mg/dl Glucose 76 (70-105) mg/dL Calcium 8.7 (8.6-10.4) mg/dl Total Bilirubin 0.4 (0.0-1.0) mg/dL AST 21 (0-37) U/l ALT 17 (0-40) U/l Alkaline Phosphatase 77 (39-117) U/L Total Protein 5.5 L (5.9-8.4) gm/dL Albumin 2.8 L (3.2-5.2) gm/dL Assessment and Plan (1) Skin tear of left lower leg without complication Status: Acute Current Visit: No (2) Wound infection Status: Acute Current Visit: No (3) Coagulopathy Problem details: COUMADIN ON HOLD at this time. Status: Chronic Current Visit: No - Time Spent With Patient Total time spent is greater than 50% in coordination of care (as documented) at patient's floor/unit and/or counseling patient:
[2019-10-09] MEDS: busPIRone 15 MG TABLET PO SCH (19:59)
[2019-10-09] MEDS: SENNOSIDES/DOCUSATE SODIUM 1 TAB TABLET PO SCH (19:59)
[2019-10-09] MEDS: AMITRIPTYLINE 25 MG TABLET PO SCH (19:59)
[2019-10-09] MEDS: ARIPIPRAZOLE 5 MG TABLET PO SCH (19:59)
[2019-10-09] MEDS: ATORVASTATIN 40 MG TABLET PO SCH (19:59)
[2019-10-09] MEDS: TERIPARATIDE SC SCH (20:00)
--- NOTE | 2019-10-09 22:19 | Infectious Disease Prog Note ---
Subjective Patient information: Note initiated : 10/09/19 at 10:16 pm Service Date, if different from initiated Date: [] Patient: Latrell Caro 79 y/o M admitted on 10/07/19 for Fall. Chief Complaint: [] Interval history: Pt feels fine. Endorses left leg pain, rates it 8/10. Denies any fever, chills, n/v, diarrhea, worsening SOB. Objective Objective Narrative: ao x 3, in nad no thrush the inner cheek lesion on left side is healing the left leg: swelling, redness resolving (from marked boundary). the lower leg wounds wrapped in dressing, no soakage. Distal left foot without any redness/discoloration - Vital Signs Vital signs: Vital Signs Temp Pulse Resp BP BP Pulse Ox 10/09/19 20:00 20 10/09/19 19:37 36.9 C 112 H 24 H 120/75 96 10/09/19 16:00 37.1 C 86 20 97/57 94 10/09/19 12:00 37.1 C 106 H 22 116/75 91 10/09/19 08:00 37.6 C H 103 H 18 112/70 90 10/09/19 04:18 36.8 C 89 20 131/72 89 L 10/08/19 23:08 36.9 C 87 20 123/68 90 Intake and Output 10/09/19 10/09/19 10/10/19 13:59 21:59 05:59 Intake Total 260 240 Output Total 300 Balance -40 240 Intake: Oral 260 240 Output: Void Amount 300 Other: Meal Lunch Percent of Meal Consumed 50% Feeding Ability Assist with Tray Set Up Urine Appearance Clear Urine Color Dark Yellow [place] Urine Odor Normal Normal # Voids 1 Intake & Output: Intake & Output 10/09/19 10/09/19 10/10/19 13:59 21:59 05:59 Intake Total 260 240 Output Total 300 Balance -40 240 Intake: Oral 260 240 Output: Void Amount 300 Other: Meal Lunch Percent of Meal Consumed 50% Feeding Ability Assist with Tray Set Up Urine Appearance Clear Urine Color Dark Yellow [place] Urine Odor Normal Normal # Voids 1 - Lab 10/09/19 04:31 10/09/19 04:31 Most recent lab results Calcium 8.7 mg/dl (8.6-10.4) 10/09/19 04:31 Phosphorus 2.8 mg/dL (2.7-4.5) 10/09/19 04:31 Magnesium 1.9 mg/dL (1.6-2.5) 10/09/19 04:31 Microbiology 10/07/19 15:11 Blood Blood Culture - Preliminary 10/07/19 14:56 Blood Blood Culture - Preliminary 10/07/19 17:54 Leg - Lower Left Gram Stain - Final 10/07/19 17:54 Leg - Lower Left Wound Culture - Final Pseudomonas aeruginosa 10/07/19 17:53 Leg - Upper Left Gram Stain - Final 10/07/19 17:53 Leg - Upper Left Wound Culture - Final 10/07/19 17:54 Nose MRSA (PCR) - Final Medications Active Medications: Acetaminophen (Tylenol) 650 mg PO Q4-6HP PRN; Protocol PRN Reason: Per Pain Protocol/Fever > 101 Hydrocodone Bitart/Acetaminophen ([place] 10/325mg) 1 - 2 tab PO .Q6H PRN; Protocol PRN Reason: pain Last Admin: 10/09/19 18:16 Dose: 1 tab Documented by: Admin: 10/09/19 10:25 Dose: 1 tab Documented by: [email or web address] Admin: 10/09/19 04:32 Dose: 1 tab Documented by: Admin: 10/08/19 21:14 Dose: 1 tab Documented by: Admin: 10/08/19 16:54 Dose: 1 tab Documented by: Admin: 10/08/19 10:21 Dose: 1 tab Documented by: Admin: 10/07/19 21:13 Dose: 1 tab Documented by: [email or web address] Amitriptyline HCl (Elavil) 187.5 mg PO [facility] Last Admin: 10/09/19 19:59 Dose: 187.5 mg Documented by: JARON Atorvastatin Calcium (Lipitor) 40 mg PO [facility] Last Admin: 10/09/19 19:59 Dose: 40 mg Documented by: Admin: 10/08/19 21:14 Dose: 40 mg Documented by: Admin: 10/07/19 21:14 Dose: 40 mg Documented by: [email or web address] Bisacodyl (Dulcolax) 10 mg [place] Q2-3DAYS PRN PRN Reason: Constipation Buspirone HCl (Buspar) 15 mg PO QHS [facility] Admin: 10/09/19 19:59 Dose: 15 mg Documented by: Admin: 10/08/19 21:14 Dose: 15 mg Documented by: Admin: 10/07/19 21:15 Dose: 15 mg Documented by: [email or web address] Carvedilol (Coreg) 12.5 mg PO BIDCC [facility] Admin: 10/09/19 17:52 Dose: Not Given Documented by: CIERA Non-Admin Reason: Clinical Judgement Admin: 10/09/19 08:22 Dose: 12.5 mg Documented by: Admin: 10/08/19 16:54 Dose: 12.5 mg Documented by: Admin: 10/08/19 08:03 Dose: 12.5 mg Documented by: Admin: 10/07/19 21:21 Dose: 12.5 mg Documented by: [email or web address] Cyanocobalamin (Vitamin B-12) 500 mcg PO QDAY [facility] Admin: 10/09/19 08:24 Dose: 500 mcg Documented by: Admin: 10/08/19 09:10 Dose: 500 mcg Documented by: F Docusate Sodium (Colace) 100 mg PO BID [facility] Admin: 10/09/19 19:59 Dose: 100 mg Documented by: Admin: 10/09/19 08:24 Dose: 100 mg Documented by: Admin: 10/08/19 21:14 Dose: 100 mg Documented by: Admin: 10/08/19 09:10 Dose: 100 mg Documented by: [facility] Admin: 10/07/19 21:14 Dose: 100 mg Documented by: [email or web address] Folic Acid (Folic Acid) 1 mg PO DAILY [facility] Admin: 10/09/19 08:23 Dose: 1 mg Documented by: Admin: 10/08/19 09:10 Dose: 1 mg Documented by: F Furosemide (Lasix) 40 mg PO QDAY [facility] Admin: 10/09/19 08:24 Dose: 40 mg Documented by: Admin: 10/08/19 09:10 Dose: 40 mg Documented by: F Magnesium Sulfate (Magnesium Sulfate) 2 gm in 50 mls @ 50 mls/hr IV UD PRN PRN Reason: MG = or < 1.7 Iron Carb/Multivit/Can Patcher/Folic Acid (Multivitamin W/Minerals) 1 tab PO DAILY [facility] Last Admin: 10/09/19 08:24 Dose: 1 tab Documented by: Admin: 10/08/19 09:10 Dose: 1 tab Documented by: TARAHF Lactobacillus Rhamnosus (Culturelle) 1 cap PO DAILY [facility] Last Admin: 10/09/19 08:22 Dose: 1 cap Documented by: Admin: 10/08/19 09:10 Dose: 1 cap Documented by: TARAHF Levofloxacin (Levaquin) 750 mg PO Q48H [facility]; Protocol Stop: 10/11/19 09:31 Last Admin: 10/09/19 10:25 Dose: 750 mg Documented by: [email or web address] Magnesium Oxide (Magnesium Oxide) 400 mg PO BID [facility] Last Admin: 10/09/19 19:59 Dose: 400 mg Documented by: Admin: 10/09/19 08:24 Dose: 400 mg Documented by: Admin: 10/08/19 21:14 Dose: 400 mg Documented by: Admin: 10/08/19 09:10 Dose: 400 mg Documented by: Admin: 10/07/19 21:14 Dose: 400 mg Documented by: [email or web address] Melatonin (Melatonin 3mg Tablet) 3 mg PO HSP PRN PRN Reason: Insomnia Last Admin: 10/07/19 21:14 Dose: 3 mg Documented by: [email or web address] Nystatin (Nystatin) 500,000 units SSP TID [facility] Last Admin: 10/09/19 19:59 Dose: 500,000 units Documented by: Admin: 10/09/19 15:05 Dose: 500,000 units Documented by: Admin: 10/09/19 08:21 Dose: 500,000 units Documented by: Admin: 10/08/19 21:13 Dose: 500,000 units Documented by: Admin: 10/08/19 15:25 Dose: 500,000 units Documented by: TARAHF Diclofenac Sodium [ (Voltaren] Top Oint) 1 dose TOPICAL QIDP PRN PRN Reason: pain Teriparatide [Forteo ] 20 Mcg/Dose Solution 1 dose SC HS [facility] Last Admin: 10/09/19 20:00 Dose: 1 dose Documented by: Admin: 10/08/19 21:20 Dose: 1 dose Documented by: JARON Polyethylene Glycol (Miralax) 17 gm PO DAILYP PRN PRN Reason: Constipation Potassium Chloride (Klor-Con) 40 meq PO DAILYP PRN PRN Reason: K+ < 3.5 [facility] Admin: 10/09/19 08:22 Dose: 4 mg Documented by: Admin: 10/08/19 08:03 Dose: 4 mg Documented by: CHELSI Senna/Docusate Sodium (Senna Plus Tablet) 1 tab PO HS [facility] Last Admin: 10/09/19 19:59 Dose: 1 tab Documented by: Admin: 10/08/19 21:20 Dose: Not Given Documented by: JARON Non-Admin Reason: Loose Stool Admin: 10/07/19 21:15 Dose: 1 tab Documented by: BALJIT Sodium Chloride (Saline Flush) 10 ml IV Q8 [facility] Last Admin: 10/09/19 17:41 Dose: Not Given Documented by: CIERA Non-Admin Reason: new IV started Admin: 10/09/19 04:32 Dose: 10 ml Documented by: Admin: 10/08/19 21:15 Dose: 10 ml Documented by: Admin: 10/08/19 14:09 Dose: 10 ml Documented by: Admin: 10/08/19 05:57 Dose: 10 ml Documented by: Admin: 10/07/19 21:16 Dose: 10 ml Documented by: [email or web address] Tramadol HCl (Ultram) 100 mg PO BIDP PRN PRN Reason: Pain Last Admin: 10/09/19 08:42 Dose: 100 mg Documented by: Admin: 10/07/19 21:14 Dose: 100 mg Documented by: [email or web address] Warfarin Sodium (Coumadin Per Pharmacy) 1 order PO DAILY@1400 [facility] Last Admin: 10/09/19 14:49 Dose: Not Given Documented by: CIERA Non-Admin Reason: per pharmacy Admin: 10/08/19 14:09 Dose: Not Given Documented by: CHELSI Non-Admin Reason: Duplicate Assessment and Plan - Narrative A/P Narrative: A: 1. Left lower leg cellulitis in an immunosuppressed patient: post-traumatic, post-surgical - wound Cx growing clifford sensitive P aeruginosa - there is some loose, non viable tissue at the site of tear from fall but no concerns for necrotizing fascitis - no systemic inv given lack of fever, leucocytosis, and normal lactic acid - MRSA nasal PCR neg - resolving 2. Moderate COPD: FEV1 58% in 05/2019 - on chronic oxygen through [place] 3. Factor 5 Leiden mutation: on life long Coumadin - past Hx of abd wall hematoma 4. RA: has deformities of hands and feet - on Enbrel per Rheum, last injection few weeks ago 5. Painful sore: left inner cheek - could be HSV - getting better, s/p PO Valacyclovir 2 gm q12 x 1 day Recommendations: - Stop IV Cefepime. will switch to PO Levofloxacin 750 mg q48 hrs for 2 doses. Pt would have finished a 7-day course in total by end of Levofloxacin treatment - Leg elevation to help decrease edema - debridement of the non viable tissue in left leg wound per Dr Rivas will follow Jasmeet Guerin MD Infectious diseases
[2019-10-10] MEDS: 0.9 % SODIUM CHLORIDE 10 ML SYRINGE IV SCH ×5 (05:32→21:48)
[2019-10-10] MEDS: HYDROcodone/APAP 10/325MG TABLET PO PRN ×3 (07:05→20:39)
[2019-10-10 08:26] LABS: Hemoglobin 10.7 g/dL (13.7-17.5); Mean Cell Volume 99.4 fL (80.0-100.0); Mean Corpuscular HGB Conc 31.5 g/dL (31.0-36.0); Mean Platelet Volume 9.8 fL (7.4-10.4); Platelet Count 311 K/mcL (140-440); RBC 3.42 M/mcL (4.63-6.08); Red Cell Distribution Width 14.2 % (11.5-14.5); WBC 9.2 K/mcL (4.50-11.00)
[2019-10-10 08:42] LABS: Bilirubin,Direct < 0.2 mg/dL (0.0-0.3); Chloride 100 mmol/L (96-108); Prothrombin Time 22.8 sec (11.9-14.5)
[2019-10-10 08:43] LABS: ALT/SGPT 17 U/l (0-40); AST/SGOT 25 U/l (0-37); Albumin 2.7 gm/dL (3.2-5.2); Alkaline Phosphatase 80 U/L (39-117); Bilirubin,Total 0.3 mg/dL (0.0-1.0); Blood Urea Nitrogen 27 mg/dl (8-23); Calcium 8.6 mg/dl (8.6-10.4); Carbon Dioxide 26 mmol/L (22-30); Globulin 2.7 gm/dL (2.2-3.7); Glomerular Filtration Rate 52; Glucose 76 mg/dL (70-105); Lactate Dehydrogenase 303 U/L (94-250); Phosphorous 2.7 mg/dL (2.7-4.5); Triglycerides 61 mg/dl (<150); Uric Acid 6.7 mg/dL (2.5-8.0)
[2019-10-10] MEDS: NYSTATIN 500,000 UNITS/5 ML ORAL.SUSP SSP SCH ×3 (09:19→21:45)
[2019-10-10] MEDS: MAGNESIUM OXIDE 400 MG TABLET PO SCH ×2 (09:19→21:45)
[2019-10-10] MEDS: CARVEDILOL 12.5 MG TABLET PO SCH ×2 (09:19→18:22)
[2019-10-10] MEDS: FOLIC ACID 1 MG TABLET PO SCH (09:20)
[2019-10-10] MEDS: LACTOBACILLUS 1 CAPSULE PO SCH (09:20)
[2019-10-10] MEDS: CYANOCOBALAMIN (VITAMIN B-12) 500 MCG TABLET PO SCH (09:20)
[2019-10-10] MEDS: predniSONE 1 MG TABLET PO SCH (09:20)
[2019-10-10] MEDS: DOCUSATE SODIUM 100 MG CAPSULE PO SCH ×2 (09:21→21:46)
[2019-10-10] MEDS: MULTIVIT,THER IRON,CA,FA & MIN 1 TABLET PO SCH (09:21)
[2019-10-10] MEDS: FUROSEMIDE 40 MG TABLET PO SCH (09:21)
--- NOTE | 2019-10-10 09:38 | Internal Med Progress Note ---
Medical - PN: Subj Patient information: Note initiated : 10/10/19 at 9:33 am Service Date, if different from initiated Date: [] Patient: Latrell Caro a 79 y/o M admitted on 10/07/19 for Fall. Chief Complaint: [] Interval history: Mr. Caro is a 79 year old M with a history of PMR on Enbrel / prednisone [facility] after recent hospitalization for left calf laceration and infected wound with necrosis. He has been following up with wound care. Patient today fell at the care facility and sustained a calf laceration from wheelchair. He denied precipitating events prior to fall. He denied loss of consciousness. He was referred to the ER for further evaluation. During initial evaluation it was noted that wound VAC that was placed left calf 24 hours ago has dislodged and was nonfunctional. The wounds around left calf has been oozing with significant redness and swelling entire lower extremity. There has been surrounding erythema and limb is exquisitely tender. However Doppler ultrasounds were negative for DVT. Worsening calf ulceration was noted 5 x 5 cm at least 4 to 5 mm in depth with areas of necrotic tissue. Subsequently wound care Dr. Rivas was consulted who requested hospitalist service to admit patient for further debridement/antibiotics. ID was also consulted. Patient was started on vancomycin after cultures were drawn At the time evaluation patient is accompanied with his . He was able to answer most questions. He appears fatigued lethargic but denies fevers, shaking chills, headache. He is currently on 4 mg of prednisone on a tapering dose for his PMR. 10/08-wound care following. On antibiotic coverage. Improved redness swelling. Stable white count.INR 1.6. Renal function stable. Pulmonology consulted for preoperative evaluation of chronic hypoxia/obstructive sleep apnea and mild COPD. Immunocompromise state currently on Enbrel/prednisone for history of PMR/RA. ID on board. Patient will likely undergo operative debridement/wound closure by wound physician. Keep n.p.o. Await anesthesia evaluation. 10/09-patient doing well. No overnight events. INR 1.9. White count stable. No fever chills. Ongoing wound care/due for operative intervention per wound physician. No family at bedside. 10/10-patient very tearful anxious and contemplating on stopping treatments and wanting to go home. Spent extended period of discussion with and patient regarding treatment plan and expected course for any major ulcer or wound healing. Patient would like to discuss case with wound care physician for insight to duration of treatment. Case discussed with Dr. Rivas. At this time patient willing to stay for continued treatments however feels very depressed and emotionally down. Continues on antibiotic coverage. White count down to 9.2. INR 2. Creatinine 1.3. Continue high protein calorie supplements to aid wound healing - Constitutional Vitals: Vital Signs Temp Pulse Resp BP Pulse Ox 98.7 F 89 18 120/68 90 10/10/19 08:00 10/10/19 08:00 10/10/19 08:00 10/10/19 08:00 10/10/19 08:00 Period Temp Pulse Resp BP Sys/Mccarthy Pulse Ox Last 24 Hr 98.0 F-99.0 F 86-112 18-24 97-131/57-80 89-96 Intake and Output 10/09/19 10/10/19 10/10/19 21:59 05:59 13:59 Intake Total 240 200 Output Total 150 250 Balance 240 50 -250 Weight 123 lb Intake & Output: Intake & Output 10/09/19 10/10/19 10/10/19 21:59 05:59 13:59 Intake Total 240 200 Output Total 150 250 Balance 240 50 -250 Weight 123 lb Intake: Oral 240 200 Output: Void Amount 150 250 Other: Urine Appearance Clear Clear Urine Color [place] Bright Yellow Urine Odor Normal Normal General appearance: moderate distress (Anxious tearful) Exam: Nonlabored breathing Bruising generalized Calf wound dressing Nondistended abdomen Medical - PN: Obj Da - Labs CBC & Chem 7: 10/10/19 05:35 10/10/19 05:35 Labs: Abnormal Lab Results 10/10/19 10/10/19 10/10/19 05:35 05:35 05:35 RBC 3.42 L Hgb 10.7 L Hct 34.0 L Seg Neutrophils % Lymphocytes % PT 22.8 H INR 2.0 H BUN 27 H Creatinine 1.3 H Lactate Dehydrogenase 303 H Total Protein 5.4 L Albumin 2.7 L Prealbumin Hyaline Casts 10/09/19 10/09/19 10/09/19 04:31 04:31 04:31 RBC Hgb Hct Seg Neutrophils % Lymphocytes % PT 22.6 H INR 1.9 H BUN 26 H Creatinine Lactate Dehydrogenase Total Protein 5.5 L Albumin 2.8 L Prealbumin 13.4 L Hyaline Casts 10/09/19 10/08/19 10/08/19 04:31 06:02 06:02 RBC 3.55 L Hgb 11.3 L Hct 35.3 L Seg Neutrophils % Lymphocytes % PT 19.9 H INR 1.6 H BUN Creatinine Lactate Dehydrogenase 251 H Total Protein 5.2 L Albumin 2.8 L Prealbumin Hyaline Casts 10/08/19 10/07/19 10/07/19 06:02 14:56 14:56 RBC 3.41 L Hgb 10.8 L Hct 33.8 L Seg Neutrophils % 82 H Lymphocytes % 8 L PT 20.1 H INR 1.7 H BUN 27 H Creatinine Lactate Dehydrogenase Total Protein Albumin Prealbumin Hyaline Casts 10/07/19 10/07/19 14:56 14:00 RBC 3.62 L Hgb 11.7 L Hct 36.1 L Seg Neutrophils % Lymphocytes % PT INR BUN Creatinine Lactate Dehydrogenase Total Protein Albumin Prealbumin Hyaline Casts 30 H Meds: Medications Acetaminophen (Tylenol) 650 mg PO Q4-6HP PRN; Protocol PRN Reason: Per Pain Protocol/Fever > 101 Hydrocodone Bitart/Acetaminophen ([place] 10/325mg) 1 - 2 tab PO .Q6H PRN; Protocol PRN Reason: pain Last Admin: 10/10/19 07:05 Dose: 1 tab Documented by: Amitriptyline HCl (Elavil) 187.5 mg PO [facility] Last Admin: 10/09/19 19:59 Dose: 187.5 mg Documented by: Atorvastatin Calcium (Lipitor) 40 mg PO [facility] Last Admin: 10/09/19 19:59 Dose: 40 mg Documented by: Bisacodyl (Dulcolax) 10 mg [place] Q2-3DAYS PRN PRN Reason: Constipation Buspirone HCl (Buspar) 15 mg PO QHS [facility] Last Admin: 10/09/19 19:59 Dose: 15 mg Documented by: Carvedilol (Coreg) 12.5 mg PO BIDCC [facility] Last Admin: 10/10/19 09:19 Dose: 12.5 mg Documented by: Cyanocobalamin (Vitamin B-12) 500 mcg PO QDAY [facility] Last Admin: 10/10/19 09:20 Dose: 500 mcg Documented by: Docusate Sodium (Colace) 100 mg PO BID [facility] Last Admin: 10/10/19 09:21 Dose: 100 mg Documented by: Folic Acid (Folic Acid) 1 mg PO DAILY [facility] Last Admin: 10/10/19 09:20 Dose: 1 mg Documented by: Furosemide (Lasix) 40 mg PO QDAY [facility] Last Admin: 10/10/19 09:21 Dose: 40 mg Documented by: Heparin Sodium (Porcine) (Heparin Flush) 2 ml IV Q12 [facility] Last Admin: 10/10/19 09:21 Dose: Not Given Documented by: Magnesium Sulfate (Magnesium Sulfate) 2 gm in 50 mls @ 50 mls/hr IV UD PRN PRN Reason: MG = or < 1.7 Iron Carb/Multivit/[place]/Folic Acid (Multivitamin W/Minerals) 1 tab PO DAILY [facility] Last Admin: 10/10/19 09:21 Dose: 1 tab Documented by: Lactobacillus Rhamnosus (Culturelle) 1 cap PO DAILY [facility] Last Admin: 10/10/19 09:20 Dose: 1 cap Documented by: Levofloxacin (Levaquin) 750 mg PO Q48H [facility]; Protocol Stop: 10/11/19 09:31 Last Admin: 10/09/19 10:25 Dose: 750 mg Documented by: Magnesium Oxide (Magnesium Oxide) 400 mg PO BID [facility] Last Admin: 10/10/19 09:19 Dose: 400 mg Documented by: Melatonin (Melatonin 3mg Tablet) 3 mg PO HSP PRN PRN Reason: Insomnia Last Admin: 10/07/19 21:14 Dose: 3 mg Documented by: Nystatin (Nystatin) 500,000 units SSP TID [facility] Last Admin: 10/10/19 09:19 Dose: 500,000 units Documented by: Oxandrolone (Oxandrin) 5 mg PO BID [facility] Diclofenac Sodium [ (Voltaren] Top Oint) 1 dose TOPICAL QIDP PRN PRN Reason: pain Teriparatide [Forteo ] 20 Mcg/Dose Solution 1 dose SC HS [facility] Last Admin: 10/09/19 20:00 Dose: 1 dose Documented by: Polyethylene Glycol (Miralax) 17 gm PO DAILYP PRN PRN Reason: Constipation Potassium Chloride (Klor-Con) 40 meq PO DAILYP PRN PRN Reason: K+ < 3.5 Prednisone (Prednisone) 4 mg PO QAMCC [facility] Last Admin: 10/10/19 09:20 Dose: 4 mg Documented by: Senna/Docusate Sodium (Senna Plus Tablet) 1 tab PO HS [facility] Last Admin: 10/09/19 19:59 Dose: 1 tab Documented by: Sodium Chloride (Saline Flush) 10 ml IV Q8 [facility] Last Admin: 10/10/19 05:32 Dose: 10 ml Documented by: Sodium Chloride (Saline Flush) 10 ml IV Q12 [facility] Last Admin: 10/10/19 09:23 Dose: 10 ml Documented by: Tramadol HCl (Ultram) 100 mg PO BIDP PRN PRN Reason: Pain Last Admin: 10/09/19 08:42 Dose: 100 mg Documented by: Warfarin Sodium (Coumadin Per Pharmacy) 1 order PO DAILY@1400 [facility] Last Admin: 10/09/19 14:49 Dose: Not Given Documented by: Medical - PN: A/P - Time Spent With Patient Total time spent is greater than 50% in coordination of care (as documented) at patient's floor/unit and/or counseling patient: 25 - 35 minutes (1) Cellulitis of left lower extremity Status: Acute Assessment and plan: * Left lower extremity cellulitis/nonhealing wounds in the setting of immunocompromised state-continue antibiotics per infectious specialist. Ongo ing wound care/limb elevation/daily dressings. Wound care considering vascular studies to evaluate blood flow to ensure adequate wound healing * Left calf ulceration/posterior upper calf laceration during subsequent trauma- managed by Dr. Rivas. * Protein calorie malnutrition continue nutrition support/protein calorie supplements * Chronic hypoxia -pulmonary consulted by wound care for preoperative evaluation * History of PMR continue home dose 4 mg p.o. prednisone * History diastolic CHF stable on Coreg * History of CAD status post CABG stable continue beta-elayne * CKD stage III-avoid nephrotoxins. Creatinine 1.1 * Neuropathy continue amitriptyline * History CARLOS/mild COPD on CPAP. Follows up outpatient with Dr. Crowley pulmonology. Pulmonology recommends repeat spirometry and care for po stoperative respiratory muscle weakness in the setting of PMR * History of hypertension continue home medications * History of RA on Enbrel managed by Dr. Bacon * Anxiety depression continue BuSpar * Osteoporosis continue Forteo * History of DVT continue anticoagulation on warfarin. INR 1.9 * Full code * Prophylaxis - Coumadin Plan * Continue antibiotics per ID * Continue wound management per Dr. Rivas * Continue pre-existing medical condition management as above * Coumadin dosing based on INR * Nutrition support with high protein calorie supplements * PT OT Current Visit: Yes Medical - PN: Qual - Stroke Symptom Onset Unknown: No - VTE Deep Vein Thrombosis/Pulmonary Embolism Present on Admission: No
[2019-10-10] MEDS: OXANDROLONE 2.5 MG TABLET PO SCH ×2 (10:00→21:55)
[2019-10-10 10:07] LABS: Eosinophils % (Manual) 10 % (0-7); Lymphocytes % 11 % (15-49); Monocytes % (Manual) 11 % (1-12); Platelet Estimate NORMAL (NORMAL); RBC Morphology NORMAL (NORMAL); Segmented Neutrophils % 68 % (38-78)
[2019-10-10] MEDS ORDERED: VANCOMYCIN PER PHARMACY IV SCH (12:23)
[2019-10-10] MEDS: VANCOMYCIN 1,000 MG in 0.9 % SODIUM CHLORIDE 250 ML IV SCH (13:29)
[2019-10-10] MEDS ORDERED: WARFARIN 5 MG TABLET PO ONE (14:00)
--- NOTE | 2019-10-10 17:17 | Infectious Disease Prog Note ---
Subjective Patient information: Note initiated : 10/10/19 at 5:13 pm Service Date, if different from initiated Date: [] Patient: Latrell Caro 79 y/o M admitted on 10/07/19 for Fall. Chief Complaint: [] Interval history: Pt feels better. Is off any supplemental oxygen. Denies any fever, chills, n/v, diarrhea. reports blisters over the left foot since yesterday. Endorses pain in left leg, mentions it is slightly better than yesterday. Also feels his oral sore pain is better. Objective Objective Narrative: ao x 3, in nad no thrush has a tiny (significant decrease in size) sore over the left inner cheek area/palate left foot: has multiple blisters over foot and leg. on puncturing one of blister, drainage of serous fluid. 2 of the the bigger wounds have red granulati on tissue with few areas of yellow exudate. The red granulation tissue bleeds to touch. The foot is warm, with no distal discoloration. - Vital Signs Vital signs: Vital Signs Temp Pulse Resp BP BP BP Pulse Ox 10/10/19 12:00 36.2 C 87 18 96/60 92 10/10/19 08:00 37.1 C 89 18 120/68 90 10/10/19 03:25 36.7 C 106 H 24 H 131/80 90 10/09/19 23:11 37.2 C 93 H 22 128/76 89 L 10/09/19 20:00 20 10/09/19 19:37 36.9 C 112 H 24 H 120/75 96 Intake and Output 10/10/19 10/10/19 10/10/19 05:59 13:59 21:59 Intake Total 200 Output Total 150 250 Balance 50 -250 Intake: Oral 200 Output: Void Amount 150 250 Other: Meal Breakfast Percent of Meal Consumed 50% Feeding Ability Assist with Tray Set Up Urine Appearance Clear Urine Color Bright Yellow Urine Odor Normal Intake & Output: Intake & Output 10/10/19 10/10/19 10/10/19 05:59 13:59 21:59 Intake Total 200 Output Total 150 250 Balance 50 -250 Intake: Oral 200 Output: Void Amount 150 250 Other: Meal Breakfast Percent of Meal Consumed 50% Feeding Ability Assist with Tray Set Up Urine Appearance Clear Urine Color Bright Yellow Urine Odor Normal - Lab 10/10/19 05:35 10/10/19 05:35 Most recent lab results Calcium 8.6 mg/dl (8.6-10.4) 10/10/19 05:35 Phosphorus 2.7 mg/dL (2.7-4.5) 10/10/19 05:35 Magnesium 2.2 mg/dL (1.6-2.5) 10/10/19 05:35 Microbiology 10/07/19 15:11 Blood Blood Culture - Preliminary 10/07/19 14:56 Blood Blood Culture - Preliminary 10/10/19 12:08 Leg - Lower Left Gram Stain - Final 10/07/19 17:54 Leg - Lower Left Gram Stain - Final 10/07/19 17:54 Leg - Lower Left Wound Culture - Final Pseudomonas aeruginosa 10/07/19 17:53 Leg - Upper Left Gram Stain - Final 10/07/19 17:53 Leg - Upper Left Wound Culture - Final 10/07/19 17:54 Nose MRSA (PCR) - Final Medications Active Medications: Acetaminophen (Tylenol) 650 mg PO Q4-6HP PRN; Protocol PRN Reason: Per Pain Protocol/Fever > 101 Hydrocodone Bitart/Acetaminophen (Canaan 10/325mg) 1 - 2 tab PO .Q6H PRN; Protocol PRN Reason: pain Last Admin: 10/10/19 13:30 Dose: 1 tab Documented by: Admin: 10/10/19 07:05 Dose: 1 tab Documented by: Admin: 10/09/19 18:16 Dose: 1 tab Documented by: Admin: 10/09/19 10:25 Dose: 1 tab Documented by: [email or web address] Admin: 10/09/19 04:32 Dose: 1 tab Documented by: Admin: 10/08/19 21:14 Dose: 1 tab Documented by: Admin: 10/08/19 16:54 Dose: 1 tab Documented by: Admin: 10/08/19 10:21 Dose: 1 tab Documented by: Admin: 10/07/19 21:13 Dose: 1 tab Documented by: [email or web address] Amitriptyline HCl (Elavil) 187.5 mg PO HS GUILLERMO Last Admin: 10/09/19 19:59 Dose: 187.5 mg Documented by: JARON Atorvastatin Calcium (Lipitor) 40 mg PO HS [facility] Last Admin: 10/09/19 19:59 Dose: 40 mg Documented by: Admin: 10/08/19 21:14 Dose: 40 mg Documented by: Admin: 10/07/19 21:14 Dose: 40 mg Documented by: [email or web address] Bisacodyl (Dulcolax) 10 mg NV Q2-3DAYS PRN PRN Reason: Constipation Buspirone HCl (Buspar) 15 mg PO QHS [facility] Last Admin: 10/09/19 19:59 Dose: 15 mg Documented by: Admin: 10/08/19 21:14 Dose: 15 mg Documented by: Admin: 10/07/19 21:15 Dose: 15 mg Documented by: [email or web address] [facility]) [facility] Last Admin: 10/10/19 09:19 Dose: 12.5 mg Documented by: Admin: 10/09/19 17:52 Dose: Not Given Documented by: CIERA Non-Admin Reason: Clinical Judgement Admin: 10/09/19 08:22 Dose: 12.5 mg Documented by: Admin: 10/08/19 16:54 Dose: 12.5 mg Documented by: Admin: 10/08/19 08:03 Dose: 12.5 mg Documented by: Admin: 10/07/19 21:21 Dose: 12.5 mg Documented by: [email or web address] Cyanocobalamin (Vitamin B-12) 500 mcg PO QDAY [facility] Admin: 10/10/19 09:20 Dose: 500 mcg Documented by: Admin: 10/09/19 08:24 Dose: 500 mcg Documented by: Admin: 10/08/19 09:10 Dose: 500 mcg Documented by: [facility] Docusate Sodium (Colace) 100 mg PO BID [facility] Last Admin: 10/10/19 09:21 Dose: 100 mg Documented by: Admin: 10/09/19 19:59 Dose: 100 mg Documented by: Admin: 10/09/19 08:24 Dose: 100 mg Documented by: Admin: 10/08/19 21:14 Dose: 100 mg Documented by: Admin: 10/08/19 09:10 Dose: 100 mg Documented by: Admin: 10/07/19 21:14 Dose: 100 mg Documented by: [email or web address] Folic Acid (Folic Acid) 1 mg PO DAILY [facility] Last Admin: 10/10/19 09:20 Dose: 1 mg Documented by: Admin: 10/09/19 08:23 Dose: 1 mg Documented by: Admin: 10/08/19 09:10 Dose: 1 mg Documented by: CHELSI Furosemide (Lasix) 40 mg PO QDAY [facility] Last Admin: 10/10/19 09:21 Dose: 40 mg Documented by: Admin: 10/09/19 08:24 Dose: 40 mg Documented by: Admin: 10/08/19 09:10 Dose: 40 mg Documented by: F Heparin Sodium (Porcine) (Heparin Flush) 2 ml IV Q12 [facility] Last Admin: 10/10/19 09:21 Dose: Not Given Documented by: CIERA Non-Admin Reason: No IV access Magnesium Sulfate (Magnesium Sulfate) 2 gm in 50 mls @ 50 mls/hr IV UD PRN PRN Reason: MG = or < 1.7 Vancomycin HCl 1,000 mg/ (Sodium Chloride) 250 mls @ 250 mls/hr IV Q24H [facility] Last Admin: 10/10/19 13:29 Dose: 250 mls/hr Documented by: CIERA Iron Carb/Multivit/Nailer Machine/Folic Acid (Multivitamin W/Minerals) 1 tab PO DAILY [facility] Last Admin: 10/10/19 09:21 Dose: 1 tab Documented by: Admin: 10/09/19 08:24 Dose: 1 tab Documented by: Admin: 10/08/19 09:10 Dose: 1 tab Documented by: F Lactobacillus Rhamnosus (Culturelle) 1 cap PO DAILY [facility] Last Admin: 10/10/19 09:20 Dose: 1 cap Documented by: Admin: 10/09/19 08:22 Dose: 1 cap Documented by: Admin: 10/08/19 09:10 Dose: 1 cap Documented by: F Levofloxacin (Levaquin) 750 mg PO Q48H [facility]; Protocol Stop: 10/11/19 09:31 Last Admin: 10/09/19 10:25 Dose: 750 mg Documented by: [email or web address] Magnesium Oxide (Magnesium Oxide) 400 mg PO BID [facility] Last Admin: 10/10/19 09:19 Dose: 400 mg Documented by: Admin: 10/09/19 19:59 Dose: 400 mg Documented by: Admin: 10/09/19 08:24 Dose: 400 mg Documented by: Admin: 10/08/19 21:14 Dose: 400 mg Documented by: Admin: 10/08/19 09:10 Dose: 400 mg Documented by: Admin: 10/07/19 21:14 Dose: 400 mg Documented by: [email or web address] Melatonin (Melatonin 3mg Tablet) 3 mg PO HSP PRN PRN Reason: Insomnia Last Admin: 10/07/19 21:14 Dose: 3 mg Documented by: [email or web address] Nystatin (Nystatin) 500,000 units SSP TID [facility] Last Admin: 10/10/19 16:28 Dose: 500,000 units Documented by: Admin: 10/10/19 09:19 Dose: 500,000 units Documented by: Admin: 10/09/19 19:59 Dose: 500,000 units Documented by: Admin: 10/09/19 15:05 Dose: 500,000 units Documented by: Admin: 10/09/19 08:21 Dose: 500,000 units Documented by: Admin: 10/08/19 21:13 Dose: 500,000 units Documented by: Admin: 10/08/19 15:25 Dose: 500,000 units Documented by: CHELSI Oxandrolone (Oxandrin) 5 mg PO BID [facility] Last Admin: 10/10/19 10:00 Dose: 5 mg Documented by: [email or web address] Diclofenac Sodium [ (Voltaren] Top Oint) 1 dose TOPICAL QIDP PRN PRN Reason: pain Teriparatide [Forteo ] 20 Mcg/Dose Solution 1 dose SC HS [facility] Last Admin: 10/09/19 20:00 Dose: 1 dose Documented by: Admin: 10/08/19 21:20 Dose: 1 dose Documented by: JARON Polyethylene Glycol (Miralax) 17 gm PO DAILYP PRN PRN Reason: Constipation Potassium Chloride (Klor-Con) 40 meq PO DAILYP PRN PRN Reason: K+ < 3.5 [facility] Admin: 10/10/19 09:20 Dose: 4 mg Documented by: Admin: 10/09/19 08:22 Dose: 4 mg Documented by: Admin: 10/08/19 08:03 Dose: 4 mg Documented by: CHELSI Senna/Docusate Sodium (Senna Plus Tablet) 1 tab PO HS [facility] Last Admin: 10/09/19 19:59 Dose: 1 tab Documented by: Admin: 10/08/19 21:20 Dose: Not Given Documented by: JARON Non-Admin Reason: Loose Stool Admin: 10/07/19 21:15 Dose: 1 tab Documented by: BALJIT Sodium Chloride (Saline Flush) 10 ml IV Q8 [facility] Last Admin: 10/10/19 14:00 Dose: 10 ml Documented by: Admin: 10/10/19 05:32 Dose: 10 ml Documented by: Admin: 10/09/19 22:18 Dose: 10 ml Documented by: Admin: 10/09/19 17:41 Dose: Not Given Documented by: CIERA Non-Admin Reason: new IV started Admin: 10/09/19 04:32 Dose: 10 ml Documented by: Admin: 10/08/19 21:15 Dose: 10 ml Documented by: Admin: 10/08/19 14:09 Dose: 10 ml Documented by: Admin: 10/08/19 05:57 Dose: 10 ml Documented by: Admin: 10/07/19 21:16 Dose: 10 ml Documented by: BALJIT Sodium Chloride (Saline Flush) 10 ml IV Q12 [facility] Last Admin: 10/10/19 09:23 Dose: 10 ml Documented by: CIERA Tramadol HCl (Ultram) 100 mg PO BIDP PRN PRN Reason: Pain Last Admin: 10/09/19 08:42 Dose: 100 mg Documented by: Admin: 10/07/19 21:14 Dose: 100 mg Documented by: BALJIT Vancomycin HCl (Vancomycin Per Pharmacy) 1 order IV UD [facility]; Protocol Warfarin Sodium (Coumadin Per Pharmacy) 1 order PO DAILY@1400 [facility] Last Admin: 10/10/19 15:28 Dose: Not Given Documented by: CIERA Non-Admin Reason: per pharmacy Admin: 10/09/19 14:49 Dose: Not Given Documented by: CIERA Non-Admin Reason: per pharmacy Admin: 10/08/19 14:09 Dose: Not Given Documented by: FMF Non-Admin Reason: Duplicate Assessment and Plan - Narrative A/P Narrative: A: 1. Left lower leg cellulitis in an immunosuppressed patient: post-traumatic, post-surgical - wound Cx growing clifford sensitive P aeruginosa - there is some loose, non viable tissue at the site of tear from fall but no concerns for necrotizing fascitis - no systemic inv given lack of fever, leucocytosis, and normal lactic acid - MRSA nasal PCR neg - resolving 2. New onset of blisters over left leg and foot: seems like Impetigo. Causes could be Staph aureus (MRSA or MSSA) or Strept 3. 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 Factor 5 Leiden mutation: on life long Coumadin - past Hx of abd wall hematoma 5. RA: has deformities of hands and feet - on Enbrel per Rheum, last injection few weeks ago 6. Painful sore: left inner cheek - could be HSV - getting better, s/p PO Valacyclovir 2 gm q12 x 1 day Recommendations: - Continue PO Levofloxacin 750 mg q48 hrs for 2 doses. Pt would have finished a 7-day course in total by end of Levofloxacin treatment - Start IV Vanc per pharmacy assisted dosing. Check Vanc trough before 4th dose (target 10-20). If the blistering becomes widespread will consider it as allergic reaction and possibility of Walters Noe syndrome. - cultures for gram stain and bacterial isolation from one of the blisters sent today - Leg elevation to help decrease edema - debridement of the non viable tissue in left leg wound per Dr Rivas will follow Jasmeet Guerin MD Infectious diseases
--- NOTE | 2019-10-10 17:58 | General Surgery Progress Note ---
Subjective Patient reports: pain is less, bowel movement, afebrile, other (ANXIETY about uncertainity of how his condition is going to evlove . Fluctuating moods. But very lucid and appropriate in conversations about a variety of topics. I saw isiah kingston several times during the day and inspected his wounds.) Narrative: Note initiated : 10/10/19 at 5:55 pm Service Date, if different from initiated Date: [] Patient: Latrell Caro 79 y/o M admitted on 10/07/19 for Fall. Chief Complaint: [] Objective Temp Pulse Resp BP Pulse Ox 97.1 F 87 18 96/60 92 10/10/19 12:00 10/10/19 12:00 10/10/19 12:00 10/10/19 12:00 10/10/19 12:00 AVSS Feeling stronger. Looks good. Walked over 100 feet. Physical therapy following. Appetite is improving. L/E. Blister areas around wound edges Drying, but here are new blisters as well. Labs reviewed. Culture reports seen. WBC is normal Creatinine is 1.3 Monitor. NOT planing on OR surgical debridement Discussed with patient and nurses. Dr. Lynne Anesthesiologist informed. Saw patient with Elisabeth De La Cruz RN ID is on case. - Additional Data Intake & Output - Last 24 hours: Intake & Output 10/08/19 10/09/19 10/10/19 10/11/19 05:59 05:59 05:59 05:59 Intake Total 400 1190 700 250 Output Total 675 450 250 Balance -275 1190 250 0 Weight 116 lb 120 lb 8 oz 123 lb - Labs 10/10/19 05:35 10/10/19 05:35 Diabetes panel 10/10/19 Range/Units 05:35 Sodium 137 (133-145) mmol/L Potassium 4.4 (3.3-5.1) mmol/L Chloride 100 (96-108) mmol/L Carbon Dioxide 26 (22-30) mmol/L BUN 27 H (8-23) mg/dl Creatinine 1.3 H (0.7-1.2) mg/dl Glucose 76 (70-105) mg/dL Calcium 8.6 (8.6-10.4) mg/dl AST 25 (0-37) U/l ALT 17 (0-40) U/l Alkaline Phosphatase 80 (39-117) U/L Total Protein 5.4 L (5.9-8.4) gm/dL Albumin 2.7 L (3.2-5.2) gm/dL Triglycerides 61 (<150) mg/dl Calcium panel 10/10/19 Range/Units 05:35 Calcium 8.6 (8.6-10.4) mg/dl Phosphorus 2.7 (2.7-4.5) mg/dL Albumin 2.7 L (3.2-5.2) gm/dL Pituitary panel 10/10/19 Range/Units 05:35 Sodium 137 (133-145) mmol/L Potassium 4.4 (3.3-5.1) mmol/L Chloride 100 (96-108) mmol/L Carbon Dioxide 26 (22-30) mmol/L BUN 27 H (8-23) mg/dl Creatinine 1.3 H (0.7-1.2) mg/dl Glucose 76 (70-105) mg/dL Calcium 8.6 (8.6-10.4) mg/dl Adrenal panel 10/10/19 Range/Units 05:35 Sodium 137 (133-145) mmol/L Potassium 4.4 (3.3-5.1) mmol/L Chloride 100 (96-108) mmol/L Carbon Dioxide 26 (22-30) mmol/L BUN 27 H (8-23) mg/dl Creatinine 1.3 H (0.7-1.2) mg/dl Glucose 76 (70-105) mg/dL Calcium 8.6 (8.6-10.4) mg/dl Total Bilirubin 0.3 (0.0-1.0) mg/dL AST 25 (0-37) U/l ALT 17 (0-40) U/l Alkaline Phosphatase 80 (39-117) U/L Total Protein 5.4 L (5.9-8.4) gm/dL Albumin 2.7 L (3.2-5.2) gm/dL Assessment and Plan (1) Skin tear of left lower leg without complication Status: Acute Current Visit: No (2) Wound infection Status: Acute Current Visit: No (3) Coagulopathy Problem details: COUMADIN ON HOLD at this time. Status: Chronic Current Visit: No - Narrative A/P Narrative: Assessment: Anxiety and labile Emotions Malnutrition / Hypoproteinemia Acute and Chronic wounds NEEDS daily wound care. Plan: Will reassess wounds in AM Will discuss further plan of care later. - Time Spent With Patient Total time spent is greater than 50% in coordination of care (as documented) at patient's floor/unit and/or counseling patient: Greater than 35 minutes
[2019-10-10] MEDS: TERIPARATIDE SC SCH (21:45)
[2019-10-10] MEDS: busPIRone 15 MG TABLET PO SCH (21:45)
[2019-10-10] MEDS: ARIPIPRAZOLE 5 MG TABLET PO SCH (21:45)
[2019-10-10] MEDS: ATORVASTATIN 40 MG TABLET PO SCH (21:45)
[2019-10-10] MEDS: AMITRIPTYLINE 25 MG TABLET PO SCH (21:46)
[2019-10-10] MEDS: SENNOSIDES/DOCUSATE SODIUM 1 TAB TABLET PO SCH (21:47)
[2019-10-11] MEDS: 0.9 % SODIUM CHLORIDE 10 ML SYRINGE IV SCH ×3 (03:40→09:16)
[2019-10-11] MEDS: CARVEDILOL 12.5 MG TABLET PO SCH (07:34)
[2019-10-11] MEDS: predniSONE 1 MG TABLET PO SCH (07:34)
[2019-10-11 08:25] LABS: Hematocrit 31.7 % (40.1-51.0); Hemoglobin 10.2 g/dL (13.7-17.5); Mean Corpuscular HGB Conc 32.2 g/dL (31.0-36.0); Mean Platelet Volume 9.6 fL (7.4-10.4); Platelet Count 291 K/mcL (140-440); RBC 3.17 M/mcL (4.63-6.08); Red Cell Distribution Width 14.2 % (11.5-14.5); WBC 9.3 K/mcL (4.50-11.00)
[2019-10-11 08:50] LABS: ALT/SGPT 17 U/l (0-40); AST/SGOT 22 U/l (0-37); Albumin 2.5 gm/dL (3.2-5.2); Albumin/Globulin Ratio 0.9 (1.0-2.3); Alkaline Phosphatase 76 U/L (39-117); Bilirubin,Direct < 0.2 mg/dL (0.0-0.3); Bilirubin,Total 0.3 mg/dL (0.0-1.0); Blood Urea Nitrogen 28 mg/dl (8-23); Calcium 8.3 mg/dl (8.6-10.4); Carbon Dioxide 25 mmol/L (22-30); Chloride 103 mmol/L (96-108); Globulin 2.7 gm/dL (2.2-3.7); Glomerular Filtration Rate 52; Glucose 76 mg/dL (70-105); Lactate Dehydrogenase 223 U/L (94-250); Phosphorous 2.1 mg/dL (2.7-4.5); Triglycerides 63 mg/dl (<150); Uric Acid 6.7 mg/dL (2.5-8.0)
[2019-10-11] MEDS: CYANOCOBALAMIN (VITAMIN B-12) 500 MCG TABLET PO SCH (08:52)
[2019-10-11] MEDS: MAGNESIUM OXIDE 400 MG TABLET PO SCH (08:52)
[2019-10-11] MEDS: LACTOBACILLUS 1 CAPSULE PO SCH (08:52)
[2019-10-11] MEDS: DOCUSATE SODIUM 100 MG CAPSULE PO SCH (08:52)
[2019-10-11] MEDS: FOLIC ACID 1 MG TABLET PO SCH (08:52)
[2019-10-11] MEDS: MULTIVIT,THER IRON,CA,FA & MIN 1 TABLET PO SCH (08:52)
[2019-10-11] MEDS: FUROSEMIDE 40 MG TABLET PO SCH (08:52)
[2019-10-11] MEDS: NYSTATIN 500,000 UNITS/5 ML ORAL.SUSP SSP SCH (08:52)
[2019-10-11 08:55] LABS: INR 1.9 (0.9-1.1); Prothrombin Time 22.7 sec (11.9-14.5)
[2019-10-11] MEDS: VANCOMYCIN 1,000 MG in 0.9 % SODIUM CHLORIDE 250 ML IV SCH (09:02)
--- NOTE | 2019-10-11 09:11 | Infectious Disease Prog Note ---
Subjective Patient information: Note initiated : 10/11/19 at 9:08 am Service Date, if different from initiated Date: [] Patient: Latrell Caro 79 y/o M admitted on 10/07/19 for Fall. Chief Complaint: [] Objective Objective Narrative: ao x 3, in nad no thrush has a tiny (significant decrease in size) sore over the left inner cheek area/palate left foot: has multiple blisters over foot and leg. on puncturing one of blister, drainage of serous fluid. 2 of the the bigger wounds have red granulation tissue with few areas of yellow exudate. The red granulation tissue bleeds to touch. The foot is warm, with no distal discoloration. - Vital Signs Vital signs: Vital Signs Temp Pulse Resp BP BP Pulse Ox 10/11/19 07:40 37.0 C 84 16 127/67 89 L 10/11/19 07:39 84 10/11/19 03:39 36.8 C 85 16 141/76 92 10/10/19 23:49 36.7 C 86 14 106/64 90 10/10/19 21:22 14 10/10/19 20:00 37.6 C H 78 14 115/69 92 10/10/19 16:00 36.8 C 73 18 107/70 90 10/10/19 12:00 36.2 C 87 18 96/60 92 Intake and Output 10/10/19 10/11/19 10/11/19 21:59 05:59 13:59 Intake Total 500 400 Output Total 250 Balance 250 400 Intake: Nourishment/Supplement quantity 250 (ml) IV 250 Vancomycin 1,000 mg In Sodium 250 Chloride 0.9% 250 ml @ 250 mls/ hr IV Q24H [facility] Rx#:[id number] Oral 400 Output: Void Amount 250 Other: Meal Lunch Percent of Meal Consumed 75% Feeding Ability Independent Nourishment/Supplement name boost Urine Appearance Clear Urine Color Bright Yellow Urine Odor Normal Stool Size Moderate Stool Color Brown Stool Consistency Normal for Patient Formed # Voids 3 1 # Bowel Movements 2 Weight 56.302 kg Intake & Output: Intake & Output 10/10/19 10/11/19 10/11/19 21:59 05:59 13:59 Intake Total 500 400 Output Total 250 Balance 250 400 Weight 56.302 kg Intake: Nourishment/Supplement quantity 250 (ml) IV 250 Vancomycin 1,000 mg In Sodium 250 Chloride 0.9% 250 ml @ 250 mls/ hr IV Q24H [facility] Rx#:[id number] Oral 400 Output: Void Amount 250 Other: Meal Lunch Percent of Meal Consumed 75% Feeding Ability Independent Nourishment/Supplement name boost Urine Appearance Clear Urine Color Bright Yellow Urine Odor Normal Stool Size Moderate Stool Color Brown Stool Consistency Normal for Patient Formed # Voids 3 1 # Bowel Movements 2 - Lab 10/11/19 05:35 10/11/19 05:35 Most recent lab results Calcium 8.3 mg/dl (8.6-10.4) L 10/11/19 05:35 Phosphorus 2.1 mg/dL (2.7-4.5) L 10/11/19 05:35 Magnesium 2.2 mg/dL (1.6-2.5) 10/11/19 05:35 Microbiology 10/07/19 15:11 Blood Blood Culture - Preliminary 10/07/19 14:56 Blood Blood Culture - Preliminary 10/10/19 12:08 Leg - Lower Left Gram Stain - Final 10/07/19 17:54 Leg - Lower Left Gram Stain - Final 10/07/19 17:54 Leg - Lower Left Wound Culture - Final Pseudomonas aeruginosa 10/07/19 17:53 Leg - Upper Left Gram Stain - Final 10/07/19 17:53 Leg - Upper Left Wound Culture - Final 10/07/19 17:54 Nose MRSA (PCR) - Final Medications Active Medications: Acetaminophen (Tylenol) 650 mg PO Q4-6HP PRN; Protocol PRN Reason: Per Pain Protocol/Fever > 101 Hydrocodone Bitart/Acetaminophen (Viburnum 10/325mg) 1 - 2 tab PO .Q6H PRN; Protocol PRN Reason: pain Last Admin: 10/10/19 20:39 Dose: 1 tab Documented by: Admin: 10/10/19 13:30 Dose: 1 tab Documented by: Admin: 10/10/19 07:05 Dose: 1 tab Documented by: Admin: 10/09/19 18:16 Dose: 1 tab Documented by: Admin: 10/09/19 10:25 Dose: 1 tab Documented by: [email or web address] Admin: 10/09/19 04:32 Dose: 1 tab Documented by: Admin: 10/08/19 21:14 Dose: 1 tab Documented by: Admin: 10/08/19 16:54 Dose: 1 tab Documented by: Admin: 10/08/19 10:21 Dose: 1 tab Documented by: Admin: 10/07/19 21:13 Dose: 1 tab Documented by: [email or web address] Amitriptyline HCl (Elavil) 187.5 mg PO [facility] Last Admin: 10/10/19 21:46 Dose: 187.5 mg Documented by: Admin: 10/09/19 19:59 Dose: 187.5 mg Documented by: JARON Atorvastatin Calcium (Lipitor) 40 mg PO [facility] Last Admin: 10/10/19 21:45 Dose: 40 mg Documented by: Admin: 10/09/19 19:59 Dose: 40 mg Documented by: Admin: 10/08/19 21:14 Dose: 40 mg Documented by: Admin: 10/07/19 21:14 Dose: 40 mg Documented by: [email or web address] Bisacodyl (Dulcolax) 10 mg [place] Q2-3DAYS PRN PRN Reason: Constipation Buspirone HCl (Buspar) 15 mg PO QHS [facility] Last Admin: 10/10/19 21:45 Dose: 15 mg Documented by: Admin: 10/09/19 19:59 Dose: 15 mg Documented by: Admin: 10/08/19 21:14 Dose: 15 mg Documented by: Admin: 10/07/19 21:15 Dose: 15 mg Documented by: [email or web address] [facility]) [facility] Last Admin: 10/11/19 07:34 Dose: 12.5 mg Documented by: [email or web address] Admin: 10/10/19 18:22 Dose: 12.5 mg Documented by: Admin: 10/10/19 09:19 Dose: 12.5 mg Documented by: Admin: 10/09/19 17:52 Dose: Not Given Documented by: CIERA Non-Admin Reason: Clinical Judgement Admin: 10/09/19 08:22 Dose: 12.5 mg Documented by: Admin: 10/08/19 16:54 Dose: 12.5 mg Documented by: Admin: 10/08/19 08:03 Dose: 12.5 mg Documented by: Admin: 10/07/19 21:21 Dose: 12.5 mg Documented by: [email or web address] Cyanocobalamin (Vitamin B-12) 500 mcg PO QDAY [facility] Admin: 10/11/19 08:52 Dose: 500 mcg Documented by: [email or web address] Admin: 10/10/19 09:20 Dose: 500 mcg Documented by: Admin: 10/09/19 08:24 Dose: 500 mcg Documented by: Admin: 10/08/19 09:10 Dose: 500 mcg Documented by: F Docusate Sodium (Colace) 100 mg PO BID [facility] Last Admin: 10/11/19 08:52 Dose: 100 mg Documented by: Admin: 10/10/19 21:46 Dose: 100 mg Documented by: Admin: 10/10/19 09:21 Dose: 100 mg Documented by: Admin: 10/09/19 19:59 Dose: 100 mg Documented by: Admin: 10/09/19 08:24 Dose: 100 mg Documented by: Admin: 10/08/19 21:14 Dose: 100 mg Documented by: Admin: 10/08/19 09:10 Dose: 100 mg Documented by: Admin: 10/07/19 21:14 Dose: 100 mg Documented by: [email or web address] Folic Acid (Folic Acid) 1 mg PO DAILY [facility] Admin: 10/11/19 08:52 Dose: 1 mg Documented by: Admin: 10/10/19 09:20 Dose: 1 mg Documented by: Admin: 10/09/19 08:23 Dose: 1 mg Documented by: Admin: 10/08/19 09:10 Dose: 1 mg Documented by: CHELSI Furosemide (Lasix) 40 mg PO QDAY [facility] Last Admin: 10/11/19 08:52 Dose: 40 mg Documented by: Admin: 10/10/19 09:21 Dose: 40 mg Documented by: Admin: 10/09/19 08:24 Dose: 40 mg [facility]: [facility]: 10/08/19 09:10 Dose: 40 mg Documented by: [facility] Heparin Sodium (Porcine) (Heparin Flush) 2 ml IV Q12 [facility] Last Admin: 10/10/19 21:47 Dose: Not Given Documented by: JARON Non-Admin Reason: no lines Admin: 10/10/19 09:21 Dose: Not Given Documented by: CIERA Non-Admin Reason: No IV access Magnesium Sulfate (Magnesium Sulfate) 2 gm in 50 mls @ 50 mls/hr IV UD PRN PRN Reason: MG = or < 1.7 Vancomycin HCl 1,000 mg/ (Sodium Chloride) 250 mls @ 250 mls/hr IV Q24H [facility] Last Admin: 10/11/19 09:02 Dose: 250 mls/hr Documented by: Infusion: 10/10/19 14:30 Dose: 0 mls/hr Documented by: Admin: 10/10/19 13:29 Dose: 250 mls/hr Documented by: CIERA Iron Carb/Multivit/Spalding/Folic Acid (Multivitamin W/Minerals) 1 tab PO DAILY [facility] Last Admin: 10/11/19 08:52 Dose: 1 tab Documented by: Admin: 10/10/19 09:21 Dose: 1 tab Documented by: Admin: 10/09/19 08:24 Dose: 1 tab Documented by: Admin: 10/08/19 09:10 Dose: 1 tab Documented by: CHELSI Lactobacillus Rhamnosus (Culturelle) 1 cap PO DAILY [facility] Last Admin: 10/11/19 08:52 Dose: 1 cap Documented by: Admin: 10/10/19 09:20 Dose: 1 cap Documented by: Admin: 10/09/19 08:22 Dose: 1 cap Documented by: Admin: 10/08/19 09:10 Dose: 1 cap Documented by: CHELSI Levofloxacin (Levaquin) 750 mg PO Q48H [facility]; Protocol Stop: 10/11/19 09:31 Last Admin: 10/09/19 10:25 Dose: 750 mg Documented by: [email or web address] Magnesium Oxide (Magnesium Oxide) 400 mg PO BID [facility] Last Admin: 10/11/19 08:52 Dose: 400 mg Documented by: Admin: 10/10/19 21:45 Dose: 400 mg Documented by: Admin: 10/10/19 09:19 Dose: 400 mg Documented by: Admin: 10/09/19 19:59 Dose: 400 mg Documented by: Admin: 10/09/19 08:24 Dose: 400 mg Documented by: Admin: 10/08/19 21:14 Dose: 400 mg Documented by: Admin: 10/08/19 09:10 Dose: 400 mg Documented by: Admin: 10/07/19 21:14 Dose: 400 mg Documented by: [email or web address] Melatonin (Melatonin 3mg Tablet) 3 mg PO HSP PRN PRN Reason: Insomnia Last Admin: 10/07/19 21:14 Dose: 3 mg Documented by: [email or web address] Nystatin (Nystatin) 500,000 units SSP TID [facility] Last Admin: 10/11/19 08:52 Dose: 500,000 units Documented by: [email or web address] Admin: 10/10/19 21:45 Dose: 500,000 units Documented by: Admin: 10/10/19 16:28 Dose: 500,000 units Documented by: Admin: 10/10/19 09:19 Dose: 500,000 units Documented by: Admin: 10/09/19 19:59 Dose: 500,000 units Documented by: Admin: 10/09/19 15:05 Dose: 500,000 units Documented by: Admin: 10/09/19 08:21 Dose: 500,000 units Documented by: Admin: 10/08/19 21:13 Dose: 500,000 units Documented by: Admin: 10/08/19 15:25 Dose: 500,000 units Documented by: CHELSI Oxandrolone (Oxandrin) 5 mg PO BID [facility] Last Admin: 10/10/19 21:55 Dose: 5 mg Documented by: Admin: 10/10/19 10:00 Dose: 5 mg Documented by: [email or web address] Diclofenac Sodium [ (Voltaren] Top Oint) 1 dose TOPICAL QIDP PRN PRN Reason: pain Teriparatide [Forteo ] 20 Mcg/Dose Solution 1 dose SC HS [facility] Last Admin: 10/10/19 21:45 Dose: 1 dose Documented by: Admin: 10/09/19 20:00 Dose: 1 dose Documented by: Admin: 10/08/19 21:20 Dose: 1 dose Documented by: JARON Polyethylene Glycol (Miralax) 17 gm PO DAILYP PRN PRN Reason: Constipation Potassium Chloride (Klor-Con) 40 meq PO DAILYP PRN PRN Reason: K+ < 3.5 [facility] Last Admin: 10/11/19 07:34 Dose: 4 mg Documented by: Admin: 10/10/19 09:20 Dose: 4 mg Documented by: Admin: 10/09/19 08:22 Dose: 4 mg Documented by: Admin: 10/08/19 08:03 Dose: 4 mg Documented by: CHELSI Senna/Docusate Sodium (Senna Plus Tablet) 1 tab PO [facility] Last Admin: 10/10/19 21:47 Dose: Not Given Documented by: JARON Non-Admin Reason: Patient Request Admin: 10/09/19 19:59 Dose: 1 tab Documented by: Admin: 10/08/19 21:20 Dose: Not Given Documented by: JARON Non-Admin Reason: Loose Stool Admin: 10/07/19 21:15 Dose: 1 tab Documented by: BALJIT Sodium Chloride (Saline Flush) 10 ml IV Q8 [facility] Last Admin: 10/11/19 04:50 Dose: Not Given Documented by: JARON Non-Admin Reason: see other charting Admin: 10/11/19 03:40 Dose: 10 ml Documented by: Admin: 10/10/19 21:46 Dose: 10 ml Documented by: Admin: 10/10/19 14:00 Dose: 10 ml Documented by: Admin: 10/10/19 05:32 Dose: 10 ml Documented by: Admin: 10/09/19 22:18 Dose: 10 ml Documented by: Admin: 10/09/19 17:41 Dose: Not Given Documented by: CIERA Non-Admin Reason: new IV started Admin: 10/09/19 04:32 Dose: 10 ml Documented by: Admin: 10/08/19 21:15 Dose: 10 ml Documented by: Admin: 10/08/19 14:09 Dose: 10 ml Documented by: Admin: 10/08/19 05:57 Dose: 10 ml Documented by: Admin: 10/07/19 21:16 Dose: 10 ml Documented by: BALJIT Sodium Chloride (Saline Flush) 10 ml IV Q12 [facility] Last Admin: 10/10/19 21:48 Dose: Not Given Documented by: JARON Non-Admin Reason: see other charting Admin: 10/10/19 09:23 Dose: 10 ml Documented by: CIERA Tramadol HCl (Ultram) 100 mg PO BIDP PRN PRN Reason: Pain Last Admin: 10/09/19 08:42 Dose: 100 mg Documented by: Admin: 10/07/19 21:14 Dose: 100 mg Documented by: BALJIT Vancomycin HCl (Vancomycin Per Pharmacy) 1 order IV UD GUILLERMO; Protocol Warfarin Sodium (Coumadin Per Pharmacy) 1 order PO DAILY@1400 [facility] Last Admin: 10/10/19 15:28 Dose: Not Given Documented by: DACMASOOD Non-Admin Reason: per pharmacy Admin: 10/09/19 14:49 Dose: Not Given Documented by: CIERA Non-Admin Reason: per pharmacy Admin: 10/08/19 14:09 Dose: Not Given Documented by: CHELSI Non-Admin Reason: Duplicate Assessment and Plan - Narrative A/P Narrative: A: 1. Left lower leg cellulitis in an immunosuppressed patient: post-traumatic, post-surgical - wound Cx growing clifford sensitive P aeruginosa - there is some loose, non viable tissue at the site of tear from fall but no concerns for necrotizing fascitis - no systemic inv given lack of fever, leucocytosis, and normal lactic acid - MRSA nasal PCR neg - resolving 2. New onset of blisters over left leg and foot: seems like Impetigo. Causes could be Staph aureus (MRSA or MSSA) or Strept - resolving, no new sites of involvement - gram stain neg, Cx NGTD 3. Moderate COPD: FEV1 58% in 05/2019 - on chronic oxygen through [place] 4. Factor 5 Leiden mutation: on life long Coumadin - past Hx of abd wall hematoma 5. RA: has deformities of hands and feet - on Enbrel per Rheum, last injection few weeks ago 6. Painful sore: left inner cheek - could be HSV - getting better, s/p PO Valacyclovir 2 gm q12 x 1 day Recommendations: - Continue PO Levofloxacin 750 mg q48 hrs for 2 doses since today - Stop IV Vanc. Start PO Doxycycline 100 mg bid x 7 days (stop date of 10/17/19). - Pt counseled about drug interactions with dairy products, and to space by at least 2 hrs. Shared side effects such as diarrhea, and to inform nurse/provider if he has 3 or >3 loose stools per day to r/o cdiff - Leg elevation to help decrease edema - debridement of the non viable tissue in left leg wound per Dr Rivas No outpatient f/u needed unless pt's infection is not getting better Jasmeet Guerin MD Infectious diseases
--- NOTE | 2019-10-11 09:13 | Discharge Summary ---
Medical - DS: Prov Patient information: Note initiated : 10/11/19 at 9:09 am Service Date, if different from initiated Date: [] Patient: Latrell Caro 79 y/o M admitted on 10/07/19 for Fall. Chief Complaint: [] Date of admission: 10/07/19 17:40 Discharge date: 10/11/19 Primary care physician: Axel Simpson Consults: 10/07/19 Consult to Infectious Disease [CONS] Stat Comment: Consulting Provider: Jasmeet Guerin Reason For Exam: Physician to Consult Consult to Physician [CONS] Stat Comment: Consulting Provider: Juan Carlos Parks Reason For Exam: Physician to Consult 10/07/19 14:00 Consult to Physician [CONS] Stat Comment: Consulting Provider: Erasto Rivas Reason For Exam: Physician to Consult 10/08/19 07:47 Consult to Physician [CONS] Routine Comment: Reassess patient. Consulting Provider: Chula Lynne Reason For Exam: Anesthesiologist assessment for GENERAL anesthesia 10/08/19 07:49 Consult to Physician [CONS] Routine Comment: Readmitted after fall. Possible surgery later Consulting Provider: Roberto Crowley Reason For Exam: Hypoxia, Recurring falls and injuries 10/08/19 11:24 Consult to Physician [CONS] Routine Comment: Consulting Provider: Zac Adames Reason For Exam: Physician to Consult Medical - DS: Meds - Discharge Medications Prescriptions: Levofloxacin [Levaquin] 750 mg PO Q48H #3 tab Prescription Printed Doxycycline Hyclate [Morgidox] 100 mg PO BID #14 cap Transmission Status: Pending to [facility] #[id number] Active and Home Medications: Home Medications carvedilol 12.5 mg tablet 12.5 mg PO BID 06/30/15 [History Confirmed 10/07/19 Last Taken 09/26/19 08:00] prednisone 1 mg tablet 4 mg PO QDAY tab 02/28/17 [History Confirmed 10/07/19 Last Taken 09/26/19 08:00] diclofenac sodium 1 % topical gel 2 g TOPICAL QID PRN #100 g 09/04/18 [Rx Confirmed 10/07/19 Last Taken Unknown] furosemide 40 mg tablet 40 mg PO QDAY #90 tab 07/15/19 [Rx Confirmed 10/07/19 Last Taken 09/26/19 08:00] folic acid 400 mcg tablet 400 mcg PO QDAY 08/02/19 [History Confirmed 10/07/19 Last Taken 09/26/19 08:00] magnesium 250 mg tablet 250 mg PO BID tab 08/02/19 [History Confirmed 10/07/19 Last Taken 09/26/19 08:00] omega-3 fatty acids 1,000 mg capsule 1,000 mg PO QDAY 08/02/19 [History Confirmed 10/07/19 Last Taken 09/26/19 08:00] warfarin 5 mg tablet See Rx Instructions PO QDAY #0 tab 09/13/19 [Rx Confirmed 10/07/19 Last Taken 09/26/19 08:00] Aripiprazole [Abilify] 10 mg PO QHS 09/26/19 [History Confirmed 10/07/19 Last Taken 09/25/19 21:00] Rosuvastatin Calcium [Crestor] 20 mg PO QHS 09/26/19 [History Confirmed 10/07/19 Last Taken 09/25/19 21:00] Teriparatide [Forteo] 2.4 ml SQ QHS 09/26/19 [History Confirmed 10/07/19 Last Taken 09/25/19 21:00] Ubidecarenone [Co Q-10] 300 mg PO MOWEFR 09/26/19 [History Confirmed 10/07/19 Last Taken 09/26/19 08:00] Vitamin B12 5,000 mcg PO QDAY 09/26/19 [History Confirmed 10/07/19 Last Taken 09/26/19 08:00] busPIRone [Buspar] 15 mg PO QHS 09/26/19 [History Confirmed 10/07/19 Last Taken 09/26/19 21:00] Calcium (Oyster Shell) [Oscal] 2,000 mg PO BID 09/27/19 [History Confirmed 10/07/19 Last Taken 09/26/19 08:00] Ergocalciferol (Vitamin D2) [Vitamin D2] 3,000 unit PO QAM 09/27/19 [History Confirmed 10/07/19 Last Taken 09/26/19 08:00] traMADol [Ultram] 100 mg PO BID PRN #20 tab 09/30/19 [Rx Confirmed 10/07/19 Last Taken Unknown] HYDROcodone/ACETAMINOPHEN [[place] 10-325 Tablet] 1 - 2 tab PO .Q6H PRN 10/07/19 [History Confirmed 10/07/19 Last Taken Unknown] L. Acidophilus/L.bulgaricus [Lactobacillus Tablet] 1 tab PO DAILY 10/07/19 [History Confirmed 10/07/19 Last Taken Unknown] Amitriptyline HCl 185.5 mg PO HS 10/08/19 [History Confirmed 10/08/19 Last Taken Unknown] Levofloxacin [Levaquin] 750 mg PO Q48H #3 tab 10/10/19 [Rx Last Taken Unknown] Doxycycline Hyclate [Morgidox] 100 mg PO BID #14 cap 10/11/19 [Rx Last Taken Unknown] Medical - DS: Hosp Hospital Course: Discharge diagnosis * Left lower extremity cellulitis/nonhealing wounds in the setting of immunocompromised state-clinically improved with aggressive wound care. Continue with doxycycline/Levaquin as per ID recommendation based on cultures including Pseudomonas. Patient will follow-up with ID clinic as outpatient along with wound care as per recommendations from Dr. Rivas. Continue limb elevation/daily dressings. Wound care recommends vascular studies to evaluate blood flow to ensure adequate wound healing as outpatient to be coordinated by Dr. Rivas * Left calf ulceration/posterior upper calf laceration during subsequent trauma- managed by Dr. Rivas. * Protein calorie malnutrition continue nutrition support/protein calorie supplements * History of PMR continue home dose 4 mg p.o. prednisone * History diastolic CHF stable on Coreg * History of CAD status post CABG stable continue beta-elayne * CKD stage III-avoid nephrotoxins. Stable at baseline * Neuropathy continue amitriptyline * History CARLOS/mild COPD on CPAP. Follows up outpatient with Dr. Crowley pulmonology. Pulmonology recommends repeat spirometry and care for postoperative respiratory muscle weakness in the setting of PMR * History of hypertension continue home medications * History of RA on Enbrel managed by Dr. Bacon * Anxiety depression continue BuSpar * Osteoporosis continue Forteo * History of DVT continue anticoagulation on warfarin. INR therapeutic at 2 Brief hospital course Mr. Caro is a 79 year old M with a history of PMR on Enbrel / prednisone [facility] recent hospitalization for left calf laceration and infected wound with necrosis. He has been following up with wound care. Patient today fell at the care facility and sustained a calf laceration from wheelchair. He denied precipitating events prior to fall. He denied loss of consciousness. He was referred to the ER for further evaluation. During initial evaluation it was noted that wound VAC that was placed left calf 24 hours ago has dislodged and was nonfunctional. The wounds around left calf has been oozing with significant redness and swelling entire lower extremity. There has been surrounding erythema and limb is exquisitely tender. However Doppler ultrasounds were negative for DVT. Worsening calf ulceration was noted 5 x 5 cm at least 4 to 5 mm in depth with areas of necrotic tissue. [facility] Dr. Rivas was consulted who requested hospitalist service to admit patient for further debridement/antibiotics. ID was also consulted. Patient was started on vancomycin after cultures were drawn At the time evaluation patient is accompanied with his . He was able to answer most questions. He appears fatigued lethargic but denies fevers, shaking chills, headache. He is currently on 4 mg of prednisone on a tapering dose for his PMR. 10/08-wound care following. On antibiotic coverage. Improved redness swelling. Stable white count.INR 1.6. Renal function stable. Pulmonology consulted for preoperative evaluation of chronic hypoxia/obstructive sleep apnea and mild COPD. Immunocompromise state currently on Enbrel/prednisone for history of PMR/RA. ID on board. Patient will likely undergo operative debridement/wound closure by wound physician. Keep n.p.o. Await anesthesia evaluation. 10/09-patient doing well. No overnight events. INR 1.9. White count stable. No fever chills. Ongoing wound care/due for operative intervention per wound physician. No family at bedside. 10/10-patient very tearful anxious and contemplating on stopping treatments and wanting to go home. Spent extended period of discussion with and patient regarding treatment plan and expected course for any major ulcer or wound healing. Patient would like to discuss case with wound care physician for insight to duration of treatment. Case discussed with Dr. Rivas. At this time patient willing to stay for continued treatments however feels very depressed and emotionally down. Continues on antibiotic coverage. White count down to 9.2. INR 2. Creatinine 1.3. Continue high protein calorie supplements to aid wound healing 10/11-ongoing wound care. Discharging to SNF for continued outpatient wound care/antibiotic as per ID recommendations. Will require outpatient follow-up with IR for possible vascular intervention as per wound care. We will follow-up with wound care and ID as outpatient. Continue PT OT/aggressive wound care and nutrition support at SNF. Coumadin dosing based on INR. Discharge diagnosis: . - Time Spent with Patient Total time spent providing and/or coordinating discharge services: Greater than 30 minutes Medical - DS: Exam - Constitutional Vitals: Vital Signs Temp Pulse Resp BP BP Pulse Ox 10/11/19 07:40 98.6 F 84 16 127/67 89 L 10/11/19 07:39 84 10/11/19 03:39 98.2 F 85 16 141/76 92 10/10/19 23:49 98.0 F 86 14 106/64 90 10/10/19 21:22 14 10/10/19 20:00 99.6 F H 78 14 115/69 92 10/10/19 16:00 98.2 F 73 18 107/70 90 10/10/19 12:00 97.1 F 87 18 96/60 92 Intake and Output 10/10/19 10/11/19 10/11/19 21:59 05:59 13:59 Intake Total 500 400 Output Total 250 Balance 250 400 Intake: Nourishment/Supplement quantity 250 (ml) IV 250 Vancomycin 1,000 mg In Sodium 250 Chloride 0.9% 250 ml @ 250 mls/ hr IV Q24H [facility] Rx#:[id number] Oral 400 Output: Void Amount 250 Other: Meal Lunch Percent of Meal Consumed 75% Feeding Ability Independent Nourishment/Supplement name boost Urine Appearance Clear Urine Color Bright Yellow Urine Odor Normal Stool Size Moderate Stool Color Brown Stool Consistency Normal for Patient Formed # Voids 3 1 # Bowel Movements 2 Weight 124 lb 2 oz Medical - DS: Data Labs on day of discharge: Labs from last 24 hours 10/11/19 10/11/19 10/11/19 05:35 05:35 05:35 WBC 9.3 RBC 3.17 L Hgb 10.2 L Hct 31.7 L MCV 100.0 MCH 32.2 MCHC 32.2 RDW 14.2 Plt Count 291 MPV 9.6 Total Counted Pending Seg Neutrophils % Band Neutrophils % Not Reportable Lymphocytes % Monocytes % (Manual) Eosinophils % (Manual) Platelet Estimate Pending RBC Morphology Pending PT 22.7 H INR 1.9 H Sodium 138 Potassium 3.7 Chloride 103 Carbon Dioxide 25 Anion Gap 10.0 BUN 28 H Creatinine 1.3 H GFR Calculation 52 Glucose 76 Uric Acid 6.7 Calcium 8.3 L Phosphorus 2.1 L Magnesium 2.2 Total Bilirubin 0.3 Direct Bilirubin < 0.2 GGT 20 AST 22 ALT 17 Alkaline Phosphatase 76 Lactate Dehydrogenase 223 Total Protein 5.2 L Albumin 2.5 L Globulin 2.7 Albumin/Globulin Ratio 0.9 L Triglycerides 63 10/10/19 05:35 WBC RBC Hgb Hct MCV MCH MCHC RDW Plt Count MPV Total Counted 100 Seg Neutrophils % 68 Band Neutrophils % Lymphocytes % 11 L Monocytes % (Manual) 11 Eosinophils % (Manual) 10 H Platelet Estimate Normal RBC Morphology Normal PT INR Sodium Potassium Chloride Carbon Dioxide Anion Gap BUN Creatinine GFR Calculation Glucose Uric Acid Calcium Phosphorus Magnesium Total Bilirubin Direct Bilirubin GGT AST ALT Alkaline Phosphatase Lactate Dehydrogenase Total Protein Albumin Globulin Albumin/Globulin Ratio Triglycerides Preliminary micro results at discharge 10/07/19 15:11 Blood Culture - Preliminary Blood 10/07/19 14:56 Blood Culture - Preliminary Blood Medical - DS: A/P - Patient/Caregiver Discharge Instructions Activity: as per physical therapy, increase activity as tolerated Diet: Cardiac Additional Instructions: Follow-up PCP in 5 days F/u wound care and ID as schedule I recommend [facility] physician to check INR, CBC BMP UA as a posthospital follow-up in 1 week. Antibiotics for additional 7 days doxycycline an additional 2 doses Levaquin Please schedule pulmonary follow-up in 3 to 4 weeks Continue aggressive bowel regimen to prevent constipation Continue fall precautions Continue aggressive PT OT evaluation and treatment at [facility]. ST eval and treatment if indicated Aggressive wound care/limb elevation High protein calorie supplements All meals on chair sitting upright at 90 degrees to prevent aspiration Return to ER if worsening fever chills shortness of breath, diarrhea, bleeding Review risk and side effect profile of medications including antibiotics. Side effect may include mild to severe reaction including rash, diarrhea, cdiff and even which can be prevented by close follow-up with PCP and monitoring for side effects Continue diet and activity as advised Discussed importance of medication adherence Please review medication list with patient prior to discharge Please schedule follow-up with PCP/Providers prior to discharge and provide printouts Prescriptions: Levofloxacin [Levaquin] 750 mg PO Q48H #3 tab Prescription Printed Doxycycline Hyclate [Morgidox] 100 mg PO BID #14 cap Transmission Status: Pending to [facility] #[id number] - Problem Maintenance (1) Cellulitis of left lower extremity Status: Acute - Follow up Plan Follow up with: Axel Simpson MD [Primary Care Provider] - Disposition: Xfer SNF Prognosis: Fair Rehab Potential: Fair I certify that the patient requires SNF services: Yes Overall status at discharge: patient is progressing back to baseline Medical - DS: Qual - VTE Deep Vein Thrombosis/Pulmonary Embolism Present on Admission: No
[2019-10-11] MEDS: OXANDROLONE 2.5 MG TABLET PO SCH (09:15)
[2019-10-11] MEDS: LEVOFLOXACIN 750 MG TABLET PO SCH (09:19)
[2019-10-11 10:12] LABS: Eosinophils % (Manual) 5 % (0-7); Lymphocytes % 16 % (15-49); Microcytosis FEW (NONE SEEN); Monocytes % (Manual) 14 % (1-12); Nucleated Red Blood Cells 1 % (0-0); Platelet Estimate NORMAL (NORMAL); RBC Morphology ABNORM (NORMAL); Segmented Neutrophils % 65 % (38-78)
--- NOTE | 2019-10-11 10:55 | General Surgery Progress Note ---
Subjective Patient reports: other (Patient seen on rounds with DINESH RN. Progress reviewed and discussed with ID and Hospitalist physicians, Dr. Guerin and Dr. Parks.) Narrative: Note initiated : 10/11/19 at 10:49 am Service Date, if different from initiated Date: [] Patient: Latrell Caro 79 y/o M admitted on 10/07/19 for Fall. Chief Complaint: [] Objective Temp Pulse Resp BP Pulse Ox 98.6 F 84 16 127/67 89 L 10/11/19 07:40 10/11/19 07:40 10/11/19 07:40 10/11/19 07:40 10/11/19 07:40 AVSS. Looks good and feels well. Put on over 6 lbs in weight PAYAM No new changes, L/E Resolved cellulitis. Lower posterior leg blisters (serous fluid ) Wound bases granulating between 70-80% Periwound edema of skin and sub Q improving. Wound c/s noted. Started on PO abx. Local wound care d/w Rickey SEVILLA I/C. Patient is to be D/C to [facility] today. - Additional Data Intake & Output - Last 24 hours: Intake & Output 10/09/19 10/10/19 10/11/19 10/12/19 05:59 05:59 05:59 05:59 Intake Total 1190 700 900 240 Output Total 450 500 Balance 1190 250 400 240 Weight 120 lb 8 oz 123 lb 124 lb 2 oz - Labs 10/11/19 05:35 10/11/19 05:35 Diabetes panel 10/11/19 Range/Units 05:35 Sodium 138 (133-145) mmol/L Potassium 3.7 (3.3-5.1) mmol/L Chloride 103 (96-108) mmol/L Carbon Dioxide 25 (22-30) mmol/L BUN 28 H (8-23) mg/dl Creatinine 1.3 H (0.7-1.2) mg/dl Glucose 76 (70-105) mg/dL Calcium 8.3 L (8.6-10.4) mg/dl AST 22 (0-37) U/l ALT 17 (0-40) U/l Alkaline Phosphatase 76 (39-117) U/L Total Protein 5.2 L (5.9-8.4) gm/dL Albumin 2.5 L (3.2-5.2) gm/dL Triglycerides 63 (<150) mg/dl Calcium panel 10/11/19 Range/Units 05:35 Calcium 8.3 L (8.6-10.4) mg/dl Phosphorus 2.1 L (2.7-4.5) mg/dL Albumin 2.5 L (3.2-5.2) gm/dL Pituitary panel 10/11/19 Range/Units 05:35 Sodium 138 (133-145) mmol/L Potassium 3.7 (3.3-5.1) mmol/L Chloride 103 (96-108) mmol/L Carbon Dioxide 25 (22-30) mmol/L BUN 28 H (8-23) mg/dl Creatinine 1.3 H (0.7-1.2) mg/dl Glucose 76 (70-105) mg/dL Calcium 8.3 L (8.6-10.4) mg/dl Adrenal panel 10/11/19 Range/Units 05:35 Sodium 138 (133-145) mmol/L Potassium 3.7 (3.3-5.1) mmol/L Chloride 103 (96-108) mmol/L Carbon Dioxide 25 (22-30) mmol/L BUN 28 H (8-23) mg/dl Creatinine 1.3 H (0.7-1.2) mg/dl Glucose 76 (70-105) mg/dL Calcium 8.3 L (8.6-10.4) mg/dl Total Bilirubin 0.3 (0.0-1.0) mg/dL AST 22 (0-37) U/l ALT 17 (0-40) U/l Alkaline Phosphatase 76 (39-117) U/L Total Protein 5.2 L (5.9-8.4) gm/dL Albumin 2.5 L (3.2-5.2) gm/dL Assessment and Plan (1) Skin tear of left lower leg without complication Status: Acute Current Visit: No (2) Wound infection Status: Acute Current Visit: No (3) Coagulopathy Problem details: COUMADIN ON HOLD at this time. Status: Chronic Current Visit: No - Narrative A/P Narrative: Assessment: Resolving CSSSI / Sepsis Nutrition repletion ongoing LESS anxious now. Plan: OK to d/c with instructions. Written instructions signed After D/C f/u at wound center in 1 week. - Time Spent With Patient Total time spent is greater than 50% in coordination of care (as documented) at patient's floor/unit and/or counseling patient: 15 - 24 minutes
[2019-10-11] MEDS: HYDROcodone/APAP 10/325MG TABLET PO PRN (11:32)
== END 2019-10-11 11:45 | DRG 603 ==
LOC: MEDSUR 11:21 → ED 11:21 → MEDSUR 17:40 → OBSVTOIN 17:40 → MEDSUR 10-08 12:49
PROVIDERS: ADMIT Internal Medicine; ATTEND Internal Medicine